=== PATIENT | male | born 1970 | race Two or more races ===

== ENCOUNTER 2020-05-05 10:15 | Emergency (ER) | payer OTHER, SELFPAY ==
[2020-05-05 10:40] VITALS: BP 152/79; PULSE 97; RESP 18; TEMP 36.6; O2SAT 99; BMI 27.4
[2020-05-05] MEDS: oxyCODONE HCl Immed Release 5 MG TABLET 10 MG PO (11:13)
--- NOTE | 2020-05-05 11:23 | ED.MALEGU ---
HPI - Male Genitourinary General Chief complaint: Urogenital-Female Stated complaint: SWELLING AND PAIN OF FORESKIN Time Seen by Provider: 05/05/20 10:28 Source: patient Mode of arrival: ambulatory Limitations: no limitations History of Present Illness HPI Narrative: THIS IS A 49 YEARS OLD MAN WHO PRESENTED AMBULATORY TO THE EMERGENCY ROOM A WITH THE CHIEF COMPLAINT NO SWELLING OF THE PENIS AND INABILITY TO RETRACT THE FORESKIN Complaint: other ( SWELLING IN PENIS) Onset (ago): day(s) (2) Duration: constant Location: penis Severity: severe Severity scale (1-10): 8 Quality: aching, burning and dull Relieving factors: none Exacerbating factors: none Associated symptoms: Reports denies other symptoms Related Data Allergies Allergy/AdvReac Type Severity Reaction Status Date / Time acetaminophen [Vicodin] Allergy Unknown Verified 10/30/12 00:00 hydrocodone [Vicodin] Allergy Unknown Verified 10/30/12 00:00 No Known Allergies Allergy Unverified 04/06/20 15:59 [No Known Allergies*] Review of Systems Review of Systems: Yes all other systems are reviewed and are negative Cardiovascular: Cardiovascular: Reports no additional cardiovascular complaints Respiratory: Respiratory: Reports no additional respiratory complaints Genitourinary: Genitourinary: Reports as per [facility] Past Medical History Attestation statement: The following information was validated with the patient. Medical History Asthma Diabetes 1.5, managed as type 1 Social History Social History Advance Directives: No Advance Directives Information Provided: Yes Physical Exam Vital Signs: Vital Signs: Vital Signs Temp Pulse Resp BP Pulse Ox 05/05/20 11:58 98 F 91 16 150/84 H 100 05/05/20 10:40 98 F 97 18 152/79 H 99 Body Mass Index 27.4 Const: General: cooperative and anxious Orientation/consciousness: oriented to person, oriented to time and patient oriented x3 HENMT: Head: Yes normal to inspection Eyes: General: appearance normal, both eyes and all related structures Neck: Neck: Yes normal visual inspection and Yes full ROM Chest: Chest palpation & inspection: normal inspection of the chest and normal palpation of entire chest wall Resp: Effort & Inspection: normal respiratory effort Cardio: Jugular venous distension: no JVD Rate: regular rate Rhythm: regular rhythm : Other: phimosis was present on physical examination Penis: uncircumcised and Localized penile swelling present Scrotum: scrotum normal Testes: Testes normal Skin: General skin exam: no rashes or lesions noted Neuro: General: oriented to person, oriented to time and patient oriented x3 Course Course Course Narrative: the phimosis was reduced by me successfully,he felt better after Procedures Procedure Narrative Procedure Narrative: Reducion of phimosis performed by me successfully MDM - Male Genitourinary Lab Data Result diagrams: 05/05/20 11:31 05/05/20 11:31 Labs: Lab Results 05/05/20 05/05/20 Range/Units 11:31 11:31 WBC 11.7 H (4.8-10.8) X10*3/uL RBC 4.05 L (4.60-5.80) X10*6/uL Hgb 13.1 L (14.0-18.0) g/dl Hct 37.1 L (42-52) % MCV 91.6 (80-98) fL MCH 32.3 (27.0-33.0) pg MCHC 35.3 (31.0-36.0) g/dl RDW 11.6 (11.0-16.0) % Plt Count 169 (160-400) X10*3/uL MPV 9.5 (9.4-12.4) fL Immature Gran % (Auto) 0.3 (0.0-0.4) % Neut % (Auto) 85.1 H (45-73) % Lymph % (Auto) 10.5 L (20-40) % [place] % (Auto) 3.7 (2-11) % Eos % (Auto) 0.2 (0-4) % Baso % (Auto) 0.2 (0-2) % Lymph # (Auto) 1.2 (1.2-4.9) X10*3/uL [place] # (Auto) 0.4 (0.1-1.2) X10*3/uL Eos # (Auto) 0.0 (0.0-0.4) X10*3/uL Baso # (Auto) 0.0 (0.0-0.2) X10*3/uL Abs Immat Gran (auto) 0.04 H (0.00-0.03) X10*3/uL Absolute Neuts (auto) 9.9 H (2.0-8.3) X10*3/uL Absolute Nucleated RBC 0.000 (0.0-0.012) X10*3/uL Nucleated RBC % (auto) 0.0 (0.0-0.2) /100WBC Urine Color YELLOW Urine Appearance CLEAR Urine pH 6.0 (5.0-8.0) Ur Specific [place] 1.025 (1.005-1.025) Urine Protein 2+ H (NEG-TRACE) MG/DL Urine Glucose (UA) >=1000 H (NEG) MG/DL Urine Ketones 15 (NEG) MG/DL Urine Blood 1+ H (NEG) Urine Nitrite NEG (NEG) Ur Leukocyte Esterase NEG (NEG) Urine RBC 0-2 (0) /HPF Urine WBC 0-2 (0-4) /HPF Ur Squamous Epith Cells TRACE /LPF Urine Bacteria NONE /LPF Discharge Plan Discharge Clinical Impression: Phimosis of penis Patient Disposition: Home, Self-Care Instructions: Phimosis (ED) Additional Instructions: please follow-up with the urologist as we discussed the return is worse Referrals: Marek Huff MD [Physician] - 3 days
[2020-05-05 11:39] LABS: MANUAL DIFF FLAG NO
[2020-05-05 11:49] LABS: Appearance Urine CLEAR; Color Urine YELLOW; Glucose Urine UA >=1000 MG/DL (NEG); Leukocyte Esterase Urine NEG (NEG); Nitrite Urine NEG (NEG); Specific Gravity - Urine 1.025 (1.005-1.025); Urine Blood 1+ (NEG); Urine Ketones 15 MG/DL (NEG); Urine Protein 2+ MG/DL (NEG-TRACE)
[2020-05-05 11:51] LABS: Basophils Percent Auto 0.2 % (0-2); Eosinophils Percent Auto 0.2 % (0-4); Hematocrit 37.1 % (42-52); Hemoglobin 13.1 g/dl (14.0-18.0); Imm Gran Abs Auto 0.04 X10*3/uL (0.00-0.03); Imm Gran Pct Auto 0.3 % (0.0-0.4); Lymphocytes Absolute Auto 1.2 X10*3/uL (1.2-4.9); Lymphocytes Percent Auto 10.5 % (20-40); Mean Corpuscular HGB Conc 35.3 g/dl (31.0-36.0); Mean Corpuscular Hemoglobin 32.3 pg (27.0-33.0); Mean Corpuscular Volume 91.6 fL (80-98); Mean Platelet Volume 9.5 fL (9.4-12.4); Monocytes Absolute Auto 0.4 X10*3/uL (0.1-1.2); Monocytes Percent Auto 3.7 % (2-11); Neutrophils Absolute Auto 9.9 X10*3/uL (2.0-8.3); Neutrophils Percent Auto 85.1 % (45-73); Platelet Count 169 X10*3/uL (160-400); Red Blood Count 4.05 X10*6/uL (4.60-5.80); Red Cell Distribution Width 11.6 % (11.0-16.0); White Blood Count 11.7 X10*3/uL (4.8-10.8)
[2020-05-05 11:58] VITALS: BP 150/84; PULSE 91; RESP 16; TEMP 36.6; O2SAT 100
[2020-05-05 12:01] LABS: RBC Urine 0-2 /HPF (0); Squamous Epithelial Cell Urine TRACE /LPF; WBC Urine 0-2 /HPF (0-4)
[2020-05-05 13:14] LABS: Alanine Aminotransferase 13 U/L (0-40); Albumin Level 3.7 g/dL (3.5-5.0); Alkaline Phosphatase 80 U/L (39-117); Anion Gap 10 (12-20); Aspartate Amino Transferase 13 U/L (5-37); Bilirubin Total 0.7 mg/dL (0.0-1.0); Blood Urea Nitrogen 22 mg/dL (9-16); Calcium 8.8 mg/dL (8.4-10.2); Carbon Dioxide 30 mmol/L (22-29); Chloride 101 mmol/L (96-108); Creatinine Clr Calc Pharmacy 65.5; Estimated Glomerular Filt Rate > 60; Glucose Random 382 mg/dL (60-115); Potassium 4.9 mmol/l (3.3-5.1); Sodium 136 mmol/L (135-145); Total Protein 5.9 g/dL (6.5-8.0)
== END 2020-05-05 12:36 | disposition home or self-care (01) ==
PROVIDERS: Emergency Provider Emergency Medicine; PCP Nurse Practitioner Family
DX: N47.1 Phimosis (principal); N48.89 Other specified disorders of penis; Z79.899 Other long term (current) drug therapy
CPT/HCPCS: 36415; 80053; 81001; 85025; 99283

== ENCOUNTER 2020-09-22 11:56 | Outpatient (REF) | payer OTHER, SELFPAY ==
--- NOTE | ~2020-09-22 | XR_ITS ---
EXAMINATION: XR CHEST CLINICAL INFORMATION: Failure to thrive. COMPARISON: None TECHNIQUE: 2 views of the chest were obtained. FINDINGS: No significant abnormality is noted involving the heart, lungs, mediastinum, bony thorax or soft tissues. XR/XR chest 2V IMPRESSION: Unremarkable chest exam.
== END 2020-09-22 11:57 | disposition home or self-care (01) ==
LOC: HO.XRAY 11:56
PROVIDERS: PCP Family Medicine; Visit Provider Family Medicine
DX: R62.7 Adult failure to thrive (principal)
CPT/HCPCS: 71046

== ENCOUNTER 2020-09-26 20:19 | Emergency (ER) | payer OTHER, SELFPAY ==
--- NOTE | ~2020-09-26 | US_ITS ---
EXAMINATION: US SCROTUM CLINICAL INFORMATION: Scrotal swelling. COMPARISON: None TECHNIQUE: A sonogram of the scrotum was performed assessing rubin-scale appearance and color Doppler flow. Spectral Doppler analysis of the arterial and venous flow were performed in the testes bilaterally. FINDINGS: The scrotal wall demonstrates significant thickening and hypervascularity. RIGHT: Right testicle measures 4.4 x 2.1 x 2.7 cm, volume 12.9 mL. No focal testicular parenchymal lesions are visualized. Spectral Doppler analysis of the arterial and venous flow is normal in the right testis. Right epididymal head is normal in size. No large right hydrocele or varicocele is seen. A tiny bit of fluid is present. Right epididymal Doppler flow is normal. LEFT: Left testicle measures 4.1 x 2.1 x 2.5 cm, volume 11.1 mL. No focal testicular parenchymal lesions are visualized. Spectral Doppler analysis of the arterial and venous flow is normal in the left testis. Left epididymal head is normal in size. No large left hydrocele or varicocele is seen. A tiny bit of fluid is present. Left epididymal Doppler flow is normal. US/US scrotum doppler IMPRESSION: Testes and epididymides appear normal. There is marked swelling and edema of the scrotum.
--- NOTE | ~2020-09-26 | US_ITS ---
EXAMINATION: US SCROTUM CLINICAL INFORMATION: Scrotal swelling. COMPARISON: None TECHNIQUE: A sonogram of the scrotum was performed assessing rubin-scale appearance and color Doppler flow. Spectral Doppler analysis of the arterial and venous flow were performed in the testes bilaterally. FINDINGS: The scrotal wall demonstrates significant thickening and hypervascularity. RIGHT: Right testicle measures 4.4 x 2.1 x 2.7 cm, volume 12.9 mL. No focal testicular parenchymal lesions are visualized. Spectral Doppler analysis of the arterial and venous flow is normal in the right testis. Right epididymal head is normal in size. No large right hydrocele or varicocele is seen. A tiny bit of fluid is present. Right epididymal Doppler flow is normal. LEFT: Left testicle measures 4.1 x 2.1 x 2.5 cm, volume 11.1 mL. No focal testicular parenchymal lesions are visualized. Spectral Doppler analysis of the arterial and venous flow is normal in the left testis. Left epididymal head is normal in size. No large left hydrocele or varicocele is seen. A tiny bit of fluid is present. Left epididymal Doppler flow is normal. US/US scrotum IMPRESSION: Testes and epididymides appear normal. There is marked swelling and edema of the scrotum.
[2020-09-26 20:38] VITALS: BP 136/76; BP 150/100; PULSE 14; PULSE 98; RESP 19; TEMP 37.1; O2SAT 100; BMI 30.9
[2020-09-26 20:57] LABS: Glucose Urine UA 500 MG/DL (NEG); Leukocyte Esterase Urine NEG (NEG); Nitrite Urine NEG (NEG); Specific Gravity - Urine 1.025 (1.005-1.025); Urine Blood 2+ (NEG); Urine Ketones NEG (NEG); Urine Protein 2+ MG/DL (NEG-TRACE)
[2020-09-26 20:58] LABS: Appearance Urine CLEAR; Color Urine YELLOW
[2020-09-26 21:05] LABS: WBC Urine 0 /HPF (0-4)
[2020-09-26 21:43] LABS: Glucose, Whole Blood 100 mg/dL (60-115)
--- NOTE | 2020-09-26 22:03 | ED_ITS ---
HPI - Male Genitourinary General Chief complaint: Urogenital-Male Stated complaint: SWOLLEN TESTICLES Time Seen by Provider: 09/26/20 22:03 Source: patient Mode of arrival: ambulatory Limitations: no limitations History of Present Illness HPI Narrative: Patient with no known significant past medical history complain ing of swelling of his scrotum also noticed to have swelling of the legs for last few days denies any trauma no urinary symptom denies any liver problems denies any alcohol use no shortness of breath no chest pain MD Complaint: testicle swelling Related Data Previous Rx's Medication Instructions Recorded hydrochlorothiazide 50 mg PO DAILY #30 tab 09/26/20 Allergies Allergy/AdvReac Type Severity Reaction Status Date / Time acetaminophen [Vicodin] Allergy Unknown Unknown Verified 09/26/20 20:41 hydrocodone [Vicodin] Allergy Unknown Unknown Verified 09/26/20 20:41 Review of Systems Review of Systems: Constitutional : No Weight loss, No Fever, No Chills ENT/Mouth : No sore throat, No Rhinorrhea Eyes: No Eye Pain, No Swelling Cardiovascular : No Chest Pain, no palpitations Respiratory : No Cough, No Sputum, no shortness of breath Gastrointestinal : no Nausea, No Vomiting, No Diarrhea, No abdominal Pain, no black stools Genitourinary : No Dysuria, No Urinary Frequency Musculoskeletal : No joint pain, No Myalgias, No Joint Swelling Skin : No Skin Lesions, No rash Neuro : No Weakness, No Numbness, No Dizziness, No Headache Psych : No Anxiety/Panic, No Depression Heme/Lymph: No Bruising, No Lymphadenopathy Endocrine : No Polyuria, No Polydipsia All other systems reviewed and are negative PMFSH Past Medical History Medical History Asthma Diabetes 1.5, managed as type 1 Social History Social History Alcohol intake: unknown Smoking Status: Smoker, status unknown Use of substances other than those prescribed or required for medical reasons: Unknown Advance Directives: No Advance Directives Information Provided: Yes Physical Exam Vital Signs: Vital Signs: Last Vital Signs Temp 98.7 F 09/26/20 20:38 Pulse 98 09/26/20 20:38 Resp 19 09/26/20 20:38 BP 136/76 09/26/20 20:38 Pulse Ox 100 03/09/21 20:38 Body Mass Index 30.9 Const: General: comfortable and no acute distress Nutritional Appearance: average body habitus Orientation/consciousness: patient oriented x3 HENMT: Head: Yes normal to inspection and Yes normocephalic Ears: hearing grossly normal bilaterally General nose exam: Normal external nose present Eyes: General: appearance normal, both eyes and all related structures Sclerae: sclerae normal Corneas: corneas normal Neck: Neck: Yes normal visual inspection Thyroid: Thyroid normal Chest: Chest palpation & inspection: normal palpation of entire chest wall Resp: Effort & Inspection: normal respiratory effort Auscultation: clear to auscultation bilaterally, no crackles, no rales and no rhonchi Cardio: Jugular venous distension: no JVD Palpation: normal PMI Rate: regular rate Rhythm: regular rhythm Heart sounds: S1 normal heart sound present and S2 normal heart sound present Peripheral pulses: Peripheral pulses 2+ throughout GI: Inspection: Yes normal to inspection Palpation (GI): Soft to palpation and nontender Auscultation: normal bowel sounds : General: Yes no CVA tenderness Penis: normal penis Meatus: meatus normal Scrotum: edematous, no hydroceles, no inguinal hernias and no masses Testes: Testes normal Back/Spine/Pelvis: Back: no CVA tenderness Thoracic/Lumbar Spine: thoracic and lumbar spine normal to inspection Skin: General skin exam: no rashes or lesions noted Neuro: General: patient oriented x3 and no focal motor deficits Extrem: General: Yes full ROM, Yes no calf tenderness and Yes edema (2+ p itting edema) MDM - Male Genitourinary MDM Narrative Medical decision making narrative: Patient with scrotal swelling which he says has developed acutely today and leg edema likely from fluid retention clinically not hydrocele. Will do the ultrasound of the scrotum do the basic labs 23:50. Patient labs showed normal liver functions normal LFTs except low albumin levels, normal BNP ultrasound was showing only edema of the skin of scrotum will discharge patient home on hydrochlorothiazide advised to follow-up with PCP Lab Data Result diagrams: 09/26/20 22:43 09/26/20 22:43 Labs: Lab Results 09/26/20 09/26/20 09/26/20 Range/Units 20:47 21:16 22:43 WBC 7.8 (4.8-10.8) X10*3/uL RBC 3.75 L (4.60-5.80) X10*6/uL Hgb 11.9 L (14.0-18.0) g/dl Hct 35.2 L (42-52) % MCV 93.9 (80-98) fL MCH 31.7 (27.0-33.0) pg MCHC 33.8 (31.0-36.0) g/dl RDW 11.8 (11.0-16.0) % Plt Count 177 (160-400) X10*3/uL MPV 9.1 L (9.4-12.4) fL Immature Gran % (Auto) 0.4 (0.0-0.4) % Neut % (Auto) 60.6 (45-73) % Lymph % (Auto) 29.1 (20-40) % [place] % (Auto) 7.9 (2-11) % Eos % (Auto) 1.7 (0-4) % Baso % (Auto) 0.3 (0-2) % Lymph # (Auto) 2.3 (1.2-4.9) X10*3/uL [place] # (Auto) 0.6 (0.1-1.2) X10*3/uL Eos # (Auto) 0.1 (0.0-0.4) X10*3/uL Baso # (Auto) 0.0 (0.0-0.2) X10*3/uL Abs Immat Gran (auto) 0.03 (0.00-0.03) X10*3/uL Absolute Neuts (auto) 4.8 (2.0-8.3) X10*3/uL Absolute Nucleated RBC 0.000 (0.0-0.012) X10*3/uL Nucleated RBC % (auto) 0.0 (0.0-0.2) /100WBC Sodium (135-145) mmol/L Potassium (3.3-5.1) mmol/L Chloride (96-108) mmol/L Carbon Dioxide (22-29) mmol/L Anion Gap (12-20) BUN (9-16) mg/dL Creatinine (0.5-1.4) mg/dL Estim Creat Clear Calc Estimated GFR POC Glucose 100 (60-115) mg/dL Random Glucose (60-115) mg/dL Calcium (8.4-10.2) mg/dL Total Bilirubin (0.0-1.0) mg/dL Direct Bilirubin (0.0-0.5) mg/dL AST (5-37) U/L ALT (0-40) U/L Alkaline Phosphatase (39-117) U/L B-Natriuretic Peptide (<100) pg/mL Total Protein (6.5-8.0) g/dL Albumin (3.5-5.0) g/dL Urine Color YELLOW Urine Appearance CLEAR Urine pH 6.0 (5.0-8.0) Ur Specific [place] 1.025 (1.005-1.025) Urine Protein 2+ H (NEG-TRACE) MG/DL Urine Glucose (UA) 500 H (NEG) MG/DL Urine Ketones NEG (NEG) MG/DL Urine Blood 2+ H (NEG) Urine Nitrite NEG (NEG) Ur Leukocyte Esterase NEG (NEG) Urine RBC 1-4 (0) /HPF Urine WBC 0 (0-4) /HPF Ur Squamous Epith Cells NONE /LPF Urine Bacteria NONE /LPF 09/26/20 09/26/20 09/26/20 Range/Units 22:43 22:43 23:32 WBC (4.8-10.8) X10*3/uL RBC (4.60-5.80) X10*6/uL Hgb (14.0-18.0) g/dl Hct (42-52) % MCV (80-98) fL MCH (27.0-33.0) pg MCHC (31.0-36.0) g/dl RDW (11.0-16.0) % Plt Count (160-400) X10*3/uL MPV (9.4-12.4) fL Immature Gran % (Auto) (0.0-0.4) % Neut % (Auto) (45-73) % Lymph % (Auto) (20-40) % [place] % (Auto) (2-11) % Eos % (Auto) (0-4) % Baso % (Auto) (0-2) % Lymph # (Auto) (1.2-4.9) X10*3/uL [place] # (Auto) (0.1-1.2) X10*3/uL Eos # (Auto) (0.0-0.4) X10*3/uL Baso # (Auto) (0.0-0.2) X10*3/uL Abs Immat Gran (auto) (0.00-0.03) X10*3/uL Absolute Neuts (auto) (2.0-8.3) X10*3/uL Absolute Nucleated RBC (0.0-0.012) X10*3/uL Nucleated RBC % (auto) (0.0-0.2) /100WBC Sodium 144 (135-145) mmol/L Potassium 4.3 (3.3-5.1) mmol/L Chloride 106 (96-108) mmol/L Carbon Dioxide 32 H (22-29) mmol/L Anion Gap 10 L (12-20) BUN 14 (9-16) mg/dL Creatinine 1.06 (0.5-1.4) mg/dL Estim Creat Clear Calc 78.5 Estimated GFR > 60 POC Glucose 117 H (60-115) mg/dL Random Glucose 88 D (60-115) mg/dL Calcium 8.6 (8.4-10.2) mg/dL Total Bilirubin 0.2 (0.0-1.0) mg/dL Direct Bilirubin < 0.2 (0.0-0.5) mg/dL AST 45 H D (5-37) U/L ALT 38 (0-40) U/L Alkaline Phosphatase 77 (39-117) U/L B-Natriuretic Peptide 129 H (<100) pg/mL Total Protein 5.5 L (6.5-8.0) g/dL Albumin 3.4 L (3.5-5.0) g/dL Urine Color Urine Appearance Urine pH (5.0-8.0) Ur Specific [place] (1.005-1.025) Urine Protein (NEG-TRACE) MG/DL Urine Glucose (UA) (NEG) MG/DL Urine Ketones (NEG) MG/DL Urine Blood (NEG) Urine Nitrite (NEG) Ur Leukocyte Esterase (NEG) Urine RBC (0) /HPF Urine WBC (0-4) /HPF Ur Squamous Epith Cells /LPF Urine Bacteria /LPF Discharge Plan Discharge Clinical Impression: Dependent edema Patient Disposition: Home, Self-Care Instructions: Edema (ED) Additional Instructions: Take water pill as advised and follow with PCP for further workup, decrease salt intake Keep your legs elevated for swelling of scrotum is from fluid retention Prescriptions: New hydrochlorothiazide 50 mg tablet 50 mg PO DAILY Qty: 30 RF: 0
[2020-09-26 22:50] LABS: MANUAL DIFF FLAG NO
[2020-09-26 22:51] LABS: Basophils Percent Auto 0.3 % (0-2); Eosinophils Absolute Auto 0.1 X10*3/uL (0.0-0.4); Eosinophils Percent Auto 1.7 % (0-4); Hematocrit 35.2 % (42-52); Hemoglobin 11.9 g/dl (14.0-18.0); Imm Gran Abs Auto 0.03 X10*3/uL (0.00-0.03); Imm Gran Pct Auto 0.4 % (0.0-0.4); Lymphocytes Absolute Auto 2.3 X10*3/uL (1.2-4.9); Lymphocytes Percent Auto 29.1 % (20-40); Mean Corpuscular HGB Conc 33.8 g/dl (31.0-36.0); Mean Corpuscular Hemoglobin 31.7 pg (27.0-33.0); Mean Corpuscular Volume 93.9 fL (80-98); Mean Platelet Volume 9.1 fL (9.4-12.4); Monocytes Absolute Auto 0.6 X10*3/uL (0.1-1.2); Monocytes Percent Auto 7.9 % (2-11); Neutrophils Absolute Auto 4.8 X10*3/uL (2.0-8.3); Neutrophils Percent Auto 60.6 % (45-73); Platelet Count 177 X10*3/uL (160-400); Red Blood Count 3.75 X10*6/uL (4.60-5.80); Red Cell Distribution Width 11.8 % (11.0-16.0); White Blood Count 7.8 X10*3/uL (4.8-10.8)
[2020-09-26 23:33] LABS: Alanine Aminotransferase 38 U/L (0-40); Albumin Level 3.4 g/dL (3.5-5.0); Alkaline Phosphatase 77 U/L (39-117); Anion Gap 10 (12-20); Aspartate Amino Transferase 45 U/L (5-37); Bilirubin Direct < 0.2 mg/dL (0.0-0.5); Bilirubin Total 0.2 mg/dL (0.0-1.0); Blood Urea Nitrogen 14 mg/dL (9-16); Calcium 8.6 mg/dL (8.4-10.2); Carbon Dioxide 32 mmol/L (22-29); Chloride 106 mmol/L (96-108); Creatinine Clr Calc Pharmacy 78.5; Estimated Glomerular Filt Rate > 60; Glucose Random 88 mg/dL (60-115); Potassium 4.3 mmol/L (3.3-5.1); Sodium 144 mmol/L (135-145); Total Protein 5.5 g/dL (6.5-8.0)
[2020-09-26 23:36] LABS: Glucose, Whole Blood 117 mg/dL (60-115)
[2020-09-26 23:36] LABS: B Type Natriuretic Peptide 129 pg/mL (<100)
[2020-09-27 08:55] LABS: CT PCR NOT DETECTED (Not Detect.); NG PCR NOT DETECTED (Not Detect.)
== END 2020-09-27 00:31 | disposition home or self-care (01) ==
PROVIDERS: Emergency Provider Internal Medicine
DX: N50.819 Testicular pain, unspecified (principal); N44.8 Other noninflammatory disorders of the testis; R60.0 Localized edema; Z79.899 Other long term (current) drug therapy
CPT/HCPCS: 36415; 76870; 80048; 80076; 81001; 82947; 83880; 85025; 87491; 87591; 93975; 99284

== ENCOUNTER → 2020-09-28 10:50 | Outpatient (BNVA) | payer OTHER, SELFPAY | PROVIDERS: PCP Emergency Medicine; Visit Provider Internal Medicine | DX: I11.0 Hypertensive heart disease with heart failure (principal); I50.9 Heart failure, unspecified; E78.5 Hyperlipidemia, unspecified; E11.8 Type 2 diabetes mellitus with unspecified complications; F14.90 Cocaine use, unspecified, uncomplicated; F11.90 Opioid use, unspecified, uncomplicated | CPT/HCPCS: 93005; 99202 ==

== ENCOUNTER 2020-10-06 12:50 | Outpatient (REF) | payer OTHER, SELFPAY ==
--- NOTE | ~2020-10-06 | CT_ITS ---
EXAMINATION: CT ABDOMEN AND PELVIS WITHOUT AND WITH CONTRAST CLINICAL INFORMATION: Edema. Abdominal pain. COMPARISON: Previous CT of the abdomen and pelvis January 2010 TECHNIQUE: Multidetector volumetric imaging was performed of the abdomen and pelvis before and after the IV administration of 85 mL of Omnipaque 350 intravenous contrast. Sagittal and coronal reformatted images were obtained on the technologist's workstation. This CT examination was performed using dose optimization techniques as appropriate, variously including the following: *Automated exposure control *Adjustment of mA and/or kV according to patient size (this includes techniques or standardized protocols for targeted exams where dose is matched to indication/reason for exam; i.e. extremities or head) *Use of iterative reconstruction technique DLP: 663 mGy-cm FINDINGS: LUNG BASES: There are small bilateral pleural effusions. There are bilateral subsegmental atelectasis. LIVER, GALLBLADDER, AND BILIARY TREE: The liver is normal in size, shape, and attenuation. No focal hepatic lesion or biliary ductal dilatation is present. The gallbladder is unremarkable with no evidence of radiopaque gallstones, gallbladder wall thickening, or obvious pericholecystic inflammatory changes. PANCREAS: Unremarkable SPLEEN: Unremarkable ADRENAL GLANDS: Unremarkable KIDNEYS AND URETERS: The kidneys are normal in size, shape, and attenuation. No hydronephrosis, hydroureter, or calculi seen. No perinephric stranding. BLADDER: Unremarkable GASTROINTESTINAL TRACT: There is wall thickening of the right and colon and transverse and left colon suggestive of colitis. No evidence of obstruction, perforation or abscess is seen. The small and large bowel is otherwise unremarkable. The appendix is unremarkable. ABDOMINAL WALL: No significant hernia is appreciated. LYMPH NODES: There is shotty bilateral inguinal lymphadenopathy. No other adenopathy is seen. There is no ascites. VASCULAR: Unremarkable PELVIC VISCERA: Unremarkable OSSEOUS STRUCTURES: Unremarkable CT/CT abdomen pelvis wo/w con IMPRESSION: Colitis of the right, transverse and left colon.
[2020-10-06 13:50] LABS: Alanine Aminotransferase 50 U/L (0-40); Albumin Level 3.6 g/dL (3.5-5.0); Alkaline Phosphatase 138 U/L (39-117); Anion Gap 9 (12-20); Aspartate Amino Transferase 21 U/L (5-37); Bilirubin Total 0.5 mg/dL (0.0-1.0); Blood Urea Nitrogen 17 mg/dL (9-16); Calcium 8.7 mg/dL (8.4-10.2); Carbon Dioxide 32 mmol/L (22-29); Chloride 98 mmol/L (96-108); Estimated Glomerular Filt Rate > 60; Potassium 4.7 mmol/L (3.3-5.1); Sodium 134 mmol/L (135-145); Total Protein 5.7 g/dL (6.5-8.0)
[2020-10-06 14:04] LABS: Glucose Random 400 mg/dL (60-115)
== END 2020-10-06 12:51 | disposition home or self-care (01) ==
LOC: HO.CT 12:50
PROVIDERS: Visit Provider Emergency Medicine
DX: R10.9 Unspecified abdominal pain (principal); R60.0 Localized edema
CPT/HCPCS: 36415; 74178; 80053; Q9967

== ENCOUNTER 2020-10-06 18:02 | Emergency (ER) | payer OTHER, SELFPAY ==
[2020-10-06 18:49] VITALS: BP 140/77; PULSE 97; RESP 18; TEMP 36.8; O2SAT 95; BMI 27.4
[2020-10-06 19:02] LABS: Glucose, Whole Blood 178 mg/dL (60-115)
--- NOTE | 2020-10-06 21:58 | ED_ITS ---
HPI - General Adult General Chief complaint: General Medical Stated complaint: Abnormal CT scan Time Seen by Provider: 10/06/20 21:52 Source: patient Mode of arrival: ambulatory Limitations: no limitations History of Present Illness HPI narrative: Patient comes emergency room , stating that his primary care physician asked him to come to the emergency room because he has an abdominal infection. Patient states he has been having diffuse abdominal pain/cramping for 6 months, no vomiting or diarrhea, no fever. He has had a CT scan done today which showed colitis. Patient states his symptoms are no different than when it started 6 months ago Related Data Previous Rx's Medication Instructions Recorded hydrochlorothiazide 50 mg PO DAILY #30 tab 09/26/20 levofloxacin 500 mg PO DAILY #7 tab 10/07/20 metronidazole 500 mg PO BID #14 tab 10/07/20 Allergies Allergy/AdvReac Type Severity Reaction Status Date / Time acetaminophen [Vicodin] Allergy Unknown Unknown Verified 09/26/20 20:41 hydrocodone [Vicodin] Allergy Unknown Unknown Verified 09/26/20 20:41 Review of Systems Review of Systems: Constitutional : No Weight loss, No Fever, No Chills, No Night Sweats, No Fatigue, No Malaise ENT/Mouth : No Hearing loss, No Ear Pain, No Nasal Congestion, No Sinus Pain, No Hoarseness, No sore throat, No Rhinorrhea, No Swallowing Difficulty Eyes: No Eye Pain, No Swelling, No Redness, No Foreign Body, No Discharge, No Vision Changes Cardiovascular : No Chest Pain, No SOB, No Dyspnea on Exertion, No Orthopnea, No Edema, No Palpitations Respiratory : No Cough, No Sputum, No Wheezing, No Smoke Exposure, No Dyspnea Gastrointestinal : No Nausea, No Vomiting, No Diarrhea, No Constipation, complaining of abdominal bloating, fullness sensation, dull achy diffuse intermittent pain, No Hematochezia, No Melena Genitourinary : no irregular bleeding, No Dysuria, No Urinary Frequency, No Hematuria, No Urinary Incontinence, No Urgency, No Flank Pain, No Urinary Flow Changes, No Hesitancy Musculoskeletal : No joint pain, No Myalgias, No Joint Swelling Skin : No Skin Lesions, No rash Neuro : No Weakness, No Numbness, No Paresthesias, No Loss of Consciousness, No Dizziness, No Headache Psych : No Anxiety/Panic, No Depression, No SI/HI/AH/VH, No Social Issues, Heme/Lymph: No Bruising, No Bleeding,No Lymphadenopathy Endocrine : No Polyuria, No Polydipsia, No Temperature Intolerance [facility] [place] Past Medical History Medical History (Updated 10/07/20 @ 00:16 by Bharti Whaley MD) Asthma Diabetes 1.5, managed as type 1 Hypertension Surgical History (Updated 10/06/20 @ 22:00 by Bharti Whaley MD) H/O exploratory laparotomy Social History Social History Alcohol intake: unknown Smoking Status: Smoker, status unknown Advance Directives: No Advance Directives Information Provided: Yes Physical Exam Vital Signs: Vital Signs: Last Vital Signs Temp 98.7 F 10/06/20 23:20 Pulse 80 10/06/20 23:20 Resp 16 10/06/20 23:20 BP 145/73 H 10/06/20 23:20 Pulse Ox 95 10/06/20 23:20 Body Mass Index 27.4 Appearance: Alert. Oriented X3. No acute distress. Eyes: Pupils equal, round and reactive to light. ENT: Pharynx normal. Neck: Normal inspection. Neck supple. No lymph nodes noted. No crepitus CVS: Normal heart rate and rhythm. Pulses normal. Normal S1 and S2 Respiratory: No respiratory distress. Breath sounds normal. No Wheezing. No rales Abdomen: Soft , mild discomfort in lower quadrants. No rigidity. No distention. good BS x4 Skin: Skin warm and dry. Normal skin color. Normal skin turgor. Extremities: No lower extremity edema. No lower extremity edema. No Lacerations. No Rash Neuro: Oriented X 3. No motor deficit. No sensory deficit. Moving all extermities. No slurred speech. Course Course Course Narrative: I discussed the labs with the patient, patient will be started on antibiotics, instructed to follow-up with his primary care physician. Patient was given 1 dose of levofloxacin p.o. and metronidazole. Medical Decision Making Lab Data Result diagrams: 10/06/20 22:30 10/06/20 22:30 Labs: Lab Results 10/06/20 10/06/20 10/06/20 Range/Units 18:56 22:30 22:30 WBC 9.4 (4.8-10.8) X10*3/uL RBC 3.38 L (4.60-5.80) X10*6/uL Hgb 10.8 L (14.0-18.0) g/dl Hct 31.7 L (42-52) % MCV 93.8 (80-98) fL MCH 32.0 (27.0-33.0) pg MCHC 34.1 (31.0-36.0) g/dl RDW 12.5 (11.0-16.0) % Plt Count 161 (160-400) X10*3/uL MPV 8.8 L (9.4-12.4) fL Immature Gran % (Auto) 0.4 (0.0-0.4) % Neut % (Auto) 69.7 (45-73) % Lymph % (Auto) 22.8 (20-40) % [place] % (Auto) 5.6 (2-11) % Eos % (Auto) 1.3 (0-4) % Baso % (Auto) 0.2 (0-2) % Lymph # (Auto) 2.1 (1.2-4.9) X10*3/uL [place] # (Auto) 0.5 (0.1-1.2) X10*3/uL Eos # (Auto) 0.1 (0.0-0.4) X10*3/uL Baso # (Auto) 0.0 (0.0-0.2) X10*3/uL Abs Immat Gran (auto) 0.04 H (0.00-0.03) X10*3/uL Absolute Neuts (auto) 6.6 (2.0-8.3) X10*3/uL Absolute Nucleated RBC 0.000 (0.0-0.012) X10*3/uL Nucleated RBC % (auto) 0.0 (0.0-0.2) /100WBC Sodium 136 (135-145) mmol/L Potassium 4.1 (3.3-5.1) mmol/L Chloride 100 (96-108) mmol/L Carbon Dioxide 32 H (22-29) mmol/L Anion Gap 8 L (12-20) BUN 14 (9-16) mg/dL Creatinine 1.16 (0.5-1.4) mg/dL Estim Creat Clear Calc 70.3 Estimated GFR > 60 POC Glucose 178 H (60-115) mg/dL Random Glucose 335 H (60-115) mg/dL Calcium 8.1 L D (8.4-10.2) mg/dL Total Bilirubin 0.3 (0.0-1.0) mg/dL Direct Bilirubin < 0.2 (0.0-0.5) mg/dL AST 21 (5-37) U/L ALT 42 H (0-40) U/L Alkaline Phosphatase 123 H (39-117) U/L Total Protein 5.2 L (6.5-8.0) g/dL Albumin 3.3 L (3.5-5.0) g/dL Lipase 15 (8-78) U/L // Range/Units 23:18 WBC (4.8-10.8) X10*3/uL RBC (4.60-5.80) X10*6/uL Hgb (14.0-18.0) g/dl Hct (42-52) % MCV (80-98) fL MCH (27.0-33.0) pg MCHC (31.0-36.0) g/dl RDW (11.0-16.0) % Plt Count (160-400) X10*3/uL MPV (9.4-12.4) fL Immature Gran % (Auto) (0.0-0.4) % Neut % (Auto) (45-73) % Lymph % (Auto) (20-40) % [place] % (Auto) (2-11) % Eos % (Auto) (0-4) % Baso % (Auto) (0-2) % Lymph # (Auto) (1.2-4.9) X10*3/uL [place] # (Auto) (0.1-1.2) X10*3/uL Eos # (Auto) (0.0-0.4) X10*3/uL Baso # (Auto) (0.0-0.2) X10*3/uL Abs Immat Gran (auto) (0.00-0.03) X10*3/uL Absolute Neuts (auto) (2.0-8.3) X10*3/uL Absolute Nucleated RBC (0.0-0.012) X10*3/uL Nucleated RBC % (auto) (0.0-0.2) /100WBC Sodium (135-145) mmol/L Potassium (3.3-5.1) mmol/L Chloride (96-108) mmol/L Carbon Dioxide (22-29) mmol/L Anion Gap (12-20) BUN (9-16) mg/dL Creatinine (0.5-1.4) mg/dL Estim Creat Clear Calc Estimated GFR POC Glucose 269 H (60-115) mg/dL Random Glucose (60-115) mg/dL Calcium (8.4-10.2) mg/dL Total Bilirubin (0.0-1.0) mg/dL Direct Bilirubin (0.0-0.5) mg/dL AST (5-37) U/L ALT (0-40) U/L Alkaline Phosphatase (39-117) U/L Total Protein (6.5-8.0) g/dL Albumin (3.5-5.0) g/dL Lipase (8-78) U/L Imaging Data CT scan - abdomen: Radiologist's impression: LUNG BASES: There are small bilateral pleural effusions. There are bilateral subsegmental atelectasis. LIVER, GALLBLADDER, AND BILIARY TREE: The liver is normal in size, shape, and attenuation. No focal hepatic lesion or biliary ductal dilatation is present. The gallbladder is unremarkable with no evidence of radiopaque gallstones, gallbladder wall thickening, or obvious pericholecystic inflammatory changes. PANCREAS: Unremarkable SPLEEN: Unremarkable ADRENAL GLANDS: Unremarkable KIDNEYS AND URETERS: The kidneys are normal in size, shape, and attenuation. No hydronephrosis, hydroureter, or calculi seen. No perinephric stranding. BLADDER: Unremarkable GASTROINTESTINAL TRACT: There is wall thickening of the right and colon and transverse and left colon suggestive of colitis. No evidence of obstruction, perforation or abscess is seen. The small and large bowel is otherwise unremarkable. The appendix is unremarkable. ABDOMINAL WALL: No significant hernia is appreciated. LYMPH NODES: There is shotty bilateral inguinal lymphadenopathy. No other adenopathy is seen. There is no ascites. VASCULAR: Unremarkable PELVIC VISCERA: Unremarkable OSSEOUS STRUCTURES: Unremarkable CT/CT abdomen pelvis wo/w con IMPRESSION: Colitis of the right, transverse and left colon. Discharge Plan Discharge Clinical Impression: Colitis Patient Disposition: Home, Self-Care Instructions: Colitis (ED) Additional Instructions: Please follow-up with your primary care physician tomorrow. If you have any worsening or new symptoms, please return to the emergency room or call 911 Prescriptions: New levofloxacin 500 mg tablet 500 mg PO DAILY Qty: 7 RF: 0 metronidazole 500 mg tablet 500 mg PO BID Qty: 14 RF: 0 No Action hydrochlorothiazide 50 mg tablet 50 mg PO DAILY Qty: 30 RF: 0
[2020-10-06 22:37] LABS: MANUAL DIFF FLAG NO
[2020-10-06 22:38] LABS: Basophils Percent Auto 0.2 % (0-2); Eosinophils Absolute Auto 0.1 X10*3/uL (0.0-0.4); Eosinophils Percent Auto 1.3 % (0-4); Hematocrit 31.7 % (42-52); Hemoglobin 10.8 g/dl (14.0-18.0); Imm Gran Abs Auto 0.04 X10*3/uL (0.00-0.03); Imm Gran Pct Auto 0.4 % (0.0-0.4); Lymphocytes Absolute Auto 2.1 X10*3/uL (1.2-4.9); Lymphocytes Percent Auto 22.8 % (20-40); Mean Corpuscular HGB Conc 34.1 g/dl (31.0-36.0); Mean Corpuscular Volume 93.8 fL (80-98); Mean Platelet Volume 8.8 fL (9.4-12.4); Monocytes Absolute Auto 0.5 X10*3/uL (0.1-1.2); Monocytes Percent Auto 5.6 % (2-11); Neutrophils Absolute Auto 6.6 X10*3/uL (2.0-8.3); Neutrophils Percent Auto 69.7 % (45-73); Platelet Count 161 X10*3/uL (160-400); Red Blood Count 3.38 X10*6/uL (4.60-5.80); Red Cell Distribution Width 12.5 % (11.0-16.0); White Blood Count 9.4 X10*3/uL (4.8-10.8)
[2020-10-06 23:05] LABS: Alanine Aminotransferase 42 U/L (0-40); Albumin Level 3.3 g/dL (3.5-5.0); Alkaline Phosphatase 123 U/L (39-117); Anion Gap 8 (12-20); Aspartate Amino Transferase 21 U/L (5-37); Bilirubin Direct < 0.2 mg/dL (0.0-0.5); Bilirubin Total 0.3 mg/dL (0.0-1.0); Blood Urea Nitrogen 14 mg/dL (9-16); Calcium 8.1 mg/dL (8.4-10.2); Carbon Dioxide 32 mmol/L (22-29); Chloride 100 mmol/L (96-108); Creatinine Clr Calc Pharmacy 70.3; Estimated Glomerular Filt Rate > 60; Glucose Random 335 mg/dL (60-115); Lipase 15 U/L (8-78); Potassium 4.1 mmol/L (3.3-5.1); Sodium 136 mmol/L (135-145); Total Protein 5.2 g/dL (6.5-8.0)
[2020-10-06 23:20] VITALS: BP 145/73; PULSE 80; RESP 16; TEMP 37.1; O2SAT 95
[2020-10-06 23:23] LABS: Glucose, Whole Blood 269 mg/dL (60-115)
[2020-10-07] MEDS: metroNIDAZOLE 500 MG TABLET PO (00:29)
[2020-10-07] MEDS: levoFLOXacin 500 MG TABLET PO (00:29)
== END 2020-10-07 00:30 | disposition home or self-care (01) ==
PROVIDERS: Emergency Provider Emergency Medicine
DX: K52.9 Noninfective gastroenteritis and colitis, unspecified (principal); E13.9 Other specified diabetes mellitus without complications; I10 Essential (primary) hypertension
CPT/HCPCS: 36415; 80048; 80076; 82947; 83690; 85025; 99283

== ENCOUNTER 2021-12-20 22:14 | Inpatient (IN) | payer OTHER, SELFPAY ==
--- NOTE | ~2021-12-20 | XR_ITS ---
EXAMINATION: XR CHEST CLINICAL INFORMATION: Edema. COMPARISON: None TECHNIQUE: Frontal view of the chest was obtained. 10:51 PM FINDINGS: Lung volume low. Linear atelectasis at both lung bases. No acute airspace disease. No pulmonary vascular congestion. Heart size normal. No pulmonary vascular congestion. XR/XR chest 1V IMPRESSION: No acute abnormality of chest.
[2021-12-20 22:23] VITALS: BP 154/85; PULSE 103; O2SAT 98
[2021-12-20 22:24] VITALS: BP 138/67; PULSE 105; RESP 18; TEMP 37.1; O2SAT 96
--- NOTE | 2021-12-20 22:49 | ECG_ITS ---
Test Reason : SOB Blood Pressure : / mmHG Vent. Rate : 102 BPM Atrial Rate : 102 BPM P-R Int : 190 ms QRS Dur : 084 ms QT Int : 356 ms P-R-T Axes : 059 024 037 degrees QTc Int : 463 ms Sinus tachycardia Otherwise normal ECG When compared with ECG of 01-JUN-2019 03:12, No significant change was found Referred By: Mitchell Fiore Electronically Signed By:CHUCKIE IRWIN MD
--- NOTE | 2021-12-20 22:54 | ED_ITS ---
HPI - General Adult General Chief complaint: Upper Respiratory Symptoms Stated complaint: SOB Time Seen by Provider: 12/20/21 22:47 Source: patient Mode of arrival: ambulatory History of Present Illness HPI narrative: 51-year-old male came in for evaluation of scrotal swelling as well as leg swelling, patient claimed that he gained 20 lb over the last 2 weeks. Patient has multiple vascular risk factors including type 2 diabetes, hypertension, dyslipidemia on medications.? He also uses cocaine as well as heroin actively (last use was few weeks ago claimed that he quit now)he has been having increasing swelling in his lower extremities as well as scrotum.? There is no history of any coronary disease or myocardial infarction or cardiomyopathy or any other cardiac issues according to him.? He states that he also feels slightly short of breath but not profound. No orthopnea, no PND, No anginal- type symptoms. Related Data Home Medications Medication Instructions Recorded Confirmed acetaminophen 500 mg capsule 1,000 mg PO Q6H PRN 09/28/20 09/28/20 albuterol sulfate 90 mcg/actuation 2 puff INHALATION Q6H PRN 09/28/20 09/28/20 aerosol inhaler ammonium lactate 12 % topical cream 1 appl TOPICAL BID 09/28/20 09/28/20 atorvastatin 20 mg tablet 20 mg PO DAILY 09/28/20 09/28/20 clonidine HCl 0.1 mg tablet 0.1 mg PO BID 09/28/20 09/28/20 clotrimazole 1 % topical cream 1 appl TOPICAL BID 09/28/20 09/28/20 emtricitabine 200 mg-tenofovir 1 tab PO DAILY 09/28/20 09/28/20 alafenamide fumarate 25 mg tablet (Descovy) fluticasone propionate 110 1 puff INHALATION BID 09/28/20 09/28/20 mcg/actuation HFA aerosol inhaler (Flovent HFA) fluticasone propionate 50 1 spray INTRANASAL DAILY PRN 09/28/20 09/28/20 mcg/actuation nasal spray,suspension (Allergy Relief (fluticasone)) furosemide 40 mg tablet (Lasix) 40 mg PO DAILY 09/28/20 09/28/20 insulin admin supplies (InPen (for #1 ea 09/28/20 09/28/20 Novolog or Fiasp)) insulin detemir U-100 100 unit/mL 100 unit SUBCUT DAILY 09/28/20 09/28/20 (3 mL) subcutaneous pen (Levemir FlexTouch U-100 Insulin) lisinopril 20 mg tablet 20 mg PO DAILY 09/28/20 09/28/20 metformin 500 mg tablet 500 mg PO BID 09/28/20 09/28/20 multivitamin 1 tab PO DAILY 09/28/20 09/28/20 naloxone 4 mg/actuation nasal 4 mg INTRANASAL Q2M PRN 09/28/20 09/28/20 spray (Narcan) olanzapine 10 mg tablet (Zyprexa) 10 mg PO DAILY 09/28/20 09/28/20 pantoprazole 40 mg tablet,delayed 40 mg PO DAILY 09/28/20 09/28/20 release prazosin 5 mg capsule 5 mg PO BEDTIME 09/28/20 09/28/20 Previous Rx's Medication Instructions Recorded hydrochlorothiazide 50 mg tablet 50 mg PO DAILY #30 tab 09/26/20 levofloxacin 500 mg tablet 500 mg PO DAILY #7 tab 10/07/20 metronidazole 500 mg tablet 500 mg PO BID #14 tab 10/07/20 Allergies Allergy/AdvReac Type Severity Reaction Status Date / Time acetaminophen [Vicodin] Allergy Unknown Unknown Verified 11/30/20 10:15 hydrocodone [Vicodin] Allergy Unknown Unknown Verified 11/30/20 10:15 Review of Systems Review of Systems: All other systems are reviewed and are negative Constitutional: Reports as per HPI and Reports no additional constitutional complaints Eyes: Reports as per HPI and Reports no additional eye complaints Reports system reviewed and no additional complaints, except as documented Cardiovascular: Reports as per HPI and Reports no additional cardiovascular complaints Respiratory: Reports as per HPI and Reports no additional respiratory complaints Gastrointestinal: Reports as per HPI and Reports no additional gastrointestinal complaints Genitourinary: Reports no additional female genitourinary complaints Musculoskeletal: Reports no additional musculoskeletal complaints Skin/Breast: Reports system reviewed and no additional complaints, except as docu Psychiatric: Reports no additional psychiatric complaints Endocrine: Reports no additional endocrine complaints Hematologic/Lymphatic: Reports no additional hematologic/lymphatic complaints Allergic/Immunologic: Reports no additional allergic/immunologic complaints Reports system reviewed and no additional complaints, except as documented and Reports Abnormal speech present [facility] Past Medical History Medical History Asthma Cocaine use Diabetes 1.5, managed as type 1 Essential hypertension Heroin use Hypertension Other and unspecified hyperlipidemia Type 2 diabetes mellitus with unspecified complications Surgical History H/O exploratory laparotomy History of intestinal surgery Family History Family History Mother CAD (coronary artery disease) Diabetes HTN (hypertension) Father No problems noted. Social History Social History Alcohol intake: unknown Cigarettes Per Day: 4 Years Smoked: 5 Substance Use Type: Heroin Advance Directives: No Physical Exam ED Vital Signs: Vital Signs - 24 hr 12/20/21 22:24 12/20/21 23:19 Temperature 98.8 F 98.4 F Pulse Rate 105 H 64 Respiratory Rate 18 18 Blood Pressure 138/67 135/84 Pulse Oximetry 96 99 BMI result Body Mass Index 30.0 Vital signs have been reviewed as appeared to be correct. Blood pressure normal. Heart rate normal. Respiration rate normal. Temperature normal. Oxygen saturation normal. Appearance: Alert. Oriented X3. No acute distress. Head: Normal external exam. Normocephalic. Atraumatic. No Brown signs noted. No raccoon eyes noted Eyes: PERRLA. EOMI. Conjunctiva and sclera normal. Eyelids normal. ENT: TM's Normal. Pharynx normal. Uvula midline. Moist mucous membranes. No trismus noted. No drooling noted. No muffled voice noted. Neck: Normal inspection. Neck supple. FROM. No adenopathy. Thyroid Normal. No meningeal signs. No neck mass noted. CVS: Normal heart rate and rhythm. Heart sound normal. No murmurs noted. Pulses normal throughout. Respiratory: No respiratory distress. Painless inspiration. Breath sounds normal. No wheezes/rales/rhonchi noted. Chest nontender. No accessory muscle usage noted or decreased air movement noted. Abdomen: Soft and nontender. Bowel sounds normal in all 4 quadrants. No distention noted. No organomegaly noted. No visible injury noted. Back: No CVA tenderness. Full range of motion noted. Skin: Skin warm and dry. Normal skin color. Normal skin turgor. No rashes/lesions/lacerations noted. Extremities: +2 lower extremity edema. Extremities exhibit normal range of motion. Extremities nontender. exam: Extensive swelling of the scrotum and penis. Neuro: Oriented X 3. Cranial nerve exam: II-XII are grossly intact No motor deficit. No sensory deficit. Reflexes normal. Course Course Course Narrative: Assessment and plan. 51-year-old male history of congestive heart failure likely her right-sided heart failure with severe edema and gaining weight. Will admit the patient for further diuresis. Medical Decision Making Lab Data Lab results reviewed: Yes I reviewed the patient's lab results. Result diagrams: 12/21/21 00:21 12/21/21 00:21 Labs: Lab Results 12/20/21 12/20/21 12/21/21 Range/Units 22:29 22:29 00:21 WBC 7.6 (4.8-10.8) X10*3/uL RBC 2.95 L (4.60-5.80) X10*6/uL Hgb 9.3 L (14.0-18.0) g/dl Hct 28.3 L (42.0-52.0) % MCV 95.9 (80.0-98.0) fL MCH 31.5 (27.0-33.0) pg MCHC 32.9 (31.0-36.0) g/dl RDW 13.2 (11.0-16.0) % Plt Count 151 L (160-400) X10*3/uL MPV 9.0 L (9.4-12.4) fL Immature Gran % (Auto) 0.7 H (0.0-0.4) % Neut % (Auto) 62.5 (45-73) % Lymph % (Auto) 25.4 (20-40) % [place] % (Auto) 8.5 (2-11) % Eos % (Auto) 2.5 (0-4) % Baso % (Auto) 0.4 (0-2) % Lymph # (Auto) 1.9 (1.2-4.9) X10*3/uL [place] # (Auto) 0.6 (0.1-1.2) X10*3/uL Eos # (Auto) 0.2 (0.0-0.4) X10*3/uL Baso # (Auto) 0.0 (0.0-0.2) X10*3/uL Abs Immat Gran (auto) 0.05 H (0.00-0.03) X10*3/uL Absolute Neuts (auto) 4.7 (2.0-8.3) x10*3/uL Absolute Nucleated RBC 0.000 (0.0-0.012) X10*3/uL Nucleated RBC % (auto) 0.0 (0.0-0.2) /100WBC Sodium (135-145) mmol/L Potassium (3.3-5.1) mmol/L Chloride (96-108) mmol/L Carbon Dioxide (22-29) mmol/L Anion Gap (12-20) BUN (9-16) mg/dL Creatinine (0.5-1.4) mg/dL Estim Creat Clear Calc Estimated GFR Random Glucose (60-115) mg/dL Calcium (8.4-10.2) mg/dL Total Bilirubin (0.0-1.0) mg/dL AST (5-37) U/L ALT (0-40) U/L Alkaline Phosphatase (39-117) U/L Troponin I High Sens (<3.5-35.0) ng/L B-Natriuretic Peptide (<100) pg/mL Total Protein (6.5-8.0) g/dL Albumin (3.5-5.0) g/dL COVID-19 ([facility]) Negative (Negative) COVID-19 Clin Com See Note Influenza Type A ([facility]) Negative (Negative) Influenza Type B ([facility]) Negative (Negative) Influenza A & B Note See Note 12/21/21 12/21/21 12/21/21 Range/Units 00:21 00:21 00:21 WBC (4.8-10.8) X10*3/uL RBC (4.60-5.80) X10*6/uL Hgb (14.0-18.0) g/dl Hct (42.0-52.0) % MCV (80.0-98.0) fL MCH (27.0-33.0) pg MCHC (31.0-36.0) g/dl RDW (11.0-16.0) % Plt Count (160-400) X10*3/uL MPV (9.4-12.4) fL Immature Gran % (Auto) (0.0-0.4) % Neut % (Auto) (45-73) % Lymph % (Auto) (20-40) % [place] % (Auto) (2-11) % Eos % (Auto) (0-4) % Baso % (Auto) (0-2) % Lymph # (Auto) (1.2-4.9) X10*3/uL [place] # (Auto) (0.1-1.2) X10*3/uL Eos # (Auto) (0.0-0.4) X10*3/uL Baso # (Auto) (0.0-0.2) X10*3/uL Abs Immat Gran (auto) (0.00-0.03) X10*3/uL Absolute Neuts (auto) (2.0-8.3) x10*3/uL Absolute Nucleated RBC (0.0-0.012) X10*3/uL Nucleated RBC % (auto) (0.0-0.2) /100WBC Sodium 141 (135-145) mmol/L Potassium 4.5 (3.3-5.1) mmol/L Chloride 102 (96-108) mmol/L Carbon Dioxide 29 (22-29) mmol/L Anion Gap 15 (12-20) BUN 26 H (9-16) mg/dL Creatinine 1.37 (0.5-1.4) mg/dL Estim Creat Clear Calc 67.1 Estimated GFR 55 Random Glucose 67 D (60-115) mg/dL Calcium 9.2 D (8.4-10.2) mg/dL Total Bilirubin 0.4 (0.0-1.0) mg/dL AST 34 D (5-37) U/L ALT 52 H (0-40) U/L Alkaline Phosphatase 95 D (39-117) U/L Troponin I High Sens 9.3 (<3.5-35.0) ng/L B-Natriuretic Peptide 103 H (<100) pg/mL Total Protein 5.9 L (6.5-8.0) g/dL Albumin 3.5 (3.5-5.0) g/dL COVID-19 ([facility]) (Negative) COVID-19 Clin Com Influenza Type A ([facility]) (Negative) Influenza Type B ([facility]) (Negative) Influenza A & B Note Imaging Data Chest x-ray: Attestation: I personally reviewed and interpreted this imaging study as follows: Radiologist's impression: No acute abnormalities of the chin ECG Data Attestation: I personally reviewed and interpreted this ECG as follows: Interpretation: Sinus tachycardia at 102 beats per minutes, normal intervals, no ST-T changes. Discharge Plan Discharge Clinical Impression: Acute congestive heart failure, Edema Patient Disposition: Admitted As Inpatient Prescriptions: No Action levofloxacin 500 mg tablet 500 mg PO DAILY Qty: 7 0RF metronidazole 500 mg tablet 500 mg PO BID Qty: 14 0RF hydrochlorothiazide 50 mg tablet 50 mg PO DAILY Qty: 30 0RF prazosin 5 mg capsule 5 mg PO BEDTIME 0RF atorvastatin 20 mg tablet 20 mg PO DAILY 0RF Narcan 4 mg/actuation spray,non-aerosol 4 mg intranasal Q2M PRN0RF Rx Instructions: spray 1 dose into ONE nostril; alternate nostrils w each dose until help arrives ammonium lactate 12 % cream 1 appl topical BID 0RF clotrimazole 1 % cream 1 appl topical BID 0RF pantoprazole 40 mg tablet,delayed release (DR/EC) 40 mg PO DAILY 0RF fluticasone propionate [Allergy Relief (fluticasone)] 50 mcg/actuation spray,suspension 1 spray intranasal DAILY PRN0RF Rx Instructions: administer into each nostril [place] 200-25 mg tablet 1 tab PO DAILY 0RF Levemir FlexTouch U-100 Insuln 100 unit/mL (3 mL) insulin pen 100 unit subcut DAILY 0RF (DME) InPen (for Novolog or Fiasp) Insulin Pen See Rx Instructions .ROUTE .MEDSUPPLY Qty: 1 0RF Rx Instructions: As directed olanzapine [Zyprexa] 10 mg tablet 10 mg PO DAILY 0RF clonidine HCl 0.1 mg tablet 0.1 mg PO BID 0RF metformin 500 mg tablet 500 mg PO BID 0RF lisinopril 20 mg tablet 20 mg PO DAILY 0RF Flovent HFA 110 mcg/actuation HFA aerosol inhaler 1 puff inhalation BID 0RF albuterol sulfate 90 mcg/actuation HFA aerosol inhaler 2 puff inhalation Q6H PRN0RF acetaminophen 500 mg capsule 1,000 mg PO Q6H PRN0RF multivitamin Tablet 1 tab PO DAILY 0RF furosemide [Lasix] 40 mg tablet 40 mg PO DAILY 0RF Interventions: ED Discharge Assessment Last Done: 12/20/21 23:23
[2021-12-20 23:07] LABS: Influenza A Negative (Negative); Influenza B2 Negative (Negative)
[2021-12-20 23:08] LABS: COVID-19 Test Negative (Negative); IDNOW Serial# 16C4AD1C
[2021-12-20] MEDS: Furosemide 40 MG/4 ML VIAL IVPUSH (23:11)
[2021-12-20 23:19] VITALS: BP 135/84; PULSE 64; RESP 18; TEMP 36.9; O2SAT 99
[2021-12-21] VITALS (7 sets, daily range): BP systolic 131–157; BP diastolic 69–85; PULSE 86–103; RESP 14–18; TEMP 36.8–37.3; O2SAT 94–97; BMI 32.0
[2021-12-21 00:28] LABS: MANUAL DIFF FLAG NO
[2021-12-21 00:29] LABS: Basophils Percent Auto 0.4 % (0-2); Eosinophils Absolute Auto 0.2 X10*3/uL (0.0-0.4); Eosinophils Percent Auto 2.5 % (0-4); Hematocrit 28.3 % (42.0-52.0); Hemoglobin 9.3 g/dl (14.0-18.0); Imm Gran Abs Auto 0.05 X10*3/uL (0.00-0.03); Imm Gran Pct Auto 0.7 % (0.0-0.4); Lymphocytes Absolute Auto 1.9 X10*3/uL (1.2-4.9); Lymphocytes Percent Auto 25.4 % (20-40); Mean Corpuscular HGB Conc 32.9 g/dl (31.0-36.0); Mean Corpuscular Hemoglobin 31.5 pg (27.0-33.0); Mean Corpuscular Volume 95.9 fL (80.0-98.0); Monocytes Absolute Auto 0.6 X10*3/uL (0.1-1.2); Monocytes Percent Auto 8.5 % (2-11); Neutrophils Absolute Auto 4.7 x10*3/uL (2.0-8.3); Neutrophils Percent Auto 62.5 % (45-73); Platelet Count 151 X10*3/uL (160-400); Red Blood Count 2.95 X10*6/uL (4.60-5.80); Red Cell Distribution Width 13.2 % (11.0-16.0); White Blood Count 7.6 X10*3/uL (4.8-10.8)
[2021-12-21 00:46] LABS: Alanine Aminotransferase 52 U/L (0-40); Albumin Level 3.5 g/dL (3.5-5.0); Alkaline Phosphatase 95 U/L (39-117); Anion Gap 15 (12-20); Aspartate Amino Transferase 34 U/L (5-37); Bilirubin Total 0.4 mg/dL (0.0-1.0); Blood Urea Nitrogen 26 mg/dL (9-16); Calcium 9.2 mg/dL (8.4-10.2); Carbon Dioxide 29 mmol/L (22-29); Chloride 102 mmol/L (96-108); Creatinine Clr Calc Pharmacy 67.1; Estimated Glomerular Filt Rate 55; Glucose Random 67 mg/dL (60-115); Potassium 4.5 mmol/L (3.3-5.1); Sodium 141 mmol/L (135-145); Total Protein 5.9 g/dL (6.5-8.0)
[2021-12-21 00:52] LABS: B Type Natriuretic Peptide 103 pg/mL (<100)
[2021-12-21 00:55] LABS: Troponin-I High Sensitivity 9.3 ng/L (<3.5-35.0)
--- NOTE | 2021-12-21 01:28 | PM.IMHP ---
History of Present Illness Date of Service: 12/21/21 Chief Complaint: SOB, leg swelling This is a 51-year-old male with past medical history of diabetes, HTN, asthma, who presents the hospital with complaints of leg swelling as well as scrotal swelling. Patient reports that his symptoms are about 3 days ago, he is complaining of shortness of breath on exertion, he denies any chest pain, denies orthopnea or PND, no cough, no sputum production. Patient denies any fever or chills. No recent injury, no recent travel or sick contacts. Patient denies using her oral cocaine. On arrival to the ED patient found to have slightly elevated heart rate of 105, otherwise was unremarkable Labs are significant for WBC count of 7.6, hemoglobin of 9.3, BUN of 26, creatinine of 1.37 with a baseline of around 1.0, BNP of 103, troponin of 9.3, while panel negative. Chest x-ray shows no acute abnormality. UDS negative Review of Systems Review of Systems: Yes all other systems are reviewed and are negative [facility] Medical History Asthma Cocaine use Diabetes 1.5, managed as type 1 Essential hypertension Heroin use Hypertension Other and unspecified hyperlipidemia Type 2 diabetes mellitus with unspecified complications Family History Mother CAD (coronary artery disease) Diabetes HTN (hypertension) Father No problems noted. Surgical History H/O exploratory laparotomy History of intestinal surgery Social History Alcohol intake: unknown Cigarettes Per Day: 4 Years Smoked: 5 Substance Use Type: Heroin Advance Directives: No Meds Allergies Allergy/AdvReac Type Severity Reaction Status Date / Time acetaminophen [Vicodin] Allergy Unknown Unknown Verified 11/30/20 10:15 hydrocodone [Vicodin] Allergy Unknown Unknown Verified 11/30/20 10:15 Home Medications Medication Instructions Recorded Confirmed Last Taken Type atorvastatin 20 mg tablet 20 mg PO QPM 12/21/21 12/21/21 Unknown History hydrochlorothiazide 50 mg tablet 50 mg PO QAM 12/21/21 12/21/21 Unknown History hydroxyzine pamoate 25 mg capsule 25 mg PO QID PRN 12/21/21 12/21/21 Unknown History ibuprofen 400 mg tablet 400 mg PO TID PRN 12/21/21 12/21/21 Unknown History insulin aspart U-100 100 unit/mL See Protocol SUBCUT TID 12/21/21 12/21/21 Unknown History (3 mL) subcutaneous pen (Novolog Flexpen U-100 Insulin aspart) insulin glargine 46 units SUBCUT BEDTIME 12/21/21 12/21/21 Unknown History lisinopril 20 mg tablet 20 mg PO QAM 12/21/21 12/21/21 Unknown History metformin 500 mg tablet 1,000 mg PO BID 12/21/21 12/21/21 Unknown History methadone 10 mg/5 mL oral solution 70 mg PO DAILY 12/21/21 12/21/21 Unknown History multivitamin-ferrous 1 tab PO DAILY 12/21/21 12/21/21 Unknown History fumarate-folic acid 18 mg-400 mcg tablet (Certavite-Antioxidant) olanzapine 15 mg tablet 15 mg PO BEDTIME 12/21/21 12/21/21 Unknown History pantoprazole 40 mg tablet,delayed 40 mg PO QAM 12/21/21 12/21/21 Unknown History release prazosin 5 mg capsule 5 mg PO BEDTIME 12/21/21 12/21/21 Unknown History trazodone 50 mg tablet 50 mg PO BEDTIME 12/21/21 12/21/21 Unknown History Physical Exam Vital Signs and Narrative: Vital Signs: Last Vital Signs Temp 98.4 F 12/20/21 23:19 Pulse 64 12/20/21 23:19 Resp 18 12/20/21 23:19 BP 135/84 12/20/21 23:19 Pulse Ox 99 12/20/21 23:19 BMI result Body Mass Index 30.0 Const: General: cooperative and no acute distress Orientation/consciousness: patient oriented x3 Eyes: General: appearance normal, both eyes and all related structures Pupils: Equal, round and reactive pupils present Resp: Other: Distant breath sounds, no wheezing Effort & Inspection: normal respiratory effort Cardio: Rate: regular rate Rhythm: regular rhythm GI: Palpation (GI): Soft to palpation Auscultation: normal bowel sounds Skin: General skin exam: no rashes or lesions noted Neuro: General: patient oriented x3 Cranial nerves: Yes Equal, round and reactive pupils present Cognition (Neuro): normal cognition Extrem: Other: 1+ pedal edema General: Yes normal to inspection Results Labs CBC and Chem 7: 12/21/21 00:21 12/21/21 00:21 Labs: Laboratory Results - last 24 hr 12/20/21 12/20/21 12/21/21 22:29 22:29 00:21 MCV 95.9 MCH 31.5 MCHC 32.9 RDW 13.2 Plt Count 151 L MPV 9.0 L Immature Gran % (Auto) 0.7 H Neut % (Auto) 62.5 Lymph % (Auto) 25.4 [place] % (Auto) 8.5 Eos % (Auto) 2.5 Baso % (Auto) 0.4 Lymph # (Auto) 1.9 [place] # (Auto) 0.6 Eos # (Auto) 0.2 Baso # (Auto) 0.0 Abs Immat Gran (auto) 0.05 H Absolute Neuts (auto) 4.7 Absolute Nucleated RBC 0.000 Nucleated RBC % (auto) 0.0 Anion Gap Estim Creat Clear Calc Estimated GFR Random Glucose Calcium Total Bilirubin AST ALT Alkaline Phosphatase Troponin I High Sens B-Natriuretic Peptide Total Protein Albumin COVID-19 ([facility]) Negative COVID-19 Clin Com See Note Influenza Type A ([facility]) Negative Influenza Type B ([facility]) Negative Influenza A & B Note See Note 12/21/21 12/21/21 12/21/21 00:21 00:21 00:21 MCV MCH MCHC RDW Plt Count MPV Immature Gran % (Auto) Neut % (Auto) Lymph % (Auto) [place] % (Auto) Eos % (Auto) Baso % (Auto) Lymph # (Auto) [place] # (Auto) Eos # (Auto) Baso # (Auto) Abs Immat Gran (auto) Absolute Neuts (auto) Absolute Nucleated RBC Nucleated RBC % (auto) Anion Gap 15 Estim Creat Clear Calc 67.1 Estimated GFR 55 Random Glucose 67 D Calcium 9.2 D Total Bilirubin 0.4 AST 34 D ALT 52 H Alkaline Phosphatase 95 D Troponin I High Sens 9.3 B-Natriuretic Peptide 103 H Total Protein 5.9 L Albumin 3.5 COVID-19 ([facility]) COVID-19 Clin Com Influenza Type A ([facility]) Influenza Type B ([facility]) Influenza A & B Note Imaging Radiologist's Impressions: Impressions Chest X-Ray 12/20/21 22:56 IMPRESSION: No acute abnormality of chest. Assessment and Plan (1) Edema: Status: Acute (2) ARELIS (acute kidney injury): Status: Acute (3) Acute congestive heart failure: Status: Acute Plan 51-year-old male with past medical history of diabetes, hypertension who presents to the hospital with complaints of significant lower extremity swelling # bilateral edema - chest x-ray negative for any evidence of pulmonary congestion - has slightly elevated BNP but could be falsely negative given patient's weight - no documented history of CHF - will treat with IV Lasix, strict I&O, daily weight, low-sodium diet - consult Cardiology for further recommendation # ARELIS - likely prerenal in the setting of CHF - we are treating with Lasix, follow BMP # hypertension - stable - resume home antihypertensives # diabetes - continue home glargine - will add low-dose sliding scale insulin - diabetic diet DVT prophylaxis: Lovenox Quality Stroke Does the patient have a stroke diagnosis?: No VTE Prior VTE?: No VTE Risk Level:: Medical - moderate - high VTE Device Contraindication: Treatment Not Indicated VTE Drug Contraindication: N/A - Med Ordered
[2021-12-21 03:16] LABS: Amphetamine Screen Urine Not Detected (Not Detect); Barbiturates, Urine Not Detected (Not Detect); Benzodiazepines Screen Urine Not Detected (Not Detect); Cannabinoid Screen Urine Not Detected (Not Detect); Cocaine Screen Urine Not Detected (Not Detect); Fentanyl, urine Not Detected (Not Detect); Opiate Screen Urine Not Detected (Not Detect); Phencyclidine Screen Urine Not Detected (Not Detect)
[2021-12-21] MEDS: Enoxaparin Sodium 40 MG/0.4 ML SYRINGE SUBCUT ×2 (03:18→22:40)
[2021-12-21 03:50] LABS: Influenza A PCR NEGATIVE (Negative); Influenza B PCR NEGATIVE (Negative); Resp Syncy Virus RNA Qual PCR NEGATIVE (Negative); SARS COV2 PCR INHOUSE NEGATIVE (Negative)
--- NOTE | 2021-12-21 04:26 | PC.NURSE ---
Med rec completed using list pt brought from [facility].
[2021-12-21 06:48] LABS: MANUAL DIFF FLAG NO
[2021-12-21 06:55] LABS: Basophils Percent Auto 0.4 % (0-2); Eosinophils Absolute Auto 0.2 X10*3/uL (0.0-0.4); Eosinophils Percent Auto 2.9 % (0-4); Hematocrit 28.3 % (42.0-52.0); Hemoglobin 9.4 g/dl (14.0-18.0); Imm Gran Abs Auto 0.06 X10*3/uL (0.00-0.03); Imm Gran Pct Auto 0.8 % (0.0-0.4); Lymphocytes Absolute Auto 2.4 X10*3/uL (1.2-4.9); Lymphocytes Percent Auto 30.3 % (20-40); Mean Corpuscular HGB Conc 33.2 g/dl (31.0-36.0); Mean Corpuscular Hemoglobin 31.9 pg (27.0-33.0); Mean Corpuscular Volume 95.9 fL (80.0-98.0); Mean Platelet Volume 9.5 fL (9.4-12.4); Monocytes Absolute Auto 0.7 X10*3/uL (0.1-1.2); Monocytes Percent Auto 8.8 % (2-11); Neutrophils Absolute Auto 4.5 x10*3/uL (2.0-8.3); Neutrophils Percent Auto 56.8 % (45-73); Platelet Count 177 X10*3/uL (160-400); Red Blood Count 2.95 X10*6/uL (4.60-5.80); Red Cell Distribution Width 13.1 % (11.0-16.0); White Blood Count 7.9 X10*3/uL (4.8-10.8)
--- NOTE | 2021-12-21 07:00 | CA_ITS ---
Transthoracic Echocardiogram Patient (Last, First, Middle): John Spivey M Gender: Male Date of : 1970 Age: 51 Procedure Date: 12/21/2021 Procedure Type: Transthoracic Echocardiogram Location: ER Height: 170.18 cm Weight: 86.64 kg BSA: 1.98 m2 Heart Rate: bpm BP: 149 / 75 mmHg Floor Framer: DELMI Muñoz MD: Bernard Daniel MD Ferryboat Ticket Taker: Kumar Nugent MD Symptoms: chf Study Quality: Good ECG Rhythm: Sinus Conclusions: - 1. Normal LV systolic function with impaired relaxation filling pattern 2. Mild mitral regurgitation 3. Normal RV systolic pressure 4. No gross pericardial effusion Findings Left Ventricle Normal left ventricular size, thickness, and systolic function. The visually estimated ejection fraction is between 55-60%. Spectral Doppler is indicative of an impaired relaxation filling pattern. E/E prime ratio is between 8 and 15 consistent with indeterminate filling pressures. Right Ventricle Normal right ventricular cavity size and systolic function. Atria The left atrium is likely dilated. There is no evidence of interatrial shunt. The right atrium is normal in size. Aortic Valve Normal aortic valve structure and function. There is no aortic valve stenosis. There is no aortic valve regurgitation. Mitral Valve There is mild anterior and posterior mitral leaflet thickening. The posterior mitral leaflet has restricted mobility. There is mild mitral valve regurgitation. There is no mitral valve stenosis. Pulmonic Valve The pulmonic valve was not well visualized. Tricuspid Valve Likely normal tricuspid valve structure and function. There is mild tricuspid valve regurgitation. The right ventricular systolic pressure is normal. The right ventricular systolic pressure is 31 mmHg. Normal right atrial pressure. There is no evidence of pulmonary hypertension. Great Vessels All visible segments of the aorta are normal in size. The pulmonary artery was not well visualized. Venous The inferior vena cava is normal in size and collapses greater than 50% with inspiration. Pericardium/Pleural There is no evidence of pericardial effusion. Prior Study Comparison No prior study available for comparison. Measurements 2D Linear Measurements IVSd: 1.13 0.6-0.9/0.6-1.0 cm LVIDd: 4.90 3.9-5.3/4.2-5.9 cm LVIDd Index: 2.47 2.4-3.2/2.2-3.1 cm/m2 LVIDs: 3.27 2.0-3.6 cm LVPWd: 1.08 0.7-1.1 cm LA Diam: 4.10 2.7-3.8/3.0-4.0 cm LAIDs Index: 2.07 1.5-2.3 cm/m2 LV Mass: 251.45 67-162/88-224 g LV Mass Index: 126.99 43-95/49-115 g/m2 LVOT Diam: 2.00 3.0+(-)1.3 cm 2D Systolic Function EF 4C: 54.60 >55% EF 2C: 62.60 >55% EF BiP: 59.50 >55% Mitral Valve E'Lateral: 10.40 E'Medial: 10.20 Aortic Valve AoV Pk Cam: 1.40 AoV Mn Cam: 0.93 AoV VTI: 0.26 AoV Pk Grad: 8.00 Aov Mn Grad: 4.00 JERMAIN Cont.VTI: 2.47 LVOT LVOT Pk Cam: 1.02 LVOT Mn Cam: 0.70 LVOT VTI: 0.21 LVOT Pk Grad: 4.00 LVOT Mn Grad: 2.00 LVOT Diam: 2.00 LVOT Area: 3.14 Diastolic Function E'Medial: 10.20 E' Laterial: 10.40 Right Ventricle TAPSE (mm): 25.20 TVS' Cam: 13.40 Tricuspid Valve TR Pk Cam: 2.63 TR Pk Grad: 28.00 RA Press: 3.00 RVSP: 31.00 Great Vessels Aorta Sinus of Valsalva: 3.16 2.0-3.[address] [place]: 2.81 1.7-3.4 cm Ao Asc: 3.30 2.1-3.4 cm Updated in Other Vendor System with Status of Final Kumar Nugent MD electronically signed on 12/21/2021 1:41:00 PM with status of Final
[2021-12-21 07:20] LABS: Anion Gap 13 (12-20); Blood Urea Nitrogen 25 mg/dL (9-16); Calcium 9.5 mg/dL (8.4-10.2); Carbon Dioxide 31 mmol/L (22-29); Chloride 103 mmol/L (96-108); Estimated Glomerular Filt Rate > 60; Glucose Random 43 mg/dL (60-115); Potassium 4.3 mmol/L (3.3-5.1); Sodium 143 mmol/L (135-145)
[2021-12-21 07:29] LABS: Glucose, Whole Blood 46 mg/dL (60-115)
[2021-12-21 08:00] LABS: Glucose, Whole Blood 100 mg/dL (60-115)
--- NOTE | 2021-12-21 09:12 | PHA.MEDREC ---
Pharmacy Consult ? Medication Reconciliation Pharmacy has reviewed the medication reconciliation completed by Arias. Methadone dose confirm. Jessica Boateng, PharmD
--- NOTE | 2021-12-21 09:12 | HE.PHANOTE ---
Methadone dose confirmed with [facility] last dose 70 mg on 12/20/21. He is a guest doser at [facility] therefore he may not still be a client after discharge Jessica Boateng, MarcoD
--- NOTE | 2021-12-21 09:30 | P.CONCA_ITS ---
History of Present Illness History of Present Illness Date of Service: 12/21/21 Requesting physician: Bernard Daniel Consult reason: congestive heart failure Chief complaint: chf exacerbation Narrative: I was requested to see holes in cardiology consultation today for findings consistent with congestive heart failure predominantly right-sided heart failure. Patient's 51-year-old male with prior history of cocaine and heroin use currently on methadone program, hypertension, diabetes, last seen cardiology last September in the office when he had developed right heart failure symptoms and was started on diuretic therapy with Lasix. However since then he has had no follow-up. He has had no follow-up testing from cardiac perspective. Came to the ED last night because he was getting progressively increasing symptoms of leg edema, scrotal swelling, abdominal distension and shortness of breath with exertion. He also complains of shortness of breath when he lies down. Denies any lightheadedness, syncope, chest pain, palpitations, irregular heartbeat. The presently emergency was noted to have significant swelling of his legs and scrotum and his BNP was minimally elevated 103 and was admitted for decompensated congestive heart failure. He has been given 1 dose of Lasix and says he has put out some urine. He clinically currently appears to be not significantly in distress. His bedside echo reviewed by me preliminary shows no rmal biventricular function with no significant valvular abnormality, no pericardial effusion and the right-sided filling pressures did not appear to be significantly elevated. He has prior history also of chronic kidney disease. He denies having prior myocardial infarction or vascular events. He occasionally drinks alcohol denies smoking. Has had no current drug abuse. He has U tox was negative on admission. Review of Systems Constitutional: Constitutional: Reports no additional constitutional complaints Eyes: Eyes: Reports no additional eye complaints Cardiovascular: Cardiovascular: Reports Abdominal Distension, Denies chest pain, Reports leg edema, Denies lightheadedness, Denies Loss of Consciousness, Denies palpitations, Reports dyspnea on exertion and Reports orthopnea Respiratory: Respiratory: Reports no additional respiratory complaints and Reports dyspnea on exertion Gastrointestinal: Gastrointestinal: Reports no additional gastrointestinal complaints Genitourinary: Genitourinary: Reports no additional male genitourinary complaints Musculoskeletal: Musculoskeletal: Reports no additional musculoskeletal complaints Integumentary/Breasts: Skin/Breast: Reports system reviewed and no additional complaints, except as docu Neurologic: Reports system reviewed and no additional complaints, except as documented Psychiatric: Psychiatric: Reports no additional psychiatric complaints Endocrine: Endocrine: Reports no additional endocrine complaints and Denies palpitations Hematologic/Lymphatic: Hematologic/Lymphatic: Reports no additional hematologic/lymphatic complaints Allergic/Immunologic: Allergic/Immunologic: Reports no additional allergic/ immunologic complaints [facility] Past Medical History Medical History Asthma Cocaine use Diabetes 1.5, managed as type 1 Essential hypertension Heroin use Hypertension Other and unspecified hyperlipidemia Type 2 diabetes mellitus with unspecified complications Family History Family History Mother CAD (coronary artery disease) Diabetes HTN (hypertension) Father No problems noted. Surgical History Surgical History H/O exploratory laparotomy History of intestinal surgery Social History Social History Alcohol intake: unknown Cigarettes Per Day: 4 Years Smoked: 5 Substance Use Type: Heroin Advance Directives: No Meds Allergies Allergy/AdvReac Type Severity Reaction Status Date / Time acetaminophen [Vicodin] Allergy Unknown Unknown Verified 11/30/20 10:15 hydrocodone [Vicodin] Allergy Unknown Unknown Verified 11/30/20 10:15 Active Medications: Current Medications Acetaminophen (Acetaminophen 325 Mg Tablet) 650 mg PO Q6H PRN PRN Reason: Pain, Mild (Pain Scale 1-3) Atorvastatin Calcium (Atorvastatin Calcium 20 Mg Tablet) 20 mg PO BEDTIME KEVIN Dextrose (Dextrose 50 % 25 Gm/50 Ml Syringe) 25 gm IVPUSH Q15M PRN; Protocol PRN Reason: per Hypoglycemia Standing Ord. Docusate Sodium (Docusate Sodium 100 Mg Capsule) 100 mg PO DAILY PRN PRN Reason: Constipation Enoxaparin Sodium (Enoxaparin Sodium 40 Mg/0.4 Ml Syringe) 40 mg SUBCUT Q24H KEVIN Last Admin: 12/21/21 03:18 Dose: 40 mg Documented by: Furosemide (Furosemide 40 Mg/4 Ml Vial) 40 mg IVPUSH BID@0900,1800 KEVIN; Protocol Glucose (Glucose Gel 15 Gm Gel..Gram.) 15 gm PO Q15M PRN; Protocol PRN Reason: per Hypoglycemia Standing Ord. Hydrochlorothiazide (Hydrochlorothiazide 50 Mg Tablet) 50 mg PO DAILY KEVIN; Pr otocol Hydroxyzine HCl (Hydroxyzine Hcl 25 Mg Tablet) 25 mg PO QID PRN PRN Reason: Anxiety Insulin Glargine (Insulin Glargine,Hum.Rec.Anlog 100 Unit/Ml 10 Ml Vial) 46 unit SUBCUT BEDTIME KEVIN Insulin Human Lispro (Insulin Lispro 100 Unit/Ml 3 Ml Vial) 0 unit SUBCUT QIDACHS KEVIN; Protocol Last Admin: 12/21/21 07:31 Dose: Not Given Documented by: Lisinopril (Lisinopril 20 Mg Tablet) 20 mg PO DAILY KEVIN; Protocol Methadone HCl (Methadone Hcl 20 Mg/2 Ml Oral.Conc) 70 mg PO DAILY KEVIN Multivitamins/Vitamin C (Multivitamin Tablet) 1 tab PO DAILY [facility] Olanzapine (Olanzapine 7.5 Mg Tablet) 15 mg PO BEDTIME KEVIN Omeprazole (Omeprazole 20 Mg Capsule.Dr) 20 mg PO DAILY@0630 [facility] Ondansetron HCl (Ondansetron Hcl 4 Mg/2 Ml Vial) 4 mg IVPUSH Q8H PRN PRN Reason: Nausea and Vomiting Prazosin HCl (Prazosin Hcl 5 Mg Capsule) 5 mg PO BEDTIME KEVIN; Protocol Sodium Chloride (0.9 % Sodium Chloride Flush 3 Ml Syringe) 3 ml IVFLUSH QSHIFT [facility] Trazodone HCl (Trazodone Hcl 50 Mg Tablet) 50 mg PO BEDTIME [facility] Home Medications Medication Instructions Recorded Confirmed Last Taken Type atorvastatin 20 mg tablet 20 mg PO QPM 12/21/21 12/21/21 Unknown History clonidine HCl 0.1 mg tablet 1 tab PO TID PRN 12/21/21 12/21/21 Unknown History hydrochlorothiazide 50 mg tablet 50 mg PO QAM 12/21/21 12/21/21 Unknown History hydroxyzine pamoate 25 mg capsule 25 mg PO QID PRN 12/21/21 12/21/21 Unknown History ibuprofen 400 mg tablet 400 mg PO TID PRN 12/21/21 12/21/21 Unknown History insulin aspart U-100 100 unit/mL See Protocol SUBCUT TID 12/21/21 12/21/21 Unknown History (3 mL) subcutaneous pen (Novolog Flexpen U-100 Insulin aspart) insulin glargine 46 units SUBCUT BEDTIME 12/21/21 12/21/21 Unknown History lisinopril 20 mg tablet 20 mg PO QAM 12/21/21 12/21/21 Unknown History metformin 500 mg tablet 1,000 mg PO BID 12/21/21 12/21/21 Unknown History methadone 10 mg/5 mL oral solution 70 mg PO DAILY 12/21/21 12/21/21 Unknown History multivitamin-ferrous 1 tab PO DAILY 12/21/21 12/21/21 Unknown History fumarate-folic acid 18 mg-400 mcg tablet (Certavite-Antioxidant) olanzapine 15 mg tablet 15 mg PO BEDTIME 12/21/21 12/21/21 Unknown History pantoprazole 40 mg tablet,delayed 40 mg PO QAM 12/21/21 12/21/21 Unknown History release prazosin 5 mg capsule 5 mg PO BEDTIME 12/21/21 12/21/21 Unknown History trazodone 50 mg tablet 50 mg PO BEDTIME 12/21/21 12/21/21 Unknown History Physical Exam Vital Signs: Vital Signs: Last Vital Signs Temp 98.2 F 12/21/21 02:48 Pulse 103 H 12/21/21 02:48 Resp 14 12/21/21 02:48 BP 149/75 H 12/21/21 02:48 Pulse Ox 96 12/21/21 02:48 BMI result Body Mass Index 30.0 Const: General: cooperative, comfortable, no acute distress, alert and awake Nutritional Appearance: overweight Orientation/consciousness: patient oriented x3 Limitations: no limitations HEENT: Head: Yes normocephalic and Yes atraumatic Neck: Neck: Yes trachea midline, Yes supple and Yes JVD Chest: Chest palpation & inspection: normal inspection of the chest Resp: Effort & Inspection: normal respiratory effort Auscultation: crackles on the left at the base and other (Coarse breath sounds all over.) Cardio: Jugular venous distension: JVD Palpation: normal PMI Rate: regular rate Rhythm: regular rhythm Heart sounds: S1 normal heart sound present, S2 normal heart sound present, no click, no gallops, no murmurs and no rubs GI: Inspection: Yes distended Auscultation: normal bowel sounds Skin: General skin exam: no rashes or lesions noted Neuro: General: patient oriented x3 and no focal motor deficits Extrem: General: No clubbing, No cyanosis and Yes edema (4+ pitting) Objective Labs and Meds Result diagrams: 12/21/21 05:40 12/21/21 05:40 Lab results: Laboratory Results - last 24 hr 12/20/21 12/20/21 12/21/21 22:29 22:29 00:21 WBC 7.6 RBC 2.95 L Hgb 9.3 L Hct 28.3 L MCV 95.9 MCH 31.5 MCHC 32.9 RDW 13.2 Plt Count 151 L MPV 9.0 L Immature Gran % (Auto) 0.7 H Neut % (Auto) 62.5 Lymph % (Auto) 25.4 [place] % (Auto) 8.5 Eos % (Auto) 2.5 Baso % (Auto) 0.4 Lymph # (Auto) 1.9 [place] # (Auto) 0.6 Eos # (Auto) 0.2 Baso # (Auto) 0.0 Abs Immat Gran (auto) 0.05 H Absolute Neuts (auto) 4.7 Absolute Nucleated RBC 0.000 Nucleated RBC % (auto) 0.0 Sodium Potassium Chloride Carbon Dioxide Anion Gap BUN Creatinine Estim Creat Clear Calc Estimated GFR POC Glucose Random Glucose Calcium Total Bilirubin AST ALT Alkaline Phosphatase Troponin I High Sens B-Natriuretic Peptide Total Protein Albumin Urine Opiates Screen Urine Fentanyl Screen Ur Barbiturates Screen Ur Phencyclidine Scrn Ur Amphetamines Screen U Benzodiazepines Scrn Urine Cocaine Screen U Marijuana (THC) Screen COVID-19 ([facility]) Negative COVID-19 Clin Com See Note Influenza Type A ([facility]) Negative Influenza Type A (PCR) Influenza Type B ([place]) Negative Influenza Type B (PCR) Influenza A & B Note See Note RSV RNA Qual (PCR) SARS-CoV-2 RNA (RT-PCR) 12/21/21 12/21/21 12/21/21 00:21 00:21 00:21 WBC RBC Hgb Hct MCV MCH MCHC RDW Plt Count MPV Immature Gran % (Auto) Neut % (Auto) Lymph % (Auto) [place] % (Auto) Eos % (Auto) Baso % (Auto) Lymph # (Auto) [place] # (Auto) Eos # (Auto) Baso # (Auto) Abs Immat Gran (auto) Absolute Neuts (auto) Absolute Nucleated RBC Nucleated RBC % (auto) Sodium 141 Potassium 4.5 Chloride 102 Carbon Dioxide 29 Anion Gap 15 BUN 26 H Creatinine 1.37 Estim Creat Clear Calc 67.1 Estimated GFR 55 POC Glucose Random Glucose 67 D Calcium 9.2 D Total Bilirubin 0.4 AST 34 D ALT 52 H Alkaline Phosphatase 95 D Troponin I High Sens 9.3 B-Natriuretic Peptide 103 H Total Protein 5.9 L Albumin 3.5 Urine Opiates Screen Urine Fentanyl Screen Ur Barbiturates Screen Ur Phencyclidine Scrn Ur Amphetamines Screen U Benzodiazepines Scrn Urine Cocaine Screen U Marijuana (THC) Screen COVID-19 ([facility]) COVID-19 Clin Com Influenza Type A ([place]) Influenza Type A (PCR) Influenza Type B ([place]) Influenza Type B (PCR) Influenza A & B Note RSV RNA Qual (PCR) SARS-CoV-2 RNA (RT-PCR) 12/21/21 12/21/21 12/21/21 02:52 03:06 05:40 WBC 7.9 RBC 2.95 L Hgb 9.4 L Hct 28.3 L MCV 95.9 MCH 31.9 MCHC 33.2 RDW 13.1 Plt Count 177 MPV 9.5 Immature Gran % (Auto) 0.8 H Neut % (Auto) 56.8 Lymph % (Auto) 30.3 [place] % (Auto) 8.8 Eos % (Auto) 2.9 Baso % (Auto) 0.4 Lymph # (Auto) 2.4 [place] # (Auto) 0.7 Eos # (Auto) 0.2 Baso # (Auto) 0.0 Abs Immat Gran (auto) 0.06 H Absolute Neuts (auto) 4.5 Absolute Nucleated RBC 0.000 Nucleated RBC % (auto) 0.0 Sodium Potassium Chloride Carbon Dioxide Anion Gap BUN Creatinine Estim Creat Clear Calc Estimated GFR POC Glucose Random Glucose Calcium Total Bilirubin AST ALT Alkaline Phosphatase Troponin I High Sens B-Natriuretic Peptide Total Protein Albumin Urine Opiates Screen Not Detected Urine Fentanyl Screen Not Detected Ur Barbiturates Screen Not Detected Ur Phencyclidine Scrn Not Detected Ur Amphetamines Screen Not Detected U Benzodiazepines Scrn Not Detected Urine Cocaine Screen Not Detected U Marijuana (THC) Screen Not Detected COVID-19 ([facility]) COVID-19 Clin Com Influenza Type A ([place]) Influenza Type A (PCR) NEGATIVE Influenza Type B ([facility]) Influenza Type B (PCR) NEGATIVE Influenza A & B Note RSV RNA Qual (PCR) NEGATIVE SARS-CoV-2 RNA (RT-PCR) NEGATIVE 12/21/21 12/21/21 12/21/21 05:40 07:17 07:56 WBC RBC Hgb Hct MCV MCH MCHC RDW Plt Count MPV Immature Gran % (Auto) Neut % (Auto) Lymph % (Auto) [place] % (Auto) Eos % (Auto) Baso % (Auto) Lymph # (Auto) [place] # (Auto) Eos # (Auto) Baso # (Auto) Abs Immat Gran (auto) Absolute Neuts (auto) Absolute Nucleated RBC Nucleated RBC % (auto) Sodium 143 Potassium 4.3 Chloride 103 Carbon Dioxide 31 H Anion Gap 13 BUN 25 H Creatinine 1.21 Estim Creat Clear Calc 76.0 Estimated GFR > 60 POC Glucose 46 L* 100 Random Glucose 43 L* Calcium 9.5 Total Bilirubin AST ALT Alkaline Phosphatase Troponin I High Sens B-Natriuretic Peptide Total Protein Albumin Urine Opiates Screen Urine Fentanyl Screen Ur Barbiturates Screen Ur Phencyclidine Scrn Ur Amphetamines Screen U Benzodiazepines Scrn Urine Cocaine Screen U Marijuana (THC) Screen COVID-19 ([facility]) COVID-19 Clin Com Influenza Type A ([facility]) Influenza Type A (PCR) Influenza Type B ([facility]) Influenza Type B (PCR) Influenza A & B Note RSV RNA Qual (PCR) SARS-CoV-2 RNA (RT-PCR) Imaging Radiologist's impression: Impressions Chest X-Ray 12/20/21 22:56 IMPRESSION: No acute abnormality of chest. Assessment and Plan (1) Acute congestive heart failure: Status: Acute Patient present with symptoms consistent with acute congestive heart failure predominantly right-sided heart failure with significant fluid overload. Also noted to have proteinuria on his UA as well as noted to be anemic. Consider Nephrology consultation as there might be some component of nephrotic syndrome. However clinically appears to be volume overloaded needs to be diuresed. His BNP is only minimally elevated and could be seen in patient with right heart failure although echocardiogram does not show significant right atrial pressure elevation at this point in time. I would continue with IV Lasix 40 mg IV b.i.d.. Strict intake and output chart needs to be pursued. Continue monitor renal function and electrolytes. Overall etiology of heart failure is not currently clear. Will need further workup as we go along. His blood pressure is not well optimized and consider addition of spironolactone 25 mg to his regimen given his heart failure syndrome as well as elevated blood pressure. May require workup for sleep apnea as outpatient. Will continue to follow with you Procedures Date of Service Date of Service: 12/21/21
[2021-12-21] MEDS: lisinopriL 20 MG TABLET PO ×2 (09:45→10:56)
[2021-12-21] MEDS: methADONE HCl 20 MG/2 ML ORAL.CONC 70 MG PO (09:45)
[2021-12-21] MEDS: Omeprazole 20 MG CAPSULE.DR PO (09:45)
[2021-12-21] MEDS: Furosemide 40 MG/4 ML VIAL IVPUSH ×2 (09:45→18:09)
[2021-12-21] MEDS: Multivitamin TABLET 1 TAB PO (09:45)
--- NOTE | 2021-12-21 09:50 | HO.PM.IMPN ---
Subjective Subjective Date of Service: 12/21/21 Interval History: seen and examined this morning follow up for dyspnea, feels sob with exertion no chest pain, no cough low sugar this morning; no symptoms Review of Systems Review of Systems: Yes all other systems are reviewed and are negative Constitutional Constitutional: Denies chills and Denies fever(s) Cardiovascular Cardiovascular: Denies chest pain, Denies palpitations and Reports dyspnea on exertion Respiratory Respiratory: Denies cough and Reports dyspnea on exertion Gastrointestinal Gastrointestinal: Denies abdominal pain, Denies nausea and Denies vomiting Endocrine Endocrine: Denies palpitations Physical Exam Vital Signs: Vital Signs: Last Vital Signs Temp 98.2 F 12/21/21 02:48 Pulse 92 12/21/21 09:44 Resp 18 12/21/21 09:44 BP 148/85 H 12/21/21 09:44 Pulse Ox 97 12/21/21 09:44 BMI result Body Mass Index 30.0 Const: General: cooperative, comfortable, no acute distress, alert and awake Nutritional Appearance: average body habitus Orientation/consciousness: patient oriented x3 Resp: Effort & Inspection: normal respiratory effort and able to speak in complete sentences Auscultation: clear to auscultation bilaterally and no crackles Cardio: Rate: regular rate Heart sounds: S1 normal heart sound present and S2 normal heart sound present GI: Inspection: No distended Palpation (GI): Soft to palpation and nontender Neuro: General: patient oriented x3 Extrem: Other: b/l leg edema Objective Data Active Medications Acetaminophen (Acetaminophen 325 Mg Tablet) 650 mg PO Q6H PRN PRN Reason: Pain, Mild (Pain Scale 1-3) Atorvastatin Calcium (Atorvastatin Calcium 20 Mg Tablet) 20 mg PO BEDTIME [facility] Dextrose (Dextrose 50 % 25 Gm/50 Ml Syringe) 25 gm IVPUSH Q15M PRN; Protocol PRN Reason: per Hypoglycemia Standing Ord. Docusate Sodium (Docusate Sodium 100 Mg Capsule) 100 mg PO DAILY PRN PRN Reason: Constipation Enoxaparin Sodium (Enoxaparin Sodium 40 Mg/0.4 Ml Syringe) 40 mg SUBCUT Q24H [facility] Last Admin: 12/21/21 03:18 Dose: 40 mg Documented by: LEONA Furosemide (Furosemide 40 Mg/4 Ml Vial) 40 mg IVPUSH BID@0900,1800 [facility]; Protocol Last Admin: 12/21/21 09:45 Dose: 40 mg Documented by: KAJAL Glucose (Glucose Gel 15 Gm Gel..Gram.) 15 gm PO Q15M PRN; Protocol PRN Reason: per Hypoglycemia Standing Ord. Hydrochlorothiazide (Hydrochlorothiazide 50 Mg Tablet) 50 mg PO DAILY [facility]; Protocol Hydroxyzine HCl (Hydroxyzine Hcl 25 Mg Tablet) 25 mg PO QID PRN PRN Reason: Anxiety Insulin Glargine (Insulin Glargine,Hum.Rec.Anlog 100 Unit/Ml 10 Ml Vial) 46 unit SUBCUT BEDTIME [facility] Insulin Human Lispro (Insulin Lispro 100 Unit/Ml 3 Ml Vial) 0 unit SUBCUT QIDACHS [facility]; Protocol Last Admin: 12/21/21 07:31 Dose: Not Given Documented by: KAJAL Non-Admin Reason: No Insulin Coverage Lisinopril (Lisinopril 20 Mg Tablet) 20 mg PO DAILY [facility]; Protocol Last Admin: 12/21/21 09:45 Dose: 20 mg Documented by: KAJAL Methadone HCl (Methadone Hcl 20 Mg/2 Ml Oral.Conc) 70 mg PO DAILY [facility] Last Admin: 12/21/21 09:45 Dose: 70 mg Documented by: KAJAL Multivitamins/Vitamin C (Multivitamin Tablet) 1 tab PO DAILY [facility] Last Admin: 12/21/21 09:45 Dose: 1 tab Documented by: KAJAL Olanzapine (Olanzapine 7.5 Mg Tablet) 15 mg PO BEDTIME [facility] Omeprazole (Omeprazole 20 Mg Capsule.Dr) 20 mg PO DAILY@0630 [facility] Last Admin: 12/21/21 09:45 Dose: 20 mg Documented by: KAJAL Ondansetron HCl (Ondansetron Hcl 4 Mg/2 Ml Vial) 4 mg IVPUSH Q8H PRN PRN Reason: Nausea and Vomiting Prazosin HCl (Prazosin Hcl 5 Mg Capsule) 5 mg PO BEDTIME [facility]; Protocol Sodium Chloride (0.9 % Sodium Chloride Flush 3 Ml Syringe) 3 ml IVFLUSH QSHIFT [facility] Last Admin: 12/21/21 09:45 Dose: Not Given Documented by: KAJAL Non-Admin Reason: Med Not Available Trazodone HCl (Trazodone Hcl 50 Mg Tablet) 50 mg PO BEDTIME [facility] Labs CBC & Chem 7: 12/21/21 05:40 12/21/21 05:40 Labs: Laboratory Results - last 24 hr 12/20/21 12/20/21 12/21/21 22:29 22:29 00:21 MCV 95.9 MCH 31.5 MCHC 32.9 RDW 13.2 Plt Count 151 L MPV 9.0 L Immature Gran % (Auto) 0.7 H Neut % (Auto) 62.5 Lymph % (Auto) 25.4 [place] % (Auto) 8.5 Eos % (Auto) 2.5 Baso % (Auto) 0.4 Lymph # (Auto) 1.9 [place] # (Auto) 0.6 Eos # (Auto) 0.2 Baso # (Auto) 0.0 Abs Immat Gran (auto) 0.05 H Absolute Neuts (auto) 4.7 Absolute Nucleated RBC 0.000 Nucleated RBC % (auto) 0.0 Anion Gap Estim Creat Clear Calc Estimated GFR POC Glucose Random Glucose Calcium Total Bilirubin AST ALT Alkaline Phosphatase Troponin I High Sens B-Natriuretic Peptide Total Protein Albumin Urine Opiates Screen Urine Fentanyl Screen Ur Barbiturates Screen Ur Phencyclidine Scrn Ur Amphetamines Screen U Benzodiazepines Scrn Urine Cocaine Screen U Marijuana (THC) Screen COVID-19 ([facility]) Negative COVID-19 Clin Com See Note Influenza Type A ([facility]) Negative Influenza Type A (PCR) Influenza Type B ([facility]) Negative Influenza Type B (PCR) Influenza A & B Note See Note RSV RNA Qual (PCR) SARS-CoV-2 RNA (RT-PCR) 12/21/21 12/21/21 12/21/21 00:21 00:21 00:21 MCV MCH MCHC RDW Plt Count MPV Immature Gran % (Auto) Neut % (Auto) Lymph % (Auto) [place]gs % (Auto) Eos % (Auto) Baso % (Auto) Lymph # (Auto) [place] # (Auto) Eos # (Auto) Baso # (Auto) Abs Immat Gran (auto) Absolute Neuts (auto) Absolute Nucleated RBC Nucleated RBC % (auto) Anion Gap 15 Estim Creat Clear Calc 67.1 Estimated GFR 55 POC Glucose Random Glucose 67 D Calcium 9.2 D Total Bilirubin 0.4 AST 34 D ALT 52 H Alkaline Phosphatase 95 D Troponin I High Sens 9.3 B-Natriuretic Peptide 103 H Total Protein 5.9 L Albumin 3.5 Urine Opiates Screen Urine Fentanyl Screen Ur Barbiturates Screen Ur Phencyclidine Scrn Ur Amphetamines Screen U Benzodiazepines Scrn Urine Cocaine Screen U Marijuana (THC) Screen COVID-19 ([facility]) COVID-19 Clin Com Influenza Type A ([facility]) Influenza Type A (PCR) Influenza Type B ([facility]) Influenza Type B (PCR) Influenza A & B Note RSV RNA Qual (PCR) SARS-CoV-2 RNA (RT-PCR) 12/21/21 12/21/21 12/21/21 02:52 03:06 05:40 MCV 95.9 MCH 31.9 MCHC 33.2 RDW 13.1 Plt Count 177 MPV 9.5 Immature Gran % (Auto) 0.8 H Neut % (Auto) 56.8 Lymph % (Auto) 30.3 [place]gs % (Auto) 8.8 Eos % (Auto) 2.9 Baso % (Auto) 0.4 Lymph # (Auto) 2.4 [place]gs # (Auto) 0.7 Eos # (Auto) 0.2 Baso # (Auto) 0.0 Abs Immat Gran (auto) 0.06 H Absolute Neuts (auto) 4.5 Absolute Nucleated RBC 0.000 Nucleated RBC % (auto) 0.0 Anion Gap Estim Creat Clear Calc Estimated GFR POC Glucose Random Glucose Calcium Total Bilirubin AST ALT Alkaline Phosphatase Troponin I High Sens B-Natriuretic Peptide Total Protein Albumin Urine Opiates Screen Not Detected Urine Fentanyl Screen Not Detected Ur Barbiturates Screen Not Detected Ur Phencyclidine Scrn Not Detected Ur Amphetamines Screen Not Detected U Benzodiazepines Scrn Not Detected Urine Cocaine Screen Not Detected U Marijuana (THC) Screen Not Detected COVID-19 ([facility]) COVID-19 Clin Com Influenza Type A ([facility]) Influenza Type A (PCR) NEGATIVE Influenza Type B ([facility]) Influenza Type B (PCR) NEGATIVE Influenza A & B Note RSV RNA Qual (PCR) NEGATIVE SARS-CoV-2 RNA (RT-PCR) NEGATIVE 12/21/21 12/21/21 12/21/21 05:40 07:17 07:56 MCV MCH MCHC RDW Plt Count MPV Immature Gran % (Auto) Neut % (Auto) Lymph % (Auto) Griggs % (Auto) Eos % (Auto) Baso % (Auto) Lymph # (Auto) [place]gs # (Auto) Eos # (Auto) Baso # (Auto) Abs Immat Gran (auto) Absolute Neuts (auto) Absolute Nucleated RBC Nucleated RBC % (auto) Anion Gap 13 Estim Creat Clear Calc 76.0 Estimated GFR > 60 POC Glucose 46 L* 100 Random Glucose 43 L* Calcium 9.5 Total Bilirubin AST ALT Alkaline Phosphatase Troponin I High Sens B-Natriuretic Peptide Total Protein Albumin Urine Opiates Screen Urine Fentanyl Screen Ur Barbiturates Screen Ur Phencyclidine Scrn Ur Amphetamines Screen U Benzodiazepines Scrn Urine Cocaine Screen U Marijuana (THC) Screen COVID-19 ([facility]) COVID-19 Clin Com Influenza Type A ([facility]) Influenza Type A (PCR) Influenza Type B ([facility]) Influenza Type B (PCR) Influenza A & B Note RSV RNA Qual (PCR) SARS-CoV-2 RNA (RT-PCR) Assessment and Plan (1) Edema: Status: Acute (2) Type 2 diabetes mellitus with unspecified complications: Status: Acute Plan 51-year-old male with past medical history of diabetes, hypertension who presents to the hospital with complaints of significant lower extremity swelling bilateral edema chest x-ray negative for any evidence of pulmonary congestion - no documented history of CHF - will treat with IV Lasix, strict I&O, daily weight, low-sodium diet - consult Cardiology for further recommendation mild ARELIS creatinine improveing - likely prerenal in the setting of CHF - follow BMP hypertension - continue lisinopril diabetes episode of hypoglycemia this morning, asymptomatic - will hold lantus and follow POCs - will add low-dose sliding scale insulin - diabetic diet HLD continue statin h/o OUD continue methadone mood continue zyprexa, trazodone DVT prophylaxis: Lovenox Attending: dr. [place] Requires ongoing inpatient hospitalization due to presumed CHF, Cardiology evaluation and treatment with diuretics Quality Stroke Does the patient have a stroke diagnosis?: No VTE Prior VTE?: No VTE Risk Level:: Medical - moderate - high VTE Device Contraindication: Treatment Not Indicated VTE Drug Contraindication: N/A - Med Ordered
[2021-12-21] MEDS: hydroCHLOROthiazide 50 MG TABLET PO (11:06)
--- NOTE | 2021-12-21 11:40 | MHC.CM.PN ---
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
[2021-12-21 13:46] LABS: Glucose, Whole Blood 211 mg/dL (60-115)
[2021-12-21] MEDS: Insulin Lispro 100 UNIT/ML 3 ML VIAL SUBCUT ×3 (13:55→20:29)
[2021-12-21] MEDS: 0.9 % Sodium Chloride Flush 3 ML SYRINGE IVFLUSH ×2 (16:02→20:29)
--- NOTE | 2021-12-21 16:22 | PC.NURSE ---
Patient states would like to go back to [facility] once he leaves the hospital.
[2021-12-21 17:09] LABS: Glucose, Whole Blood 161 mg/dL (60-115)
[2021-12-21 20:13] LABS: Glucose, Whole Blood 191 mg/dL (60-115)
[2021-12-21] MEDS: traZODone HCL 50 MG TABLET PO (20:29)
[2021-12-21] MEDS: Prazosin HCL 5 MG CAPSULE PO (20:29)
[2021-12-21] MEDS: OLANZapine 7.5 MG TABLET 15 MG PO (20:29)
[2021-12-21] MEDS: Atorvastatin Calcium 20 MG TABLET PO (20:29)
[2021-12-21] MEDS: Acetaminophen 325 MG TABLET 650 MG PO (22:39)
[2021-12-21] MEDS: hydrOXYzine HCL 25 MG TABLET PO (22:40)
[2021-12-22 03:16] VITALS: BP 140/75; PULSE 90; RESP 18; TEMP 36.5; O2SAT 94
[2021-12-22 07:28] VITALS: BP 127/81; PULSE 91; RESP 18; TEMP 36.6; O2SAT 94
[2021-12-22 07:39] LABS: Glucose, Whole Blood 126 mg/dL (60-115)
[2021-12-22] MEDS: 0.9 % Sodium Chloride Flush 3 ML SYRINGE IVFLUSH ×3 (08:58→21:47)
[2021-12-22] MEDS: lisinopriL 20 MG TABLET PO (08:59)
[2021-12-22] MEDS: methADONE HCl 20 MG/2 ML ORAL.CONC 70 MG PO (08:59)
[2021-12-22] MEDS: Multivitamin TABLET 1 TAB PO (08:59)
[2021-12-22] MEDS: hydroCHLOROthiazide 50 MG TABLET PO (08:59)
[2021-12-22] MEDS: Furosemide 40 MG/4 ML VIAL IVPUSH ×2 (08:59→17:22)
--- NOTE | 2021-12-22 10:48 | P.PNCA_ITS ---
Subjective Subjective Date of Service: 12/22/21 Principal diagnosis: Right heart failure Interval history: Patient has diuresed about 1500 cc. He is feeling better. He says he shortness of breath is improved and leg edema is improved. However leg edema is not co mpletely resolved. Echocardiogram does not show any significant pathology to explain his heart failure syndrome. Review of Systems Review of Systems Yes all other systems are reviewed and are negative Physical Exam Vital Signs: Last Vital Signs Temp 97.8 F 12/22/21 07:28 Pulse 91 12/22/21 07:28 Resp 18 12/22/21 07:28 BP 127/81 12/22/21 07:28 Pulse Ox 94 12/22/21 07:28 BMI result Body Mass Index 32.0 Const General: cooperative, comfortable and no acute distress Nutritional Appearance: overweight Orientation/consciousness: patient oriented x3 Neck Neck: Yes trachea midline, Yes supple and Yes JVD Resp Effort & Inspection: normal respiratory effort Auscultation: clear to auscultation bilaterally Cardio Jugular venous distension: JVD Palpation: normal PMI Rate: regular rate Rhythm: regular rhythm Heart sounds: S1 normal heart sound present, S2 normal heart sound present, no click, no gallops and no murmurs GI Auscultation: normal bowel sounds Skin General skin exam: no rashes or lesions noted Neuro General: patient oriented x3 and no focal motor deficits Extrem General: No clubbing, No cyanosis and Yes edema Objective Labs and Meds Result diagrams: 12/21/21 05:40 12/21/21 05:40 Lab results: Laboratory Results - last 24 hr 12/21/21 12/21/21 12/21/21 13:42 17:03 19:59 POC Glucose 211 H 161 H 191 H 12/22/21 07:30 POC Glucose 126 H Progress Note: A&P Assessment and plan (1) Acute congestive heart failure: Status: Acute Assessment and Plan: Acute congestive heart failure predominantly right-sided heart failure in this middle-aged man with risk factors of hypertension diabetes. Echocardiogram does not show any significant pathology to explain his heart failure syndrome. Clinically still appears to be fluid overloaded but improving. Will continue with IV Lasix for 1 more day. Add Jardiance 10 mg to his regimen along with Aldactone 25 mg. Continue to monitor renal function tomorrow. Will require more workup as outpatient including ischemic workup as well as possibly cardiac catheterization to evaluate hemodynamics. Also workup for anemia needs to be pursued as this may exacerbate his heart failure syndrome overall. Blood pressure is otherwise well optimized. Probable plan for discharge tomorrow Will follow with you Time Spent With Patient Time: Total time spent is greater than 50% in coordination of care (as documented) at patient's floor/unit and/or counseling patient: Progress Note: Quality Stroke Does the patient have a stroke diagnosis?: No Procedures Date of Service Date of Service: 12/22/21
[2021-12-22 10:56] LABS: Anion Gap 13 (12-20); Blood Urea Nitrogen 25 mg/dL (9-16); Calcium 9.5 mg/dL (8.4-10.2); Carbon Dioxide 34 mmol/L (22-29); Chloride 98 mmol/L (96-108); Creatinine Clr Calc Pharmacy 83.2; Estimated Glomerular Filt Rate > 60; Glucose Random 224 mg/dL (60-115); Potassium 4.3 mmol/L (3.3-5.1); Sodium 141 mmol/L (135-145)
[2021-12-22 11:09] VITALS: BP 123/74; PULSE 84; RESP 18; TEMP 37.1; O2SAT 94
[2021-12-22 11:23] LABS: Glucose, Whole Blood 255 mg/dL (60-115)
--- NOTE | 2021-12-22 11:28 | P.PNIM_ITS ---
Subjective Subjective Date of Service: 12/22/21 Interval History: seen and examined this morning follow up for CHF no overnight events leg edema improving. no dyspnea at this time Review of Systems Review of Systems: Yes all other systems are reviewed and are negative Constitutional Constitutional: Denies chills and Denies fever(s) Cardiovascular Cardiovascular: Denies chest pain, Denies palpitations and Denies dyspnea Respiratory Respiratory: Denies cough and Denies dyspnea Gastrointestinal Gastrointestinal: Denies abdominal pain, Denies nausea and Denies vomiting Endocrine Endocrine: Denies palpitations Physical Exam Vital Signs: Vital Signs: Last Vital Signs Temp 98.7 F 12/22/21 11:09 Pulse 84 12/22/21 11:09 Resp 18 12/22/21 11:09 BP 123/74 12/22/21 11:09 Pulse Ox 94 12/22/21 11:09 BMI result Body Mass Index 32.0 Const: General: cooperative, comfortable, no acute distress, alert and awake Nutritional Appearance: average body habitus Orientation/consciousness: patient oriented x3 Resp: Effort & Inspection: normal respiratory effort and able to speak in complete sentences Auscultation: clear to auscultation bilaterally and no crackles Cardio: Jugular venous distension: JVD Rate: regular rate Heart sounds: S1 normal heart sound present and S2 normal heart sound present GI: Inspection: No distended Palpation (GI): Soft to palpation and nontender Neuro: General: patient oriented x3 Extrem: Other: b/l leg edema, less compared to yesterday Objective Data Active Medications Acetaminophen (Acetaminophen 325 Mg Tablet) 650 mg PO Q6H PRN PRN Reason: Pain, Mild (Pain Scale 1-3) Last Admin: 12/21/21 22:39 Dose: 650 mg Documented by: GRETCHEN Atorvastatin Calcium (Atorvastatin Calcium 20 Mg Tablet) 20 mg PO BEDTIME [facility] Last Admin: 12/21/21 20:29 Dose: 20 mg Documented by: GRETCHEN Dextrose (Dextrose 50 % 25 Gm/50 Ml Syringe) 25 gm IVPUSH Q15M PRN; Protocol PRN Reason: per Hypoglycemia Standing Ord. Docusate Sodium (Docusate Sodium 100 Mg Capsule) 100 mg PO DAILY PRN PRN Reason: Constipation Empagliflozin (Empagliflozin 10 Mg Tablet) 10 mg PO DAILY [facility] Enoxaparin Sodium (Enoxaparin Sodium 40 Mg/0.4 Ml Syringe) 40 mg SUBCUT Q24H [facility] Last Admin: 12/21/21 22:40 Dose: 40 mg Documented by: ANTDILMA Furosemide (Furosemide 40 Mg/4 Ml Vial) 40 mg IVPUSH BID@0900,1800 [facility]; Protocol Last Admin: 12/22/21 08:59 Dose: 40 mg Documented by: ELLEN Glucose (Glucose Gel 15 Gm Gel..Gram.) 15 gm PO Q15M PRN; Protocol PRN Reason: per Hypoglycemia Standing Ord. Hydroxyzine HCl (Hydroxyzine Hcl 25 Mg Tablet) 25 mg PO QID PRN PRN Reason: Anxiety Last Admin: 12/21/21 22:40 Dose: 25 mg Documented by: GRETCHEN Insulin Glargine (Insulin Glargine,Hum.Rec.Anlog 100 Unit/Ml 10 Ml Vial) 46 unit SUBCUT BEDTIME [facility] Insulin Human Lispro (Insulin Lispro 100 Unit/Ml 3 Ml Vial) 0 unit SUBCUT QIDACHS [facility]; Protocol Last Admin: 12/22/21 08:58 Dose: Not Given Documented by: ELLEN Non-Admin Reason: No Insulin Coverage Lisinopril (Lisinopril 20 Mg Tablet) 20 mg PO DAILY [facility]; Protocol Last Admin: 12/22/21 08:59 Dose: 20 mg Documented by: ELLEN Methadone HCl (Methadone Hcl 20 Mg/2 Ml Oral.Conc) 70 mg PO DAILY [facility] Last Admin: 12/22/21 08:59 Dose: 70 mg Documented by: ELLEN Multivitamins/Vitamin C (Multivitamin Tablet) 1 tab PO DAILY [facility] Last Admin: 12/22/21 08:59 Dose: 1 tab Documented by: ELLEN Olanzapine (Olanzapine 7.5 Mg Tablet) 15 mg PO BEDTIME [facility] Last Admin: 12/21/21 20:29 Dose: 15 mg Documented by: ANTDILMA Omeprazole (Omeprazole 20 Mg Capsule.Dr) 20 mg PO DAILY@0630 [facility] Last Admin: 12/22/21 06:21 Dose: Not Given Documented by: GRETCHEN Non-Admin Reason: Patient Asleep Ondansetron HCl (Ondansetron Hcl 4 Mg/2 Ml Vial) 4 mg IVPUSH Q8H PRN PRN Reason: Nausea and Vomiting Prazosin HCl (Prazosin Hcl 5 Mg Capsule) 5 mg PO BEDTIME [facility]; Protocol Last Admin: 12/21/21 20:29 Dose: 5 mg Documented by: GRETCHEN Sodium Chloride (0.9 % Sodium Chloride Flush 3 Ml Syringe) 3 ml IVFLUSH QSHIFT [facility] Last Admin: 12/22/21 08:58 Dose: 3 ml Documented by: DELORIS-OBDULIO Spironolactone (Spironolactone 25 Mg Tablet) 25 mg PO DAILY [facility]; Protocol Trazodone HCl (Trazodone Hcl 50 Mg Tablet) 50 mg PO BEDTIME [facility] Last Admin: 12/21/21 20:29 Dose: 50 mg Documented by: GRETCHEN Labs CBC & Chem 7: 12/21/21 05:40 12/22/21 10:13 Labs: Laboratory Results - last 24 hr 12/21/21 12/21/21 12/21/21 13:42 17:03 19:59 Anion Gap Estim Creat Clear Calc Estimated GFR POC Glucose 211 H 161 H 191 H Random Glucose Calcium 12/22/21 12/22/21 12/22/21 07:30 10:13 11:10 Anion Gap 13 Estim Creat Clear Calc 83.2 Estimated GFR > 60 POC Glucose 126 H 255 H Random Glucose 224 H D Calcium 9.5 Assessment and Plan (1) Acute congestive heart failure: Status: Acute (2) Type 2 diabetes mellitus with unspecified complications: Status: Acute Plan 51-year-old male with past medical history of diabetes, hypertension who presents to the hospital with complaints of significant lower extremity swelling Acute HFpEF ECHO showing preserved LVEF, diastolic dysfunction no previous history of CHF Negative 1500 since admission - continue IV Lasix, strict I&O, daily weight, low-sodium diet - seen by cardiology - rec to start aldactone, jardiance - will need outpatient ischemic workup mild ARELIS creatinine improveing - likely prerenal in the setting of CHF - follow BMP hypertension - continue lisinopril - stop HCTZ as aldactone being started for CHF diabetes episode of hypoglycemia this morning, asymptomatic - Lantus dose decreased - will monitor POCs closely - Continue SSI - diabetic diet Chronic normocytic anemia will check iron studies, b12, folate levels HLD continue statin h/o OUD continue methadone wants to return to [facility] upon discharge -will discuss with CM mood continue zyprexa, trazodone DVT prophylaxis: Lovenox Attending: dr. Chowdhury Requires ongoing inpatient hospitalization due to CHF, Cardiology evaluation and treatment with diuretics Quality Stroke Does the patient have a stroke diagnosis?: No VTE Prior VTE?: No VTE Risk Level:: Medical - moderate - high VTE Device Contraindication: Treatment Not Indicated VTE Drug Contraindication: N/A - Med Ordered
[2021-12-22 12:04] LABS: Iron 106 mcg/dL (45-160); Percent Iron Saturation 33 % (15-50); Total Iron Binding Capacity 321 mcg/dL (228-428); Unsaturated Iron Binding 215 ug/dL
[2021-12-22 12:26] LABS: Ferritin 78 ng/mL (20-250)
[2021-12-22] MEDS: Insulin Lispro 100 UNIT/ML 3 ML VIAL SUBCUT ×3 (12:31→21:46)
--- NOTE | 2021-12-22 15:18 | MHC.RECOVSUP ---
Recovery Support note: Patient is a 51 year old who presented to [facility] from [facility] due to swelling and was medically admitted. Recovery Support Team was consulted as patient is requesting to return to [facility] after discharge. A chart review indicates patient is not ready for discharge at this time. [facility] reports patient will have to be referred on Friday for an admission to [facility]. Recovery Support Team will meet with patient prior to discharge to discuss recovery and facilitate a transfer back to [facility] if possible.
[2021-12-22 16:00] VITALS: BP 153/76; PULSE 89; RESP 18; TEMP 37.1; O2SAT 97
[2021-12-22 16:08] LABS: Glucose, Whole Blood 192 mg/dL (60-115)
[2021-12-22] MEDS: Acetaminophen 325 MG TABLET 650 MG PO (17:22)
[2021-12-22 19:43] LABS: Glucose, Whole Blood 267 mg/dL (60-115)
[2021-12-22 19:44] VITALS: BP 148/74; PULSE 89; RESP 16; TEMP 37.1; O2SAT 95
[2021-12-22] MEDS: Atorvastatin Calcium 20 MG TABLET PO (21:46)
[2021-12-22] MEDS: Prazosin HCL 5 MG CAPSULE PO (21:46)
[2021-12-22] MEDS: traZODone HCL 50 MG TABLET PO (21:46)
[2021-12-22] MEDS: Insulin Glargine,Hum.rec.anlog 100 UNIT/ML 10 ML VIAL 15 UNIT SUBCUT (21:46)
[2021-12-22] MEDS: OLANZapine 7.5 MG TABLET 15 MG PO (21:46)
[2021-12-22] MEDS: hydrOXYzine HCL 25 MG TABLET PO (21:47)
[2021-12-22 23:55] VITALS: BP 144/76; PULSE 101; RESP 18; TEMP 36.9; O2SAT 94
[2021-12-23] MEDS: Enoxaparin Sodium 40 MG/0.4 ML SYRINGE SUBCUT (03:01)
[2021-12-23 04:00] VITALS: BP 146/79; PULSE 80; RESP 18; TEMP 36.6; O2SAT 95
[2021-12-23] MEDS: Omeprazole 20 MG CAPSULE.DR PO (05:29)
[2021-12-23 07:09] VITALS: BP 128/72; PULSE 78; RESP 18; TEMP 36.4; O2SAT 94
[2021-12-23 07:22] LABS: Glucose, Whole Blood 282 mg/dL (60-115)
[2021-12-23 07:50] LABS: Anion Gap 14 (12-20); Blood Urea Nitrogen 31 mg/dL (9-16); Calcium 9.4 mg/dL (8.4-10.2); Carbon Dioxide 32 mmol/L (22-29); Chloride 97 mmol/L (96-108); Creatinine Clr Calc Pharmacy 72.6; Estimated Glomerular Filt Rate > 60; Glucose Random 325 mg/dL (60-115); Potassium 4.4 mmol/L (3.3-5.1); Sodium 139 mmol/L (135-145)
[2021-12-23 07:54] LABS: Estimated Average Glucose 243 mg/dL; Hemoglobin A1c % 10.1 %
[2021-12-23] MEDS: Empagliflozin 10 MG TABLET PO (07:55)
[2021-12-23] MEDS: lisinopriL 20 MG TABLET PO (07:55)
[2021-12-23] MEDS: Multivitamin TABLET 1 TAB PO (07:55)
[2021-12-23] MEDS: Spironolactone 25 MG TABLET PO (07:55)
[2021-12-23] MEDS: methADONE HCl 20 MG/2 ML ORAL.CONC 70 MG PO (07:55)
[2021-12-23] MEDS: Insulin Lispro 100 UNIT/ML 3 ML VIAL SUBCUT ×4 (07:57→21:48)
[2021-12-23] MEDS: 0.9 % Sodium Chloride Flush 3 ML SYRINGE IVFLUSH ×3 (08:00→23:44)
[2021-12-23] MEDS: Furosemide 40 MG/4 ML VIAL IVPUSH (08:00)
[2021-12-23 11:01] VITALS: BP 132/65; PULSE 88; RESP 18; TEMP 36.5; O2SAT 97
[2021-12-23 11:14] LABS: Glucose, Whole Blood 215 mg/dL (60-115)
--- NOTE | 2021-12-23 13:12 | PM.PNCARD ---
Subjective Subjective Date of Service: 12/23/21 Principal diagnosis: Right heart failure Interval history: Patient is feeling very well currently. Leg edema is improved. Shortness of breath is improved. Has diuresed overall well. BNP is down trended. He wants to go home Review of Systems Review of Systems Yes all other systems are reviewed and are negative Physical Exam Vital Signs: Last Vital Signs Temp 97.7 F 12/23/21 11:01 Pulse 88 12/23/21 11:01 Resp 18 12/23/21 11:01 BP 132/65 12/23/21 11:01 Pulse Ox 97 12/23/21 11:01 BMI result Body Mass Index 32.0 Const General: cooperative, comfortable, no acute distress, alert and awake Nutritional Appearance: obese Orientation/consciousness: patient oriented x3 Neck Neck: Yes trachea midline, Yes supple and Yes no JVD Resp Effort & Inspection: normal respiratory effort Auscultation: clear to auscultation bilaterally Cardio Jugular venous distension: no JVD Palpation: normal PMI Rate: regular rate Rhythm: regular rhythm Heart sounds: S1 normal heart sound present, S2 normal heart sound present, no click, no gallops and no murmurs GI Auscultation: normal bowel sounds Neuro General: patient oriented x3 and no focal motor deficits Extrem General: No clubbing, No cyanosis and Yes edema Objective Labs and Meds Result diagrams: 12/21/21 05:40 12/23/21 06:42 Lab results: Laboratory Results - last 24 hr 12/22/21 12/22/21 12/23/21 15:56 19:35 06:42 Sodium 139 Potassium 4.4 Chloride 97 Carbon Dioxide 32 H Anion Gap 14 BUN 31 H Creatinine 1.18 Estim Creat Clear Calc 72.6 Estimated GFR > 60 POC Glucose 192 H 267 H Random Glucose 325 H D Estimat Average Glucose Hemoglobin A1c % Calcium 9.4 12/23/21 12/23/21 12/23/21 06:42 07:11 11:03 Sodium Potassium Chloride Carbon Dioxide Anion Gap BUN Creatinine Estim Creat Clear Calc Estimated GFR POC Glucose 282 H 215 H Random Glucose Estimat Average Glucose 243 Hemoglobin A1c % 10.1 Calcium Progress Note: A&P Assessment and plan (1) Acute congestive heart failure: Status: Acute Assessment and Plan: Patient with predominant right heart failure syndrome of unclear etiology. Doing well currently. Continue current medications, can be discharged home or to his facility. Outpatient follow-up will be pursued including a stress test as outpatient. Switch to Lasix 40 mg daily along with Jardiance and Aldactone therapy. Outpatient and blood work will be pursued. Will follow. Time Spent With Patient Time: Total time spent is greater than 50% in coordination of care (as documented) at patient's floor/unit and/or counseling patient: Progress Note: Quality Stroke Does the patient have a stroke diagnosis?: No Procedures Date of Service Date of Service: 12/23/21
--- NOTE | 2021-12-23 13:54 | HO.PM.IMPN ---
Subjective Subjective Date of Service: 12/23/21 Interval History: seen and examined this morning follow up for CHF no sob, leg edema improving Review of Systems Review of Systems: Yes all other systems are reviewed and are negative Constitutional Constitutional: Denies chills and Denies fever(s) Cardiovascular Cardiovascular: Denies chest pain, Denies palpitations, Denies dyspnea and Denies dyspnea on exertion Respiratory Respiratory: Denies cough, Denies dyspnea and Denies dyspnea on exertion Gastrointestinal Gastrointestinal: Denies abdominal pain, Denies diarrhea, Denies nausea and Denies vomiting Endocrine Endocrine: Denies palpitations Physical Exam Vital Signs: Vital Signs: Last Vital Signs Temp 97.7 F 12/23/21 11:01 Pulse 88 12/23/21 11:01 Resp 18 12/23/21 11:01 BP 132/65 12/23/21 11:01 Pulse Ox 97 12/23/21 11:01 BMI result Body Mass Index 32.0 Const: General: cooperative, comfortable, no acute distress, alert and awake Nutritional Appearance: average body habitus Orientation/consciousness: patient oriented x3 Resp: Effort & Inspection: normal respiratory effort and able to speak in complete sentences Auscultation: clear to auscultation bilaterally and no crackles Cardio: Jugular venous distension: JVD Rate: regular rate Heart sounds: S1 normal heart sound present and S2 normal heart sound present GI: Inspection: No distended Palpation (GI): Soft to palpation and nontender Neuro: General: patient oriented x3 Extrem: Other: trace leg edema ; able to move all 4 extremities spontaneously Objective Data Active Medications Acetaminophen (Acetaminophen 325 Mg Tablet) 650 mg PO Q6H PRN PRN Reason: Pain, Mild (Pain Scale 1-3) Last Admin: 12/22/21 17:22 Dose: 650 mg Documented by: ELLEN Atorvastatin Calcium (Atorvastatin Calcium 20 Mg Tablet) [address] [facility] Last Admin: 12/22/21 21:46 Dose: 20 mg Documented by: MILE Dextrose (Dextrose 50 % 25 Gm/50 Ml Syringe) 25 gm IVPUSH Q15M PRN; Protocol PRN Reason: per Hypoglycemia Standing Ord. Docusate Sodium (Docusate Sodium 100 Mg Capsule) 100 mg PO DAILY PRN PRN Reason: Constipation Empagliflozin (Empagliflozin 10 Mg Tablet) [address] [facility] Last Admin: 12/23/21 07:55 Dose: 10 mg Documented by: SANDY Enoxaparin Sodium (Enoxaparin Sodium 40 Mg/0.4 Ml Syringe) [address] [facility] Last Admin: 12/23/21 03:01 Dose: 40 mg Documented by: MILE Furosemide (Furosemide 40 Mg/4 Ml Vial) 40 mg IVPUSH BID@0900,1800 [facility]; Protocol Last Admin: 12/23/21 08:00 Dose: 40 mg Documented by: SANDY Glucose (Glucose Gel 15 Gm Gel..Gram.) 15 gm PO Q15M PRN; Protocol PRN Reason: per Hypoglycemia Standing Ord. Hydroxyzine HCl (Hydroxyzine Hcl 25 Mg Tablet) 25 mg PO QID PRN PRN Reason: Anxiety Last Admin: 12/22/21 21:47 Dose: 25 mg Documented by: MILE Insulin Glargine (Insulin Glargine,Hum.Rec.Anlog 100 Unit/Ml 10 Ml Vial) [address] [facility] Last Admin: 12/22/21 21:46 Dose: 15 unit Documented by: MILE Insulin Human Lispro (Insulin Lispro 100 Unit/Ml 3 Ml Vial) [address] [facility]; Protocol Last Admin: 12/23/21 11:38 Dose: 4 unit Documented by: SANDY Lisinopril (Lisinopril 20 Mg Tablet) [address] [facility]; Protocol Last Admin: 12/23/21 07:55 Dose: 20 mg Documented by: SANDY Methadone HCl (Methadone Hcl 20 Mg/2 Ml Oral.Conc) [address] [facility] Last Admin: 12/23/21 07:55 Dose: 70 mg Documented by: SANDY Multivitamins/Vitamin C (Multivitamin Tablet) [address] [facility] Last Admin: 12/23/21 07:55 Dose: 1 tab Documented by: SANDY Olanzapine (Olanzapine 7.5 Mg Tablet) [address] [facility] Last Admin: 12/22/21 21:46 Dose: 15 mg Documented by: MILE Omeprazole (Omeprazole 20 Mg Capsule.Dr) 20 mg PO DAILY@0630 [facility] Last Admin: 12/23/21 05:29 Dose: 20 mg Documented by: MILE Ondansetron HCl (Ondansetron Hcl 4 Mg/2 Ml Vial) 4 mg IVPUSH Q8H PRN PRN Reason: Nausea and Vomiting Prazosin HCl (Prazosin Hcl 5 Mg Capsule) [address] [facility]; Protocol Last Admin: 12/22/21 21:46 Dose: 5 mg Documented by: MILE Sodium Chloride (0.9 % Sodium Chloride Flush 3 Ml Syringe) [address] [facility] Last Admin: 12/23/21 08:00 Dose: 3 ml Documented by: SANDY Spironolactone (Spironolactone 25 Mg Tablet) 25 mg PO DAILY [facility]; Protocol Last Admin: 12/23/21 07:55 Dose: 25 mg Documented by: SANDY Trazodone HCl (Trazodone Hcl 50 Mg Tablet) 50 mg PO BEDTIME [facility] Last Admin: 12/22/21 21:46 Dose: 50 mg Documented by: MILE Labs CBC & Chem 7: 12/21/21 05:40 12/23/21 06:42 Labs: Laboratory Results - last 24 hr 12/22/21 12/22/21 12/23/21 15:56 19:35 06:42 Anion Gap 14 Estim Creat Clear Calc 72.6 Estimated GFR > 60 POC Glucose 192 H 267 H Random Glucose 325 H D Estimat Average Glucose Hemoglobin A1c % Calcium 9.4 12/23/21 12/23/21 12/23/21 06:42 07:11 11:03 Anion Gap Estim Creat Clear Calc Estimated GFR POC Glucose 282 H 215 H Random Glucose Estimat Average Glucose 243 Hemoglobin A1c % 10.1 Calcium Assessment and Plan (1) Acute congestive heart failure: Status: Acute Plan 51-year-old male with past medical history of diabetes, hypertension who presents to the hospital with complaints of significant lower extremity swelling Acute HFpEF/right heart failure ECHO showing preserved LVEF, diastolic dysfunction no previous history of CHF Negative 2.1L - will transition to po lasix - start aldactone, jardiance this admission -cardiology following - will need outpatient ischemic workup mild ARELIS resolved creatinine appears to be at baseline hypertension - continue lisinopril - stop HCTZ as aldactone being started for CHF diabetes episode of hypoglycemia Blood sugar started to trend back up -metformin on hold -will up titrate Lantus to 20U (home dose 46u) - Continue SSI - diabetic diet Chronic normocytic anemia will check iron studies, b12, folate levels HLD continue statin h/o OUD continue methadone Completed detox prior to coming to the hospital. wants to return to [facility] upon discharge. care team will call [facility] in am to confirm bed availability for possible transfer back to to [facility] mood continue zyprexa, trazodone DVT prophylaxis: Warren Attending: dr. Chowdhury dispo: transfer back to [facility] if able vs d/c to family's house (pt homeless) Requires ongoing inpatient hospitalization due to CHF, Cardiology evaluation and treatment with diuretics Quality Stroke Does the patient have a stroke diagnosis?: No VTE Prior VTE?: No VTE Risk Level:: Medical - moderate - high VTE Device Contraindication: Treatment Not Indicated VTE Drug Contraindication: N/A - Med Ordered
--- NOTE | 2021-12-23 15:34 | MHC.RECOVSUP ---
Recovery Support note: This ticket writer met with patient on 12/23 to discuss discharge plan. Patient would like to return to [facility] however staff at [facility] report they cannot admit him until Friday as it would be a [facility] admission from a medical floor. Discussed discharge options with patient. Patient reports he has no where to go and that he was living on the [address] prior to going to [facility]. Patient reports he is willing to go to a residential or [facility] however he states his wallet and money are still at [facility] and he does not want to discharge without those. Patient also reports concerns that he would relapse if he is on the street with money. Discussed case with patient's hospitalist. Plan for patient to remain overnight and discharge to [facility] or a residential on 12/24. Patient information sent to [facility] for review on 12/24. This ticket writer will contact [facility] ([phone]) Friday morning.
[2021-12-23 15:37] VITALS: BP 145/78; PULSE 93; RESP 18; TEMP 37.1; O2SAT 94
[2021-12-23 16:04] LABS: Glucose, Whole Blood 260 mg/dL (60-115)
--- NOTE | 2021-12-23 18:17 | MHC.RECOVSUP ---
? Reason for consult Recovery Support o Current location: [facility] o Identified substance use concern: Heroin - Support ? Intervention: o Community resources provided o Harm reduction discussion ? Plan: o Referral to [facility] o Bed search in progress to go to a tss o Follow up tomorrow o Patient to follow up with [facility] after discharge ? Additional information: Met with patient and we had a long recovery Talk.. We talk about Harm reduction and changing people places and things... Client has a bed pending @ [facility]
[2021-12-23 19:24] VITALS: BP 143/73; PULSE 88; RESP 18; TEMP 37.1; O2SAT 95
[2021-12-23 19:45] LABS: Glucose, Whole Blood 261 mg/dL (60-115)
[2021-12-23] MEDS: Prazosin HCL 5 MG CAPSULE PO (21:45)
[2021-12-23] MEDS: traZODone HCL 50 MG TABLET PO (21:45)
[2021-12-23] MEDS: OLANZapine 7.5 MG TABLET 15 MG PO (21:46)
[2021-12-23] MEDS: Atorvastatin Calcium 20 MG TABLET PO (21:46)
[2021-12-23] MEDS: Insulin Glargine,Hum.rec.anlog 100 UNIT/ML 10 ML VIAL 20 UNIT SUBCUT (21:48)
[2021-12-24] VITALS: BP 134/69; PULSE 116; RESP 16; TEMP 36.7; O2SAT 97
[2021-12-24] MEDS: Enoxaparin Sodium 40 MG/0.4 ML SYRINGE SUBCUT (00:25)
[2021-12-24] MEDS: hydrOXYzine HCL 25 MG TABLET PO (01:54)
[2021-12-24 03:55] VITALS: BP 146/80; PULSE 100; RESP 16; TEMP 36.4; O2SAT 94
[2021-12-24 06:29] VITALS: BMI 31.8
[2021-12-24] MEDS: Omeprazole 20 MG CAPSULE.DR PO (06:31)
[2021-12-24 07:50] LABS: Anion Gap 13 (12-20); Blood Urea Nitrogen 36 mg/dL (9-16); Calcium 9.2 mg/dL (8.4-10.2); Carbon Dioxide 31 mmol/L (22-29); Chloride 99 mmol/L (96-108); Creatinine Clr Calc Pharmacy 64.8; Estimated Glomerular Filt Rate 57; Glucose Random 387 mg/dL (60-115); Potassium 4.8 mmol/L (3.3-5.1); Sodium 138 mmol/L (135-145)
[2021-12-24 07:55] VITALS: BP 125/81; PULSE 104; RESP 20; TEMP 36.5; O2SAT 95
[2021-12-24 08:06] LABS: Glucose, Whole Blood 292 mg/dL (60-115)
[2021-12-24] MEDS: Insulin Lispro 100 UNIT/ML 3 ML VIAL SUBCUT ×2 (08:25→11:49)
[2021-12-24] MEDS: methADONE HCl 20 MG/2 ML ORAL.CONC 70 MG PO (08:26)
[2021-12-24] MEDS: Spironolactone 25 MG TABLET PO (08:26)
[2021-12-24] MEDS: Multivitamin TABLET 1 TAB PO (08:26)
[2021-12-24] MEDS: Empagliflozin 10 MG TABLET PO (08:26)
[2021-12-24] MEDS: Furosemide 40 MG TABLET PO (08:26)
[2021-12-24] MEDS: lisinopriL 20 MG TABLET PO (08:26)
[2021-12-24 09:05] LABS: Folate > 20.0 ng/mL (> or = 4.0); Vitamin B12 627 pg/mL (200-900)
--- NOTE | 2021-12-24 09:52 | MHC.RECOVSUP ---
Recovery Support note: Per Beatriz at [facility] patient is able to return to [facility] this morning. Patient will be going from [facility] to a sober house either today or tomorrow. For this reason, it is requested that patient receive paper scripts for any discharge medications. CM and hospitalist informed. This customs entry writer will assist patient with transporting back to [facility] upon discharge.
[2021-12-24 10:56] LABS: Glucose, Whole Blood 157 mg/dL (60-115)
[2021-12-24 11:01] VITALS: BP 118/65; PULSE 100; RESP 19; TEMP 36.5; O2SAT 96
--- NOTE | 2021-12-24 13:12 | P.DS_ITS ---
DS: Providers Provider Date of Service: 12/24/21 Date of admission: 12/21/21 01:26 Primary care physician: [facility] Consults: 12/21/21 01:24 Consult to Cardiology Routine Consulting Provider: Kumar Nugent Reason for consultation: chf? Has provider been notified: No 12/22/21 11:54 Consult to Care Team Routine Comment: Reason for consultation: wants to return to [facility]; was there for detox Attending physician on discharge: Raad Kyle Discharging clinician: Yamel Flood DS: Diagnosis Discharge Diagnosis (1) Acute congestive heart failure: Status: Acute DS: Summary Hospital Course Hospital Course: HP as per admitting provider This is a 51-year-old male with past medical history of diabetes, HTN, asthma, who presents the hospital with complaints of leg swelling as well as scrotal swelling.? Patient reports that his symptoms are about 3 days ago, he is complaining of shortness of breath on exertion, he denies any chest pain, denies orthopnea or PND, no cough, no sputum production.? Patient denies any fever or chills.? No recent injury, no recent travel or sick contacts.? Patient denies using her oral cocaine. On arrival to the ED patient found to have slightly elevated heart rate of 105, otherwise was unremarkable. Labs are significant for WBC count of 7.6, hemoglobin of 9.3, BUN of 26, creatinine of 1.37 with a baseline of around 1.0, BNP of 103, troponin of 9.3, while panel negative.? Chest x-ray shows no acute abnormality.? UDS negative Discharging to [facility] Acute HFpEF/right heart failure ECHO showing preserved LVEF, diastolic dysfunction no previous history of CHF Negative 1.8L po lasix, start aldactone and jardiance cardiology followed - will need outpatient ischemic workup mild ARELIS resolved creatinine appears to be at baseline Hypertension continue lisinopril stop HCTZ, start aldactone for CHF Diabetes episodes of hypoglycemia Blood sugar started to trend back up metformin on hold Lantus to 20U encourage diabetic diet Chronic normocytic anemia will check iron studies, b12, folate levels HLD continue statin h/o OUD continue methadone Completed detox prior to coming to the hospital.? wants to return to [facility] upon discharge.? care team will call [facility] in am to confirm bed availability for possible transfer back to to [facility] mood continue zyprexa, trazodone Time Spent with Patient Time attestation: Total time spent providing and/or coordinating discharge services: Discharge coordination time: Greater than 30 minutes Quality: Safe Use of Opioids Does Pt have an Active Cancer Diagnosis on the Problem List?: No Quality: Stroke Does the patient have a stroke diagnosis?: No Physical Exam Vital Signs: Vital Signs: Last Vital Signs Temp 97.7 F 12/24/21 11:01 Pulse 100 12/24/21 11:01 Resp 19 12/24/21 11:01 BP 118/65 12/24/21 11:01 Pulse Ox 96 12/24/21 11:01 BMI result Body Mass Index 31.8 Appearing in no acute distress head is normocephalic atraumatic eyes pupils are PERRLA sclera is anicteric mouth throat mucous membranes are intact and moist neck is supple no lymphadenopathy, no JVD noted lung sounds are clear to auscultation heart regular rate rhythm, clear S1, S2 positive bowel sounds, abdomen is soft, nontender neuro patient is alert x3, no focal deficits DS: Data Data Completed and Pending Labs on day of discharge: Laboratory Results - last 24 hr 12/22/21 12/23/21 12/23/21 10:13 15:39 19:23 Sodium Potassium Chloride Carbon Dioxide Anion Gap BUN Creatinine Estim Creat Clear Calc Estimated GFR POC Glucose 260 H 261 H Random Glucose Calcium Vitamin B12 627 Folate > 20.0 12/24/21 12/24/21 12/24/21 06:30 07:50 10:50 Sodium 138 Potassium 4.8 Chloride 99 Carbon Dioxide 31 H Anion Gap 13 BUN 36 H Creatinine 1.32 Estim Creat Clear Calc 64.8 Estimated GFR 57 POC Glucose 292 H 157 H Random Glucose 387 H* Calcium 9.2 Vitamin B12 Folate Discharge Plan Discharge Anticipated Discharge Date/Time: 12/24/21 13:03 Patient Disposition: Xfer Inpatient Rehab Fac Discharge Diagnosis: HFpEF acute ARELIS HTN Referrals: [facility] [Primary Care Provider] - 1 Week Kumar Nugent MD [Physician] - 1 Week Discharge Medications: New spironolactone 25 mg Tablet 25 mg PO DAILY 30 Days Qty: 30 0RF Protocol: Hold for SBP< HOLD for SBP < : 90 furosemide 40 mg Tablet 40 mg PO DAILY 30 Days Qty: 30 0RF Protocol: Hold for SBP< HOLD for SBP < : 90 Jardiance 10 mg Tablet 10 mg PO DAILY 30 Days Qty: 30 0RF Continued metformin 500 mg tablet 1,000 mg PO BID 0RF trazodone 50 mg tablet 50 mg PO BEDTIME 0RF lisinopril 20 mg tablet 20 mg PO QAM 0RF prazosin 5 mg capsule 5 mg PO BEDTIME 0RF pantoprazole 40 mg tablet,delayed release (DR/EC) 40 mg PO QAM 0RF hydroxyzine pamoate 25 mg capsule 25 mg PO QID PRN (Reason: Anxiety) 0RF atorvastatin 20 mg tablet 20 mg PO QPM 0RF methadone 10 mg/5 mL Solution 70 mg PO DAILY 0RF olanzapine 15 mg tablet 15 mg PO BEDTIME 0RF insulin aspart U-100 [Novolog Flexpen U-100 Insulin] 100 unit/mL (3 mL) insulin pen See Protocol sliding scale dose subcut TID 0RF Protocol: Insulin Correction Scale Less than or equal to 110 ---- Give (units): 0 111 to 150 Give (units): 0 151 to 200 Give (units): 2 201 to 250 Give (units): 4 251 to 300 Give (units): 6 301 to 350 Give (units): 8 Greater than 350 Give (units): 10 Call MD if Blood Glucose > : 350 Certavite-Antioxidant 18-400 mg-mcg Tablet 1 tab PO DAILY 0RF clonidine HCl 0.1 mg tablet 1 tab PO TID PRN (Reason: anxiety) 0RF Changed insulin glargine 20 units subcut BEDTIME Qty: 0 0RF Discontinued hydrochlorothiazide 50 mg tablet 50 mg PO QAM 0RF ibuprofen 400 mg tablet 400 mg PO TID PRN (Reason: Pain) 0RF Discharge Orders: Discharge Order (Routine); Ordered 12/24/21 Ordered By: Yamel Flood Diet: advance to usual diet Activity on Discharge: As tolerated Stand Alone Forms: Patient Portal Discharge page Care Plan Goals: see below Health Concerns: HFpEF acute ARELIS HTN Plan of Treatment: stop taking HCTZ start taking Jardiance start taking Lasix your dose of Lantus has been adjusted call to schedule follow up appt with cardiology call to schedule follow up with PCP Assessment: see discharge summary
--- NOTE | 2021-12-24 13:45 | PC.NURSE ---
Pt discharged to [facility] around 1340. Transporation arranged by care team. [facility]
--- NOTE | 2021-12-24 13:55 | MHC.RECOVSUP ---
Recovery Support note: Patient accepted back to [facility]. Transported via [facility].
== END 2021-12-24 13:44 | DRG 292 ==
LOC: HO.ED 12-21 01:23 → HO.EDOVER 12-21 01:37 → HO.IMC 12-21 16:00
PROVIDERS: Physician Assistant Medical; Admitting Provider Internal Medicine; Emergency Provider Emergency Medicine; Visit Provider Nurse Practitioner Acute Care
DX: I11.0 Hypertensive heart disease with heart failure (principal); N17.9 Acute kidney failure, unspecified; F11.20 Opioid dependence, uncomplicated; I50.811 Acute right heart failure; E11.649 Type 2 diabetes mellitus with hypoglycemia without coma; E78.5 Hyperlipidemia, unspecified; D64.9 Anemia, unspecified; Z20.822 Contact with and (suspected) exposure to COVID-19; Z79.4 Long term (current) use of insulin; Z79.84 Long term (current) use of oral hypoglycemic drugs; Z79.899 Other long term (current) drug therapy
CPT/HCPCS: 0241U; 36415; 71045; 80048; 80053; 80307; 82607; 82728; 82746; 82947; 83036; 83540; 83880; 84484; 85025; 87502; 87635; 93005; 93306; 96374; 99285; J1650; J1940

== ENCOUNTER 2022-01-11 19:47 | Emergency (ER) | payer OTHER, SELFPAY ==
[2022-01-11 19:52] VITALS: BP 139/76; PULSE 113; RESP 20; TEMP 36.9; O2SAT 96; BMI 33.3
[2022-01-11 20:00] LABS: MANUAL DIFF FLAG NO
[2022-01-11 20:03] LABS: Basophils Percent Auto 0.2 % (0-2); Eosinophils Absolute Auto 0.2 X10*3/uL (0.0-0.4); Eosinophils Percent Auto 2.8 % (0-4); Hematocrit 29.2 % (42.0-52.0); Hemoglobin 9.7 g/dl (14.0-18.0); Imm Gran Abs Auto 0.04 X10*3/uL (0.00-0.03); Imm Gran Pct Auto 0.5 % (0.0-0.4); Lymphocytes Absolute Auto 2.1 X10*3/uL (1.2-4.9); Lymphocytes Percent Auto 26.1 % (20-40); Mean Corpuscular HGB Conc 33.2 g/dl (31.0-36.0); Mean Corpuscular Hemoglobin 31.2 pg (27.0-33.0); Mean Corpuscular Volume 93.9 fL (80.0-98.0); Mean Platelet Volume 8.9 fL (9.4-12.4); Monocytes Absolute Auto 0.6 X10*3/uL (0.1-1.2); Monocytes Percent Auto 7.7 % (2-11); Neutrophils Absolute Auto 5.1 x10*3/uL (2.0-8.3); Neutrophils Percent Auto 62.7 % (45-73); Platelet Count 193 X10*3/uL (160-400); Red Blood Count 3.11 X10*6/uL (4.60-5.80); Red Cell Distribution Width 13.3 % (11.0-16.0); White Blood Count 8.2 X10*3/uL (4.8-10.8)
[2022-01-11 21:02] LABS: Alanine Aminotransferase 41 U/L (0-40); Albumin Level 3.7 g/dL (3.5-5.0); Alkaline Phosphatase 101 U/L (39-117); Anion Gap 13 (12-20); Aspartate Amino Transferase 30 U/L (5-37); Bilirubin Direct < 0.2 mg/dL (0.0-0.5); Bilirubin Total 0.3 mg/dL (0.0-1.0); Blood Urea Nitrogen 29 mg/dL (9-16); Calcium 8.9 mg/dL (8.4-10.2); Carbon Dioxide 28 mmol/L (22-29); Chloride 102 mmol/L (96-108); Creatinine Clr Calc Pharmacy 52.6; Estimated Glomerular Filt Rate 44; Glucose Random 357 mg/dL (60-115); Potassium 5.2 mmol/L (3.3-5.1); Sodium 138 mmol/L (135-145); Total Protein 6.2 g/dL (6.5-8.0)
== END 2022-01-11 23:39 | disposition left against medical advice (07) ==
PROVIDERS: Emergency Provider Emergency Medicine
DX: R10.12 Left upper quadrant pain (principal); Z79.899 Other long term (current) drug therapy
CPT/HCPCS: 36415; 80053; 82248; 85025; 99281; 99283

== ENCOUNTER → 2022-03-11 08:10 | Outpatient (REF) | payer OTHER, SELFPAY ==
--- NOTE | ~2022-03-11 | NM_ITS ---
Lexiscan Myocardial perfusion study Indication: Shortness of breath, assess for coronary disease and ischemia Technique: The patient was brought in for a Lexiscan perfusion study on 03/11/2022 and was injected 0.4 mg of Lexiscan intravenously. Within a minute of this injection 25 mCi of sestamibi was given intravenously. Images were obtained using the SPECT gamma camera interlaced with the gating device. Images were obtained in supine position. Resting perfusion study was performed on 03/12/2022. Patient was administered 25 mCi of sestamibi intravenously at rest. Images were then obtained in supine position. Total DLP 134mGy-cm. Images were processed with the software and compared side to side in short axis, horizontal long axis and vertical long axis views. Findings: Raw acquisition reviewed. Arms by the patient's side. Some degree of artifact in the stress acquisition, possibly from motion. The stress perfusion study showed diminished tracer uptake in the basal part of anterior septum. Also seen with CT attenuation correction. There is also adjacent subdiaphragmatic uptake near the inferior wall. The gated study shows normal LV systolic function with calculated LVEF of 55%. LV cavity is normal in size. The gated study shows diminished contractility in the basal anterior septum. Resting study shows mildly diminished tracer uptake in the basal part of anterior septum, but otherwise unremarkable. Gating at rest reveals ejection fraction at 59%. The findings are consistent with fixed basal anteroseptal defect. No clear reversible defects. TN/TN cardiolite stress test Impression: 1. Myocardial perfusion imaging study shows fixed basal anteroseptal defect. Possible prior infarct. Cannot exclude artifact. 2. Gated LVEF is 55% during stress and 59% during rest. 3. Transient ischemic dilatation not present. EKG component of the test reported separately.
--- NOTE | 2022-03-11 08:23 | CA_ITS ---
Acquisition Time: 2022-03-11 08:29:48 Total Exercise Time: 00:02:00 Test Indications: Dyspnea Medications: SEE H Protocol: LEXISCAN Max HR: 111 BPM 65% of Pred: 169 BPM Max BP: 116/070 mmHG Max Work Load: 1.0 METS Pharmacological stress test with Lexiscan injection, while sitting and kicking his legs, without anginal symptoms, without arrythmia, with normotensive response to injection, with nondiagnostic EKG for ischemia. In recovery he reported fatigue that was treated with Aminophylline 75mg IVP to reverse Lexiscan with improvement in symptom. Nuclear images pending. Test reviewed with Dr Kaur. Referred By: Kumar Nugent Overread By: ILENE GRAY
== END ==
LOC: HO.CARD 08:10
PROVIDERS: Visit Provider Internal Medicine Cardiovascular Disease
DX: I11.0 Hypertensive heart disease with heart failure (principal); I50.9 Heart failure, unspecified; N17.9 Acute kidney failure, unspecified; E11.8 Type 2 diabetes mellitus with unspecified complications; R60.9 Edema, unspecified
CPT/HCPCS: 78452; 93017; A9500; J0280; J2785

== ENCOUNTER 2022-03-19 11:55 | Outpatient (REF) | payer OTHER, SELFPAY ==
--- NOTE | ~2022-03-19 | XR_ITS ---
EXAMINATION: XR SHOULDER, RIGHT CLINICAL INFORMATION: Pain COMPARISON: None TECHNIQUE: AP external rotation, Grashey, scapular Y, and axillary views of the right shoulder. FINDINGS: Bone alignment is normal. No fracture or dislocation is seen. The glenohumeral joint is normal. There is arthritis at the acromioclavicular joint. Soft tissues are normal. XR/XR shoulder RT min 2V IMPRESSION: Arthritis at the acromioclavicular joint.
== END 2022-03-19 11:56 | disposition home or self-care (01) ==
LOC: HO.XRAY 11:55
PROVIDERS: Absent Provider Nurse Practitioner Primary Care; PCP Nurse Practitioner Primary Care; Visit Provider Emergency Medicine
DX: M25.511 Pain in right shoulder (principal)
CPT/HCPCS: 73030

== ENCOUNTER → 2022-03-21 12:53 | Outpatient (BNVA) | payer OTHER, SELFPAY | PROVIDERS: PCP Nurse Practitioner Primary Care; Visit Provider Nurse Practitioner Family | DX: I11.0 Hypertensive heart disease with heart failure (principal); I50.810 Right heart failure, unspecified; R60.9 Edema, unspecified; E78.5 Hyperlipidemia, unspecified; F14.90 Cocaine use, unspecified, uncomplicated; F11.90 Opioid use, unspecified, uncomplicated | CPT/HCPCS: 99212 ==

== ENCOUNTER 2022-04-02 11:54 | Outpatient (REF) | payer OTHER, SELFPAY ==
[2022-04-02 13:08] LABS: B Type Natriuretic Peptide < 10 pg/mL (<100)
[2022-04-02 13:18] LABS: Alanine Aminotransferase 27 U/L (0-40); Albumin Level 4.2 g/dL (3.5-5.0); Alkaline Phosphatase 95 U/L (39-117); Anion Gap 17 (12-20); Aspartate Amino Transferase 22 U/L (5-37); Bilirubin Total 0.2 mg/dL (0.0-1.0); Blood Urea Nitrogen 83 mg/dL (9-16); Calcium 9.7 mg/dL (8.4-10.2); Carbon Dioxide 28 mmol/L (22-29); Chloride 100 mmol/L (96-108); Estimated Glomerular Filt Rate 45; Potassium 5.5 mmol/L (3.3-5.1); Sodium 139 mmol/L (135-145); Total Protein 7.4 g/dL (6.5-8.0)
[2022-04-02 14:45] LABS: Glucose Fasting 59 mg/dL (60-99)
== END 2022-04-02 11:55 | disposition home or self-care (01) ==
LOC: HO.LAB 11:54
PROVIDERS: PCP Nurse Practitioner Primary Care; Visit Provider Nurse Practitioner Family
DX: I50.810 Right heart failure, unspecified (principal)
CPT/HCPCS: 36415; 80053; 83880

== ENCOUNTER 2022-09-19 12:24 | Emergency (ER) | payer OTHER, SELFPAY ==
--- NOTE | ~2022-09-19 | XR_ITS ---
EXAMINATION: XR CHEST CLINICAL INFORMATION: Exam pain. COMPARISON: 12/20/2021 chest radiograph. TECHNIQUE: 2 views of the chest were obtained. FINDINGS: No significant abnormality is noted involving the heart, lungs, mediastinum, bony thorax or soft tissues. XR/XR chest 2V IMPRESSION: No acute cardiopulmonary process.
--- NOTE | 2022-09-19 12:27 | ECG_ITS ---
Test Reason : cp Blood Pressure : / mmHG Vent. Rate : 088 BPM Atrial Rate : 088 BPM P-R Int : 178 ms QRS Dur : 076 ms QT Int : 360 ms P-R-T Axes : 067 016 038 degrees QTc Int : 435 ms Normal sinus rhythm Normal ECG When compared with ECG of 20-DEC-2021 22:51, No significant change was found Referred By: Generic ED Physician Electronically Signed By:CHUCKIE IRWIN MD
[2022-09-19 12:54] VITALS: BP 135/89; PULSE 87; RESP 20; TEMP 37.3; O2SAT 97; BMI 32.5
--- NOTE | 2022-09-19 12:55 | ED_ITS ---
HPI - General Adult General Chief complaint: Chest Pain Stated complaint: Chest Pain Related Data Home Medications Medication Instructions Recorded Confirmed atorvastatin 20 mg tablet 20 mg PO BEDTIME 12/21/21 01/29/23 clonidine HCl 0.1 mg tablet 1 tab PO TID PRN anxiety 12/21/21 01/29/23 lisinopril 20 mg tablet 20 mg PO DAILY 12/21/21 01/29/23 metformin 500 mg tablet 1,000 mg PO BID 12/21/21 01/29/23 methadone 10 mg/5 mL oral solution 55 mg PO DAILY 12/21/21 03/21/22 multivitamin-ferrous 1 tab PO DAILY 12/21/21 01/29/23 fumarate-folic acid 18 mg-400 mcg tablet (Certavite-Antioxidant) olanzapine 15 mg tablet 15 mg PO BEDTIME 12/21/21 01/29/23 pantoprazole 40 mg tablet,delayed 40 mg PO DAILY@0630 12/21/21 01/29/23 release prazosin 5 mg capsule 5 mg PO BEDTIME 12/21/21 01/29/23 docusate sodium 100 mg capsule 100 mg PO BID 01/29/23 01/29/23 fluticasone propionate 110 2 puff inhalation BID 01/29/23 01/29/23 mcg/actuation HFA aerosol inhaler (Flovent HFA) fluticasone propionate 50 1 - 2 spray intranasal DAILY PRN 01/29/23 01/29/23 mcg/actuation nasal Allergy Symptoms spray,suspension hydroxyzine HCl 25 mg tablet 25 - 50 mg PO BID PRN anxiety 01/29/23 01/29/23 insulin aspart U-100 100 unit/mL 14 unit subcut TID 01/29/23 01/29/23 (3 mL) subcutaneous pen (Novolog FlexPen U-100 Insulin aspart) insulin glargine 20 units subcut DAILY 01/29/23 01/29/23 pramipexole 0.25 mg tablet 0.25 mg PO BID PRN restless legs 01/29/23 01/29/23 Previous Rx's Medication Instructions Recorded empagliflozin 10 mg tablet 10 mg PO DAILY 30 days #30 tabs 12/23/21 (Jardiance) furosemide 40 mg tablet 40 mg PO DAILY 30 days #30 tabs 12/23/21 spironolactone 25 mg tablet 25 mg PO DAILY 30 days #30 tabs 12/23/21 Allergies Allergy/AdvReac Type Severity Reaction Status Date / Time acetaminophen [Vicodin] Allergy Unknown Unknown Verified 03/21/22 13:30 hydrocodone [Vicodin] Allergy Unknown Unknown Verified 03/21/22 13:30 [facility] Past Medical History Medical History Asthma Cocaine use Diabetes 1.5, managed as type 1 Essential hypertension Heroin use Hypertension Other and unspecified hyperlipidemia Type 2 diabetes mellitus with unspecified complications Surgical History H/O exploratory laparotomy History of intestinal surgery Family History Family History Mother CAD (coronary artery disease) Diabetes HTN (hypertension) Father No problems noted. Social History Social History Household Members: Other Housing: Other Do you presently have visiting nurse or other home services: No Alcohol intake: unknown Patient Tobacco Use Status: Former Tobacco user Cigarettes Per Day: 4 Years Smoked: 5 Substance Use Type: Heroin service: No Current occupational status: unemployed Physical Exam ED Vital Signs: BMI result Body Mass Index 32.5 Course Course Course Narrative: 51-year-old male past medical history significant for heart failure, hypertensio n, diabetes, hyperlipidemia presents for evaluation of chest pain. He reports he has had the pain for almost 2 months since his father . The patient is well-appearing with stable vital signs, EKG has already been completed without acute ischemia. Plan for labs, chest x-ray Medical Decision Making Lab Data 09/19/22 14:29 09/19/22 14:29 Labs: Lab Results 09/19/22 09/19/22 09/19/22 Range/Units 14:29 14:29 14:29 WBC 8.7 (4.8-10.8) X10*3/uL RBC 4.25 L D (4.60-5.80) X10*6/uL Hgb 13.2 L D (14.0-18.0) g/dl Hct 38.8 L D (42.0-52.0) % MCV 91.3 (80.0-98.0) fL MCH 31.1 (27.0-33.0) pg MCHC 34.0 (31.0-36.0) g/dl RDW 12.4 (11.0-16.0) % Plt Count 186 (160-400) X10*3/uL MPV 9.0 L (9.4-12.4) fL Immature Gran % (Auto) 0.3 (0.0-0.4) % Neut % (Auto) 68.5 (45-73) % Lymph % (Auto) 24.8 (20-40) % [place] % (Auto) 4.7 (2-11) % Eos % (Auto) 1.4 (0-4) % Baso % (Auto) 0.3 (0-2) % Lymph # (Auto) 2.2 (1.2-4.9) X10*3/uL [place] # (Auto) 0.4 (0.1-1.2) X10*3/uL Eos # (Auto) 0.1 (0.0-0.4) X10*3/uL Baso # (Auto) 0.0 (0.0-0.2) X10*3/uL Abs Immat Gran (auto) 0.03 (0.00-0.03) X10*3/uL Absolute Neuts (auto) 5.9 (2.0-8.3) x10*3/uL Absolute Nucleated RBC 0.000 (0.0-0.012) X10*3/uL Nucleated RBC % (auto) 0.0 (0.0-0.2) /100WBC PT 10.9 (10.0-13.1) SEC INR 1.0 (0.9-1.1) APTT 33.9 (26.0-36.4) SEC Sodium 142 (135-145) mmol/L Potassium 4.8 (3.3-5.1) mmol/L Chloride 107 (96-108) mmol/L Carbon Dioxide 27 (22-29) mmol/L Anion Gap 13 (12-20) BUN 25 H (9-16) mg/dL Creatinine 0.96 (0.5-1.4) mg/dL Estim Creat Clear Calc 90.1 Estimated GFR > 60 Random Glucose 74 (60-115) mg/dL Calcium 9.1 D (8.4-10.2) mg/dL Magnesium 1.9 (1.6-2.6) mg/dL Total Bilirubin 0.4 (0.0-1.0) mg/dL AST 25 (5-37) U/L ALT 23 (0-40) U/L Alkaline Phosphatase 127 H (39-117) U/L Troponin I High Sens (<3.5-35.0) ng/L Total Protein 6.5 (6.5-8.0) g/dL Albumin 3.5 (3.5-5.0) g/dL 09/19/22 Range/Units 14:29 WBC (4.8-10.8) X10*3/uL RBC (4.60-5.80) X10*6/uL Hgb (14.0-18.0) g/dl Hct (42.0-52.0) % MCV (80.0-98.0) fL MCH (27.0-33.0) pg MCHC (31.0-36.0) g/dl RDW (11.0-16.0) % Plt Count (160-400) X10*3/uL MPV (9.4-12.4) fL Immature Gran % (Auto) (0.0-0.4) % Neut % (Auto) (45-73) % Lymph % (Auto) (20-40) % [place] % (Auto) (2-11) % Eos % (Auto) (0-4) % Baso % (Auto) (0-2) % Lymph # (Auto) (1.2-4.9) X10*3/uL [place] # (Auto) (0.1-1.2) X10*3/uL Eos # (Auto) (0.0-0.4) X10*3/uL Baso # (Auto) (0.0-0.2) X10*3/uL Abs Immat Gran (auto) (0.00-0.03) X10*3/uL Absolute Neuts (auto) (2.0-8.3) x10*3/uL Absolute Nucleated RBC (0.0-0.012) X10*3/uL Nucleated RBC % (auto) (0.0-0.2) /100WBC PT (10.0-13.1) SEC INR (0.9-1.1) APTT (26.0-36.4) SEC Sodium (135-145) mmol/L Potassium (3.3-5.1) mmol/L Chloride (96-108) mmol/L Carbon Dioxide (22-29) mmol/L Anion Gap (12-20) BUN (9-16) mg/dL Creatinine (0.5-1.4) mg/dL Estim Creat Clear Calc Estimated GFR Random Glucose (60-115) mg/dL Calcium (8.4-10.2) mg/dL Magnesium (1.6-2.6) mg/dL Total Bilirubin (0.0-1.0) mg/dL AST (5-37) U/L ALT (0-40) U/L Alkaline Phosphatase (39-117) U/L Troponin I High Sens 14.8 (<3.5-35.0) ng/L Total Protein (6.5-8.0) g/dL Albumin (3.5-5.0) g/dL Discharge Plan Discharge Clinical Impression: Chest pain Patient Disposition: Elopement Prescriptions: No Action metformin 500 mg tablet 1,000 mg PO BID lisinopril 20 mg tablet 20 mg PO DAILY prazosin 5 mg capsule 5 mg PO BEDTIME pantoprazole 40 mg tablet,delayed release (DR/EC) 40 mg PO DAILY@0630 atorvastatin 20 mg tablet 20 mg PO BEDTIME methadone 10 mg/5 mL Solution 55 mg PO DAILY olanzapine 15 mg tablet 15 mg PO BEDTIME Certavite-Antioxidant 18-400 mg-mcg Tablet 1 tab PO DAILY clonidine HCl 0.1 mg tablet 1 tab PO TID PRN (Reason: anxiety) spironolactone 25 mg Tablet 25 mg PO DAILY 30 Days Qty: 30 0RF Protocol: Hold for SBP< HOLD for SBP < : 90 furosemide 40 mg Tablet 40 mg PO DAILY 30 Days Qty: 30 0RF Protocol: Hold for SBP< HOLD for SBP < : 90 Jardiance 10 mg Tablet 10 mg PO DAILY 30 Days Qty: 30 0RF docusate sodium 100 mg capsule 100 mg PO BID pramipexole 0.25 mg tablet 0.25 mg PO BID PRN (Reason: restless legs) hydroxyzine HCl 25 mg tablet 25 - 50 mg PO BID PRN (Reason: anxiety) fluticasone propionate 50 mcg/actuation spray,suspension 1 - 2 spray intranasal DAILY PRN (Reason: Allergy Symptoms) fluticasone propionate [Flovent HFA] 110 mcg/actuation HFA aerosol inhaler 2 puff INHALATION BID insulin aspart U-100 [Novolog FlexPen U-100 Insulin] 100 unit/mL (3 mL) insulin pen 14 unit subcut TID insulin glargine 20 units subcut DAILY Discharge Date/Time: 09/19/22 18:45
[2022-09-19 14:33] LABS: MANUAL DIFF FLAG NO
[2022-09-19 14:35] LABS: Basophils Percent Auto 0.3 % (0-2); Eosinophils Absolute Auto 0.1 X10*3/uL (0.0-0.4); Eosinophils Percent Auto 1.4 % (0-4); Hematocrit 38.8 % (42.0-52.0); Hemoglobin 13.2 g/dl (14.0-18.0); Imm Gran Abs Auto 0.03 X10*3/uL (0.00-0.03); Imm Gran Pct Auto 0.3 % (0.0-0.4); Lymphocytes Absolute Auto 2.2 X10*3/uL (1.2-4.9); Lymphocytes Percent Auto 24.8 % (20-40); Mean Corpuscular Hemoglobin 31.1 pg (27.0-33.0); Mean Corpuscular Volume 91.3 fL (80.0-98.0); Monocytes Absolute Auto 0.4 X10*3/uL (0.1-1.2); Monocytes Percent Auto 4.7 % (2-11); Neutrophils Absolute Auto 5.9 x10*3/uL (2.0-8.3); Neutrophils Percent Auto 68.5 % (45-73); Platelet Count 186 X10*3/uL (160-400); Red Blood Count 4.25 X10*6/uL (4.60-5.80); Red Cell Distribution Width 12.4 % (11.0-16.0); White Blood Count 8.7 X10*3/uL (4.8-10.8)
[2022-09-19 14:46] LABS: Prothrombin Time 10.9 SEC (10.0-13.1)
[2022-09-19 14:48] LABS: Partial Thromboplastin Time 33.9 SEC (26.0-36.4)
[2022-09-19 14:55] LABS: Alanine Aminotransferase 23 U/L (0-40); Albumin Level 3.5 g/dL (3.5-5.0); Alkaline Phosphatase 127 U/L (39-117); Anion Gap 13 (12-20); Aspartate Amino Transferase 25 U/L (5-37); Bilirubin Total 0.4 mg/dL (0.0-1.0); Blood Urea Nitrogen 25 mg/dL (9-16); Calcium 9.1 mg/dL (8.4-10.2); Carbon Dioxide 27 mmol/L (22-29); Chloride 107 mmol/L (96-108); Creatinine Clr Calc Pharmacy 90.1; Estimated Glomerular Filt Rate > 60; Glucose Random 74 mg/dL (60-115); Magnesium 1.9 mg/dL (1.6-2.6); Potassium 4.8 mmol/L (3.3-5.1); Sodium 142 mmol/L (135-145); Total Protein 6.5 g/dL (6.5-8.0)
[2022-09-19 14:57] LABS: Troponin-I High Sensitivity 14.8 ng/L (<3.5-35.0)
== END 2022-09-19 18:45 | disposition left against medical advice (07) ==
PROVIDERS: Physician Assistant; Emergency Provider Emergency Medicine
DX: R07.89 Other chest pain (principal); Z87.891 Personal history of nicotine dependence; Z79.899 Other long term (current) drug therapy
CPT/HCPCS: 36415; 71046; 80053; 83735; 84484; 85025; 85610; 85730; 93005; 99283

== ENCOUNTER 2022-09-24 16:39 | Emergency (ER) | payer OTHER, SELFPAY ==
[2022-09-24 16:49] VITALS: BP 149/94; PULSE 98; RESP 16; TEMP 36.6; O2SAT 98; BMI 30.1
[2022-09-24 16:56] VITALS: BP 134/56; BP 140/76; PULSE 101; PULSE 93; RESP 16; TEMP 36.6; O2SAT 95; O2SAT 97
--- NOTE | 2022-09-24 16:58 | PC.NURSE ---
Pt alert and oriented, resp even and unlabored. Reports doing heroin yesterday, denies any use today. Did take his methadone today, reporting feelings of withdrawal. Pt resting comfortably in bed, vss.
--- NOTE | 2022-09-24 17:03 | ED.GENADULT ---
HPI - General Adult General Chief complaint: General Medical Stated complaint: ETOH, -SI/HI Time Seen by Provider: 09/24/22 16:56 Source: patient Mode of arrival: ambulatory Limitations: no limitations History of Present Illness HPI narrative: 51-year-old male presents to emergency department stating he is sweaty after getting his methadone and heroin. Patient states he has been sweaty since then and has had some dizziness he was seen by EMS yesterday and left without being brought in. Patient has normal vitals here he is not sweating he denies cough fever chest pain SI or HI he denies any alcohol use. Onset (ago): day(s) Related Data Home Medications Medication Instructions Recorded Confirmed atorvastatin 20 mg tablet 20 mg PO QPM 12/21/21 03/21/22 clonidine HCl 0.1 mg tablet 1 tab PO TID PRN anxiety 12/21/21 03/21/22 hydroxyzine pamoate 25 mg capsule 25 mg PO QID PRN Anxiety 12/21/21 03/21/22 insulin aspart U-100 100 unit/mL See Protocol subcut TID 12/21/21 03/21/22 (3 mL) subcutaneous pen (Novolog FlexPen U-100 Insulin aspart) lisinopril 20 mg tablet 20 mg PO QAM 12/21/21 03/21/22 metformin 500 mg tablet 1,000 mg PO BID 12/21/21 03/21/22 methadone 10 mg/5 mL oral solution 70 mg PO DAILY 12/21/21 03/21/22 multivitamin-ferrous 1 tab PO DAILY 12/21/21 03/21/22 fumarate-folic acid 18 mg-400 mcg tablet (Certavite-Antioxidant) olanzapine 15 mg tablet 15 mg PO BEDTIME 12/21/21 03/21/22 pantoprazole 40 mg tablet,delayed 40 mg PO QAM 12/21/21 03/21/22 release prazosin 5 mg capsule 5 mg PO BEDTIME 12/21/21 03/21/22 trazodone 50 mg tablet 50 mg PO BEDTIME 12/21/21 03/21/22 Previous Rx's Medication Instructions Recorded empagliflozin 10 mg tablet 10 mg PO DAILY 30 days #30 tabs 12/23/21 (Jardiance) furosemide 40 mg tablet 40 mg PO DAILY 30 days #30 tabs 12/23/21 spironolactone 25 mg tablet 25 mg PO DAILY 30 days #30 tabs 12/23/21 insulin glargine 20 units subcut BEDTIME ##0 12/24/21 Allergies Allergy/AdvReac Type Severity Reaction Status Date / Time acetaminophen [Vicodin] Allergy Unknown Unknown Verified 03/21/22 13:30 hydrocodone [Vicodin] Allergy Unknown Unknown Verified 03/21/22 13:30 Review of Systems Review of Systems: Review of systems: General: Patient denies any fever chills recent illness or falls Musculoskeletal: Denies back pain or body aches or other injuries HEENT: denies headache, runny nose, ear pain Respiratory: denies shortness of breath, cough Cardiovascular: no chest pain or palpitations : denies dysuria, frequency Abdomen: no nausea vomiting denies abdominal pain Extremities: no swelling, no pain Skin: no diaphoresis Yes all other systems are reviewed and are negative [facility] Past Medical History Medical History Asthma Cocaine use Diabetes 1.5, managed as type 1 Essential hypertension Heroin use Hypertension Other and unspecified hyperlipidemia Type 2 diabetes mellitus with unspecified complications Surgical History H/O exploratory laparotomy History of intestinal surgery Family History Family History Mother CAD (coronary artery disease) Diabetes HTN (hypertension) Father No problems noted. Social History Social History Household Members: Other Housing: Other Do you presently have visiting nurse or other home services: No Alcohol intake: unknown Patient Tobacco Use Status: Former Tobacco user Cigarettes Per Day: 4 Years Smoked: 5 Use of substances other than those prescribed or required for medical reasons: Yes Substance Use Type: Heroin Advance Directives: No Advance Directives Information Provided: Yes service: No Current occupational status: unemployed Physical Exam ED Vital Signs: Vital Signs - 24 hr 09/24/22 16:49 09/24/22 16:56 09/24/22 18:00 Temperature 97.9 F 97.9 F 98.2 F Pulse Rate 98 93 92 Respiratory Rate 16 16 16 Blood Pressure 149/94 H 134/56 L 133/80 Pulse Oximetry 98 95 Oxygen Delivery Method Room Air Room Air Room Air BMI result Body Mass Index 30.1 Neurological exam: CN II- XII tested. Patient is alert and oriented to person place and time. Patient has no dysphagia or dysarthia, denies good vision in all four vision torre no nystagmus on exam, good strength to upper and lower extremities with normal reflexes to brachioradialis, wrist, patella and achilles. Negative romberg, good finger to nose and heel to akers. General: Well-appearing well-nourished in no signs of distress HEENT: Normocephalic atraumatic Neck: No signs of JVD, no masses no tenderness or lymphadenopathy Cardiovascular: Regular rate and rhythm Respiratory: Clear to auscultation bilaterally Abdomen: Soft nontender no masses Extremities: Normal pedal pulses no signs of edema Skin: Dry warm no rashes Back: No tenderness full ROM Medications Administered Discontinued Medications Generic Name Dose Route Start Last Admin Trade Name Freq PRN Reason Stop Dose Admin Ondansetron HCl 4 mg 09/24/22 18:07 09/24/22 18:12 Ondansetron Odt 4 Mg Tab.Rapdis TRANSLINGU 09/24/22 18:08 4 mg ONCE ONE Administration Medical Decision Making Medical Decision Making [facility] Narrative: Patient looks well I will check labs I do not think the patient needs any renal failure than reassurance I will watch him here for the last few hours. Patient did not want to get labs and tried to leave but was convinced to stay for blood work 1852 Labs done are all normal other than a elevated potassium. He has a normal EKG and looks well. Was given fluids he has had a elevated K in the past related to [employer] his kidney function and glucose are normal today. I will send home with PCP follow up. Differential Diagnosis Differential Diagnoses: The differential diagnosis associated with the presentation includes Admission/Observation Consideration of admission/observation: Escalation of care including admission/observation considered Lab Data [facility] Lab Attestation statement: I reviewed the patient's lab results. 09/24/22 18:12 09/24/22 18:12 Labs: Lab Results 09/24/22 09/24/22 09/24/22 Range/Units 18:12 18:12 18:12 WBC 12.2 H (4.8-10.8) X10*3/uL RBC 4.29 L (4.60-5.80) X10*6/uL Hgb 13.3 L (14.0-18.0) g/dl Hct 39.2 L (42.0-52.0) % MCV 91.4 (80.0-98.0) fL MCH 31.0 (27.0-33.0) pg MCHC 33.9 (31.0-36.0) g/dl RDW 12.2 (11.0-16.0) % Plt Count 244 D (160-400) X10*3/uL MPV 9.4 (9.4-12.4) fL Immature Gran % (Auto) 0.5 H (0.0-0.4) % Neut % (Auto) 77.8 H (45-73) % Lymph % (Auto) 15.4 L (20-40) % [place] % (Auto) 5.4 (2-11) % Eos % (Auto) 0.7 (0-4) % Baso % (Auto) 0.2 (0-2) % Lymph # (Auto) 1.9 (1.2-4.9) X10*3/uL [place] # (Auto) 0.7 (0.1-1.2) X10*3/uL Eos # (Auto) 0.1 (0.0-0.4) X10*3/uL Baso # (Auto) 0.0 (0.0-0.2) X10*3/uL Abs Immat Gran (auto) 0.06 H (0.00-0.03) X10*3/uL Absolute Neuts (auto) 9.5 H (2.0-8.3) x10*3/uL Absolute Nucleated RBC 0.000 (0.0-0.012) X10*3/uL Nucleated RBC % (auto) 0.0 (0.0-0.2) /100WBC Sodium 138 (135-145) mmol/L Potassium 5.5 H (3.3-5.1) mmol/L Chloride 98 (96-108) mmol/L Carbon Dioxide 31 H (22-29) mmol/L Anion Gap 15 (12-20) BUN 22 H (9-16) mg/dL Creatinine 1.08 (0.5-1.4) mg/dL Estim Creat Clear Calc 74.3 Estimated GFR > 60 POC Glucose (60-115) mg/dL Random Glucose 216 H (60-115) mg/dL Calcium 9.7 D (8.4-10.2) mg/dL Total Bilirubin 0.3 (0.0-1.0) mg/dL Direct Bilirubin < 0.2 (0.0-0.5) mg/dL AST 31 (5-37) U/L ALT 24 (0-40) U/L Alkaline Phosphatase 131 H (39-117) U/L Total Protein 7.0 (6.5-8.0) g/dL Albumin 3.9 (3.5-5.0) g/dL Lipase 11 (8-78) U/L COVID-19 ([facility]) Negative (Negative) COVID-19 Clin Com See Note 09/24/22 Range/Units 18:35 WBC (4.8-10.8) X10*3/uL RBC (4.60-5.80) X10*6/uL Hgb (14.0-18.0) g/dl Hct (42.0-52.0) % MCV (80.0-98.0) fL MCH (27.0-33.0) pg MCHC (31.0-36.0) g/dl RDW (11.0-16.0) % Plt Count (160-400) X10*3/uL MPV (9.4-12.4) fL Immature Gran % (Auto) (0.0-0.4) % Neut % (Auto) (45-73) % Lymph % (Auto) (20-40) % [place] % (Auto) (2-11) % Eos % (Auto) (0-4) % Baso % (Auto) (0-2) % Lymph # (Auto) (1.2-4.9) X10*3/uL [place] # (Auto) (0.1-1.2) X10*3/uL Eos # (Auto) (0.0-0.4) X10*3/uL Baso # (Auto) (0.0-0.2) X10*3/uL Abs Immat Gran (auto) (0.00-0.03) X10*3/uL Absolute Neuts (auto) (2.0-8.3) x10*3/uL Absolute Nucleated RBC (0.0-0.012) X10*3/uL Nucleated RBC % (auto) (0.0-0.2) /100WBC Sodium (135-145) mmol/L Potassium (3.3-5.1) mmol/L Chloride (96-108) mmol/L Carbon Dioxide (22-29) mmol/L Anion Gap (12-20) BUN (9-16) mg/dL Creatinine (0.5-1.4) mg/dL Estim Creat Clear Calc Estimated GFR POC Glucose 206 H (60-115) mg/dL Random Glucose (60-115) mg/dL Calcium (8.4-10.2) mg/dL Total Bilirubin (0.0-1.0) mg/dL Direct Bilirubin (0.0-0.5) mg/dL AST (5-37) U/L ALT (0-40) U/L Alkaline Phosphatase (39-117) U/L Total Protein (6.5-8.0) g/dL Albumin (3.5-5.0) g/dL Lipase (8-78) U/L COVID-19 ([facility]) (Negative) COVID-19 Clin Com Discharge Plan Discharge Clinical Impression: Heroin use, Dizziness, Acute hyperkalemia Patient Disposition: Home, Self-Care Instructions: Hyperkalemia (ED), Potassium Content of Foods List (ED), Dizziness (ED), Narcotic Use Disorder (ED) Additional Instructions: Please call to follow up with your doctor. If you have any other concerns please return to the ED. Prescriptions: No Action metformin 500 mg tablet 1,000 mg PO BID trazodone 50 mg tablet 50 mg PO BEDTIME lisinopril 20 mg tablet 20 mg PO QAM prazosin 5 mg capsule 5 mg PO BEDTIME pantoprazole 40 mg tablet,delayed release (DR/EC) 40 mg PO QAM hydroxyzine pamoate 25 mg capsule 25 mg PO QID PRN (Reason: Anxiety) atorvastatin 20 mg tablet 20 mg PO QPM methadone 10 mg/5 mL Solution 70 mg PO DAILY olanzapine 15 mg tablet 15 mg PO BEDTIME insulin aspart U-100 [Novolog FlexPen U-100 Insulin] 100 unit/mL (3 mL) insulin pen See Protocol subcut TID Protocol: Insulin Correction Scale Less than or equal to 110 ---- Give (units): 0 111 to 150 Give (units): 0 151 to 200 Give (units): 2 201 to 250 Give (units): 4 251 to 300 Give (units): 6 301 to 350 Give (units): 8 Greater than 350 Give (units): 10 Call MD if Blood Glucose > : 350 Certavite-Antioxidant 18-400 mg-mcg Tablet 1 tab PO DAILY clonidine HCl 0.1 mg tablet 1 tab PO TID PRN (Reason: anxiety) spironolactone 25 mg Tablet 25 mg PO DAILY 30 Days Qty: 30 0RF Protocol: Hold for SBP< HOLD for SBP < : 90 furosemide 40 mg Tablet 40 mg PO DAILY 30 Days Qty: 30 0RF Protocol: Hold for SBP< HOLD for SBP < : 90 Jardiance 10 mg Tablet 10 mg PO DAILY 30 Days Qty: 30 0RF insulin glargine 20 units subcut BEDTIME Qty: 0 0RF
[2022-09-24 18:00] VITALS: BP 133/80; PULSE 92; RESP 16; TEMP 36.8
--- NOTE | 2022-09-24 18:00 | MHC.EDTECH ---
pt [id number] rounding done ,vitals sign taken pt blood drawn ,covid swab collected and sent to lab .
[2022-09-24] MEDS: Ondansetron ODT 4 MG TAB.RAPDIS TRANSLINGU (18:12)
[2022-09-24 18:17] LABS: MANUAL DIFF FLAG NO
[2022-09-24 18:19] LABS: Basophils Percent Auto 0.2 % (0-2); Eosinophils Absolute Auto 0.1 X10*3/uL (0.0-0.4); Eosinophils Percent Auto 0.7 % (0-4); Hematocrit 39.2 % (42.0-52.0); Hemoglobin 13.3 g/dl (14.0-18.0); Imm Gran Abs Auto 0.06 X10*3/uL (0.00-0.03); Imm Gran Pct Auto 0.5 % (0.0-0.4); Lymphocytes Absolute Auto 1.9 X10*3/uL (1.2-4.9); Lymphocytes Percent Auto 15.4 % (20-40); Mean Corpuscular HGB Conc 33.9 g/dl (31.0-36.0); Mean Corpuscular Volume 91.4 fL (80.0-98.0); Mean Platelet Volume 9.4 fL (9.4-12.4); Monocytes Absolute Auto 0.7 X10*3/uL (0.1-1.2); Monocytes Percent Auto 5.4 % (2-11); Neutrophils Absolute Auto 9.5 x10*3/uL (2.0-8.3); Neutrophils Percent Auto 77.8 % (45-73); Platelet Count 244 X10*3/uL (160-400); Red Blood Count 4.29 X10*6/uL (4.60-5.80); Red Cell Distribution Width 12.2 % (11.0-16.0); White Blood Count 12.2 X10*3/uL (4.8-10.8)
[2022-09-24 18:31] LABS: COVID-19 Test Negative (Negative); IDNOW Serial# 16C4AD1C
[2022-09-24 18:40] LABS: Glucose, Whole Blood 206 mg/dL (60-115)
[2022-09-24 18:42] LABS: Alanine Aminotransferase 24 U/L (0-40); Albumin Level 3.9 g/dL (3.5-5.0); Alkaline Phosphatase 131 U/L (39-117); Anion Gap 15 (12-20); Aspartate Amino Transferase 31 U/L (5-37); Bilirubin Direct < 0.2 mg/dL (0.0-0.5); Bilirubin Total 0.3 mg/dL (0.0-1.0); Blood Urea Nitrogen 22 mg/dL (9-16); Calcium 9.7 mg/dL (8.4-10.2); Carbon Dioxide 31 mmol/L (22-29); Chloride 98 mmol/L (96-108); Creatinine Clr Calc Pharmacy 74.3; Estimated Glomerular Filt Rate > 60; Glucose Random 216 mg/dL (60-115); Lipase 11 U/L (8-78); Potassium 5.5 mmol/L (3.3-5.1); Sodium 138 mmol/L (135-145)
--- NOTE | 2022-09-24 19:02 | PC.NURSE ---
recvd report from MAKENZIE Schwartz this nurse walked into pt's room and found that pt had left and left behind meds in a bag pt t be contacted pt did see DR and was up for discharge, left without discharge instructions
--- NOTE | 2022-09-24 19:50 | PC.NURSE ---
unable to LM on contact information listed, different name on answering machine when called
--- NOTE | 2022-09-24 19:53 | PC.NURSE ---
able to contact pt- pt states he will come in tomorrow to pharmacy picking tech his meds he left behind
--- NOTE | 2022-09-24 19:58 | PC.NURSE ---
Pt was not given discharge instructions as he left prior to nurse being able to do so. Pt left his home meds behind. Pt has been contacted and states he will return tomorrow to [facility] pick[facility] his meds.
== END 2022-09-24 19:54 | disposition home or self-care (01) ==
PROVIDERS: Emergency Provider Student in an Organized Health Care Education/Training Program; PCP Nurse Practitioner Primary Care
DX: R42 Dizziness and giddiness (principal); Z20.822 Contact with and (suspected) exposure to COVID-19; Z20.828 Contact with and (suspected) exposure to other viral communicable diseases; Z79.899 Other long term (current) drug therapy; Z79.4 Long term (current) use of insulin
CPT/HCPCS: 80048; 80076; 82947; 83690; 85025; 87635; 99283; 99284

== ENCOUNTER 2023-01-29 16:18 | Inpatient (IN) | payer OTHER, SELFPAY ==
--- NOTE | 2023-01-29 16:35 | ECG_ITS ---
Test Reason : SOB Blood Pressure : / mmHG Vent. Rate : 074 BPM Atrial Rate : 074 BPM P-R Int : 200 ms QRS Dur : 074 ms QT Int : 372 ms P-R-T Axes : 045 027 046 degrees QTc Int : 412 ms Normal sinus rhythm Normal ECG When compared with ECG of 19-SEP-2022 12:28, No significant change was found Referred By: Aydee Kevin Electronically Signed By:CHUCKIE IRWIN MD
[2023-01-29 16:36] VITALS: BP 108/61; PULSE 76; RESP 12; TEMP 36.9; O2SAT 98; BMI 28.3
--- NOTE | 2023-01-29 16:37 | ED_ITS ---
HPI - General Adult General Chief complaint: General Medical Stated complaint: SI Time Seen by Provider: 01/29/23 16:26 Source: patient and EMS Mode of arrival: EMS Limitations: no limitations History of Present Illness HPI narrative: This is a 52-year-old male history of anxiety, hypertension, hyperlipidemia, cocaine use disorder, heroin use disorder presenting to the emergency department for medical evaluation. Patient without medical complaints but per EMS report he was sent over for heart problems per facility. Patient without CP, SOB, fevers, chills, nausea, vomiting, abd pain, headache, dizziness, numbness, tingling, vision changes. No SI or HI. No visual or auditory hallucinations. Related Data Home Medications Medication Instructions Recorded Confirmed atorvastatin 20 mg tablet 20 mg PO BEDTIME 12/21/21 01/29/23 clonidine HCl 0.1 mg tablet 1 tab PO TID PRN anxiety 12/21/21 01/29/23 lisinopril 20 mg tablet 20 mg PO DAILY 12/21/21 01/29/23 metformin 500 mg tablet 1,000 mg PO BID 12/21/21 01/29/23 methadone 10 mg/5 mL oral solution 55 mg PO DAILY 12/21/21 03/21/22 multivitamin-ferrous 1 tab PO DAILY 12/21/21 01/29/23 fumarate-folic acid 18 mg-400 mcg tablet (Certavite-Antioxidant) olanzapine 15 mg tablet 15 mg PO BEDTIME 12/21/21 01/29/23 pantoprazole 40 mg tablet,delayed 40 mg PO DAILY@0630 12/21/21 01/29/23 release prazosin 5 mg capsule 5 mg PO BEDTIME 12/21/21 01/29/23 docusate sodium 100 mg capsule 100 mg PO BID 01/29/23 01/29/23 fluticasone propionate 110 2 puff inhalation BID 01/29/23 01/29/23 mcg/actuation HFA aerosol inhaler (Flovent HFA) fluticasone propionate 50 1 - 2 spray intranasal DAILY PRN 01/29/23 01/29/23 mcg/actuation nasal Allergy Symptoms spray,suspension hydroxyzine HCl 25 mg tablet 25 - 50 mg PO BID PRN anxiety 01/29/23 01/29/23 insulin aspart U-100 100 unit/mL 14 unit subcut TID 07/12/23 07/12/23 (3 mL) subcutaneous pen (Novolog FlexPen U-100 Insulin aspart) insulin glargine 20 units subcut DAILY 01/29/23 01/29/23 pramipexole 0.25 mg tablet 0.25 mg PO BID PRN restless legs 01/29/23 01/29/23 Previous Rx's Medication Instructions Recorded empagliflozin 10 mg tablet 10 mg PO DAILY 30 days #30 tabs 12/23/21 (Jardiance) furosemide 40 mg tablet 40 mg PO DAILY 30 days #30 tabs 12/23/21 spironolactone 25 mg tablet 25 mg PO DAILY 30 days #30 tabs 12/23/21 Allergies Allergy/AdvReac Type Severity Reaction Status Date / Time acetaminophen [Vicodin] Allergy Unknown Unknown Verified 03/21/22 13:30 hydrocodone [Vicodin] Allergy Unknown Unknown Verified 03/21/22 13:30 Review of Systems Review of Systems: Constitutional : No Weight loss, No Fever, No Chills, No Fatigue, No Malaise ENT/Mouth : No sore throat, No Rhinorrhea Eyes: No Eye Pain, No Swelling, No Redness Cardiovascular : No Chest Pain, No SOB, No Dyspnea on Exertion, No Orthopnea, No Edema, No Palpitations Respiratory : No Cough, No Sputum, No Wheezing Gastrointestinal : No Nausea, No Vomiting, No Diarrhea, No Constipation, No abdominal Pain, No Hematochezia, No Melena Genitourinary : No Dysuria, No Urinary Frequency, No Hematuria, Musculoskeletal : No joint pain, No Myalgias, No Joint Swelling Skin : No Skin Lesions, No rash Neuro : No Weakness, No Numbness, No Dizziness, No Headache Psych : No Anxiety/Panic, No Depression, + SI All other systems reviewed and are negative Yes all other systems are reviewed and are negative [facility] Past Medical History Attestation statement: The following information was validated with the patient. Source: old records reviewed and nursing notes reviewed Medical History Asthma Cocaine use Diabetes 1.5, managed as type 1 Essential hypertension Heroin use Hypertension Other and unspecified hyperlipidemia Type 2 diabetes mellitus with unspecified complications Surgical History H/O exploratory laparotomy History of intestinal surgery Family History Family History Mother CAD (coronary artery disease) Diabetes HTN (hypertension) Father No problems noted. Social History Social History Household Members: Other Housing: Other Do you presently have visiting nurse or other home services: No Alcohol intake: unknown Patient Tobacco Use Status: Former Tobacco user Cigarettes Per Day: 4 Years Smoked: 5 Substance Use Type: Heroin Advance Directives: No Advance Directives Information Provided: No service: No Current occupational status: unemployed Physical Exam ED Vital Signs: Vital Signs - 24 hr 01/29/23 16:36 01/29/23 18:13 01/29/23 21:59 Temperature 98.5 F 98.1 F Pulse Rate 76 71 73 Respiratory Rate 12 15 13 Blood Pressure 108/61 114/63 113/62 Pulse Oximetry 98 98 97 Oxygen Delivery Method Room Air Room Air Room Air BMI result Body Mass Index 28.3 vss Appearance: Alert.? Oriented X3.? No acute distress.? Head: Normocephalic, atraumatic, no step-offs or deformities Eyes: Pupils equal, round and reactive to light.? ENT: Pharynx normal.? Neck: Normal inspection.? Neck supple.? CVS: Normal heart rate and rhythm.? Pulses normal.? Respiratory: No respiratory distress.? Breath sounds normal.? Abdomen: Soft and nontender.? Skin: Skin warm and dry.? Normal skin color.? Normal skin turgor.? Extremities: No lower extremity edema.? No calf ttp. 5/5 strength to bilateral upper and lower extremities Neuro: Oriented X 3.? No motor deficit.? No sensory deficit. CN 2-12 intact Course Reevaluation(s) Reevaluation #1: Brief eval by care team no SI or HI, he wants to go back to [facility]. Labs pending. Time: 16:44 Reevaluation #2: CBC appears to be around patient's baseline. Potassium of 5.9, Lokelma ordered and given. Patient with an ARELIS, 48 BUN creatinine 3.10 likely due to dehydration. Troponin negative, EKG nonischemic. Time: 17:30 Reevaluation #3: ARELIS improved however still present. Patient to be admitted at this time. K improved. Hospitalist will take this patient at this time. Time: 22:38 Medications Administered Discontinued Medications Generic Name Dose Route Start Last Admin Trade Name Dangelo PRN Reason Stop Dose Admin Sodium Chloride 1,000 mls @ 999 mls/hr 01/29/23 19:00 01/29/23 21:49 Ns IV 01/29/23 20:00 Infused .Q1H1M KEVIN Infusion Sodium Chloride 1,000 mls @ 999 mls/hr 01/29/23 19:00 01/29/23 21:49 Ns IV 01/29/23 20:00 Infused .Q1H1M KEVIN Infusion Sodium Zirconium Cyclosilicate 10 gm 01/29/23 18:49 01/29/23 19:31 Sodium Zirconium Cyclosilicate 10 Gm Powd.Pack PO 01/29/23 18:50 10 gm ONCE ONE Administration Medical Decision Making Medical Decision Making [facility] Narrative: 1640 52-year-old male presents for medical clearance at [facility], they were concerned he may have something medically wrong with him and has heart problems Physical exam benign. Will rule out UTI, electrolyte abnormalities. Unlikely ACS, PE, no chest pain or shortness of breath, infection, encephalopathy, meningitis. Unlikely metabolic derangements. Likely behavioral versus polysubstance abuse Plan at this time medical clearance and discharged back to [facility]. Differential Diagnosis Differential Diagnoses: The differential diagnosis associated with the presentation includes Will rule out UTI, electrolyte abnormalities. Unlikely ACS, PE, no chest pain or shortness of breath, infection, encephalopathy, meningitis. Unlikely metabolic derangements. Likely behavioral versus polysubstance abuse Admission/Observation Consideration of admission/observation: Escalation of care including admission/observation considered Unlikely Consult Healthcare Provider Management of the patient was discussed with: Behavioral Health Provider Lab Data [facility] Lab Attestation statement: I reviewed the patient's lab results. 01/29/23 17:02 01/29/23 17:02 Labs: Lab Results 01/29/23 01/29/23 01/29/23 Range/Units 17:02 17:02 17:02 WBC 9.0 (4.8-10.8) X10*3/uL RBC 3.40 L D (4.60-5.80) X10*6/uL Hgb 10.8 L (14.0-18.0) g/dl Hct 32.5 L (42.0-52.0) % MCV 95.6 (80.0-98.0) fL MCH 31.8 (27.0-33.0) pg MCHC 33.2 (31.0-36.0) g/dl RDW 12.1 (11.0-16.0) % Plt Count 175 D (160-400) X10*3/uL MPV 9.2 L (9.4-12.4) fL Immature Gran % (Auto) 0.2 (0.0-0.4) % Neut % (Auto) 61.9 (45-73) % Lymph % (Auto) 30.1 (20-40) % [place] % (Auto) 5.5 (2-11) % Eos % (Auto) 2.0 (0-4) % Baso % (Auto) 0.3 (0-2) % Lymph # (Auto) 2.7 (1.2-4.9) X10*3/uL [place] # (Auto) 0.5 (0.1-1.2) X10*3/uL Eos # (Auto) 0.2 (0.0-0.4) X10*3/uL Baso # (Auto) 0.0 (0.0-0.2) X10*3/uL Abs Immat Gran (auto) 0.02 (0.00-0.03) X10*3/uL Absolute Neuts (auto) 5.6 (2.0-8.3) x10*3/uL Absolute Nucleated RBC 0.000 (0.0-0.012) X10*3/uL Nucleated RBC % (auto) 0.0 (0.0-0.2) /100WBC Sodium 137 (135-145) mmol/L Potassium 5.9 H (3.3-5.1) mmol/L Chloride 101 (96-108) mmol/L Carbon Dioxide 25 (22-29) mmol/L Anion Gap 17 (12-20) BUN 48 H (9-16) mg/dL Creatinine 3.10 H (0.5-1.4) mg/dL Estim Creat Clear Calc 26.7 Estimated GFR 21 Random Glucose 238 H (60-115) mg/dL Calcium 9.3 (8.4-10.2) mg/dL Magnesium 2.4 (1.6-2.6) mg/dL Total Bilirubin 0.4 (0.0-1.0) mg/dL AST 13 (5-37) U/L ALT 15 (0-40) U/L Alkaline Phosphatase 93 (39-117) U/L Total Creatine Kinase 67 (38-174) U/L Troponin I High Sens (<3.5-35.0) ng/L Total Protein 6.4 L (6.5-8.0) g/dL Albumin 3.7 (3.5-5.0) g/dL Urine Color Urine Appearance Urine pH (5.0-9.0) Ur Specific [place] (1.005-1.025) Urine Protein (Neg-Trace) mg/dL Urine Glucose (UA) (Negative) mg/dL Urine Ketones (Negative) mg/dL Urine Blood (Negative) Urine Nitrite (Negative) Ur Leukocyte Esterase (Negative) Urine RBC (0-2) /HPF Urine WBC (0-5) /HPF Ur Squamous Epith Cells (0-2) /HPF Urine Bacteria (None Seen) Hyaline Casts (0-2) /LPF Urine Opiates Screen (Not Detect) Ur Barbiturates Screen (Not Detect) Ur Phencyclidine Scrn (Not Detect) Ur Amphetamines Screen (Not Detect) U Benzodiazepines Scrn (Not Detect) Urine Cocaine Screen (Not Detect) U Marijuana (THC) Screen (Not Detect) Ethyl Alcohol < 10 mg/dL COVID-19 (LIAM) Negative (Negative) COVID-19 Clin Com See Note 01/29/23 01/29/23 01/29/23 Range/Units 17:02 22:06 22:06 WBC (4.8-10.8) X10*3/uL RBC (4.60-5.80) X10*6/uL Hgb (14.0-18.0) g/dl Hct (42.0-52.0) % MCV (80.0-98.0) fL MCH (27.0-33.0) pg MCHC (31.0-36.0) g/dl RDW (11.0-16.0) % Plt Count (160-400) X10*3/uL MPV (9.4-12.4) fL Immature Gran % (Auto) (0.0-0.4) % Neut % (Auto) (45-73) % Lymph % (Auto) (20-40) % [place] % (Auto) (2-11) % Eos % (Auto) (0-4) % Baso % (Auto) (0-2) % Lymph # (Auto) (1.2-4.9) X10*3/uL [place] # (Auto) (0.1-1.2) X10*3/uL Eos # (Auto) (0.0-0.4) X10*3/uL Baso # (Auto) (0.0-0.2) X10*3/uL Abs Immat Gran (auto) (0.00-0.03) X10*3/uL Absolute Neuts (auto) (2.0-8.3) x10*3/uL Absolute Nucleated RBC (0.0-0.012) X10*3/uL Nucleated RBC % (auto) (0.0-0.2) /100WBC Sodium (135-145) mmol/L Potassium (3.3-5.1) mmol/L Chloride (96-108) mmol/L Carbon Dioxide (22-29) mmol/L Anion Gap (12-20) BUN (9-16) mg/dL Creatinine (0.5-1.4) mg/dL Estim Creat Clear Calc Estimated GFR Random Glucose (60-115) mg/dL Calcium (8.4-10.2) mg/dL Magnesium (1.6-2.6) mg/dL Total Bilirubin (0.0-1.0) mg/dL AST (5-37) U/L ALT (0-40) U/L Alkaline Phosphatase (39-117) U/L Total Creatine Kinase (38-174) U/L Troponin I High Sens 6.1 D (<3.5-35.0) ng/L Total Protein (6.5-8.0) g/dL Albumin (3.5-5.0) g/dL Urine Color Yellow Urine Appearance Clear Urine pH 5.5 (5.0-9.0) Ur Specific [place] 1.010 (1.005-1.025) Urine Protein Negative (Neg-Trace) mg/dL Urine Glucose (UA) >=1000 H (Negative) mg/dL Urine Ketones Negative (Negative) mg/dL Urine Blood Negative (Negative) Urine Nitrite Negative (Negative) Ur Leukocyte Esterase Negative (Negative) Urine RBC 0-2 (0-2) /HPF Urine WBC 0-5 (0-5) /HPF Ur Squamous Epith Cells 0-2 (0-2) /HPF Urine Bacteria None Seen (None Seen) Hyaline Casts 0-2 (0-2) /LPF Urine Opiates Screen POSITIVE H (Not Detect) Ur Barbiturates Screen Not Detected (Not Detect) Ur Phencyclidine Scrn Not Detected (Not Detect) Ur Amphetamines Screen Not Detected (Not Detect) U Benzodiazepines Scrn Not Detected (Not Detect) Urine Cocaine Screen Not Detected (Not Detect) U Marijuana (THC) Screen Not Detected (Not Detect) Ethyl Alcohol mg/dL COVID-19 (LIAM) (Negative) COVID-19 Clin Com 01/29/23 Range/Units 22:06 WBC (4.8-10.8) X10*3/uL RBC (4.60-5.80) X10*6/uL Hgb (14.0-18.0) g/dl Hct (42.0-52.0) % MCV (80.0-98.0) fL MCH (27.0-33.0) pg MCHC (31.0-36.0) g/dl RDW (11.0-16.0) % Plt Count (160-400) X10*3/uL MPV (9.4-12.4) fL Immature Gran % (Auto) (0.0-0.4) % Neut % (Auto) (45-73) % Lymph % (Auto) (20-40) % [place] % (Auto) (2-11) % Eos % (Auto) (0-4) % Baso % (Auto) (0-2) % Lymph # (Auto) (1.2-4.9) X10*3/uL [place] # (Auto) (0.1-1.2) X10*3/uL Eos # (Auto) (0.0-0.4) X10*3/uL Baso # (Auto) (0.0-0.2) X10*3/uL Abs Immat Gran (auto) (0.00-0.03) X10*3/uL Absolute Neuts (auto) (2.0-8.3) x10*3/uL Absolute Nucleated RBC (0.0-0.012) X10*3/uL Nucleated RBC % (auto) (0.0-0.2) /100WBC Sodium 141 (135-145) mmol/L Potassium 5.1 (3.3-5.1) mmol/L Chloride 107 (96-108) mmol/L Carbon Dioxide 26 (22-29) mmol/L Anion Gap 13 (12-20) BUN 44 H (9-16) mg/dL Creatinine 2.60 H (0.5-1.4) mg/dL Estim Creat Clear Calc 31.8 Estimated GFR 26 Random Glucose 68 (60-115) mg/dL Calcium 8.9 (8.4-10.2) mg/dL Magnesium (1.6-2.6) mg/dL Total Bilirubin 0.3 (0.0-1.0) mg/dL AST 15 (5-37) U/L ALT 14 (0-40) U/L Alkaline Phosphatase 92 (39-117) U/L Total Creatine Kinase (38-174) U/L Troponin I High Sens (<3.5-35.0) ng/L Total Protein 6.3 L (6.5-8.0) g/dL Albumin 3.6 (3.5-5.0) g/dL Urine Color Urine Appearance Urine pH (5.0-9.0) Ur Specific [place] (1.005-1.025) Urine Protein (Neg-Trace) mg/dL Urine Glucose (UA) (Negative) mg/dL Urine Ketones (Negative) mg/dL Urine Blood (Negative) Urine Nitrite (Negative) Ur Leukocyte Esterase (Negative) Urine RBC (0-2) /HPF Urine WBC (0-5) /HPF Ur Squamous Epith Cells (0-2) /HPF Urine Bacteria (None Seen) Hyaline Casts (0-2) /LPF Urine Opiates Screen (Not Detect) Ur Barbiturates Screen (Not Detect) Ur Phencyclidine Scrn (Not Detect) Ur Amphetamines Screen (Not Detect) U Benzodiazepines Scrn (Not Detect) Urine Cocaine Screen (Not Detect) U Marijuana (THC) Screen (Not Detect) Ethyl Alcohol mg/dL COVID-19 (LIAM) (Negative) COVID-19 Clin Com Core Measures AMI core measures followed: Yes Measure exclusions: not indicated Critical Care Time Critical Care Time Critical Care Time: No Discharge Plan Discharge Clinical Impression: Anxiety, ARELIS (acute kidney injury), Acute hyperkalemia Patient Disposition: Admitted As Inpatient Transfer Details: [facility] Instructions: Anxiety (ED), Suicide Prevention (ED) Additional Instructions: Take your medications as prescribed. If you were prescribed antibiotics today, it is important that you take your medication to their entirety, do not skip any doses, do not finish them early. Follow-up with your primary care provider this week. Return to the emergency department with new or worsening symptoms. Such as fevers, chills, chest pain, shortness of breath, nausea, vomiting, dizziness, headache, vision changes, lethargy In case of emergency call 911 Prescriptions: No Action metformin 500 mg tablet 1,000 mg PO BID lisinopril 20 mg tablet 20 mg PO DAILY prazosin 5 mg capsule 5 mg PO BEDTIME pantoprazole 40 mg tablet,delayed release (DR/EC) 40 mg PO DAILY@0630 atorvastatin 20 mg tablet 20 mg PO BEDTIME methadone 10 mg/5 mL Solution 55 mg PO DAILY olanzapine 15 mg tablet 15 mg PO BEDTIME Certavite-Antioxidant 18-400 mg-mcg Tablet 1 tab PO DAILY clonidine HCl 0.1 mg tablet 1 tab PO TID PRN (Reason: anxiety) spironolactone 25 mg Tablet 25 mg PO DAILY 30 Days Qty: 30 0RF Protocol: Hold for SBP< HOLD for SBP < : 90 furosemide 40 mg Tablet 40 mg PO DAILY 30 Days Qty: 30 0RF Protocol: Hold for SBP< HOLD for SBP < : 90 Jardiance 10 mg Tablet 10 mg PO DAILY 30 Days Qty: 30 0RF docusate sodium 100 mg capsule 100 mg PO BID pramipexole 0.25 mg tablet 0.25 mg PO BID PRN (Reason: restless legs) hydroxyzine HCl 25 mg tablet 25 - 50 mg PO BID PRN (Reason: anxiety) fluticasone propionate 50 mcg/actuation spray,suspension 1 - 2 spray intranasal DAILY PRN (Reason: Allergy Symptoms) fluticasone propionate [Flovent HFA] 110 mcg/actuation HFA aerosol inhaler 2 puff INHALATION BID insulin aspart U-100 [Novolog FlexPen U-100 Insulin] 100 unit/mL (3 mL) insulin pen 14 unit subcut TID insulin glargine 20 units subcut DAILY [facility]Provider Group[facility] - 2 days Stand Alone Forms: Work/School Release
--- NOTE | 2023-01-29 16:47 | MHC.CARE ---
t/w from CARE team meets with the patient for brief assessment, he reports he is in the ED for chest pain, denies acute SI, states he is wanting to return to the [facility] in [place] (adult crisis [facility]) following medical clearance. Additionally denies HI, and reports he is getting help from [facility] with his mental health and can return.
[2023-01-29 17:12] LABS: MANUAL DIFF FLAG NO
[2023-01-29 17:17] LABS: Basophils Percent Auto 0.3 % (0-2); Eosinophils Absolute Auto 0.2 X10*3/uL (0.0-0.4); Hematocrit 32.5 % (42.0-52.0); Hemoglobin 10.8 g/dl (14.0-18.0); Imm Gran Abs Auto 0.02 X10*3/uL (0.00-0.03); Imm Gran Pct Auto 0.2 % (0.0-0.4); Lymphocytes Absolute Auto 2.7 X10*3/uL (1.2-4.9); Lymphocytes Percent Auto 30.1 % (20-40); Mean Corpuscular HGB Conc 33.2 g/dl (31.0-36.0); Mean Corpuscular Hemoglobin 31.8 pg (27.0-33.0); Mean Corpuscular Volume 95.6 fL (80.0-98.0); Mean Platelet Volume 9.2 fL (9.4-12.4); Monocytes Absolute Auto 0.5 X10*3/uL (0.1-1.2); Monocytes Percent Auto 5.5 % (2-11); Neutrophils Absolute Auto 5.6 x10*3/uL (2.0-8.3); Neutrophils Percent Auto 61.9 % (45-73); Platelet Count 175 X10*3/uL (160-400); Red Cell Distribution Width 12.1 % (11.0-16.0)
[2023-01-29 17:39] LABS: Alanine Aminotransferase 15 U/L (0-40); Albumin Level 3.7 g/dL (3.5-5.0); Alkaline Phosphatase 93 U/L (39-117); Anion Gap 17 (12-20); Aspartate Amino Transferase 13 U/L (5-37); Bilirubin Total 0.4 mg/dL (0.0-1.0); Blood Urea Nitrogen 48 mg/dL (9-16); Calcium 9.3 mg/dL (8.4-10.2); Carbon Dioxide 25 mmol/L (22-29); Chloride 101 mmol/L (96-108); Creatinine Clr Calc Pharmacy 26.7; Estimated Glomerular Filt Rate 21; Ethanol < 10 mg/dL; Glucose Random 238 mg/dL (60-115); Magnesium 2.4 mg/dL (1.6-2.6); Potassium 5.9 mmol/L (3.3-5.1); Sodium 137 mmol/L (135-145); Total Protein 6.4 g/dL (6.5-8.0)
[2023-01-29 17:41] LABS: COVID-19 Test Negative (Negative); IDNOW Serial# BCCEAD1C
[2023-01-29 17:42] LABS: Troponin-I High Sensitivity 6.1 ng/L (<3.5-35.0)
--- NOTE | 2023-01-29 17:48 | PHA.MEDREC ---
Pharmacy Consult ? Medication Reconciliation Pharmacy has completed the medication reconciliation. pATIENT GETS METHADONE FROM [facility], NEED VERIFICATION FORM. PT STATES HE GOT DOSE TODAY [facility]
[2023-01-29 18:13] VITALS: BP 114/63; PULSE 71; RESP 15; O2SAT 98
[2023-01-29] MEDS: 0.9 % Sodium Chloride 1,000 ML 999 ML IV ×3 (19:31→22:55)
[2023-01-29] MEDS: Sodium Zirconium Cyclosilicate 10 GM POWD.PACK PO (19:31)
--- NOTE | 2023-01-29 19:43 | MHC.CARE ---
Call from Faith at [facility] respite. They are looking for update on when pt may be returning to them. Her number is [phone]
--- NOTE | 2023-01-29 20:10 | PC.NURSE ---
Annia - [facility] coordinator called asking for an update. I informed her his potassium is high and we are fixing that before he is cleared to go back. Stated she has a spot reserved for him and wanted to know if he will be coming home. Informed her I will call her when we have updates. [phone]
--- NOTE | 2023-01-29 21:52 | PC.NURSE ---
Updated [facility] Annia on pt status, pt has increased potassium and an ARELIS. Per Yessi, pt will be admitted.
[2023-01-29 21:59] VITALS: BP 113/62; PULSE 73; RESP 13; TEMP 36.7; O2SAT 97
[2023-01-29 22:17] LABS: Appearance Urine Clear; Color Urine Yellow; Glucose Urine UA >=1000 mg/dL (Negative); Leukocyte Esterase Urine Negative (Negative); Nitrite Urine Negative (Negative); PH 5.5 (5.0-9.0); UMIC TRIGGER UACC YES; Urine Blood Negative (Negative); Urine Ketones Negative (Negative); Urine Protein Negative (Neg-Trace)
[2023-01-29 22:20] LABS: Bacteria Urine None Seen (None Seen); Hyaline Casts Urine 0-2 /LPF (0-2); RBC Urine 0-2 /HPF (0-2); Squamous Epithelial Cell Urine 0-2 /HPF (0-2); WBC Urine 0-5 /HPF (0-5)
[2023-01-29 22:23] LABS: Amphetamine Screen Urine Not Detected (Not Detect); Barbiturates, Urine Not Detected (Not Detect); Benzodiazepines Screen Urine Not Detected (Not Detect); Cannabinoid Screen Urine Not Detected (Not Detect); Cocaine Screen Urine Not Detected (Not Detect); Opiate Screen Urine POSITIVE (Not Detect); Phencyclidine Screen Urine Not Detected (Not Detect)
[2023-01-29 22:29] LABS: Alanine Aminotransferase 14 U/L (0-40); Albumin Level 3.6 g/dL (3.5-5.0); Alkaline Phosphatase 92 U/L (39-117); Anion Gap 13 (12-20); Aspartate Amino Transferase 15 U/L (5-37); Bilirubin Total 0.3 mg/dL (0.0-1.0); Blood Urea Nitrogen 44 mg/dL (9-16); Calcium 8.9 mg/dL (8.4-10.2); Carbon Dioxide 26 mmol/L (22-29); Chloride 107 mmol/L (96-108); Creatinine Clr Calc Pharmacy 31.8; Estimated Glomerular Filt Rate 26; Glucose Random 68 mg/dL (60-115); Potassium 5.1 mmol/L (3.3-5.1); Sodium 141 mmol/L (135-145); Total Protein 6.3 g/dL (6.5-8.0)
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
[2023-01-29 23:47] LABS: Fentanyl, urine POSITIVE (Not Detect)
[2023-01-29 23:53] VITALS: BP 118/72; PULSE 76; RESP 12; TEMP 37; O2SAT 98
[2023-01-30] VITALS (7 sets, daily range): BP systolic 127–145; BP diastolic 65–75; PULSE 72–99; RESP 12–20; TEMP 36.1–37.3; O2SAT 93–98; BMI 28.2
--- NOTE | 2023-01-30 | P.HPHOSP_ITS ---
History of Present Illness Date of Service: 01/30/23 Chief Complaint: sent from [facility] for medical eval This is a 52-year-old male history of anxiety, hypertension, hyperlipidemia, cocaine use disorder, heroin use disorder presenting to the emergency department for medical evaluation. Patient without medical complaints but per EMS report he was sent over for heart problems per facility.? patient currently at [facility] facility which is a psychiatric facility. Patient himself has no acute complaints but does report poor oral intake due to depression. he states that he just does not have an appetite. he denies any chest pain, no shortness of breath, no abdominal pain nausea or vomiting, no diarrhea constipation, no urinary symptoms and no lower extremity edema. Arrival to the ED patient hemodynamically stable with no significant abnormality Labs are significant for BUN of 48 and creatinine of 3.1 with a baseline of around 1 And a potassium of 5.9 patient received IV fluids, repeat labs show persistent AERLIS patient will be admitted for further management Review of Systems Review of Systems: Yes all other systems are reviewed and are negative [facility] Medical History Asthma Cocaine use Diabetes 1.5, managed as type 1 Essential hypertension Heroin use Hypertension Other and unspecified hyperlipidemia Type 2 diabetes mellitus with unspecified complications Family History Mother CAD (coronary artery disease) Diabetes HTN (hypertension) Father No problems noted. Surgical History H/O exploratory laparotomy History of intestinal surgery Social History Household Members: Other Housing: Other Do you presently have visiting nurse or other home services: No Alcohol intake: unknown Patient Tobacco Use Status: Former Tobacco user Cigarettes Per Day: 4 Years Smoked: 5 Substance Use Type: Heroin Advance Directives: No Advance Directives Information Provided: No service: No Current occupational status: unemployed Meds Allergies Allergy/AdvReac Type Severity Reaction Status Date / Time acetaminophen [Vicodin] Allergy Unknown Unknown Verified 03/21/22 13:30 hydrocodone [Vicodin] Allergy Unknown Unknown Verified 03/21/22 13:30 Active Medications: Current Medications Acetaminophen (Acetaminophen 325 Mg Tablet) 650 mg PO Q6H PRN PRN Reason: Pain, Mild (Pain Scale 1-3) Atorvastatin Calcium (Atorvastatin Calcium 20 Mg Tablet) 20 mg PO BEDTIME KEVIN Clonidine HCl (Clonidine Hcl 0.1 Mg Tablet) 0.1 mg PO TID PRN; Protocol PRN Reason: anxiety Dextrose (Dextrose 50 % 25 Gm/50 Ml Syringe) 25 gm IVPUSH Q15M PRN; Protocol PRN Reason: per Hypoglycemia Standing Ord. Docusate Sodium (Docusate Sodium 100 Mg Capsule) 100 mg PO DAILY PRN PRN Reason: Constipation Fluticasone Propionate (Fluticasone Propionate Nasal 16 Gm [place]) 1 - 2 spray NOSTRIL-B DAILY PRN PRN Reason: Allergy Symptoms Furosemide (Furosemide 40 Mg Tablet) 40 mg PO DAILY KEVIN; Protocol Glucose (Glucose Gel 15 Gm Gel..Gram.) 15 gm PO Q15M PRN; Protocol PRN Reason: per Hypoglycemia Standing Ord. Hydroxyzine HCl (Hydroxyzine Hcl 25 Mg Tablet) 25 - 50 mg PO BID PRN PRN Reason: anxiety Lactated Ringer's (Lr) 1,000 mls @ 100 mls/hr IVCONT .Q10H [facility], [facility]1983 Insulin Human Lispro (Insulin Lispro 100 Unit/Ml 3 Ml Vial) 0.1 - 10 unit SUBCUT QIDACHS KEVIN; Protocol Lisinopril (Lisinopril 20 Mg Tablet) 20 mg PO DAILY KEVIN; Protocol Multivitamins/Vitamin C (Multivitamin Tablet) 1 tab PO DAILY [facility], [facility]1983 Non-Formulary Medication (Fluticasone Propionate [Flovent Hfa]) 2 puff INHALE BID [facility], [facility]1983 Non-Formulary Medication (Insulin Glargine) 20 units SUBCUT DAILY [facility], [facility]1983 Non-Formulary Medication (Insulin Aspart U-100 [Novolog Flexpen U-100 Insulin]) 14 unit SUBCUT TID [facility], [facility]1983 Non-Formulary Medication (Pantoprazole) 40 mg PO DAILY@0630 [facility], [facility]1983 Olanzapine (Olanzapine 7.5 Mg Tablet) 15 mg PO BEDTIME KEVIN Ondansetron HCl (Ondansetron Hcl 4 Mg/2 Ml Vial) 4 mg IVPUSH Q8H PRN PRN Reason: Nausea and Vomiting Pharmacy Consult (Consult Rx Perform Med Rec) 1 each MISCELLANE ONCE PRN PRN Reason: Consult order Pramipexole Dihydrochloride (Pramipexole Di-Hcl 0.25 Mg Tablet) 0.25 mg PO BID PRN PRN Reason: restless legs Prazosin HCl (Prazosin Hcl 5 Mg Capsule) 5 mg PO BEDTIME KEVIN; Protocol Sodium Chloride (0.9 % Sodium Chloride Flush 3 Ml Syringe) 3 ml IVFLUSH QSHIFT KEVIN Home Medications Medication Instructions Recorded Confirmed Last Taken Type atorvastatin 20 mg tablet 20 mg PO BEDTIME 12/21/21 01/29/23 Unknown History clonidine HCl 0.1 mg tablet 1 tab PO TID PRN anxiety 12/21/21 01/29/23 Unknown History lisinopril 20 mg tablet 20 mg PO DAILY 12/21/21 01/29/23 Unknown History metformin 500 mg tablet 1,000 mg PO BID 12/21/21 01/29/23 Unknown History methadone 10 mg/5 mL oral solution 55 mg PO DAILY 12/21/21 03/21/22 01/29/23 History multivitamin-ferrous 1 tab PO DAILY 12/21/21 01/29/23 Unknown History fumarate-folic acid 18 mg-400 mcg tablet (Certavite-Antioxidant) olanzapine 15 mg tablet 15 mg PO BEDTIME 12/21/21 01/29/23 Unknown History pantoprazole 40 mg tablet,delayed 40 mg PO DAILY@0630 12/21/21 01/29/23 Unknown History release prazosin 5 mg capsule 5 mg PO BEDTIME 12/21/21 01/29/23 Unknown History docusate sodium 100 mg capsule 100 mg PO BID 01/29/23 01/29/23 Unknown History fluticasone propionate 110 2 puff inhalation BID 01/29/23 01/29/23 Unknown History mcg/actuation HFA aerosol inhaler (Flovent HFA) fluticasone propionate 50 1 - 2 spray intranasal DAILY PRN 01/29/23 01/29/23 Unknown History mcg/actuation nasal Allergy Symptoms spray,suspension hydroxyzine HCl 25 mg tablet 25 - 50 mg PO BID PRN anxiety 01/29/23 01/29/23 Unknown History insulin aspart U-100 100 unit/mL 14 unit subcut TID 01/29/23 01/29/23 Unknown History (3 mL) subcutaneous pen (Novolog FlexPen U-100 Insulin aspart) insulin glargine 20 units subcut DAILY 01/29/23 01/29/23 01/29/23 History pramipexole 0.25 mg tablet 0.25 mg PO BID PRN restless legs 01/29/23 01/29/23 Unknown History Physical Exam Vital Signs and Narrative: Vital Signs: Last Vital Signs Temp 98.6 F 01/29/23 23:53 Pulse 76 01/29/23 23:53 Resp 12 01/29/23 23:53 BP 118/72 01/29/23 23:53 Pulse Ox 98 01/29/23 23:53 O2 Del Method Room Air 01/29/23 23:53 BMI result Body Mass Index 28.3 Const: General: cooperative and no acute distress Orientatio n/consciousness: patient oriented x3 Eyes: General: appearance normal, both eyes and all related structures Resp: Effort & Inspection: normal respiratory effort Auscultation: clear to auscultation bilaterally Cardio: Rate: regular rate Rhythm: regular rhythm GI: Palpation (GI): Soft to palpation Auscultation: normal bowel sounds Skin: General skin exam: no rashes or lesions noted Neuro: General: patient oriented x3 Cognition (Neuro): normal cognition Extrem: General: Yes normal to inspection and Yes no pedal edema Results Labs 01/29/23 17:02 01/29/23 22:06 Labs: Laboratory Results - last 24 hr 01/29/23 01/29/23 01/29/23 17:02 17:02 17:02 MCV 95.6 MCH 31.8 MCHC 33.2 RDW 12.1 Plt Count 175 D MPV 9.2 L Immature Gran % (Auto) 0.2 Neut % (Auto) 61.9 Lymph % (Auto) 30.1 Levy % (Auto) 5.5 Eos % (Auto) 2.0 Baso % (Auto) 0.3 Lymph # (Auto) 2.7 Levy # (Auto) 0.5 Eos # (Auto) 0.2 Baso # (Auto) 0.0 Abs Immat Gran (auto) 0.02 Absolute Neuts (auto) 5.6 Absolute Nucleated RBC 0.000 Nucleated RBC % (auto) 0.0 Anion Gap 17 Estim Creat Clear Calc 26.7 Estimated GFR 21 Random Glucose 238 H Calcium 9.3 Magnesium 2.4 Total Bilirubin 0.4 AST 13 ALT 15 Alkaline Phosphatase 93 Total Creatine Kinase 67 Troponin I High Sens Total Protein 6.4 L Albumin 3.7 Urine Color Urine Appearance Urine pH Ur Specific Mcintosh Urine Protein Urine Glucose (UA) Urine Ketones Urine Blood Urine Nitrite Ur Leukocyte Esterase Urine RBC Urine WBC Ur Squamous Epith Cells Urine Bacteria Hyaline Casts Urine Opiates Screen Urine Fentanyl Screen Ur Barbiturates Screen Ur Phencyclidine Scrn Ur Amphetamines Screen U Benzodiazepines Scrn Urine Cocaine Screen U Marijuana (THC) Screen Ethyl Alcohol < 10 COVID-19 (LI[facility]) Negative COVID-19 Clin Com See Note 01/29/23 01/29/23 01/29/23 17:02 22:06 22:06 MCV MCH MCHC RDW Plt Count MPV Immature Gran % (Auto) Neut % (Auto) Lymph % (Auto) Levy % (Auto) Eos % (Auto) Baso % (Auto) Lymph # (Auto) Levy # (Auto) Eos # (Auto) Baso # (Auto) Abs Immat Gran (auto) Absolute Neuts (auto) Absolute Nucleated RBC Nucleated RBC % (auto) Anion Gap Estim Creat Clear Calc Estimated GFR Random Glucose Calcium Magnesium Total Bilirubin AST ALT Alkaline Phosphatase Total Creatine Kinase Troponin I High Sens 6.1 D Total Protein Albumin Urine Color Yellow Urine Appearance Clear Urine pH 5.5 Ur Specific Mcintosh 1.010 Urine Protein Negative Urine Glucose (UA) >=1000 H Urine Ketones Negative Urine Blood Negative Urine Nitrite Negative Ur Leukocyte Esterase Negative Urine RBC 0-2 Urine WBC 0-5 Ur Squamous Epith Cells 0-2 Urine Bacteria None Seen Hyaline Casts 0-2 Urine Opiates Screen POSITIVE H Urine Fentanyl Screen POSITIVE H Ur Barbiturates Screen Not Detected Ur Phencyclidine Scrn Not Detected Ur Amphetamines Screen Not Detected U Benzodiazepines Scrn Not Detected Urine Cocaine Screen Not Detected U Marijuana (THC) Screen Not Detected Ethyl Alcohol COVID-19 ([facility]) COVID-19 Clin Com 01/29/23 22:06 MCV MCH MCHC RDW Plt Count MPV Immature Gran % (Auto) Neut % (Auto) Lymph % (Auto) Levy % (Auto) Eos % (Auto) Baso % (Auto) Lymph # (Auto) Levy # (Auto) Eos # (Auto) Baso # (Auto) Abs Immat Gran (auto) Absolute Neuts (auto) Absolute Nucleated RBC Nucleated RBC % (auto) Anion Gap 13 Estim Creat Clear Calc 31.8 Estimated GFR 26 Random Glucose 68 Calcium 8.9 Magnesium Total Bilirubin 0.3 AST 15 ALT 14 Alkaline Phosphatase 92 Total Creatine Kinase Troponin I High Sens Total Protein 6.3 L Albumin 3.6 Urine Color Urine Appearance Urine pH Ur Specific Mcintosh Urine Protein Urine Glucose (UA) Urine Ketones Urine Blood Urine Nitrite Ur Leukocyte Esterase Urine RBC Urine WBC Ur Squamous Epith Cells Urine Bacteria Hyaline Casts Urine Opiates Screen Urine Fentanyl Screen Ur Barbiturates Screen Ur Phencyclidine Scrn Ur Amphetamines Screen U Benzodiazepines Scrn Urine Cocaine Screen U Marijuana (THC) Screen Ethyl Alcohol COVID-19 ([facility]) COVID-19 Clin Com Assessment and Plan (1) ARELIS (acute kidney injury): Status: Acute (2) Acute hyperkalemia: Status: Acute Plan 52-year-old male with past medical history of HTN, polysubstance abuse, asthma, hyperlipidemia, diabetes comes into the hospital after the facility he lives at [facility] and sent him for medical clearance # acute kidney injury - likely secondary to poor oral intake - patient's abdomen is nontender, UA negative, - improved with IV fluids, at this time will continue IVF - follow BMP # hyperkalemia - secondary to ARELIS - resolved # poor oral intake - likely secondary to depression as patient states he has been severely depressed - patient already at psychiatry facility # hypertension - stable - will continue home medications # diabetes - continue home insulin - will add low-dose sliding scale answer - diabetic diet - hold oral metformin and oral antihyperglycemics # mood disorder - continue home medications DVT prophylaxis: Early ambulation Time Spent With Patient Time: Total time managing care of this patient today ____ minutes. Quality Stroke Does the patient have a stroke diagnosis?: No VTE Prior VTE?: No VTE Risk Level:: Medical - low VTE Device Contraindication: Treatment Not Indicated VTE Drug Contraindication: Treatment Not Indicated
[2023-01-30 00:22] LABS: ABG Base Excess 2.3 mmol/L; ABG HCO3 27 mmol/L (22-26); ABG pCO2 46 mmHg (32-45); ABG pH 7.38 (7.35-7.45); ABG pO2 87 mmHg (83-108)
--- NOTE | 2023-01-30 00:34 | PC.NURSE ---
Pt resting quietly in bed at this time, no complaints. NS liter was slow to run, LR administration delayed. Will hang LR when saline is finished.
[2023-01-30 00:38] LABS: Glucose, Whole Blood 57 mg/dL (60-115)
--- NOTE | 2023-01-30 00:47 | MHC.EDTECH ---
Pt's POC was checked, results were 57 RN aware. PB & J sandwich given, orange juice and maddy mireille.
[2023-01-30] MEDS: Lactated Ringers 1,000 ML 100 ML IVCONT ×2 (01:34→11:58)
[2023-01-30 02:37] LABS: ABG Refer to POC result
[2023-01-30] MEDS: Omeprazole 20 MG CAPSULE.DR PO (06:36)
--- NOTE | 2023-01-30 06:43 | PC.NURSE ---
Attempted to call report to 3rd flosia twice with no answer.
--- NOTE | 2023-01-30 06:44 | PC.NURSE ---
Pt denies SI, stating absolutely not when asked if he has suicidal thoughts.
[2023-01-30 06:50] LABS: MANUAL DIFF FLAG NO
[2023-01-30 06:58] LABS: Basophils Percent Auto 0.2 % (0-2); Eosinophils Absolute Auto 0.2 X10*3/uL (0.0-0.4); Eosinophils Percent Auto 1.8 % (0-4); Hematocrit 35.2 % (42.0-52.0); Imm Gran Abs Auto 0.03 X10*3/uL (0.00-0.03); Imm Gran Pct Auto 0.3 % (0.0-0.4); Lymphocytes Absolute Auto 2.8 X10*3/uL (1.2-4.9); Mean Corpuscular HGB Conc 34.1 g/dl (31.0-36.0); Mean Corpuscular Hemoglobin 31.9 pg (27.0-33.0); Mean Corpuscular Volume 93.6 fL (80.0-98.0); Mean Platelet Volume 9.3 fL (9.4-12.4); Monocytes Absolute Auto 0.4 X10*3/uL (0.1-1.2); Monocytes Percent Auto 4.3 % (2-11); Neutrophils Absolute Auto 6.2 x10*3/uL (2.0-8.3); Neutrophils Percent Auto 64.4 % (45-73); Platelet Count 209 X10*3/uL (160-400); Red Blood Count 3.76 X10*6/uL (4.60-5.80); Red Cell Distribution Width 11.8 % (11.0-16.0); White Blood Count 9.6 X10*3/uL (4.8-10.8)
[2023-01-30 07:34] LABS: Anion Gap 10 (12-20); Blood Urea Nitrogen 36 mg/dL (9-16); Calcium 9.1 mg/dL (8.4-10.2); Carbon Dioxide 26 mmol/L (22-29); Chloride 107 mmol/L (96-108); Creatinine Clr Calc Pharmacy 44.7; Estimated Glomerular Filt Rate 39; Glucose Random 115 mg/dL (60-115); Potassium 4.9 mmol/L (3.3-5.1); Sodium 138 mmol/L (135-145)
[2023-01-30 08:23] LABS: Glucose, Whole Blood 203 mg/dL (60-115)
[2023-01-30] MEDS: Insulin Lispro 100 UNIT/ML 3 ML VIAL SUBCUT ×2 (08:26→21:13)
--- NOTE | 2023-01-30 08:49 | PC.NURSE ---
Pt calm, pleasant on approach, Bulgarian speaking, fluids requested and given, pending bed assignment.
[2023-01-30] MEDS: Insulin Glargine,Hum.rec.anlog 100 UNIT/ML 10 ML VIAL 20 UNIT SUBCUT (09:56)
--- NOTE | 2023-01-30 11:20 | P.PNIM_ITS ---
Subjective Subjective Date of Service: 01/30/23 Interval History: seen and evaluated this morning feels better Cr trending down in good mood this morning No other overnight events Review of Systems Review of Systems: Yes all other systems are reviewed and are negative Physical Exam Vital Signs: Vital Signs: Last Vital Signs Temp 98.4 F 01/30/23 08:47 Pulse 84 01/30/23 08:47 Resp 16 01/30/23 08:47 BP 131/73 01/30/23 08:47 Pulse Ox 98 01/30/23 08:47 O2 Del Method Room Air 01/30/23 08:47 BMI result Body Mass Index 28.2 Const: Other: Constitutional : Awake, interactive, not in distress Neck : Normal inspection, Supple Cardiovascular : RRR, no JVP, no lower extremity edema Respiratory : good bilateral air entry, no crackles, wheezes or rhonchi Gastrointestinal: soft, lax, Normal bowel sounds, Non tender Skin : Warm, Dry Neurological : Alert & oriented x3, No focal deficit Objective Data Active Medications Acetaminophen (Acetaminophen 325 Mg Tablet) 650 mg PO Q6H PRN PRN Reason: Pain, Mild (Pain Scale 1-3) Atorvastatin Calcium (Atorvastatin Calcium 20 Mg Tablet) 20 mg PO BEDTIME KEVIN Clonidine HCl (Clonidine Hcl 0.1 Mg Tablet) 0.1 mg PO TID PRN; Protocol PRN Reason: anxiety Dextrose (Dextrose 50 % 25 Gm/50 Ml Syringe) 25 gm IVPUSH Q15M PRN; Protocol PRN Reason: per Hypoglycemia Standing Ord. Docusate Sodium (Docusate Sodium 100 Mg Capsule) 100 mg PO DAILY PRN PRN Reason: Constipation Fluticasone Propionate (Fluticasone Propionate 100 Mcg Blst.W.Dev) 2 puff INHALE BID [facility] Last Admin: 01/30/23 09:51 Dose: Not Given Documented By: [email or web address] Non-Admin Reason: Not In Room Fluticasone Propionate (Fluticasone Propionate Nasal 16 Gm [place]) 1 - 2 spray NOSTRIL-B DAILY PRN PRN Reason: Allergy Symptoms Glucose (Glucose Gel 15 Gm Gel..Gram.) 15 gm PO Q15M PRN; Protocol PRN Reason: per Hypoglycemia Standing Ord. Hydroxyzine HCl (Hydroxyzine Hcl 25 Mg Tablet) 25 - 50 mg PO BID PRN PRN Reason: anxiety Lactated Ringer's (Lr) 1,000 mls @ 100 mls/hr IVCONT .Q10H [facility] Last Admin: 01/30/23 09:56 Dose: Not Given Documented By: IMER Non-Admin Reason: IV Running Insulin Glargine (Insulin Glargine,Hum.Rec.Anlog 100 Unit/Ml 10 Ml Vial) 20 unit SUBCUT DAILY [facility] Last Admin: 01/30/23 09:56 Dose: 20 unit Documented By: IMER Insulin Human Lispro (Insulin Lispro 100 Unit/Ml 3 Ml Vial) 0.1 - 10 unit SUBCUT QIDACHS [facility]; Protocol Last Admin: 01/30/23 08:26 Dose: 4 unit Documented By: MARCO Insulin Human Lispro (Insulin Lispro 100 Unit/Ml 3 Ml Vial) 10 unit SUBCUT TIDWM [facility] Multivitamins/Vitamin C (Multivitamin Tablet) 1 tab PO DAILY [facility] Last Admin: 01/30/23 09:51 Dose: Not Given Documented By: IMER Non-Admin Reason: Not In Room Olanzapine (Olanzapine 7.5 Mg Tablet) 15 mg PO BEDTIME [facility] Omeprazole (Omeprazole 20 Mg Capsule.Dr) 20 mg PO DAILY@0630 [facility] Last Admin: 01/30/23 06:36 Dose: 20 mg Documented By: SANTIAGO Ondansetron HCl (Ondansetron Hcl 4 Mg/2 Ml Vial) 4 mg IVPUSH Q8H PRN PRN Reason: Nausea and Vomiting Pharmacy Consult (Consult Rx Perform Med Rec) 1 each MISCELLANE ONCE PRN PRN Reason: Consult order Pramipexole Dihydrochloride (Pramipexole Di-Hcl 0.25 Mg Tablet) 0.25 mg PO BID PRN PRN Reason: restless legs Prazosin HCl (Prazosin Hcl 5 Mg Capsule) 5 mg PO BEDTIME [facility]; Protocol Sodium Chloride (0.9 % Sodium Chloride Flush 3 Ml Syringe) 3 ml IVFLUSH QSHIFT [facility] Last Admin: 01/30/23 09:05 Dose: Not Given Documented By: MARCO Non-Admin Reason: IV Running Labs 01/30/23 06:19 01/30/23 06:19 Labs: Laboratory Results - last 24 hr 01/29/23 01/29/23 01/29/23 17:02 17:02 17:02 MCV 95.6 MCH 31.8 MCHC 33.2 RDW 12.1 Plt Count 175 D MPV 9.2 L Immature Gran % (Auto) 0.2 Neut % (Auto) 61.9 Lymph % (Auto) 30.1 [place] % (Auto) 5.5 Eos % (Auto) 2.0 Baso % (Auto) 0.3 Lymph # (Auto) 2.7 [place] # (Auto) 0.5 Eos # (Auto) 0.2 Baso # (Auto) 0.0 Abs Immat Gran (auto) 0.02 Absolute Neuts (auto) 5.6 Absolute Nucleated RBC 0.000 Nucleated RBC % (auto) 0.0 O2 Saturation ABG pH at Pt Temp ABG pCO2 at Pt Temp ABG pO2 at Pt Temp ABG HCO3 ABG Base Excess (Actual) Anion Gap 17 Estim Creat Clear Calc 26.7 Estimated GFR 21 POC Glucose Random Glucose 238 H Calcium 9.3 Magnesium 2.4 Total Bilirubin 0.4 AST 13 ALT 15 Alkaline Phosphatase 93 Total Creatine Kinase 67 Troponin I High Sens Total Protein 6.4 L Albumin 3.7 Urine Color Urine Appearance Urine pH Ur Specific [place] Urine Protein Urine Glucose (UA) Urine Ketones Urine Blood Urine Nitrite Ur Leukocyte Esterase Urine RBC Urine WBC Ur Squamous Epith Cells Urine Bacteria Hyaline Casts Urine Opiates Screen Urine Fentanyl Screen Ur Barbiturates Screen Ur Phencyclidine Scrn Ur Amphetamines Screen U Benzodiazepines Scrn Urine Cocaine Screen U Marijuana (THC) Screen Ethyl Alcohol < 10 COVID-19 (LIAM) Negative COVID-19 Clin Com See Note 01/29/23 01/29/23 01/29/23 17:02 22:06 22:06 MCV MCH MCHC RDW Plt Count MPV Immature Gran % (Auto) Neut % (Auto) Lymph % (Auto) [place] % (Auto) Eos % (Auto) Baso % (Auto) Lymph # (Auto) [place] # (Auto) Eos # (Auto) Baso # (Auto) Abs Immat Gran (auto) Absolute Neuts (auto) Absolute Nucleated RBC Nucleated RBC % (auto) O2 Saturation ABG pH at Pt Temp ABG pCO2 at Pt Temp ABG pO2 at Pt Temp ABG HCO3 ABG Base Excess (Actual) Anion Gap Estim Creat Clear Calc Estimated GFR POC Glucose Random Glucose Calcium Magnesium Total Bilirubin AST ALT Alkaline Phosphatase Total Creatine Kinase Troponin I High Sens 6.1 D Total Protein Albumin Urine Color Yellow Urine Appearance Clear Urine pH 5.5 Ur Specific [place] 1.010 Urine Protein Negative Urine Glucose (UA) >=1000 H Urine Ketones Negative Urine Blood Negative Urine Nitrite Negative Ur Leukocyte Esterase Negative Urine RBC 0-2 Urine WBC 0-5 Ur Squamous Epith Cells 0-2 Urine Bacteria None Seen Hyaline Casts 0-2 Urine Opiates Screen POSITIVE H Urine Fentanyl Screen POSITIVE H Ur Barbiturates Screen Not Detected Ur Phencyclidine Scrn Not Detected Ur Amphetamines Screen Not Detected U Benzodiazepines Scrn Not Detected Urine Cocaine Screen Not Detected U Marijuana (THC) Screen Not Detected Ethyl Alcohol COVID-19 (LIAM) COVID-BoatsGo 01/29/23 01/30/23 01/30/23 22:06 00:11 00:34 MCV MCH MCHC RDW Plt Count MPV Immature Gran % (Auto) Neut % (Auto) Lymph % (Auto) [place] % (Auto) Eos % (Auto) Baso % (Auto) Lymph # (Auto) [place] # (Auto) Eos # (Auto) Baso # (Auto) Abs Immat Gran (auto) Absolute Neuts (auto) Absolute Nucleated RBC Nucleated RBC % (auto) O2 Saturation 96.0 ABG pH at Pt Temp 7.38 ABG pCO2 at Pt Temp 46 H ABG pO2 at Pt Temp 87 ABG HCO3 27 H ABG Base Excess (Actual) 2.3 Anion Gap 13 Estim Creat Clear Calc 31.8 Estimated GFR 26 POC Glucose 57 L* Random Glucose 68 Calcium 8.9 Magnesium Total Bilirubin 0.3 AST 15 ALT 14 Alkaline Phosphatase 92 Total Creatine Kinase Troponin I High Sens Total Protein 6.3 L Albumin 3.6 Urine Color Urine Appearance Urine pH Ur Specific [place] Urine Protein Urine Glucose (UA) Urine Ketones Urine Blood Urine Nitrite Ur Leukocyte Esterase Urine RBC Urine WBC Ur Squamous Epith Cells Urine Bacteria Hyaline Casts Urine Opiates Screen Urine Fentanyl Screen Ur Barbiturates Screen Ur Phencyclidine Scrn Ur Amphetamines Screen U Benzodiazepines Scrn Urine Cocaine Screen U Marijuana (THC) Screen Ethyl Alcohol COVID-19 (LIAM) COVID-19 ngmoco 01/30/23 01/30/23 01/30/23 06:19 06:19 08:18 MCV 93.6 MCH 31.9 MCHC 34.1 RDW 11.8 Plt Count 209 MPV 9.3 L Immature Gran % (Auto) 0.3 Neut % (Auto) 64.4 Lymph % (Auto) 29.0 [place] % (Auto) 4.3 Eos % (Auto) 1.8 Baso % (Auto) 0.2 Lymph # (Auto) 2.8 [place] # (Auto) 0.4 Eos # (Auto) 0.2 Baso # (Auto) 0.0 Abs Immat Gran (auto) 0.03 Absolute Neuts (auto) 6.2 Absolute Nucleated RBC 0.000 Nucleated RBC % (auto) 0.0 O2 Saturation ABG pH at Pt Temp ABG pCO2 at Pt Temp ABG pO2 at Pt Temp ABG HCO3 ABG Base Excess (Actual) Anion Gap 10 L Estim Creat Clear Calc 44.7 Estimated GFR 39 POC Glucose 203 H Random Glucose 115 Calcium 9.1 Magnesium Total Bilirubin AST ALT Alkaline Phosphatase Total Creatine Kinase Troponin I High Sens Total Protein Albumin Urine Color Urine Appearance Urine pH Ur Specific [place] Urine Protein Urine Glucose (UA) Urine Ketones Urine Blood Urine Nitrite Ur Leukocyte Esterase Urine RBC Urine WBC Ur Squamous Epith Cells Urine Bacteria Hyaline Casts Urine Opiates Screen Urine Fentanyl Screen Ur Barbiturates Screen Ur Phencyclidine Scrn Ur Amphetamines Screen U Benzodiazepines Scrn Urine Cocaine Screen U Marijuana (THC) Screen Ethyl Alcohol COVID-19 (LIAM) COVID-19 Clin Com Assessment and Plan (1) ARELIS (acute kidney injury): Status: Acute (2) Acute hyperkalemia: Status: Acute Plan 52-year-old male with past medical history of HTN, polysubstance abuse, asthma, hyperlipidemia, diabetes comes into the hospital after the facility he lives at [facility] and sent him for medical clearance # acute kidney injury secondary to poor oral intake and dehydration Improving with IV fluids Cr 1.8 continue IVF follow BMP # hyperkalemia resolved # poor oral intake secondary to depression as patient states he has been severely depressed plan to DC back to psychiatry facility # hypertension continue home medications # diabetes continue home insulin low-dose sliding scale answer diabetic diet hold oral metformin and oral antihyperglycemics # mood disorder continue home medications DVT prophylaxis: Early ambulation Time Spent With Patient Time: Total time managing care of this patient today ____ minutes. Quality Stroke Does the patient have a stroke diagnosis?: No VTE Prior VTE?: No VTE Risk Level:: Medical - low VTE Device Contraindication: Treatment Not Indicated VTE Drug Contraindication: Treatment Not Indicated
[2023-01-30 11:56] LABS: Glucose, Whole Blood 120 mg/dL (60-115)
[2023-01-30] MEDS: Enoxaparin Sodium 30 MG/0.3 ML SYRINGE SUBCUT (11:58)
[2023-01-30 14:54] LABS: Anion Gap 15 (12-20); Blood Urea Nitrogen 29 mg/dL (9-16); Calcium 9.5 mg/dL (8.4-10.2); Carbon Dioxide 20 mmol/L (22-29); Chloride 107 mmol/L (96-108); Creatinine Clr Calc Pharmacy 54.4; Estimated Glomerular Filt Rate 48; Glucose Random 192 mg/dL (60-115); Potassium 5.2 mmol/L (3.3-5.1); Sodium 137 mmol/L (135-145)
--- NOTE | 2023-01-30 14:59 | MHC.CM.PN ---
Addendum entered by Danya James 01/31/23 11:34: CM MET WITH PT TO DISCUSS DC PLANNING HE IS AWARE HE WILL HAVE TO GO TO [facility] IN [place] FOR AN EVAL HE REPORTS CONCERN THAT IF HE IS NOT SENT TO THE SAME RESPITE, HE WILL BE UNABLE TO GET HIS HOUSE KEYS AND BELONGINGS CM INFORMED HIM IF THEY DECIDED TO SEND HIM TO A DIFFERENT RESPITE OR HOME, THEY WOULD ASSIST WITH TRANSPORTATION PT IS AWARE THE [facility] SHUTTLE WILL TAKE HIM TO THE [facility] OFFICE PT REPORTS BEING EXCITED TO DC Addendum entered by Danya James 01/31/23 10:57: CM STILL HAS NOT RECEIVED A RETURN CALL FROM JUJU AT [facility]. CM ATTEMPTED TO REACH, GREG, ANOTHER [facility] STAFF MEMBER ([phone]) A MESSAGE WAS LEFT FOR HER. SHE CALLED BACK AND LEFT A MESSAGE INDICATING SHE IS OFF TODAY AND PROVIDING ANOTHER NUMBER FOR CM [phone] CM CALLED AND WAS INFORMED SINCE THE PT HAS BEEN GONE SO LONG HE WOULD NEED ANOTHER ASSESSMENT SHE REPORTS PT CAN PRESENT TO THEIR CENTER AT [address] [facility] IN [place] ANYTIME TODAY AND WILL BE EVALUATED AND PLACED IF APPROPRIATE [facility] [place] [place] SHUTTLE TRANSPORT WILL BE ARRANGED Original Note: PT REPORTS HE HAS AN APARTMENT AND LIVES ALONE HOWEVER HE STATES HE HAS BEEN AT [facility] IN [place] AND WANTS TO RETURN PT UNABLE TO PROVIDE FURTHER INFO ABOUT THE [facility] PROGRAM PER CARE NOTES, PT IS COMING FROM [facility] RESPITE PT REPORTS HE WAS TOLD HE COULD RETURN AT [facility] CM HAS ATTEMPTED TO CALL THE PIN WORKER THERE, JUJU HAUSER [phone] SEVERAL TIMES, A VM MESSAGE WAS LEFT REQUESTING A RETURN CALL PT REPORTS HE IS INDEPENDENT IN THE COMMUNITY AND REQUIRES NO DME PCP: MARIANELA MANCILLA DECLINES TO COMPLETE A HCP IMM DELIVERED, HOWEVER PT REPORTS HE WOULD LIKE TO GO TODAY HE IS AWARE CM HAS BEEN UNABLE TO REACH THE PROGRAM AND THIS MUST HAPPEN BEFORE HE RETURNS DC UNKNOWN AT THIS TIME. ? RESPITE STAFF VS [facility]SH[facility]TLE
[2023-01-30] MEDS: 0.9 % Sodium Chloride 1,000 ML 100 ML IVCONT (15:29)
[2023-01-30] MEDS: Sodium Zirconium Cyclosilicate 5 GM POWD.PACK PO (15:29)
[2023-01-30] MEDS: ondansetron HCL 4 MG/2 ML VIAL IVPUSH (15:43)
[2023-01-30] MEDS: cloNIDine HCL 0.1 MG TABLET PO (15:44)
[2023-01-30 16:02] LABS: Glucose, Whole Blood 130 mg/dL (60-115)
[2023-01-30] MEDS: Fluticasone Propionate Nasal 16 GM SPRAY NOSTRIL-B (17:33)
[2023-01-30] MEDS: OLANZapine 7.5 MG TABLET 15 MG PO (19:22)
[2023-01-30] MEDS: Atorvastatin Calcium 20 MG TABLET PO (19:22)
[2023-01-30] MEDS: Prazosin HCL 5 MG CAPSULE PO (19:22)
[2023-01-30 20:43] LABS: Glucose, Whole Blood 164 mg/dL (60-115)
[2023-01-30] MEDS: diphenhydrAMINE HCL 25 MG CAPSULE 50 MG PO (21:13)
[2023-01-30] MEDS: guaiFENesin DM 600/30 1 TAB TAB.ER.12H PO (21:13)
[2023-01-31 04:00] VITALS: BP 135/71; PULSE 60; RESP 18; TEMP 36.6; O2SAT 98
[2023-01-31] MEDS: Omeprazole 20 MG CAPSULE.DR PO (05:13)
[2023-01-31 07:14] LABS: Anion Gap 13 (12-20); Blood Urea Nitrogen 18 mg/dL (9-16); Calcium 10.2 mg/dL (8.4-10.2); Carbon Dioxide 28 mmol/L (22-29); Chloride 107 mmol/L (96-108); Creatinine Clr Calc Pharmacy 65.1; Estimated Glomerular Filt Rate 60; Glucose Random 147 mg/dL (60-115); Potassium 4.9 mmol/L (3.3-5.1); Sodium 143 mmol/L (135-145)
[2023-01-31 08:00] VITALS: BP 123/77; PULSE 84; RESP 18; TEMP 36.6; O2SAT 98
[2023-01-31 08:21] LABS: Glucose, Whole Blood 266 mg/dL (60-115)
[2023-01-31] MEDS: Insulin Glargine,Hum.rec.anlog 100 UNIT/ML 10 ML VIAL 20 UNIT SUBCUT (08:26)
[2023-01-31] MEDS: Multivitamin TABLET 1 TAB PO (08:26)
[2023-01-31] MEDS: Insulin Lispro 100 UNIT/ML 3 ML VIAL 10 UNIT SUBCUT (08:27)
[2023-01-31] MEDS: Insulin Lispro 100 UNIT/ML 3 ML VIAL SUBCUT (08:27)
[2023-01-31] MEDS: 0.9 % Sodium Chloride Flush 3 ML SYRINGE IVFLUSH (08:27)
[2023-01-31 11:07] LABS: Glucose, Whole Blood 197 mg/dL (60-115)
[2023-01-31] MEDS: Fluticasone Propionate Nasal 16 GM SPRAY NOSTRIL-B (11:07)
--- NOTE | 2023-01-31 11:27 | P.DS_ITS ---
DS: Providers Provider Date of Service: 01/31/23 Date of admission: 01/30/23 11:36 Primary care physician: Unknown Physician Consults: 01/29/23 16:31 Consult to Care Team Stat Comment: Reason for consultation: si DS: Diagnosis Discharge Diagnosis (1) ARELIS (acute kidney injury): Status: Acute (2) Acute hyperkalemia: Status: Acute DS: Summary Hospital Course Hospital Course: Admission note HPI This is a 52-year-old male history of anxiety, hypertension, hyperlipidemia, cocaine use disorder, heroin use disorder presenting to the emergency department for medical evaluation. Patient without medical complaints but per EMS report he was sent over for heart problems per facility.? patient currently at? [facility] facility which is a psychiatric facility.? Patient himself has no acute complaints but does report poor oral intake due to depression. he states that he just does not have an appetite.? he denies any chest pain, no shortness of breath, no abdominal pain nausea or vomiting, no diarrhea constipation, no urinary symptoms and no lower extremity edema. ? Arrival to the ED patient hemodynamically stable with no significant abnormality Labs are significant for? BUN of 48 and creatinine of 3.1 with a baseline of around 1 And a potassium of 5.9 ?patient received IV fluids, repeat labs? show persistent ARELIS ?patient will be admitted for further management Hospital course The patient was admitted for treatment of acute? kidney injury and hyperkalemia as a result of poor oral intake and dehydration. treated with IV fluids with good response as his Cr improved back to baseline with resolution of hyperkalemia by Lokelma. He has poor oral intake secondary to depression as patient states he has been severely? depressed and has been in respite home which he is eager to go back to. To resume home medications Repeat BMP next week Time Spent with Patient Time attestation: Total time managing care of this patient today ____ minutes. Discharge coordination time: Greater than 30 minutes Quality: Safe Use of Opioids Does Pt have an Active Cancer Diagnosis on the Problem List?: No Quality: Stroke Does the patient have a stroke diagnosis?: No Physical Exam Vital Signs: Vital Signs: Last Vital Signs Temp 97.8 F 01/31/23 08:00 Pulse 84 01/31/23 08:00 Resp 18 01/31/23 08:00 BP 123/77 01/31/23 08:00 Pulse Ox 98 01/31/23 08:00 O2 Del Method Room Air 01/31/23 08:00 BMI result Body Mass Index 28.2 Const: Other: Constitutional : Awake, interactive, not in distress Neck : Normal inspection, Supple Cardiovascular : RRR, no JVP, no lower extremity edema Respiratory : good bilateral air entry, no crackles, wheezes or rhonchi Gastrointestinal: soft, lax, Normal bowel sounds, Non tender Skin : Warm, Dry Neurological : Alert & oriented x3, No focal deficit DS: Data Data Completed and Pending Labs on day of discharge: Laboratory Results - last 24 hr 01/30/23 01/30/23 01/30/23 11:52 14:24 15:56 Sodium 137 Potassium 5.2 H Chloride 107 Carbon Dioxide 20 L Anion Gap 15 BUN 29 H Creatinine 1.52 H Estim Creat Clear Calc 54.4 Estimated GFR 48 POC Glucose 120 H 130 H Random Glucose 192 H Calcium 9.5 01/30/23 01/31/23 01/31/23 20:39 05:37 08:14 Sodium 143 Potassium 4.9 Chloride 107 Carbon Dioxide 28 Anion Gap 13 BUN 18 H Creatinine 1.27 Estim Creat Clear Calc 65.1 Estimated GFR 60 POC Glucose 164 H 266 H Random Glucose 147 H Calcium 10.2 D 01/31/23 10:58 Sodium Potassium Chloride Carbon Dioxide Anion Gap BUN Creatinine Estim Creat Clear Calc Estimated GFR POC Glucose 197 H Random Glucose Calcium Discharge Plan Discharge Anticipated Discharge Date/Time: 01/31/23 11:25 Patient Disposition: Xfer to Respite Facility Discharge Diagnosis: Kidney injury Referrals: [facility] [Provider Group] - 2 days Physician,Unknown J [Primary Care Provider] - 1 Week Discharge Medications: Continued metformin 500 mg tablet 1,000 mg PO BID lisinopril 20 mg tablet 20 mg PO DAILY prazosin 5 mg capsule 5 mg PO BEDTIME pantoprazole 40 mg tablet,delayed release (DR/EC) 40 mg PO DAILY@0630 atorvastatin 20 mg tablet 20 mg PO BEDTIME methadone 10 mg/5 mL Solution 55 mg PO DAILY olanzapine 15 mg tablet 15 mg PO BEDTIME Certavite-Antioxidant 18-400 mg-mcg Tablet 1 tab PO DAILY clonidine HCl 0.1 mg tablet 1 tab PO TID PRN (Reason: anxiety) spironolactone 25 mg Tablet 25 mg PO DAILY 30 Days Qty: 30 0RF Protocol: Hold for SBP< HOLD for SBP < : 90 furosemide 40 mg Tablet 40 mg PO DAILY 30 Days Qty: 30 0RF Protocol: Hold for SBP< HOLD for SBP < : 90 Jardiance 10 mg Tablet 10 mg PO DAILY 30 Days Qty: 30 0RF docusate sodium 100 mg capsule 100 mg PO BID pramipexole 0.25 mg tablet 0.25 mg PO BID PRN (Reason: restless legs) hydroxyzine HCl 25 mg tablet 25 - 50 mg PO BID PRN (Reason: anxiety) fluticasone propionate 50 mcg/actuation spray,suspension 1 - 2 spray intranasal DAILY PRN (Reason: Allergy Symptoms) fluticasone propionate [Flovent HFA] 110 mcg/actuation HFA aerosol inhaler 2 puff INHALATION BID insulin aspart U-100 [Novolog FlexPen U-100 Insulin] 100 unit/mL (3 mL) insulin pen 14 unit subcut TID insulin glargine 20 units subcut DAILY Discharge Orders: Discharge Order (Routine); Ordered 01/31/23 Ordered By: Shazia Raymundo Diet: Diabetic diet Activity on Discharge: As tolerated Stand Alone Forms: Patient Portal Discharge page, Work/School Release Other Ambulatory Orders: Basic Metabolic Panel (Routine) Timeframe: 5 Days Facility: [facility] - Location: Laboratory Ordered By: Shazia Raymundo Activity Restrictions/Additional Instructions: Take your medications as prescribed. If you were prescribed antibiotics today, it is important that you take your medication to their entirety, do not skip any doses, do not finish them early. Follow-up with your primary care provider this week. Return to the emergency department with new or worsening symptoms. Such as fevers, chills, chest pain, shortness of breath, nausea, vomiting, dizziness, headache, vision changes, lethargy In case of emergency call 911 Care Plan Goals: Read below Health Concerns: Read below Plan of Treatment: Read below Assessment: Drink plenty of fluids and increase your oral intake To repeat blood test next week Patient Instructions: Anxiety (ED), Suicide Prevention (ED)
== END 2023-01-31 11:40 | DRG 641 ==
LOC: HO.ED 22:39 → HO.EDOVER 23:41 → HO.S3 01-30 06:27
PROVIDERS: Physician Assistant; Admitting Provider Internal Medicine; Emergency Provider Emergency Medicine Emergency Medical Services; PCP Family Medicine; Visit Provider Student in an Organized Health Care Education/Training Program
DX: E87.5 Hyperkalemia (principal); N17.9 Acute kidney failure, unspecified; R45.851 Suicidal ideations; F41.9 Anxiety disorder, unspecified; E86.0 Dehydration; E78.5 Hyperlipidemia, unspecified; I10 Essential (primary) hypertension; E11.9 Type 2 diabetes mellitus without complications; Z20.822 Contact with and (suspected) exposure to COVID-19; Z87.891 Personal history of nicotine dependence; Z79.4 Long term (current) use of insulin; Z79.51 Long term (current) use of inhaled steroids; Z79.899 Other long term (current) drug therapy
CPT/HCPCS: 36415; 36600; 80048; 80053; 80307; 81001; 82550; 82803; 82947; 83735; 84484; 85025; 87635; 93005; 99285; J1650; J2405

== ENCOUNTER → 2023-01-29 16:35 | Outpatient (BNV) | payer OTHER, SELFPAY | PROVIDERS: Admitting Provider Internal Medicine; Emergency Provider Emergency Medicine Emergency Medical Services; Visit Provider Internal Medicine Cardiovascular Disease | DX: R06.02 Shortness of breath (principal) | CPT/HCPCS: 93010 ==

== ENCOUNTER → 2023-01-29 23:38 | Outpatient (BNV) | payer OTHER, SELFPAY | PROVIDERS: Admitting Provider Internal Medicine; Emergency Provider Emergency Medicine Emergency Medical Services; Visit Provider Internal Medicine | DX: N17.9 Acute kidney failure, unspecified (principal); E87.5 Hyperkalemia | CPT/HCPCS: 99236; 99239; 99499 ==

== ENCOUNTER 2023-02-07 11:28 | Outpatient (REF) | payer OTHER, SELFPAY ==
[2023-02-07 15:51] LABS: Anion Gap 12 (12-20); Blood Urea Nitrogen 27 mg/dL (9-16); Calcium 9.7 mg/dL (8.4-10.2); Carbon Dioxide 29 mmol/L (22-29); Chloride 104 mmol/L (96-108); Estimated Glomerular Filt Rate 58; Glucose Random 164 mg/dL (60-115); Sodium 140 mmol/L (135-145)
== END 2023-02-07 11:29 | disposition home or self-care (01) ==
LOC: HO.CHCLDS 11:28
PROVIDERS: Visit Provider Nurse Practitioner Primary Care
DX: N17.9 Acute kidney failure, unspecified (principal); E11.69 Type 2 diabetes mellitus with other specified complication; E78.5 Hyperlipidemia, unspecified
CPT/HCPCS: 36415; 80048

== ENCOUNTER 2023-02-27 08:54 | Outpatient (REF) | payer OTHER, SELFPAY ==
[2023-02-27 12:32] LABS: Anion Gap 11 (12-20); Blood Urea Nitrogen 12 mg/dL (9-16); Calcium 9.4 mg/dL (8.4-10.2); Carbon Dioxide 32 mmol/L (22-29); Chloride 103 mmol/L (96-108); Estimated Glomerular Filt Rate > 60; Glucose Random 124 mg/dL (60-115); Potassium 4.3 mmol/L (3.3-5.1); Sodium 142 mmol/L (135-145)
== END 2023-02-27 08:55 | disposition home or self-care (01) ==
LOC: HO.HHCL 08:54
PROVIDERS: Visit Provider Nurse Practitioner Primary Care
DX: R79.9 Abnormal finding of blood chemistry, unspecified (principal)
CPT/HCPCS: 36415; 80048

== ENCOUNTER 2023-08-25 04:03 | Emergency (ER) | payer OTHER, SELFPAY ==
[2023-08-25 04:17] VITALS: BP 131/62; BP 140/76; PULSE 83; PULSE 99; RESP 16; TEMP 36.9; O2SAT 96; BMI 32.7
[2023-08-25] MEDS: methADONE HCl 20 MG/2 ML ORAL.CONC 65 MG PO (05:08)
--- NOTE | 2023-08-25 05:09 | ED_ITS ---
HPI - Psych General Chief Complaint: Psychiatric Symptoms Stated Complaint: SI Ideation Time Seen by Provider: 08/25/23 04:18 Source: patient and old records reviewed Mode of arrival: EMS Limitations: no limitations History of Present Illness HPI Narrative: 52 yo male with PMH HLD, DM, drug abuse sniffed cocaine tonight, on methadone dosed yesterday has his dose bottles with him, CHF, depression, states prior jump from 5th floor requiring ICU stay and sig trauma he comes in with c/o being depressed and wanting to with plan to hang himself. He is not taking his regular medications MD complaint: suicidal ideation, feels depressed and substance abuse Onset (ago): day(s) Duration: constant History of same: Yes Relieving factors: none Exacerbating factors: drug use Context: recent drug abuse and not taking psychiatric medications Associated psychiatric symptoms: depression and suicidal ideation Associated symptoms: denies other symptoms Treatments prior to arrival: none If self harm: admits thoughts of self harm and has plan Related Data Home Medications Medication Instructions Recorded Confirmed atorvastatin 20 mg tablet 20 mg PO BEDTIME 12/21/21 01/29/23 clonidine HCl 0.1 mg tablet 1 tab PO TID PRN anxiety 12/21/21 01/29/23 lisinopril 20 mg tablet 20 mg PO DAILY 12/21/21 01/29/23 metformin 500 mg tablet 1,000 mg PO BID 12/21/21 01/29/23 methadone 10 mg/5 mL oral solution 55 mg PO DAILY 12/21/21 03/21/22 multivitamin-ferrous 1 tab PO DAILY 12/21/21 01/29/23 fumarate-folic acid 18 mg-400 mcg tablet (Certavite-Antioxidant) olanzapine 15 mg tablet 15 mg PO BEDTIME 12/21/21 01/29/23 pantoprazole 40 mg tablet,delayed 40 mg PO DAILY@0630 12/21/21 01/29/23 release prazosin 5 mg capsule 5 mg PO BEDTIME 12/21/21 01/29/23 docusate sodium 100 mg capsule 100 mg PO BID 01/29/23 01/29/23 fluticasone propionate 110 2 puff inhalation BID 01/29/23 01/29/23 mcg/actuation HFA aerosol inhaler (Flovent HFA) fluticasone propionate 50 1 - 2 spray intranasal DAILY PRN 01/29/23 01/29/23 mcg/actuation nasal Allergy Symptoms spray,suspension hydroxyzine HCl 25 mg tablet 25 - 50 mg PO BID PRN anxiety 01/29/23 01/29/23 insulin aspart U-100 100 unit/mL 14 unit subcut TID 01/29/23 01/29/23 (3 mL) subcutaneous pen (Novolog FlexPen U-100 Insulin aspart) insulin glargine 20 units subcut DAILY 01/29/23 01/29/23 pramipexole 0.25 mg tablet 0.25 mg PO BID PRN restless legs 01/29/23 01/29/23 Previous Rx's Medication Instructions Recorded empagliflozin 10 mg tablet 10 mg PO DAILY 30 days #30 tabs 12/23/21 (Jardiance) furosemide 40 mg tablet 40 mg PO DAILY 30 days #30 tabs 12/23/21 spironolactone 25 mg tablet 25 mg PO DAILY 30 days #30 tabs 12/23/21 Allergies Allergy/AdvReac Type Severity Reaction Status Date / Time acetaminophen [Vicodin] Allergy Unknown Unknown Verified 03/21/22 13:30 hydrocodone [Vicodin] Allergy Unknown Unknown Verified 03/21/22 13:30 Review of Systems 2 Review of Systems: Constitutional : No Fever, No Chills ENT/Mouth : No Ear Pain, No Nasal Congestion, No sore throat Eyes: No Eye Pain, No Swelling, No Redness Cardiovascular : No Chest Pain, No SOB Respiratory : No Cough, No Sputum, No Dyspnea Gastrointestinal : No Nausea, No Vomiting, No Diarrhea, No Hematochezia, No Melena Genitourinary : No Dysuria, No Urinary Frequency, No Hematuria Musculoskeletal : No Myalgias Skin : No Skin Lesions, No rash Neuro : No Weakness, No Numbness, No Paresthesias, No Dizziness, No Headache Psych : positive Anxiety, positive Depression, positive SI no HI Heme/Lymph: No Lymphadenopathy Endocrine : No Polyuria, No Polydipsia All other systems reviewed and are negative [facility] Past Medical History Attestation statement: The following information was validated with the patient. Source: old records reviewed Medical History Anxiety Heroin use Cocaine use Other and unspecified hyperlipidemia Essential hypertension Type 2 diabetes mellitus with unspecified complications Hypertension Diabetes 1.5, managed as type 1 Asthma Surgical History History of intestinal surgery H/O exploratory laparotomy Family History Family History Mother CAD (coronary artery disease) Diabetes HTN (hypertension) Father No problems noted. Social History Social History Household Members: Other Housing: Other Do you presently have visiting nurse or other home services: No Alcohol intake: unknown Patient Tobacco Use Status: Former Tobacco user Cigarettes Per Day: 4 Years Smoked: 5 Substance Use Type: Heroin Advance Directives: No Advance Directives Information Provided: No service: No Current occupational status: unemployed Physical Exam 2 Vital Signs: Vital Signs: Last Vital Signs Temp 98.5 F 08/25/23 04:17 Pulse 83 08/25/23 04:17 Resp 16 08/25/23 04:17 BP 131/62 08/25/23 04:17 Pulse Ox 96 08/25/23 04:17 O2 Del Method Room Air 08/25/23 04:17 BMI result Body Mass Index 32.7 Appearance: Alert. Oriented X3. No acute distress. Calm and cooperative Eyes: Pupils equal, round and reactive to light. ENT: Pharynx normal. Neck: Normal inspection. Neck supple. CVS: Normal heart rate and rhythm. Pulses normal. Respiratory: No respiratory distress. Breath sounds normal. Abdomen: Soft and nontender. Skin: Skin warm and dry. Normal skin color. Normal skin turgor. Extremities: No lower extremity edema. No calf ttp Neuro: Oriented X 3. No motor deficit. No sensory deficit. CN2-12 intact Course Course Course Narrative: Physician observation started at 517am. Patient placed in physician observation because the patient needed more time for CARE team to assess the need for psych admission. At the time observation was started the patient's vitals were stable, patient is alert and oriented Neuro: nonfocal, CV RRR, Lungs clear Medications Administered Discontinued Medications Generic Name Dose Route Start Last Admin Trade Name Freq PRN Reason Stop Dose Admin Methadone HCl 65 mg 08/25/23 04:22 08/25/23 05:08 Methadone Hcl 20 Mg/2 Ml Oral.Conc PO 08/25/23 04:23 65 mg ONCE ONE Administration Medical Decision Making Medical Decision Making MDM Narrative: 52 yo male with PMH HLD, DM, drug abuse sniffed cocaine tonight, on methadone dosed yesterday here with c/o SI and plan to hang himself he reports a significant attempt in the past. At this time will obtain labs, CARE team consult, give him AM dose of methadone he has his dose bottles with him. Differential Diagnosis Differential Diagnoses: The differential diagnosis associated with the presentation includes drug abuse, depression, SI Admission/Observation Consideration of admission/observation: Escalation of care including admission/observation considered observe until seen by CARE team Lab Data [facility] Lab Attestation statement: I reviewed the patient's lab results. Cr up and down so trend is not far off from baseline will monitor 08/25/23 05:13 08/25/23 05:13 Labs: Lab Results 08/25/23 Range/Units 05:13 WBC 8.1 (4.8-10.8) X10*3/uL RBC 3.18 L (4.60-5.80) X10*6/uL Hgb 10.0 L (14.0-18.0) g/dl Hct 29.1 L (42.0-52.0) % MCV 91.5 (80.0-98.0) fL MCH 31.4 (27.0-33.0) pg MCHC 34.4 (31.0-36.0) g/dl RDW 12.4 (11.0-16.0) % Plt Count 153 L D (160-400) X10*3/uL MPV 8.9 L (9.4-12.4) fL Immature Gran % (Auto) 0.4 (0.0-0.4) % Neut % (Auto) 61.7 (45-73) % Lymph % (Auto) 30.1 (20-40) % Preston % (Auto) 6.2 (2-11) % Eos % (Auto) 1.4 (0-4) % Baso % (Auto) 0.2 (0-2) % Lymph # (Auto) 2.4 (1.2-4.9) X10*3/uL Preston # (Auto) 0.5 (0.1-1.2) X10*3/uL Eos # (Auto) 0.1 (0.0-0.4) X10*3/uL Baso # (Auto) 0.0 (0.0-0.2) X10*3/uL Abs Immat Gran (auto) 0.03 (0.00-0.03) X10*3/uL Absolute Neuts (auto) 5.0 (2.0-8.3) x10*3/uL Absolute Nucleated RBC 0.000 (0.0-0.012) X10*3/uL Nucleated RBC % (auto) 0.0 (0.0-0.2) /100WBC Sodium 140 (135-145) mmol/L Potassium 5.2 H (3.3-5.1) mmol/L Chloride 101 (96-108) mmol/L Carbon Dioxide 29 (22-29) mmol/L Anion Gap 15 (12-20) BUN 24 H (9-16) mg/dL Creatinine 1.53 H (0.5-1.4) mg/dL Estim Creat Clear Calc 54.0 Estimated GFR 48 Random Glucose 401 H* (60-115) mg/dL Calcium 9.2 (8.4-10.2) mg/dL Magnesium 1.9 (1.6-2.6) mg/dL Total Bilirubin 0.3 (0.0-1.0) mg/dL Direct Bilirubin 0.1 (0.0-0.5) mg/dL AST 16 (5-37) U/L ALT 12 (0-40) U/L Alkaline Phosphatase 86 (39-117) U/L Total Protein 5.9 L (6.5-8.0) g/dL Albumin 3.4 L (3.5-5.0) g/dL Ethyl Alcohol < 10 mg/dL COVID-19 ([facility]) Negative (Negative) COVID-19 Clin Com See Note Independent Historian Clinical information obtained from an independent historian. History obtained from or confirmed by: EMS External Record Review External record reviewed: Inpatient record Discharge Plan Discharge Clinical Impression: Suicidal ideation, Cocaine use, Acute hyperglycemia Patient Disposition: Still a Patient Prescriptions: No Action metformin 500 mg tablet 1,000 mg PO BID lisinopril 20 mg tablet 20 mg PO DAILY prazosin 5 mg capsule 5 mg PO BEDTIME pantoprazole 40 mg tablet,delayed release (DR/EC) 40 mg PO DAILY@0630 atorvastatin 20 mg tablet 20 mg PO BEDTIME methadone 10 mg/5 mL Solution 55 mg PO DAILY olanzapine 15 mg tablet 15 mg PO BEDTIME Certavite-Antioxidant 18-400 mg-mcg Tablet 1 tab PO DAILY clonidine HCl 0.1 mg tablet 1 tab PO TID PRN (Reason: anxiety) spironolactone 25 mg Tablet 25 mg PO DAILY 30 Days Qty: 30 0RF Protocol: Hold for SBP< HOLD for SBP < : 90 furosemide 40 mg Tablet 40 mg PO DAILY 30 Days Qty: 30 0RF Protocol: Hold for SBP< HOLD for SBP < : 90 Jardiance 10 mg Tablet 10 mg PO DAILY 30 Days Qty: 30 0RF docusate sodium 100 mg capsule 100 mg PO BID pramipexole 0.25 mg tablet 0.25 mg PO BID PRN (Reason: restless legs) hydroxyzine HCl 25 mg tablet 25 - 50 mg PO BID PRN (Reason: anxiety) fluticasone propionate 50 mcg/actuation spray,suspension 1 - 2 spray intranasal DAILY PRN (Reason: Allergy Symptoms) fluticasone propionate [Flovent HFA] 110 mcg/actuation HFA aerosol inhaler 2 puff INHALATION BID insulin aspart U-100 [Novolog FlexPen U-100 Insulin] 100 unit/mL (3 mL) insulin pen 14 unit subcut TID insulin glargine 20 units subcut DAILY
[2023-08-25 05:18] LABS: MANUAL DIFF FLAG NO
[2023-08-25 05:19] LABS: Basophils Percent Auto 0.2 % (0-2); Eosinophils Absolute Auto 0.1 X10*3/uL (0.0-0.4); Eosinophils Percent Auto 1.4 % (0-4); Hematocrit 29.1 % (42.0-52.0); Imm Gran Abs Auto 0.03 X10*3/uL (0.00-0.03); Imm Gran Pct Auto 0.4 % (0.0-0.4); Lymphocytes Absolute Auto 2.4 X10*3/uL (1.2-4.9); Lymphocytes Percent Auto 30.1 % (20-40); Mean Corpuscular HGB Conc 34.4 g/dl (31.0-36.0); Mean Corpuscular Hemoglobin 31.4 pg (27.0-33.0); Mean Corpuscular Volume 91.5 fL (80.0-98.0); Mean Platelet Volume 8.9 fL (9.4-12.4); Monocytes Absolute Auto 0.5 X10*3/uL (0.1-1.2); Monocytes Percent Auto 6.2 % (2-11); Neutrophils Percent Auto 61.7 % (45-73); Platelet Count 153 X10*3/uL (160-400); Red Blood Count 3.18 X10*6/uL (4.60-5.80); Red Cell Distribution Width 12.4 % (11.0-16.0); White Blood Count 8.1 X10*3/uL (4.8-10.8)
[2023-08-25 05:31] LABS: COVID-19 Test Negative (Negative); IDNOW Serial# 152EDE1D
[2023-08-25 05:38] LABS: Alanine Aminotransferase 12 U/L (0-40); Albumin Level 3.4 g/dL (3.5-5.0); Alkaline Phosphatase 86 U/L (39-117); Anion Gap 15 (12-20); Aspartate Amino Transferase 16 U/L (5-37); Bilirubin Direct 0.1 mg/dL (0.0-0.5); Bilirubin Total 0.3 mg/dL (0.0-1.0); Blood Urea Nitrogen 24 mg/dL (9-16); Calcium 9.2 mg/dL (8.4-10.2); Carbon Dioxide 29 mmol/L (22-29); Chloride 101 mmol/L (96-108); Estimated Glomerular Filt Rate 48; Ethanol < 10 mg/dL; Glucose Random 401 mg/dL (60-115); Magnesium 1.9 mg/dL (1.6-2.6); Potassium 5.2 mmol/L (3.3-5.1); Sodium 140 mmol/L (135-145); Total Protein 5.9 g/dL (6.5-8.0)
[2023-08-25] MEDS: Insulin Lispro 100 UNIT/ML 3 ML VIAL SUBCUT (06:14)
--- NOTE | 2023-08-25 07:14 | PC.NURSE ---
pt biba from home reports Si with plan security at bedside for pipe changer, razor blade found in cell phone case security disposed of in sharps container. pt complaint with care. medications secured in locker, methadone sent down to pharmacy by this rn 1:[address]
--- NOTE | 2023-08-25 08:32 | PC.NURSE ---
Assumed care of pt from previous RN, pt resting on stretcher with respirations equal/unlabored. Awaiting CARE team evaluation.
--- NOTE | 2023-08-25 10:30 | PC.NURSE ---
Glucose recheck 94. Pt respositioned in bed, given warm blanket per request.
[2023-08-25 10:33] LABS: Glucose, Whole Blood 94 mg/dL (60-115)
--- NOTE | 2023-08-25 11:57 | PC.NURSE ---
Pt getting restless, wants to go home. Made aware we are awaiting CARE team consult at this time. Pt given meal tray. Urine collected/sent.
[2023-08-25 12:28] LABS: Amphetamine Screen Urine Not Detected (Not Detect); Barbiturates, Urine Not Detected (Not Detect); Benzodiazepines Screen Urine Not Detected (Not Detect); Cannabinoid Screen Urine Not Detected (Not Detect); Cocaine Screen Urine POSITIVE (Not Detect); Fentanyl, urine POSITIVE (Not Detect); Opiate Screen Urine POSITIVE (Not Detect); Phencyclidine Screen Urine Not Detected (Not Detect)
--- NOTE | 2023-08-25 17:37 | PC.NURSE ---
Reached out to [facility] for last dose, , spoke with Reina, last dosed in person on 08/22/2023 @ 07:50 at 65mg, received six THB at that time.
--- NOTE | 2023-08-25 18:33 | HE.PHANOTE ---
Methadone Verification Pharmacy has received the methadone verification form from [place]. Patient last received methadone 65 mg on 08/22/23 @ 0750 with 6 take home bottles from [facility]. Patient reported no methadone today. Information from Reina at the clinic.
== END 2023-08-25 18:00 | disposition home or self-care (01) ==
PROVIDERS: Emergency Provider Emergency Medicine
DX: F33.1 Major depressive disorder, recurrent, moderate (principal); R45.851 Suicidal ideations; F14.10 Cocaine abuse, uncomplicated; E11.65 Type 2 diabetes mellitus with hyperglycemia; Z79.899 Other long term (current) drug therapy; Z87.891 Personal history of nicotine dependence; Z79.4 Long term (current) use of insulin; Z11.52 Encounter for screening for COVID-19
CPT/HCPCS: 80048; 80076; 80307; 82947; 83735; 85025; 87635; 99284; 99285; S9485

== ENCOUNTER 2023-09-05 18:08 | Outpatient (REF) | payer OTHER, SELFPAY | END 2023-09-05 18:09 | disposition home or self-care (01) | LOC: HO.HHCLNP 18:08 | PROVIDERS: Visit Provider Emergency Medicine | DX: R30.9 Painful micturition, unspecified (principal); R22.2 Localized swelling, mass and lump, trunk | CPT/HCPCS: 87086 ==

== ENCOUNTER 2023-09-20 05:39 | Emergency (ER) | payer OTHER, SELFPAY ==
[2023-09-20 05:52] VITALS: BP 117/54; BP 152/86; PULSE 94; PULSE 96; RESP 18; TEMP 36.5; O2SAT 97; BMI 29.1
[2023-09-20 06:10] LABS: Appearance Urine Clear; Color Urine Yellow; Glucose Urine UA 500 mg/dL (Negative); Leukocyte Esterase Urine Negative (Negative); Nitrite Urine Negative (Negative); Specific Gravity - Urine 1.015 (1.005-1.025); UMIC TRIGGER UACC YES; Urine Blood Negative (Negative); Urine Ketones Negative (Negative); Urine Protein 100 (2+) mg/dL (Neg-Trace)
[2023-09-20 06:17] LABS: Amphetamine Screen Urine Not Detected (Not Detect); Barbiturates, Urine Not Detected (Not Detect); Benzodiazepines Screen Urine Not Detected (Not Detect); Cannabinoid Screen Urine Not Detected (Not Detect); Cocaine Screen Urine POSITIVE (Not Detect); Fentanyl, urine POSITIVE (Not Detect); Opiate Screen Urine POSITIVE (Not Detect); Phencyclidine Screen Urine Not Detected (Not Detect)
[2023-09-20 06:18] LABS: Bacteria Urine None Seen (None Seen); RBC Urine 0-2 /HPF (0-2); Squamous Epithelial Cell Urine 0-2 /HPF (0-2); WBC Urine 0-5 /HPF (0-5)
[2023-09-20] MEDS: Ibuprofen 600 MG TABLET PO (06:37)
[2023-09-20] MEDS: Ondansetron ODT 4 MG TAB.RAPDIS TRANSLINGU (06:37)
--- NOTE | 2023-09-20 07:41 | ED.GENADULT ---
HPI - General Adult General Chief complaint: ETOH/Substance Use Stated complaint: HEROIN/COCAINE USE, WANTS DETOX PER EMS Time Seen by Provider: 09/20/23 06:49 Source: patient Mode of arrival: ambulatory Limitations: no limitations History of Present Illness HPI narrative: 52-year-old male history of hypertension, anxiety, hyperlipidemia, cocaine use disorder, heroin use disorder presenting to the emergency department requesting detox. Last use prior to arrival. Denies alcohol. No hallucinations. Denies suicidal and homicidal ideations. No medical complaints today Related Data Home Medications Medication Instructions Recorded Confirmed atorvastatin 20 mg tablet 20 mg PO BEDTIME 12/21/21 01/29/23 clonidine HCl 0.1 mg tablet 1 tab PO TID PRN anxiety 12/21/21 01/29/23 lisinopril 20 mg tablet 20 mg PO DAILY 12/21/21 01/29/23 methadone 10 mg/5 mL oral solution 65 mg PO DAILY 12/21/21 03/21/22 multivitamin-ferrous 1 tab PO DAILY 12/21/21 01/29/23 fumarate-folic acid 18 mg-400 mcg tablet (Certavite-Antioxidant) olanzapine 15 mg tablet 15 mg PO BEDTIME 12/21/21 01/29/23 pantoprazole 40 mg tablet,delayed 40 mg PO DAILY@0630 12/21/21 01/29/23 release prazosin 5 mg capsule 5 mg PO BEDTIME 12/21/21 01/29/23 docusate sodium 100 mg capsule 100 mg PO BID 01/29/23 01/29/23 fluticasone propionate 110 2 puff inhalation BID 01/29/23 01/29/23 mcg/actuation HFA aerosol inhaler (Flovent HFA) fluticasone propionate 50 1 - 2 spray intranasal DAILY PRN 01/29/23 01/29/23 mcg/actuation nasal Allergy Symptoms spray,suspension hydroxyzine HCl 25 mg tablet 25 - 50 mg PO BID PRN anxiety 01/29/23 01/29/23 insulin aspart U-100 100 unit/mL 14 unit subcut TID 01/29/23 01/29/23 (3 mL) subcutaneous pen (Novolog FlexPen U-100 Insulin aspart) insulin glargine 20 units subcut DAILY 01/29/23 01/29/23 pramipexole 0.25 mg tablet 0.25 mg PO BID PRN restless legs 01/29/23 01/29/23 clonidine HCl 0.1 mg tablet 0.1 mg PO TID PRN anxiety 08/25/23 08/25/23 empagliflozin 10 mg tablet 10 mg PO DAILY 08/25/23 08/25/23 (Jardiance) metformin 500 mg tablet 1,000 mg PO BID 08/25/23 08/25/23 olanzapine 15 mg tablet 15 mg PO BEDTIME 08/25/23 08/25/23 Previous Rx's Medication Instructions Recorded empagliflozin 10 mg tablet 10 mg PO DAILY 30 days #30 tabs 12/23/21 (Jardiance) furosemide 40 mg tablet 40 mg PO DAILY 30 days #30 tabs 12/23/21 spironolactone 25 mg tablet 25 mg PO DAILY 30 days #30 tabs 12/23/21 Allergies Allergy/AdvReac Type Severity Reaction Status Date / Time acetaminophen [Vicodin] Allergy Unknown Unknown Verified 09/20/23 08:44 hydrocodone [Vicodin] Allergy Unknown Unknown Verified 09/20/23 08:44 Review of Systems Review of Systems: Constitutional : No Weight loss, No Fever, No Chills, No Fatigue, No Malaise ENT/Mouth : No sore throat, No Rhinorrhea Eyes: No Eye Pain, No Swelling, No Redness Cardiovascular : No Chest Pain, No SOB, No Dyspnea on Exertion, No Orthopnea, No Edema, No Palpitations Respiratory : No Cough, No Sputum, No Wheezing Gastrointestinal : No Nausea, No Vomiting, No Diarrhea, No Constipation, No abdominal Pain, No Hematochezia, No Melena Genitourinary : No Dysuria, No Urinary Frequency, No Hematuria, Musculoskeletal : No joint pain, No Myalgias, No Joint Swelling Skin : No Skin Lesions, No rash Neuro : No Weakness, No Numbness, No Dizziness, No Headache Psych : No Anxiety/Panic, No Depression All other systems reviewed and are negative Yes all other systems are reviewed and are negative [facility] Past Medical History Attestation statement: The following information was validated with the patient. Source: old records reviewed and nursing notes reviewed Medical History Anxiety Heroin use Cocaine use Other and unspecified hyperlipidemia Essential hypertension Type 2 diabetes mellitus with unspecified complications Hypertension Diabetes 1.5, managed as type 1 Asthma Surgical History History of intestinal surgery H/O exploratory laparotomy Family History Family History Mother CAD (coronary artery disease) Diabetes HTN (hypertension) Father No problems noted. Social History Social History Household Members: Other Housing: Other Do you presently have visiting nurse or other home services: No Alcohol intake: unknown Patient Tobacco Use Status: Former Tobacco user Cigarettes Per Day: 4 Years Smoked: 5 Smoked in Last 30 Days: No Use of substances other than those prescribed or required for medical reasons: Yes Substance Use Type: Crack/Cocaine and Heroin Substance Use Frequency: Chronic Longstanding Last Used Substance: Just Prior to Admission Advance Directives: No Advance Directives Information Provided: Yes service: No Current occupational status: unemployed Physical Exam ED Vital Signs: Vital Signs - 24 hr 09/20/23 05:52 09/20/23 11:34 Temperature 97.7 F 97.8 F Pulse Rate 94 70 Respiratory Rate 18 14 Blood Pressure 117/54 L 118/65 Pulse Oximetry 97 97 Oxygen Delivery Method Room Air Room Air BMI result Body Mass Index 29.1 vss Appearance: Alert.? Oriented X3.? No acute distress.? Head: Normocephalic, atraumatic, no step-offs or deformities Eyes: Pupils equal, round and reactive to light.? Neck: Normal inspection.? Neck supple.? CVS: Normal heart rate and rhythm.? Pulses normal.? Respiratory: No respiratory distress.? Breath sounds normal.? Abdomen: Soft and nontender.? Skin: Skin warm and dry.? Normal skin color.? Normal skin turgor.? Extremities: No lower extremity edema.? No calf ttp. 5/5 strength to bilateral upper and lower extremities Neuro: Oriented X 3.? No motor deficit.? No sensory deficit. CN 2-12 intact Course Reevaluation(s) Reevaluation #1: CBC appears to be around patient's baseline. No acute findings. Chemistry with elevated potassium 5.6 will give Lokelma this time ARELIS noted will give a few L of IV fluids and repeat labs. UA clean. [place] positive for opiates, fentanyl, cocaine. Ethanol negative. Concerns for possible rhabdomyolysis. CPK ordered. Will repeat labs after fluids. Time: 10:00 Reevaluation #2: Patient likely will not be able to get into recovery no active [facility] He needs to activate [employer] to get into [facility] he knows he has to do this and will work on it. Will medically stabilize and discharge. Time: 10:21 Reevaluation #3: Potassium corrected. BUN and creatinine appear to be around his baseline recieving another L --> DC Will have him follow-up with nephrology. No need for acute admission. Glucose improved. NO SI OR HI. Seen and cleared by recovery Time: 14:41 Medications Administered Discontinued Medications Generic Name Dose Route Start Last Admin Trade Name Freq PRN Reason Stop Dose Admin Sodium Chloride 500 mls @ 500 mls/hr 09/20/23 10:00 09/20/23 12:28 Ns IV 09/20/23 10:59 Infused .Q1H KEVIN Infusion Ibuprofen 600 mg 09/20/23 06:32 09/20/23 06:37 Ibuprofen 600 Mg Tablet PO 09/20/23 06:33 600 mg ONCE ONE Administration Methadone HCl 75 mg 09/20/23 11:59 09/20/23 12:11 Methadone Hcl 20 Mg/2 Ml Oral.Conc PO 09/20/23 12:00 75 mg ONCE ONE Administration Ondansetron HCl 4 mg 09/20/23 06:32 09/20/23 06:37 Ondansetron Odt 4 Mg Tab.Rapdis TRANSLINGU 09/20/23 06:33 4 mg ONCE ONE Administration Sodium Zirconium Cyclosilicate 10 gm 09/20/23 09:58 09/20/23 11:28 Sodium Zirconium Cyclosilicate 10 Gm Powd.Pack PO 09/20/23 09:59 10 gm ONCE ONE Administration Medical Decision Making Medical Decision Making [facility] Narrative: [id number] 52 year old male presents requesting detox. PE benign Likely substance use disorder. I do not suspect metabolic derangements. No suicidal or homicidal ideation. No signs of acute psychosis. Plan medical clearance evaluation by behavioral health team Differential Diagnosis Differential Diagnoses: The differential diagnosis associated with the presentation includes Likely substance use disorder. I do not suspect metabolic derangements. No suicidal or homicidal ideation. No signs of acute psychosis. Admission/Observation Consideration of admission/observation: Escalation of care including admission/observation considered Unlikely possible detox Consult Healthcare Provider Management of the patient was discussed with: Behavioral Health Provider Lab Data MDM Lab Attestation statement: I reviewed the patient's lab results. 09/20/23 08:00 09/20/23 14:12 Labs: Lab Results 09/20/23 09/20/23 09/20/23 Range/Units 06:01 08:00 14:12 WBC 8.3 (4.8-10.8) X10*3/uL RBC 3.17 L (4.60-5.80) X10*6/uL Hgb 9.9 L (14.0-18.0) g/dl Hct 28.8 L (42.0-52.0) % MCV 90.9 (80.0-98.0) fL MCH 31.2 (27.0-33.0) pg MCHC 34.4 (31.0-36.0) g/dl RDW 12.6 (11.0-16.0) % Plt Count 186 (160-400) X10*3/uL MPV 8.9 L (9.4-12.4) fL Immature Gran % (Auto) 0.2 (0.0-0.4) % Neut % (Auto) 65.8 (45-73) % Lymph % (Auto) 27.6 (20-40) % Stevens % (Auto) 5.1 (2-11) % Eos % (Auto) 1.1 (0-4) % Baso % (Auto) 0.2 (0-2) % Lymph # (Auto) 2.3 (1.2-4.9) X10*3/uL Stevens # (Auto) 0.4 (0.1-1.2) X10*3/uL Eos # (Auto) 0.1 (0.0-0.4) X10*3/uL Baso # (Auto) 0.0 (0.0-0.2) X10*3/uL Abs Immat Gran (auto) 0.02 (0.00-0.03) X10*3/uL Absolute Neuts (auto) 5.4 (2.0-8.3) x10*3/uL Absolute Nucleated RBC 0.000 (0.0-0.012) X10*3/uL Nucleated RBC % (auto) 0.0 (0.0-0.2) /100WBC Sodium 136 140 (135-145) mmol/L Potassium 5.6 H 4.7 (3.3-5.1) mmol/L Chloride 104 105 (96-108) mmol/L Carbon Dioxide 26 28 (22-29) mmol/L Anion Gap 12 12 (12-20) BUN 44 H 46 H (9-16) mg/dL Creatinine 1.66 H 1.68 H (0.5-1.4) mg/dL Estim Creat Clear Calc 50.5 49.9 Estimated GFR 44 43 Random Glucose 189 H 103 (60-115) mg/dL Calcium 9.1 8.8 (8.4-10.2) mg/dL Total Bilirubin 0.3 0.2 (0.0-1.0) mg/dL AST 26 25 (5-37) U/L ALT 17 17 (0-40) U/L Alkaline Phosphatase 80 80 (39-117) U/L Total Creatine Kinase 409 H (38-174) U/L Total Protein 6.1 L 5.9 L (6.5-8.0) g/dL Albumin 3.5 3.5 (3.5-5.0) g/dL Urine Color Yellow Urine Appearance Clear Urine pH 5.0 (5.0-9.0) Ur Specific [place] 1.015 (1.005-1.025) Urine Protein 100 (2+) H (Neg-Trace) mg/dL Urine Glucose (UA) 500 H (Negative) mg/dL Urine Ketones Negative (Negative) mg/dL Urine Blood Negative (Negative) Urine Nitrite Negative (Negative) Ur Leukocyte Esterase Negative (Negative) Urine RBC 0-2 (0-2) /HPF Urine WBC 0-5 (0-5) /HPF Ur Squamous Epith Cells 0-2 (0-2) /HPF Urine Bacteria None Seen (None Seen) Hyaline Casts 3-5 (0-2) /LPF Urine Opiates Screen POSITIVE H (Not Detect) Urine Fentanyl Screen POSITIVE H (Not Detect) Ur Barbiturates Screen Not Detected (Not Detect) Ur Phencyclidine Scrn Not Detected (Not Detect) Ur Amphetamines Screen Not Detected (Not Detect) U Benzodiazepines Scrn Not Detected (Not Detect) Urine Cocaine Screen POSITIVE H (Not Detect) U Marijuana (THC) Screen Not Detected (Not Detect) Ethyl Alcohol < 10 mg/dL External Record Review External record reviewed: Inpatient record, Office record, Outpatient record, Prior outpatient labs, Prior outpatient radiology, Primary care record and Outside ED record Critical Care Time Critical Care Time Critical Care Time: Yes Total Critical Care Time: 35 Attestation: I attest to this time spent taking care of the patient, obtaining history, physical, reviewing labs, imaging, speaking to my attending, speaking to specialist. Discharge Plan Discharge Clinical Impression: Acute kidney injury superimposed on chronic kidney disease, Polysubstance abuse, Acute hyperkalemia Patient Disposition: Home, Self-Care Instructions: Acute Kidney Injury (DC), Polysubstance Abuse (ED) Additional Instructions: Take your medications as prescribed. If you were prescribed antibiotics today, it is important that you take your medication to their entirety, do not skip any doses, do not finish them early. Follow-up with your primary care provider this week. Return to the emergency department with new or worsening symptoms. Such as fevers, chills, chest pain, shortness of breath, nausea, vomiting, dizziness, headache, vision changes, lethargy, suicidal or homicidal ideation In case of emergency call 911 Remember to activate or [employer] so you can get into [facility] rehab. Follow up with the kidney associates Prescriptions: No Action lisinopril 20 mg tablet 20 mg PO DAILY prazosin 5 mg capsule 5 mg PO BEDTIME pantoprazole 40 mg tablet,delayed release (DR/EC) 40 mg PO DAILY@0630 atorvastatin 20 mg tablet 20 mg PO BEDTIME methadone 10 mg/5 mL Solution 65 mg PO DAILY olanzapine 15 mg tablet 15 mg PO BEDTIME Certavite-Antioxidant 18-400 mg-mcg Tablet 1 tab PO DAILY clonidine HCl 0.1 mg tablet 1 tab PO TID PRN (Reason: anxiety) spironolactone 25 mg Tablet 25 mg PO DAILY 30 Days Qty: 30 0RF Protocol: Hold for SBP< HOLD for SBP < : 90 furosemide 40 mg Tablet 40 mg PO DAILY 30 Days Qty: 30 0RF Protocol: Hold for SBP< HOLD for SBP < : 90 Jardiance 10 mg Tablet 10 mg PO DAILY 30 Days Qty: 30 0RF docusate sodium 100 mg capsule 100 mg PO BID pramipexole 0.25 mg tablet 0.25 mg PO BID PRN (Reason: restless legs) hydroxyzine HCl 25 mg tablet 25 - 50 mg PO BID PRN (Reason: anxiety) fluticasone propionate 50 mcg/actuation spray,suspension 1 - 2 spray intranasal DAILY PRN (Reason: Allergy Symptoms) fluticasone propionate [Flovent HFA] 110 mcg/actuation HFA aerosol inhaler 2 puff INHALATION BID insulin aspart U-100 [Novolog FlexPen U-100 Insulin] 100 unit/mL (3 mL) insulin pen 14 unit subcut TID insulin glargine 20 units subcut DAILY metformin 500 mg tablet 1,000 mg PO BID clonidine HCl 0.1 mg tablet 0.1 mg PO TID PRN (Reason: anxiety) olanzapine 15 mg tablet 15 mg PO BEDTIME Jardiance 10 mg tablet 10 mg PO DAILY Referrals: [facility] [Provider Group] - 2 days [facility] [Provider Group] - 2 days Stand Alone Forms: Work/School Release
[2023-09-20 08:05] LABS: MANUAL DIFF FLAG NO
[2023-09-20 08:06] LABS: Basophils Percent Auto 0.2 % (0-2); Eosinophils Absolute Auto 0.1 X10*3/uL (0.0-0.4); Eosinophils Percent Auto 1.1 % (0-4); Hematocrit 28.8 % (42.0-52.0); Hemoglobin 9.9 g/dl (14.0-18.0); Imm Gran Abs Auto 0.02 X10*3/uL (0.00-0.03); Imm Gran Pct Auto 0.2 % (0.0-0.4); Lymphocytes Absolute Auto 2.3 X10*3/uL (1.2-4.9); Lymphocytes Percent Auto 27.6 % (20-40); Mean Corpuscular HGB Conc 34.4 g/dl (31.0-36.0); Mean Corpuscular Hemoglobin 31.2 pg (27.0-33.0); Mean Corpuscular Volume 90.9 fL (80.0-98.0); Mean Platelet Volume 8.9 fL (9.4-12.4); Monocytes Absolute Auto 0.4 X10*3/uL (0.1-1.2); Monocytes Percent Auto 5.1 % (2-11); Neutrophils Absolute Auto 5.4 x10*3/uL (2.0-8.3); Neutrophils Percent Auto 65.8 % (45-73); Platelet Count 186 X10*3/uL (160-400); Red Blood Count 3.17 X10*6/uL (4.60-5.80); Red Cell Distribution Width 12.6 % (11.0-16.0); White Blood Count 8.3 X10*3/uL (4.8-10.8)
[2023-09-20 08:21] LABS: Alanine Aminotransferase 17 U/L (0-40); Albumin Level 3.5 g/dL (3.5-5.0); Alkaline Phosphatase 80 U/L (39-117); Anion Gap 12 (12-20); Aspartate Amino Transferase 26 U/L (5-37); Bilirubin Total 0.3 mg/dL (0.0-1.0); Blood Urea Nitrogen 44 mg/dL (9-16); Calcium 9.1 mg/dL (8.4-10.2); Carbon Dioxide 26 mmol/L (22-29); Chloride 104 mmol/L (96-108); Creatinine Clr Calc Pharmacy 50.5; Estimated Glomerular Filt Rate 44; Ethanol < 10 mg/dL; Glucose Random 189 mg/dL (60-115); Potassium 5.6 mmol/L (3.3-5.1); Sodium 136 mmol/L (135-145); Total Protein 6.1 g/dL (6.5-8.0)
--- NOTE | 2023-09-20 08:24 | MHC.RECOVRN ---
Addendum entered by Iliana Loaiza 09/20/23 09:22: N reviewing pts referral. Original Note: Pts referral sent to N for ATS.
--- NOTE | 2023-09-20 10:33 | PC.NURSE ---
Per methadone clinic, take home of 75mg PO given for 5 days. Verified with patient
[2023-09-20] MEDS: Sodium Zirconium Cyclosilicate 10 GM POWD.PACK PO (11:28)
[2023-09-20] MEDS: 0.9 % Sodium Chloride 500 ML IV ×2 (11:28→14:44)
--- NOTE | 2023-09-20 11:30 | PC.NURSE ---
pt brought over to the main ED from the pod at this time. a&ox4. vss and up to date. pt seeking detox program. pt states he uses crack/cocaine/heroin daily intranasally. pt states that his last use was [employer]. pt denies alcohol/tobacco use. COWS and CIWA completed/updated in worklist. pt seemingly diaphoretic at this time. afebrile. pt c/o generalized body aches at this time. 20gIV placed in the right AC - medication/IVF administered per provider order. no sob/wob noted. respirations even and unlabored. pt denies SI/HI. 1:1 sitter present. plan of care ongoing.
[2023-09-20 11:34] VITALS: BP 118/65; PULSE 70; RESP 14; TEMP 36.6; O2SAT 97
--- NOTE | 2023-09-20 11:54 | MHC.RECOVRN ---
Met with pt in BH3 after consult placed to CARE Team for ATS. Pt had presented to the ED after using heroin and cocaine and seeking ATS. Pt laying in bed, eyes closed, wakes to voice, appears comfortable. Pt reports up until yesterday he was using 2 bags heroin/fentanyl daily, [place], as well as [place] cocaine. Pt reports yesterday he used 10-12 bundles as well as $600 cocaine, [place]. Denies overdose. Pt reports he is currently on methadone through [facility], 75 mg daily. Notified pt that t/w spoke with [facility] intake and pts [employer] insurance is not active. Pt must activate insurance in order to be accepted to ATS. Pt verbalizes understanding. Discussed with RN and provider, plan to medically stabilize pt and dc. Pt [email or web address] and has been provided with ATS contact information once health insurance is set up. Pt denies other questions or concerns.
[2023-09-20] MEDS: methADONE HCl 20 MG/2 ML ORAL.CONC 75 MG PO (12:11)
--- NOTE | 2023-09-20 12:13 | PC.NURSE ---
methadone administered per provider order.
[2023-09-20 14:31] LABS: Alanine Aminotransferase 17 U/L (0-40); Albumin Level 3.5 g/dL (3.5-5.0); Alkaline Phosphatase 80 U/L (39-117); Anion Gap 12 (12-20); Aspartate Amino Transferase 25 U/L (5-37); Bilirubin Total 0.2 mg/dL (0.0-1.0); Blood Urea Nitrogen 46 mg/dL (9-16); Calcium 8.8 mg/dL (8.4-10.2); Carbon Dioxide 28 mmol/L (22-29); Chloride 105 mmol/L (96-108); Creatinine Clr Calc Pharmacy 49.9; Estimated Glomerular Filt Rate 43; Glucose Random 103 mg/dL (60-115); Potassium 4.7 mmol/L (3.3-5.1); Sodium 140 mmol/L (135-145); Total Protein 5.9 g/dL (6.5-8.0)
[2023-09-20 14:53] VITALS: BP 105/66; PULSE 61; RESP 12; TEMP 36.6; O2SAT 96
--- NOTE | 2023-09-20 14:55 | PC.NURSE ---
IVF administered per provider order. updated CIWA documented in worklist. pt continues to rest in stretcher in no apparent distress. respirations remain even and unlabored.
== END 2023-09-20 17:15 | disposition home or self-care (01) ==
PROVIDERS: Internal Medicine; Physician Assistant; Emergency Provider Emergency Medicine Emergency Medical Services
DX: F19.10 Other psychoactive substance abuse, uncomplicated (principal); E87.5 Hyperkalemia; E13.22 Other specified diabetes mellitus with diabetic chronic kidney disease; I12.9 Hypertensive chronic kidney disease with stage 1 through stage 4 chronic kidney disease, or unspecified chronic kidney disease; N18.9 Chronic kidney disease, unspecified; N17.9 Acute kidney failure, unspecified; Z79.4 Long term (current) use of insulin; Z79.84 Long term (current) use of oral hypoglycemic drugs; Z79.899 Other long term (current) drug therapy
CPT/HCPCS: 36415; 80053; 80307; 81001; 82550; 85025; 96360; 96361; 99284; 99285

== ENCOUNTER 2023-10-16 02:05 | Inpatient (IN) | payer OTHER, SELFPAY ==
--- NOTE | ~2023-10-16 | XR_ITS ---
EXAMINATION: XR CHEST CLINICAL INFORMATION: Cough COMPARISON: 09/19/2022 TECHNIQUE: Frontal view of the chest was obtained. FINDINGS: No significant abnormality is noted involving the heart, lungs, mediastinum, bony thorax or soft tissues. XR/XR chest 1V IMPRESSION: Unremarkable examination, no interval change.
[2023-10-16 06:00] VITALS: BP 94/51; PULSE 98; RESP 12; TEMP 36.5; O2SAT 94
[2023-10-16] MEDS: 0.9 % Sodium Chloride 1,000 ML 999 ML IVCONT (06:00)
[2023-10-16 06:32] LABS: Appearance Urine Clear; Color Urine Yellow; Glucose Urine UA >=1000 mg/dL (Negative); Leukocyte Esterase Urine Negative (Negative); Nitrite Urine Negative (Negative); UMIC TRIGGER UA YES; Urine Blood Negative (Negative); Urine Ketones Negative (Negative); Urine Protein Negative (Neg-Trace)
[2023-10-16 06:38] LABS: Anion Gap 16 (12-20); Blood Urea Nitrogen 63 mg/dL (9-16); Calcium 9.1 mg/dL (8.4-10.2); Carbon Dioxide 26 mmol/L (22-29); Chloride 100 mmol/L (96-108); Estimated Glomerular Filt Rate 25; Ethanol < 10 mg/dL; Glucose Random 325 mg/dL (60-115); Potassium 7.3 mmol/L (3.3-5.1); Sodium 135 mmol/L (135-145)
[2023-10-16 06:39] LABS: Troponin-I High Sensitivity 5.4 ng/L (<3.5-35.0)
[2023-10-16 06:40] LABS: Potassium 8.1 mmol/L (3.3-5.1)
[2023-10-16 06:46] LABS: MANUAL DIFF FLAG NO
[2023-10-16 06:49] LABS: Basophils Percent Auto 0.1 % (0-2); Eosinophils Percent Auto 0.2 % (0-4); Hematocrit 29.3 % (42.0-52.0); Hemoglobin 9.8 g/dl (14.0-18.0); Imm Gran Abs Auto 0.04 X10*3/uL (0.00-0.03); Imm Gran Pct Auto 0.5 % (0.0-0.4); Lymphocytes Absolute Auto 1.5 X10*3/uL (1.2-4.9); Lymphocytes Percent Auto 17.8 % (20-40); Mean Corpuscular HGB Conc 33.4 g/dl (31.0-36.0); Mean Corpuscular Hemoglobin 30.9 pg (27.0-33.0); Mean Corpuscular Volume 92.4 fL (80.0-98.0); Mean Platelet Volume 9.2 fL (9.4-12.4); Monocytes Absolute Auto 0.5 X10*3/uL (0.1-1.2); Monocytes Percent Auto 5.6 % (2-11); Neutrophils Absolute Auto 6.5 x10*3/uL (2.0-8.3); Neutrophils Percent Auto 75.8 % (45-73); Platelet Count 198 X10*3/uL (160-400); Red Blood Count 3.17 X10*6/uL (4.60-5.80); White Blood Count 8.6 X10*3/uL (4.8-10.8)
[2023-10-16 06:54] LABS: Anion Gap 14 (12-20); Blood Urea Nitrogen 62 mg/dL (9-16); Calcium 9.5 mg/dL (8.4-10.2); Carbon Dioxide 26 mmol/L (22-29); Chloride 101 mmol/L (96-108); Estimated Glomerular Filt Rate 27; Glucose Random 356 mg/dL (60-115); Potassium 4.4 mmol/L (3.3-5.1); Sodium 137 mmol/L (135-145)
[2023-10-16 06:54] LABS: Bacteria Urine None Seen (None Seen); Hyaline Casts Urine 0-2 /LPF (0-2); RBC Urine 0-2 /HPF (0-2); Squamous Epithelial Cell Urine 0-2 /HPF (0-2); WBC Urine 0-5 /HPF (0-5)
[2023-10-16 06:55] LABS: Amphetamine Screen Urine Not Detected (Not Detect); Barbiturates, Urine Not Detected (Not Detect); Benzodiazepines Screen Urine Not Detected (Not Detect); Cannabinoid Screen Urine Not Detected (Not Detect); Cocaine Screen Urine POSITIVE (Not Detect); Fentanyl, urine POSITIVE (Not Detect); Opiate Screen Urine POSITIVE (Not Detect); Phencyclidine Screen Urine Not Detected (Not Detect)
--- NOTE | 2023-10-16 07:23 | ECG_ITS ---
Test Reason : CHEST PAIN Blood Pressure : / mmHG Vent. Rate : 090 BPM Atrial Rate : 090 BPM P-R Int : 212 ms QRS Dur : 090 ms QT Int : 362 ms P-R-T Axes : 060 024 057 degrees QTc Int : 442 ms Sinus rhythm with 1st degree A-V block Otherwise normal ECG No previous ECGs available Referred By: Bharti Whaley Electronically Signed By:Vik Martinez
--- NOTE | 2023-10-16 08:05 | PC.NURSE ---
Pt is alert and oriented at this time, breathing even and unlabored. Pt reports chest pains, sharp across his chest to both his shoulders. Pt denies any SOB or other complaints at this time. Pt is on bedside telemetry monitor, NSR. Pt requests to sleep at this time.
[2023-10-16 08:25] VITALS: BP 99/57; PULSE 93; RESP 13; TEMP 36.5; O2SAT 95
--- NOTE | 2023-10-16 09:03 | PM.IMHP ---
History of Present Illness Date of Service: 10/16/23 Chief Complaint: chest pain The patient is a 52 year old male with a PMH of HTN, HLD, polysubstance use (last use prior to ED arrival), DM who prsented to [facility] ED 10/15 after experiencing chest pain. The patient reports he last used heroin/cocaine on the evening prior to admission. He states that he had chest pain prior to this, but worsened after use. He describes the pain as sharp and intermittent in nature. Unclear what exacerbates or improves it. He denies current chest pain. States he has not had any prior such pain. Denies anginal symptoms prior to this episode. Denies cough or sob. Denies fevers or chills. In the ED, found to have significant hyperK with initial K of 7.3, repeat showing 8.1; Was treated with hyperkalemia cocktail and K has now improved to 4.4. He is also noted to have ARELIS on CKD (3a). EKG without acute ischemic changes. He will be admitted for further management. Review of Systems Review of Systems: Negative except HPI/interval history. [facility] Medical History Anxiety Heroin use Cocaine use Other and unspecified hyperlipidemia Essential hypertension Type 2 diabetes mellitus with unspecified complications Hypertension Diabetes 1.5, managed as type 1 Asthma Family History Mother CAD (coronary artery disease) Diabetes HTN (hypertension) Father No problems noted. Surgical History History of intestinal surgery H/O exploratory laparotomy Social History Household Members: Other Housing: Other Do you presently have visiting nurse or other home services: No Alcohol intake: unknown Patient Tobacco Use Status: Former Tobacco user Cigarettes Per Day: 4 Years Smoked: 5 Smoked in Last 30 Days: Yes Use of substances other than those prescribed or required for medical reasons: Yes Substance Use Type: Crack/Cocaine and Heroin Advance Directives: No Advance Directives Information Provided: Yes service: No Current occupational status: unemployed Meds Allergies Allergy/AdvReac Type Severity Reaction Status Date / Time acetaminophen [Vicodin] Allergy Unknown Unknown Verified 09/20/23 08:44 hydrocodone [Vicodin] Allergy Unknown Unknown Verified 09/20/23 08:44 Active Medications: Current Medications Lactated Ringer's (Lr) 1,000 mls @ 125 mls/hr IVCONT .Q8H [facility] Stop: 10/17/23 01:14 Sodium Chloride (0.9 % Sodium Chloride Flush 3 Ml Syringe) 3 ml IVFLUSH QSHIFT [facility] Home Medications Medication Instructions Recorded Confirmed Last Taken Type atorvastatin 20 mg tablet 20 mg PO BEDTIME 12/21/21 01/29/23 Unknown History clonidine HCl 0.1 mg tablet 1 tab PO TID PRN anxiety 12/21/21 01/29/23 Unknown History lisinopril 20 mg tablet 20 mg PO DAILY 12/21/21 01/29/23 Unknown History methadone 10 mg/5 mL oral solution 65 mg PO DAILY 12/21/21 03/21/22 08/24/23 History multivitamin-ferrous 1 tab PO DAILY 12/21/21 01/29/23 Unknown History fumarate-folic acid 18 mg-400 mcg tablet (Certavite-Antioxidant) olanzapine 15 mg tablet 15 mg PO BEDTIME 12/21/21 01/29/23 Unknown History pantoprazole 40 mg tablet,delayed 40 mg PO DAILY@0630 12/21/21 01/29/23 Unknown History release prazosin 5 mg capsule 5 mg PO BEDTIME 12/21/21 01/29/23 Unknown History docusate sodium 100 mg capsule 100 mg PO BID 01/29/23 01/29/23 Unknown History fluticasone propionate 110 2 puff inhalation BID 01/29/23 01/29/23 Unknown History mcg/actuation HFA aerosol inhaler (Flovent HFA) fluticasone propionate 50 1 - 2 spray intranasal DAILY PRN 01/29/23 01/29/23 Unknown History mcg/actuation nasal Allergy Symptoms spray,suspension hydroxyzine HCl 25 mg tablet 25 - 50 mg PO BID PRN anxiety 01/29/23 01/29/23 Unknown History insulin aspart U-100 100 unit/mL 14 unit subcut TID 01/29/23 01/29/23 Unknown History (3 mL) subcutaneous pen (Novolog FlexPen U-100 Insulin aspart) insulin glargine 20 units subcut DAILY 01/29/23 01/29/23 01/29/23 History pramipexole 0.25 mg tablet 0.25 mg PO BID PRN restless legs 01/29/23 01/29/23 Unknown History clonidine HCl 0.1 mg tablet 0.1 mg PO TID PRN anxiety 08/25/23 08/25/23 Unknown History empagliflozin 10 mg tablet 10 mg PO DAILY 08/25/23 08/25/23 Unknown History (Jardiance) metformin 500 mg tablet 1,000 mg PO BID 08/25/23 08/25/23 Unknown History olanzapine 15 mg tablet 15 mg PO BEDTIME 08/25/23 08/25/23 Unknown History Physical Exam Vital Signs and Narrative: Vital Signs: Last Vital Signs Temp 97.7 F 10/16/23 08:25 Pulse 93 10/16/23 08:25 Resp 13 10/16/23 08:25 BP 99/57 L 10/16/23 08:25 Pulse Ox 95 10/16/23 08:25 O2 Del Method Room Air 10/16/23 08:25 Const: Other: Constitutional - drowsy, but answers questions; oriented x 3 Eyes - PERRLA, EOMI Cardiovascular - S1S2, RRR, No edema Respiratory - Normal lung expansion, Normal respiratory effort, No respiratory distress, CTA bilaterally Gastrointestinal - NT / ND; +BS; No rebound or guarding - No CVA tenderness Extremities - no calf tenderness bilaterally, no swelling Musculoskeletal - Normal inspection, normal ROM Skin - Warm/Dry Neurological - Alert & oriented x3, No focal deficit Psychological - Appropriate affect Results Labs 10/16/23 02:31 10/16/23 04:45 Labs: Laboratory Results - last 24 hr 10/16/23 10/16/23 10/16/23 02:31 03:07 04:45 MCV 92.4 MCH 30.9 MCHC 33.4 RDW 12.0 Plt Count 198 MPV 9.2 L Immature Gran % (Auto) 0.5 H Neut % (Auto) 75.8 H Lymph % (Auto) 17.8 L [place] % (Auto) 5.6 Eos % (Auto) 0.2 Baso % (Auto) 0.1 Lymph # (Auto) 1.5 [place] # (Auto) 0.5 Eos # (Auto) 0.0 Baso # (Auto) 0.0 Abs Immat Gran (auto) 0.04 H Absolute Neuts (auto) 6.5 Absolute Nucleated RBC 0.000 Nucleated RBC % (auto) 0.0 Anion Gap 16 14 Estim Creat Clear Calc TNP TNP Estimated GFR 25 27 Random Glucose 325 H 356 H* Calcium 9.1 9.5 Total Creatine Kinase 154 Troponin I High Sens 5.4 Urine Color Urine Appearance Urine pH Ur Specific [place] Urine Protein Urine Glucose (UA) Urine Ketones Urine Blood Urine Nitrite Ur Leukocyte Esterase Urine RBC Urine WBC Ur Squamous Epith Cells Urine Bacteria Hyaline Casts Urine Opiates Screen Urine Fentanyl Screen Ur Barbiturates Screen Ur Phencyclidine Scrn Ur Amphetamines Screen U Benzodiazepines Scrn Urine Cocaine Screen U Marijuana (THC) Screen Ethyl Alcohol < 10 10/16/23 05:35 MCV MCH MCHC RDW Plt Count MPV Immature Gran % (Auto) Neut % (Auto) Lymph % (Auto) [place] % (Auto) Eos % (Auto) Baso % (Auto) Lymph # (Auto) [place] # (Auto) Eos # (Auto) Baso # (Auto) Abs Immat Gran (auto) Absolute Neuts (auto) Absolute Nucleated RBC Nucleated RBC % (auto) Anion Gap Estim Creat Clear Calc Estimated GFR Random Glucose Calcium Total Creatine Kinase Troponin I High Sens Urine Color Yellow Urine Appearance Clear Urine pH 6.0 Ur Specific [place] 1.010 Urine Protein Negative Urine Glucose (UA) >=1000 H Urine Ketones Negative Urine Blood Negative Urine Nitrite Negative Ur Leukocyte Esterase Negative Urine RBC 0-2 Urine WBC 0-5 Ur Squamous Epith Cells 0-2 Urine Bacteria None Seen Hyaline Casts 0-2 Urine Opiates Screen POSITIVE H Urine Fentanyl Screen POSITIVE H Ur Barbiturates Screen Not Detected Ur Phencyclidine Scrn Not Detected Ur Amphetamines Screen Not Detected U Benzodiazepines Scrn Not Detected Urine Cocaine Screen POSITIVE H U Marijuana (THC) Screen Not Detected Ethyl Alcohol Imaging Radiologist's Impressions: Impressions Chest X-Ray 10/16/23 02:45 IMPRESSION: Unremarkable examination, no interval change. Assessment and Plan (1) ARELIS (acute kidney injury): Status: Acute Plan 52 yo M with multiple risk factors for CAD including HTN, HLD, DM along with active cocaine use who presents to the ED with chest pain, which has now resolved. However, he is noted to have signifgicant hyperK and ARELIS on CKD and will be admitted for further care. 1. ARELIS on CKD stage 3a with hyperkalemia hyperK improved with treatment -- EKG without peaked T now SCr baseline around 1.5-1.6, presenting with 2.7 with low BP given 1L IVF in the ED, will given at 125 cc/hr x 2L more monitor labs 2. Chest pain question if related to cocaine use initial HS trop I 5, repeat pending; EKG without acute ischemic findings no chest pain at the time of this note consider cardiology consult pending repeat trop 3. DM hold orals; POC + sliding scale for now 4. Polysubstance use ? on methadone, will continue once verified 5. HTN BP soft, hold meds for now Full Code DVT pptx, Heparin Patient with multiple active issues including ARELIS/hyperK/chest pain which will require close and frequent monitoring + treatment with IV medications + possible specialist consults. Hence patient expected to be hospitalized for 2 midnights and therefore, will be admitted as inpatient. Quality Stroke Does the patient have a stroke diagnosis?: No VTE Prior VTE?: No VTE Risk Level:: Medical - moderate - high VTE Device Contraindication: Treatment Not Indicated VTE Drug Contraindication: N/A - Med Ordered
[2023-10-16] MEDS: Lactated Ringers 1,000 ML 125 ML IVCONT ×2 (09:28→16:50)
--- NOTE | 2023-10-16 09:39 | PHA.MEDREC ---
Pharmacy Consult ? Medication Reconciliation Pharmacy has completed the medication reconciliation, list from [facility]. Patient was unable to answer any questions regarding medications.
[2023-10-16 09:49] LABS: Troponin-I High Sensitivity 5.5 ng/L (<3.5-35.0)
[2023-10-16 10:02] VITALS: BP 116/66; PULSE 94; RESP 14; TEMP 36.6; O2SAT 98
[2023-10-16 10:41] LABS: Glucose, Whole Blood 386 mg/dL (60-115)
--- NOTE | 2023-10-16 11:46 | PC.NURSE ---
Pt requesting to leave facility AMA. Provider alerted and screen printing paster called. on his way to speak to pt.
--- NOTE | 2023-10-16 11:53 | P.EN_ITS ---
Event Note Date of Service: 10/16/23 Event Note: Informed by RN that patient wanted to leave against medical advice. Pt seen and examined (with clinical academic allergist services present). Pt states he wants to leave the hospital and get something to eat. Explained to him that a diet has been ordered and he should be receiving lunch shortly. Explained to him the risks (including but not limited to SC, renal failure, ) of leaving against medical advice prior to treatment of his presentation. Tue patient is able to relay back to me why he is in the hospital (for chest pain and kidney damage, hyperkalemia) in layman's terms. He is awake and alert. Oriented x 3 and has capacity to make medical decision. Ultimately, after discussion, the patient had elected to remain hospitalized. Time Spent With Patient Time: Total time managing care of this patient today ____ minutes.
[2023-10-16 11:57] LABS: Glucose, Whole Blood 272 mg/dL (60-115)
[2023-10-16] MEDS: Insulin Lispro 100 UNIT/ML 3 ML VIAL SUBCUT ×3 (13:10→20:38)
[2023-10-16 16:00] VITALS: BP 126/67; PULSE 85; RESP 20; TEMP 36.2; O2SAT 98
[2023-10-16 16:47] LABS: Glucose, Whole Blood 166 mg/dL (60-115)
--- NOTE | 2023-10-16 17:51 | PC.NURSE ---
Methadone clinic : [facility] called to verify Methadone dose , per Gi Ellsworth LPN pt takes 75 mg po dailt and received last dose at the clinic on 10/13, also received 2 days supply to take at home . Verification form faxed to the pharmacy, DR Xiao was notified
--- NOTE | 2023-10-16 18:06 | HE.PHANOTE ---
RE: methadone Last dose verification from [facility] 75mg on 10/14/23
[2023-10-16 19:00] VITALS: BP 109/55; PULSE 88; RESP 20; TEMP 36.7; O2SAT 98
[2023-10-16 19:47] LABS: Glucose, Whole Blood 184 mg/dL (60-115)
[2023-10-16] MEDS: OLANZapine 7.5 MG TABLET 15 MG PO (20:37)
[2023-10-16] MEDS: hydrOXYzine HCL 50 MG TABLET PO (20:37)
[2023-10-16] MEDS: Pramipexole Di-HCL 0.25 MG TABLET PO (20:37)
[2023-10-16] MEDS: Docusate Sodium 100 MG CAPSULE PO (20:37)
[2023-10-16] MEDS: Atorvastatin Calcium 20 MG TABLET PO (20:38)
[2023-10-16] MEDS: Insulin Glargine,Hum.rec.anlog 100 UNIT/ML 10 ML VIAL 15 UNIT SUBCUT (20:38)
--- NOTE | 2023-10-16 22:38 | PC.NURSE ---
patient cooperative since came in from ED till 22:00 , pt stated that he is anxious and wants to go home tonight . Stated that that he feels fine and wants to go home . RN educated pt's on his health status so pt can make a appropriate decision . DR Tam was notified
[2023-10-16] MEDS: LORazepam 2 MG/ML VIAL 1 MG IVPUSH (22:54)
--- NOTE | 2023-10-16 22:56 | PC.NURSE ---
Medicated with Lorazepam 1 mg IV for anxiety
[2023-10-16] MEDS: 0.9 % Sodium Chloride Flush 3 ML SYRINGE IVFLUSH (23:45)
[2023-10-17] VITALS: BP 106/59; PULSE 88; RESP 20; TEMP 36.4; O2SAT 93
[2023-10-17 00:04] VITALS: BMI 32.3
[2023-10-17 03:36] VITALS: BP 108/65; PULSE 80; RESP 20; TEMP 36.8; O2SAT 95
[2023-10-17] MEDS: Omeprazole 20 MG CAPSULE.DR PO (05:58)
[2023-10-17 07:22] VITALS: BP 116/60; PULSE 81; RESP 20; TEMP 36.5; O2SAT 96
[2023-10-17 07:38] LABS: Glucose, Whole Blood 240 mg/dL (60-115)
[2023-10-17] MEDS: Insulin Lispro 100 UNIT/ML 3 ML VIAL SUBCUT (08:07)
[2023-10-17] MEDS: Docusate Sodium 100 MG CAPSULE PO (08:08)
[2023-10-17] MEDS: 0.9 % Sodium Chloride Flush 3 ML SYRINGE IVFLUSH (08:08)
[2023-10-17 08:21] LABS: Alanine Aminotransferase 13 U/L (0-40); Albumin Level 3.4 g/dL (3.5-5.0); Alkaline Phosphatase 87 U/L (39-117); Anion Gap 11 (12-20); Aspartate Amino Transferase 14 U/L (5-37); Bilirubin Direct < 0.2 mg/dL (0.0-0.5); Bilirubin Total 0.2 mg/dL (0.0-1.0); Blood Urea Nitrogen 31 mg/dL (9-16); Calcium 9.3 mg/dL (8.4-10.2); Carbon Dioxide 30 mmol/L (22-29); Chloride 107 mmol/L (96-108); Creatinine Clr Calc Pharmacy 51.6; Estimated Glomerular Filt Rate 46; Glucose Random 245 mg/dL (60-115); Magnesium 1.8 mg/dL (1.6-2.6); Potassium 5.2 mmol/L (3.3-5.1); Sodium 143 mmol/L (135-145)
[2023-10-17 09:21] LABS: Cortisol Random 5.2 ug/dL
--- NOTE | 2023-10-17 09:58 | PM.DS ---
DS: Providers Provider Date of Service: 10/17/23 Date of admission: 10/16/23 09:01 Primary care physician: Unknown Physician DS: Diagnosis Discharge Diagnosis (1) ARELIS (acute kidney injury): Status: Acute DS: Summary Hospital Course Hospital Course: from initial hpi: 52 year old male with a PMH of HTN, HLD, polysubstance use (last use prior to ED arrival), DM who prsented to [facility] ED 10/15 after experiencing chest pain. The patient reports he last used heroin/cocaine on the evening prior to admission. He states that he had chest pain prior to this, but worsened after use. He describes the pain as sharp and intermittent in nature. Unclear what exacerbates or improves it. He denies current chest pain. States he has not had any prior such pain. Denies anginal symptoms prior to this episode. Denies cough or sob. Denies fevers or chills. In the ED, found to have significant hyperK with initial K of 7.3, repeat showing 8.1; Was treated with hyperkalemia cocktail and K has now improved to 4.4. He is also noted to have ARELIS on CKD (3a). EKG without acute ischemic changes. He will be admitted for further management. hospital course: Patient was admitted for acute kidney injury on CKD 3A with hyperkalemia. He was given IV fluids and potassium lowering agents and potassium improved to 5.2 at time of discharge. Recommendations were to get an inpatient Nephrology evaluation, however patient was not interested in staying inpatient, will therefore be discharged on low-potassium diet, holding Aldactone and lisinopril and should follow up with Nephrology and BMP as outpatient. For patient's chest pain he had no significant acute EKG changes, troponin was flat and negative. Chest pain resolved. Likely due to cocaine use. Abstinence is recommended. For diabetes was continue on insulin. For polysubstance dependence was continued on methadone. For hypertension his blood pressure meds have been held due to low normal blood pressures. Patient will be discharged home. Time Attestation Discharge Coordination Time (in mins): 35 Quality: Safe Use of Opioids Does Pt have an Active Cancer Diagnosis on the Problem List?: No Quality: Stroke Does the patient have a stroke diagnosis?: No Physical Exam Vital Signs: Vital Signs: Last Vital Signs Temp 97.7 F 10/17/23 07:22 Pulse 81 10/17/23 07:22 Resp 20 10/17/23 07:22 BP 116/60 10/17/23 07:22 Pulse Ox 96 10/17/23 07:22 O2 Del Method Room Air 10/17/23 07:22 O2 Flow Rate 95 10/17/23 07:22 BMI result Body Mass Index 32.3 General: AO X 3, no acute distress Resp: CTA bilateral, no accessory muscles used CVS: S1,S2,RRR GI: soft, non tender, non distended Neuro: motor grossly intact, alert Psych: appropriate affect, appropriate insight DS: Data Data Completed and Pending Labs on day of discharge: Laboratory Results - last 24 hr 10/16/23 10/16/23 10/16/23 04:30 11:54 16:35 Sodium Potassium Chloride Carbon Dioxide Anion Gap BUN Creatinine Estim Creat Clear Calc Estimated GFR POC Glucose 386 H* 272 H 166 H Random Glucose Calcium Magnesium Total Bilirubin Direct Bilirubin AST ALT Alkaline Phosphatase Total Protein Albumin Random Cortisol 10/16/23 10/17/23 10/17/23 19:40 07:26 07:29 Sodium 143 Potassium 5.2 H Chloride 107 Carbon Dioxide 30 H Anion Gap 11 L BUN 31 H Creatinine 1.59 H Estim Creat Clear Calc 51.6 Estimated GFR 46 POC Glucose 184 H 240 H Random Glucose 245 H Calcium 9.3 Magnesium 1.8 Total Bilirubin 0.2 Direct Bilirubin < 0.2 AST 14 ALT 13 Alkaline Phosphatase 87 Total Protein 6.0 L Albumin 3.4 L Random Cortisol 5.2 Discharge Plan Discharge Anticipated Discharge Date/Time: 10/17/23 09:55 Patient Disposition: Home, Self-Care Discharge Diagnosis: hyperkalemia Referrals: Israel Wilkinson MD [Physician] - 1 Week (hypoerkalemia) Physician,Cynthia J [Primary Care Provider] - 1 Week Discharge Medications: Continued pantoprazole 40 mg tablet,delayed release (DR/EC) 40 mg PO DAILY@0630 atorvastatin 20 mg tablet 20 mg PO BEDTIME methadone 10 mg/5 mL Solution 75 mg PO DAILY olanzapine 15 mg tablet 15 mg PO BEDTIME Certavite-Antioxidant 18-400 mg-mcg Tablet 1 tab PO DAILY furosemide 40 mg Tablet 40 mg PO DAILY 30 Days Qty: 30 0RF Protocol: Hold for SBP< HOLD for SBP < : 90 docusate sodium 100 mg capsule 100 mg PO BID pramipexole 0.25 mg tablet 0.25 mg PO BID PRN (Reason: restless legs) fluticasone propionate 50 mcg/actuation spray,suspension 1 - 2 spray intranasal DAILY PRN (Reason: Allergy Symptoms) insulin aspart U-100 [Novolog FlexPen U-100 Insulin] 100 unit/mL (3 mL) insulin pen 14 unit subcut TIDAC sildenafil 50 mg Tablet 50 mg PO DAILY PRN (Reason: Sexual Activity) Rx Instructions: administer 30 minutes to 4 hours before activity nicotine (polacrilex) 2 mg gum 2 mg PO Q2H PRN (Reason: Nicotine Cravings) hydroxyzine HCl 50 mg tablet 50 mg PO TID PRN (Reason: anxiety or sleep) nicotine 7 mg/24 hr Patch 24 Hour 1 patch TRANSDERMAL Q24H insulin glargine [Lantus Solostar U-100 Insulin] 100 unit/mL (3 mL) insulin pen 26 unit subcut BEDTIME Minerin Creme Cream 1 appl topical BID Arnuity Ellipta 200 mcg/actuation blister with device 1 inh INHALATION DAILY naloxone [Narcan] 4 mg/actuation spray,non-aerosol 1 spray intranasal USEASDIRECTD PRN (Reason: overdose) metformin 500 mg tablet 1,000 mg PO BIDWM Jardiance 10 mg tablet 10 mg PO DAILY Discontinued lisinopril 20 mg tablet 20 mg PO DAILY prazosin 5 mg capsule 5 mg PO BEDTIME spironolactone 25 mg Tablet 25 mg PO DAILY 30 Days Qty: 30 0RF Protocol: Hold for SBP< HOLD for SBP < : 90 clonidine HCl 0.1 mg tablet 0.1 mg PO TID PRN (Reason: anxiety) Discharge Orders: Discharge Order (Routine); Ordered 10/17/23 Ordered By: Chris Villatoro Diet: Advance to usual diet Activity on Discharge: As tolerated Stand Alone Forms: Patient Portal Discharge page Other Ambulatory Orders: Basic Metabolic Panel (Routine) Timeframe: 1 Week Facility: [facility] - Location: Laboratory Ordered By: Chris Villatoro Care Plan Goals: avoid hyperkalemia Health Concerns: hpyerkalemia, drug use, chest pain Plan of Treatment: no drugs, stop aldactone, and lisinopril, follow up bmp next week Assessment: see above
--- NOTE | 2023-10-17 10:46 | MHC.CM.PN ---
IMM 10/17/23, Pt signed, he has also been medically cleared for DC. He completed a HCP, naming his sister, Jane, this was added to the chart. Pt left on his own, he said he was going to his Methadone clinic, and he said he has a nurse that comes to his house to help with his medications.
== END 2023-10-17 10:54 | disposition home or self-care (01) | DRG 641 ==
LOC: HO.ED 07:59 → HO.EDOVER 09:07 → HO.IMC 15:49
PROVIDERS: Admitting Provider Family Medicine; Emergency Provider Emergency Medicine; Visit Provider Internal Medicine
DX: E87.5 Hyperkalemia (principal); N17.9 Acute kidney failure, unspecified; F11.20 Opioid dependence, uncomplicated; F19.20 Other psychoactive substance dependence, uncomplicated; I12.9 Hypertensive chronic kidney disease with stage 1 through stage 4 chronic kidney disease, or unspecified chronic kidney disease; E11.22 Type 2 diabetes mellitus with diabetic chronic kidney disease; I25.10 Atherosclerotic heart disease of native coronary artery without angina pectoris; N18.31 Chronic kidney disease, stage 3a; F17.210 Nicotine dependence, cigarettes, uncomplicated; Z71.6 Tobacco abuse counseling; Z79.4 Long term (current) use of insulin; Z79.84 Long term (current) use of oral hypoglycemic drugs; Z79.899 Other long term (current) drug therapy
CPT/HCPCS: 36415; 71045; 80048; 80076; 80307; 81001; 82533; 82550; 82947; 83735; 84132; 84484; 85025; 93005; 99285; J2060; J7120

== ENCOUNTER → 2023-10-16 07:23 | Outpatient (BNV) | payer OTHER, SELFPAY | PROVIDERS: Admitting Provider Family Medicine; Emergency Provider Emergency Medicine; Visit Provider Internal Medicine Cardiovascular Disease | DX: R07.9 Chest pain, unspecified (principal); I44.0 Atrioventricular block, first degree | CPT/HCPCS: 93010 ==

== ENCOUNTER → 2023-10-16 09:01 | Outpatient (BNV) | payer OTHER, SELFPAY | PROVIDERS: Admitting Provider Family Medicine; Emergency Provider Emergency Medicine; Visit Provider Family Medicine | DX: N17.9 Acute kidney failure, unspecified (principal); N18.31 Chronic kidney disease, stage 3a | CPT/HCPCS: 99223; 99239; 99499 ==

== ENCOUNTER 2023-10-23 22:59 | Emergency (ER) | payer OTHER, SELFPAY ==
[2023-10-23 23:14] VITALS: BP 138/87; PULSE 92; O2SAT 98; BMI 19.8
--- NOTE | 2023-10-23 23:23 | PC.NURSE ---
Pt presented to ED via EMS for chest pain starting around 10:30 tonight. Upon arrival, pt immediately went to the ED doors requesting to leave. SHABANA Wilson, , and myself attempted to get pt to stay and explained the risks of leaving. Pt stated plastic technician said He was okay and he felt better so he wanted to leave. After several attempts, pt was insistent on leaving. Pt was of sound mind and able to make decisions for himself. Pt was allowed to leave without being seen.
== END 2023-10-23 23:27 | disposition left against medical advice (07) ==
PROVIDERS: Emergency Provider Internal Medicine
DX: R07.89 Other chest pain (principal)
CPT/HCPCS: 99281

== ENCOUNTER 2023-12-12 18:03 | Emergency (ER) | payer OTHER, SELFPAY ==
[2023-12-12 18:22] VITALS: BP 124/78; BP 131/72; PULSE 110; PULSE 98; RESP 20; TEMP 37.1; O2SAT 97; O2SAT 98; BMI 29.2
--- NOTE | 2023-12-12 18:53 | ED_ITS ---
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) Animal: dog Description of animal: unknown animal and immunizations unknown Mechanism: bite Location: face Location - Extremities: left: forearm Pain description: dull Context: unprovoked Associated symptoms: bleeding Treatments prior to arrival: wound dressing(s) Related Data Home Medications ?Medication ?Instructions ?Recorded ?Confirmed atorvastatin 20 mg tablet 20 mg PO BEDTIME 12/21/21 10/16/23 methadone 10 mg/5 mL oral solution 75 mg PO DAILY 12/21/21 10/16/23 multivitamin-ferrous 1 tab PO DAILY 12/21/21 10/16/23 fumarate-folic acid 18 mg-400 mcg tablet (Certavite-Antioxidant) olanzapine 15 mg tablet 15 mg PO BEDTIME 12/21/21 10/16/23 pantoprazole 40 mg tablet,delayed 40 mg PO DAILY@0630 12/21/21 10/16/23 release docusate sodium 100 mg capsule 100 mg PO BID 01/29/23 10/16/23 fluticasone propionate 50 1 - 2 spray intranasal DAILY PRN 01/29/23 10/16/23 mcg/actuation nasal Allergy Symptoms spray,suspension insulin aspart U-100 100 unit/mL 14 unit subcut TIDAC 01/29/23 10/16/23 (3 mL) subcutaneous pen (Novolog FlexPen U-100 Insulin aspart) pramipexole 0.25 mg tablet 0.25 mg PO BID PRN restless legs 01/29/23 10/16/23 empagliflozin 10 mg tablet 10 mg PO DAILY 08/25/23 10/16/23 (Jardiance) metformin 500 mg tablet 1,000 mg PO BIDWM 08/25/23 10/16/23 fluticasone furoate 200 1 inh inhalation DAILY 10/16/23 10/16/23 mcg/actuation blister powder for inhalation (Arnuity Ellipta) hydroxyzine HCl 50 mg tablet 50 mg PO TID PRN anxiety or sleep 10/16/23 10/16/23 insulin glargine 100 unit/mL (3 26 unit subcut BEDTIME 10/16/23 10/16/23 mL) subcutaneous pen (Lantus Solostar U-100 Insulin) lanolin alcohols-mineral 1 appl topical BID 10/16/23 10/16/23 oil-w.petrolatum-ceresin topical cream (Minerin Creme topical) naloxone 4 mg/actuation nasal 1 spray intranasal USEASDIRECTD 10/16/23 10/16/23 spray (Narcan) PRN overdose nicotine (polacrilex) 2 mg gum 2 mg PO Q2H PRN Nicotine Cravings 10/16/23 10/16/23 nicotine 7 mg/24 hr daily 1 patch transdermal Q24H 10/16/23 10/16/23 transdermal patch sildenafil 50 mg tablet 50 mg PO DAILY PRN Sexual Activity 10/16/23 10/16/23 Previous Rx's ?Medication ?Instructions ?Recorded furosemide 40 mg tablet 40 mg PO DAILY 30 days #30 tabs 12/23/21 amoxicillin 875 mg-potassium 1 tab PO BID #14 tabs 12/12/23 clavulanate 125 mg tablet Allergies Allergy/AdvReac Type Severity Reaction Status Date / Time acetaminophen [Vicodin] Allergy Unknown Unknown Verified 12/12/23 18:26 hydrocodone [Vicodin] Allergy Unknown Unknown Verified 12/12/23 18:26 Review of Systems Review of Systems: Constitutional : No Fever, No Chills, Cardiovascular : No Chest Pain, No SOB Respiratory : No Dyspnea Gastrointestinal : No abdominal pain Musculoskeletal : No Joint Swelling Skin : No rash, positive skin laceration Neuro : No Weakness, No Numbness All other systems reviewed and are negative PMFSH Past Medical History Attestation statement: The following information was validated with the patient. Source: old records reviewed Medical History Anxiety Heroin use Cocaine use Other and unspecified hyperlipidemia Essential hypertension Type 2 diabetes mellitus with unspecified complications Hypertension Diabetes 1.5, managed as type 1 Asthma Surgical History History of intestinal surgery H/O exploratory laparotomy Family History Family History Mother CAD (coronary artery disease) Diabetes HTN (hypertension) Father No problems noted. Social History Social History Household Members: None Housing: Apartment Do you presently have visiting nurse or other home services: No Alcohol intake: unknown Patient Tobacco Use Status: Current everyday Tobacco user Tobacco use type: Cigarette Cigarettes Per Day: 4 Years Smoked: 5 Substance Use Type: Crack/Cocaine, Heroin and Opiates Advance Directives: No Advance Directives Information Provided: No service: No Current occupational status: unemployed Physical Exam ED Vital Signs: Vital Signs - 24 hr 12/12/23 18:22 Temperature 98.8 F Pulse Rate 98 Respiratory Rate 20 Blood Pressure 131/72 Pulse Oximetry 98 Oxygen Delivery Method Room Air BMI result Body Mass Index 29.2 Appearance: Alert. Oriented X3. No acute distress. Eyes: Pupils equal, round and reactive to light. ENT: Pharynx normal. gouge abrasion jagged L zygoma no eye involvement Neck: Normal inspection. Neck supple. CVS: Normal heart rate and rhythm. Pulses normal. Respiratory: No respiratory distress. Breath sounds normal. Abdomen: Soft and nontender. Skin: Skin warm and dry. Normal skin color. Normal skin turgor. Extremities: No lower extremity edema. L forearm bite holly puncture wounds posterior arm one is deep down to subq 1.5cm, posterior arm 2cm open laceration down to subq - distal NV intact Neuro: Oriented X 3. No motor deficit. No sensory deficit. Medical Decision Making Medical Decision Making MDM Narrative: 53 yo male with substance abuse, HTN here with dog bite to face - not amenable to sutures, L forearm anterior x 1 stitch and will need very loose approximation as well - oral augmentin, tdap, rabies shots - DC home with wound precautions Differential Diagnosis Differential Diagnoses: The differential diagnosis associated with the presentation includes dog bite, rabies exposure External Record Review External record reviewed: Inpatient record Prescription Management I considered prescription management with: Antibiotic and Other Procedures Laceration Laceration 1: Site: upper extremity Side (If applicable): left Size (cm): 1.5 Description: irregular Depth: simple, single layer Local Anesthetic: lidocaine 1% Amount of anesthesia used (mL): 2 Pre-repair: wound explored, irrigated extensively and deep structures intact Skin layer closed with: nylon Size (cm): 4-0 Number of sutures: 1 Technique: simple, interrupted Laceration 2: Site: upper extremity Side (If applicable): left Size (cm): 2 Description: irregular Depth: simple, single layer Local Anesthetic: lidocaine 1% Amount of anesthesia used (mL): 3 Pre-repair: wound explored, irrigated extensively and deep structures intact Skin layer closed with: nylon Size (cm): 4-0 Number of sutures: 2 Technique: simple, interrupted Discharge Plan Discharge Clinical Impression: Dog bite Qualifiers: Encounter type: initial encounter Qualified Code(s): W54.0XXA - Bitten by dog, initial encounter Laceration of arm Qualifiers: Encounter type: initial encounter Laterality: left Qualified Code(s): S41.112A - Laceration without foreign body of left upper arm, initial encounter Patient Disposition: Home, Self-Care Instructions: Animal Bite (ED), Laceration (ED), Rabies (ED) Additional Instructions: sutures out in 7 days monitor redness, yellow drainage, fevers - return for infection take antibiotic as well okay to shower but no pools, hot tubs, beaches, ponds Rabies follow up with the [facility] [place] Infusion Center: Upon discharge from the ED today, you will be contacted by the Infusion Center to schedule your follow up Rabies vaccines. You will need a total of 3 more injections. If for some reason you do not receive a call, please call the Infusion Center directly at [phone]. Follow up with your primary care provider after completion of the vaccine to have a titer drawn to ensure the vaccines effectiveness. Prescriptions: New amoxicillin-pot clavulanate 875-125 mg tablet 1 tab PO BID Qty: 14 0RF No Action pantoprazole 40 mg tablet,delayed release (DR/EC) 40 mg PO DAILY@0630 atorvastatin 20 mg tablet 20 mg PO BEDTIME methadone 10 mg/5 mL Solution 75 mg PO DAILY olanzapine 15 mg tablet 15 mg PO BEDTIME Certavite-Antioxidant 18-400 mg-mcg Tablet 1 tab PO DAILY furosemide 40 mg Tablet 40 mg PO DAILY 30 Days Qty: 30 0RF Protocol: Hold for SBP< HOLD for SBP < : 90 docusate sodium 100 mg capsule 100 mg PO BID pramipexole 0.25 mg tablet 0.25 mg PO BID PRN (Reason: restless legs) fluticasone propionate 50 mcg/actuation spray,suspension 1 - 2 spray intranasal DAILY PRN (Reason: Allergy Symptoms) insulin aspart U-100 [Novolog FlexPen U-100 Insulin] 100 unit/mL (3 mL) insulin pen 14 unit subcut TIDAC sildenafil 50 mg Tablet 50 mg PO DAILY PRN (Reason: Sexual Activity) Rx Instructions: administer 30 minutes to 4 hours before activity nicotine (polacrilex) 2 mg gum 2 mg PO Q2H PRN (Reason: Nicotine Cravings) hydroxyzine HCl 50 mg tablet 50 mg PO TID PRN (Reason: anxiety or sleep) nicotine 7 mg/24 hr Patch 24 Hour 1 patch TRANSDERMAL Q24H insulin glargine [Lantus Solostar U-100 Insulin] 100 unit/mL (3 mL) insulin pen 26 unit subcut BEDTIME Minerin Creme Cream 1 appl topical BID Arnuity Ellipta 200 mcg/actuation blister with device 1 inh INHALATION DAILY naloxone [Narcan] 4 mg/actuation spray,non-aerosol 1 spray intranasal USEASDIRECTD PRN (Reason: overdose) metformin 500 mg tablet 1,000 mg PO BIDWM Jardiance 10 mg tablet 10 mg PO DAILY Print Language: Yakut
[2023-12-12] MEDS: Rabies Immune Globulin/PF 900 UNIT/3 ML VIAL 1542.22 UNIT IM (19:22)
[2023-12-12] MEDS: Amoxicillin/Potassium Clav 875 MG TABLET PO (19:25)
[2023-12-12] MEDS: Diphth,Pertus(ACell),Tet Adult 0.5 ML SYRINGE IM (19:25)
[2023-12-12] MEDS: Rabies Vaccine, Human Diploid (Imovax) 1 ML VIAL IM (19:28)
[2023-12-12] MEDS: Lidocaine HCl 1 % MPF 5 ML VIAL SUBCUT (19:41)
[2023-12-12 20:00] VITALS: BP 131/72; PULSE 98; RESP 20; TEMP 37.1; O2SAT 98
== END 2023-12-12 20:01 | disposition home or self-care (01) ==
PROVIDERS: Emergency Provider Emergency Medicine
DX: S51.852A Open bite of left forearm, initial encounter (principal); S01.452A Open bite of left cheek and temporomandibular area, initial encounter; W54.0XXA Bitten by dog, initial encounter; Y93.01 Activity, walking, marching and hiking; Y92.480 Sidewalk as the place of occurrence of the external cause; Y99.8 Other external cause status; Z20.3 Contact with and (suspected) exposure to rabies; Z23 Encounter for immunization
CPT/HCPCS: 12002; 90375; 90471; 90472; 90675; 90715; 96372; 99282; 99284

== ENCOUNTER 2023-12-20 22:25 | Emergency (ER) | payer OTHER, SELFPAY ==
--- NOTE | 2023-12-20 | ECG_ITS ---
Test Reason : CHEST PAIN Blood Pressure : / mmHG Vent. Rate : 091 BPM Atrial Rate : 091 BPM P-R Int : 200 ms QRS Dur : 088 ms QT Int : 354 ms P-R-T Axes : 080 044 065 degrees QTc Int : 435 ms Normal sinus rhythm Low voltage QRS Borderline ECG When compared with ECG of 16-OCT-2023 02:17, No significant change was found Referred By: Generic ED Physician Electronically Signed By:ROMA FELIX
[2023-12-20 22:38] VITALS: BP 103/60; BP 104/61; PULSE 90; PULSE 97; RESP 12; TEMP 36.7; O2SAT 64; O2SAT 97; BMI 29.2
[2023-12-21] VITALS (8 sets, daily range): BP systolic 103–132; BP diastolic 56–72; PULSE 73–82; RESP 12–17; TEMP -17.7–37.1; O2SAT 94–98
[2023-12-21 01:05] LABS: Basophils Percent Auto 0.1 % (0-2); Eosinophils Absolute Auto 0.1 X10*3/uL (0.0-0.4); Eosinophils Percent Auto 1.7 % (0-4); Hematocrit 26.8 % (42.0-52.0); Hemoglobin 9.4 g/dl (14.0-18.0); Imm Gran Abs Auto 0.01 X10*3/uL (0.00-0.03); Imm Gran Pct Auto 0.1 % (0.0-0.4); Lymphocytes Absolute Auto 2.1 X10*3/uL (1.2-4.9); Lymphocytes Percent Auto 30.3 % (20-40); MANUAL DIFF FLAG NO; Mean Corpuscular HGB Conc 35.1 g/dl (31.0-36.0); Mean Corpuscular Hemoglobin 32.8 pg (27.0-33.0); Mean Corpuscular Volume 93.4 fL (80.0-98.0); Mean Platelet Volume 8.9 fL (9.4-12.4); Monocytes Absolute Auto 0.5 X10*3/uL (0.1-1.2); Monocytes Percent Auto 6.7 % (2-11); Neutrophils Absolute Auto 4.3 x10*3/uL (2.0-8.3); Neutrophils Percent Auto 61.1 % (45-73); Platelet Count 188 X10*3/uL (160-400); Red Blood Count 2.87 X10*6/uL (4.60-5.80); Red Cell Distribution Width 12.5 % (11.0-16.0)
[2023-12-21 01:11] LABS: Prothrombin Time 11.6 SEC (11.1-13.3)
[2023-12-21 01:19] LABS: Anion Gap 13 (12-20); Blood Urea Nitrogen 70 mg/dL (9-16); Calcium 9.5 mg/dL (8.4-10.2); Carbon Dioxide 26 mmol/L (22-29); Chloride 105 mmol/L (96-108); Creatinine Clr Calc Pharmacy 28.4; Estimated Glomerular Filt Rate 24; Glucose Random 308 mg/dL (60-115); Potassium 5.3 mmol/L (3.3-5.1); Sodium 139 mmol/L (135-145)
[2023-12-21 01:28] LABS: Troponin-I High Sensitivity 5.2 ng/L (<3.5-35.0)
[2023-12-21 02:16] LABS: Appearance Urine Clear; Color Urine Yellow; Glucose Urine UA >=1000 mg/dL (Negative); Leukocyte Esterase Urine Negative (Negative); Nitrite Urine Negative (Negative); PH 6.5 (5.0-9.0); UMIC TRIGGER UACC YES; Urine Blood Negative (Negative); Urine Ketones Negative (Negative); Urine Protein Negative (Neg-Trace)
[2023-12-21 02:19] LABS: Amphetamine Screen Urine Not Detected (Not Detect); Barbiturates, Urine Not Detected (Not Detect); Benzodiazepines Screen Urine Not Detected (Not Detect); Buprenorphine Scr Not Detected (Not Detect); Cannabinoid Screen Urine Not Detected (Not Detect); Cocaine Screen Urine POSITIVE (Not Detect); Fentanyl, urine POSITIVE (Not Detect); Methadone Screen, Urine Positive (Not Detect); Opiate Screen Urine POSITIVE (Not Detect); Oxycodone Screen Urine Not Detected (Not Detect); Phencyclidine Screen Urine Not Detected (Not Detect)
[2023-12-21 02:21] LABS: Bacteria Urine None Seen (None Seen); Hyaline Casts Urine 0-2 /LPF (0-2); RBC Urine 0-2 /HPF (0-2); Squamous Epithelial Cell Urine 0-2 /HPF (0-2); WBC Urine 0-5 /HPF (0-5)
--- NOTE | 2023-12-21 05:28 | PC.NURSE ---
Pt brought in with chest pain 03/30, non-radiating L-chest after using cocaine and heroin. Pain has since resolved, labs sent and ekg complete. This RN attempted IV access 3 times with no success. Repeat troponin being sent.
[2023-12-21] MEDS: 0.9 % Sodium Chloride 1,000 ML 999 ML IV ×3 (07:34→18:01)
[2023-12-21] MEDS: Sodium Zirconium Cyclosilicate 10 GM POWD.PACK PO (07:34)
--- NOTE | 2023-12-21 07:38 | PC.NURSE ---
IV established and fluids started, Lokelma given as charted, pt tolerated well. 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 Pt reports chest pain since yesterday with SOB and dizziness. Skin normal color for ethnicity, warm and dry. VSS. Breathing even and unlabored. Pt alert and oriented/ambulatory.
--- NOTE | 2023-12-21 07:38 | ED.CHESTPAIN ---
HPI - Chest Pain General Chief Complaint: Chest Pain Stated Complaint: chest pain, heroin and cocaine this evening Time Seen by Provider: 12/21/23 06:37 Source: patient Mode of arrival: EMS Limitations: no limitations History of Present Illness HPI narrative: Patient is a 53-year-old male who presents to the emergency department for evaluation. On arrival he had been reporting left-sided chest pain that started approximately 40 minutes prior to arrival, nonradiating pain, described as a burning sensation. He admitted to using intranasal cocaine and intranasal heroin about 4 hours prior to the start of his pain. At this time he denies having active chest pain. He is requesting assistance with detox. He denies fevers, chills, cough, shortness of breath, difficulty breathing, nausea, vomiting, numbness or tingling of the extremities, dizziness. Related Data Home Medications ?Medication ?Instructions ?Recorded ?Confirmed atorvastatin 20 mg tablet 20 mg PO BEDTIME 12/21/21 12/21/23 methadone 10 mg/5 mL oral solution 75 mg PO DAILY 12/21/21 12/21/23 multivitamin-ferrous 1 tab PO DAILY 12/21/21 12/21/23 fumarate-folic acid 18 mg-400 mcg tablet (Certavite-Antioxidant) olanzapine 15 mg tablet 15 mg PO BEDTIME 12/21/21 12/21/23 pantoprazole 40 mg tablet,delayed 40 mg PO DAILY@0630 12/21/21 12/21/23 release docusate sodium 100 mg capsule 100 mg PO BID 01/29/23 12/21/23 fluticasone propionate 50 1 spray intranasal DAILY PRN 01/29/23 12/21/23 mcg/actuation nasal Allergy Symptoms spray,suspension insulin aspart U-100 100 unit/mL 14 unit subcut TIDAC 01/29/23 12/21/23 (3 mL) subcutaneous pen (Novolog FlexPen U-100 Insulin aspart) metformin 500 mg tablet 1,000 mg PO BIDWM 08/25/23 12/21/23 hydroxyzine HCl 50 mg tablet 50 mg PO TID PRN anxiety or sleep 10/16/23 12/21/23 insulin glargine 100 unit/mL (3 26 unit subcut BEDTIME 10/16/23 12/21/23 mL) subcutaneous pen (Lantus Solostar U-100 Insulin) albuterol sulfate 90 mcg/actuation 2 puff inhalation Q6H PRN 12/21/23 12/21/23 aerosol inhaler (Ventolin HFA) Shortness Of Breath Or Wheezing empagliflozin 10 mg tablet 10 mg PO DAILY 12/21/23 12/21/23 (Jardiance) fluticasone furoate 200 1 inh inhalation DAILY 12/21/23 12/21/23 mcg/actuation blister powder for inhalation (Arnuity Ellipta) ibuprofen 600 mg tablet 600 mg PO BID PRN Pain 12/21/23 12/21/23 lisinopril 20 mg tablet 20 mg PO DAILY 12/21/23 12/21/23 prazosin 5 mg capsule 5 mg PO BEDTIME 12/21/23 12/21/23 spironolactone 25 mg tablet 25 mg PO DAILY 12/21/23 12/21/23 Previous Rx's ?Medication ?Instructions ?Recorded furosemide 40 mg tablet 40 mg PO DAILY 30 days #30 tabs 12/23/21 Allergies Allergy/AdvReac Type Severity Reaction Status Date / Time acetaminophen [Vicodin] Allergy Unknown Unknown Verified 12/20/23 22:40 hydrocodone [Vicodin] Allergy Unknown Unknown Verified 12/20/23 22:40 Review of Systems Review of Systems: Yes all other systems are reviewed and are negative PMFSH Past Medical History Attestation statement: The following information was validated with the patient. Source: old records reviewed Medical History Anxiety Heroin use Cocaine use Other and unspecified hyperlipidemia Essential hypertension Type 2 diabetes mellitus with unspecified complications Hypertension Diabetes 1.5, managed as type 1 Asthma Surgical History History of intestinal surgery H/O exploratory laparotomy Family History Family History Mother CAD (coronary artery disease) Diabetes HTN (hypertension) Father No problems noted. Social History Social History Household Members: None Housing: Apartment Do you presently have visiting nurse or other home services: No Alcohol intake: never Patient Tobacco Use Status: Current everyday Tobacco user Tobacco use type: Cigarette Cigarettes Per Day: 4 Years Smoked: 5 Smoked in Last 30 Days: Yes Use of substances other than those prescribed or required for medical reasons: Yes Substance Use Type: Crack/Cocaine and Heroin Advance Directives: Yes Advance Directives on File: Yes Advance Directives Date on File: 10/20/23 Do you have a plan to hurt others: No Plan service: No Current occupational status: unemployed Physical Exam Vital Signs: Vital Signs: Last Vital Signs Temp 97.4 F 12/21/23 13:53 Pulse 82 12/21/23 15:52 Resp 15 12/21/23 15:52 BP 118/64 12/21/23 15:52 Pulse Ox 97 12/21/23 15:52 O2 Del Method Room Air 12/21/23 15:52 BMI result Body Mass Index 29.2 Appearance: Alert.?Oriented to person, place and time. No acute distress.?Normal affect. Eyes: Pupils equal, round and reactive to light.? ENT: Pharynx normal.?? Neck: Normal inspection.? Neck supple.?? CVS: Heart sounds normal. Normal heart rate and rhythm.? Pulses normal.?? Respiratory: No respiratory distress.? Lung sounds clear to auscultation bilaterally?? Abdomen: Soft and non-tender. Normoactive bowel sounds. Skin: Skin warm and dry.? Normal skin color.? Extremities: No lower extremity edema.? No calf ttp? Neuro: Moves all extremities spontaneously. Sensation intact bilaterally. CN II-XII intact. No focal neuro deficits. Ambulates with normal steady gait. Course Reevaluation(s) Reevaluation #1: Renal function improving back towards baseline, patient requesting assistance with detox, we discussed possible inpatient admission for management of ARELIS, he declined hospital admission, states he just wants to go to detox. He is eating and drinking. Patient receive an additional L of IV fluids, will trend renal function. Patient signed out to Estefany Nj NP for re-evaluation and disposition planning Medications Administered Generic Name Dose Route Start Last Admin Trade Name Freq PRN Reason Stop Dose Admin Insulin Human Lispro 14 unit 12/21/23 16:30 12/21/23 16:28 Insulin Lispro 100 Unit/Ml 3 Ml Vial SUBCUT 14 unit TIDAC KVEIN Administration Metformin HCl 1,000 mg 12/21/23 17:00 12/21/23 16:28 Metformin Hcl 1,000 Mg Tablet PO 1,000 mg BIDWM KEVIN Administration Discontinued Medications Generic Name Dose Route Start Last Admin Trade Name Dangelo PRN Reason Stop Dose Admin Sodium Chloride 1,000 mls @ 999 mls/hr 12/21/23 07:15 12/21/23 09:45 Ns IV 12/21/23 09:15 Infused .Q1H1M KEVIN Infusion Insulin Human Lispro 10 unit 12/21/23 10:51 12/21/23 11:12 Insulin Lispro 100 Unit/Ml 3 Ml Vial SUBCUT 12/21/23 10:52 10 unit ONCE ONE Administration Methadone HCl 75 mg 12/21/23 10:51 12/21/23 11:09 Methadone Hcl 20 Mg/2 Ml Oral.Conc PO 12/21/23 10:52 75 mg ONCE ONE Administration Sodium Zirconium Cyclosilicate 10 gm 12/21/23 07:03 12/21/23 07:34 Sodium Zirconium Cyclosilicate 10 Gm Powd.Pack PO 12/21/23 07:04 10 gm ONCE ONE Administration Medical Decision Making Medical Decision Making [facility] Narrative: Patient is a 53-year-old male with past medical history of polysubstance use disorder, hypertension who presents to the emergency department for evaluation of chest pain as per HPI. At the time of my evaluation has pain has resolved. He has been sleeping on the stretcher overnight, eating and drinking, no additional complaints were reported to nursing staff. I reviewed labs obtained prior to my assumption of care; CBC reveals no leukocytosis, baseline normocytic anemia that does not meet transfusion criteria, no thrombocytosis or thrombocytopenia. Chemistries reveal a mild hyperkalemia of 5.3 with ARELIS BUN 70 creatinine 2.82, I suspect this is likely secondary to dehydration, plan to hydrate patient with 2 L IV fluid and re-evaluate. High sensitive troponin is within normal range x2, EKG revealing normal sinus rhythm with ventricular rate of 91, QTC 435, no ST elevation, no ST depression, no T-wave inversions or acute hyperkalemic changes, appears unchanged compared to prior EKG in September of 2023. Do not suspect pain secondary to ACS. Toxicology is positive for opiates methadone fentanyl and cocaine. He reports following with [facility] methadone clinic, last seen there 12/17 reportedly and receives take home bottles. Differential Diagnosis Differential Diagnoses: The differential diagnosis associated with the presentation includes (Acute dehydration, acute kidney injury, polysubstance use disorder, ACS, musculoskeletal pain, GERD) Admission/Observation Consideration of admission/observation: Escalation of care including admission/observation considered Lab Data MDM Lab Attestation statement: I reviewed the patient's lab results. (See narrative above) 12/21/23 00:59 12/21/23 09:56 Labs: Lab Results 12/21/23 12/21/23 12/21/23 Range/Units 00:59 01:00 02:00 WBC 7.0 (4.8-10.8) X10*3/uL RBC 2.87 L (4.60-5.80) X10*6/uL Hgb 9.4 L (14.0-18.0) g/dl Hct 26.8 L (42.0-52.0) % MCV 93.4 (80.0-98.0) fL MCH 32.8 (27.0-33.0) pg MCHC 35.1 (31.0-36.0) g/dl RDW 12.5 (11.0-16.0) % Plt Count 188 (160-400) X10*3/uL MPV 8.9 L (9.4-12.4) fL Immature Gran % (Auto) 0.1 (0.0-0.4) % Neut % (Auto) 61.1 (45-73) % Lymph % (Auto) 30.3 (20-40) % [place] % (Auto) 6.7 (2-11) % Eos % (Auto) 1.7 (0-4) % Baso % (Auto) 0.1 (0-2) % Lymph # (Auto) 2.1 (1.2-4.9) X10*3/uL [place] # (Auto) 0.5 (0.1-1.2) X10*3/uL Eos # (Auto) 0.1 (0.0-0.4) X10*3/uL Baso # (Auto) 0.0 (0.0-0.2) X10*3/uL Abs Immat Gran (auto) 0.01 (0.00-0.03) X10*3/uL Absolute Neuts (auto) 4.3 (2.0-8.3) x10*3/uL Absolute Nucleated RBC 0.000 (0.0-0.012) X10*3/uL Nucleated RBC % (auto) 0.0 (0.0-0.2) /100WBC PT 11.6 (11.1-13.3) SEC INR 1.0 (0.9-1.1) Sodium 139 (135-145) mmol/L Potassium 5.3 H (3.3-5.1) mmol/L Chloride 105 (96-108) mmol/L Carbon Dioxide 26 (22-29) mmol/L Anion Gap 13 (12-20) BUN 70 H (9-16) mg/dL Creatinine 2.82 H (0.5-1.4) mg/dL Estim Creat Clear Calc 28.4 Estimated GFR 24 POC Glucose (60-115) mg/dL Random Glucose 308 H (60-115) mg/dL Calcium 9.5 (8.4-10.2) mg/dL Troponin I High Sens 5.2 (<3.5-35.0) ng/L Urine Color Yellow Urine Appearance Clear Urine pH 6.5 (5.0-9.0) Ur Specific [place] 1.020 (1.005-1.025) Urine Protein Negative (Neg-Trace) mg/dL Urine Glucose (UA) >=1000 H (Negative) mg/dL Urine Ketones Negative (Negative) mg/dL Urine Blood Negative (Negative) Urine Nitrite Negative (Negative) Ur Leukocyte Esterase Negative (Negative) Urine RBC 0-2 (0-2) /HPF Urine WBC 0-5 (0-5) /HPF Ur Squamous Epith Cells 0-2 (0-2) /HPF Urine Bacteria None Seen (None Seen) Hyaline Casts 0-2 (0-2) /LPF Urine Opiates Screen (Not Detect) Ur Buprenorphine Scrn (Not Detect) ng/mL Ur Oxycodone Screen (Not Detect) ng/mL Urine Methadone Screen (Not Detect) ng/mL Urine Fentanyl Screen (Not Detect) Ur Barbiturates Screen (Not Detect) Ur Phencyclidine Scrn (Not Detect) Ur Amphetamines Screen (Not Detect) U Benzodiazepines Scrn (Not Detect) Urine Cocaine Screen (Not Detect) U Marijuana (THC) Screen (Not Detect) 12/21/23 12/21/23 12/21/23 Range/Units 02:01 05:32 09:56 WBC (4.8-10.8) X10*3/uL RBC (4.60-5.80) X10*6/uL Hgb (14.0-18.0) g/dl Hct (42.0-52.0) % MCV (80.0-98.0) fL MCH (27.0-33.0) pg MCHC (31.0-36.0) g/dl RDW (11.0-16.0) % Plt Count (160-400) X10*3/uL MPV (9.4-12.4) fL Immature Gran % (Auto) (0.0-0.4) % Neut % (Auto) (45-73) % Lymph % (Auto) (20-40) % Haywood % (Auto) (2-11) % Eos % (Auto) (0-4) % Baso % (Auto) (0-2) % Lymph # (Auto) (1.2-4.9) X10*3/uL [place]wood # (Auto) (0.1-1.2) X10*3/uL Eos # (Auto) (0.0-0.4) X10*3/uL Baso # (Auto) (0.0-0.2) X10*3/uL Abs Immat Gran (auto) (0.00-0.03) X10*3/uL Absolute Neuts (auto) (2.0-8.3) x10*3/uL Absolute Nucleated RBC (0.0-0.012) X10*3/uL Nucleated RBC % (auto) (0.0-0.2) /100WBC PT (11.1-13.3) SEC INR (0.9-1.1) Sodium 140 (135-145) mmol/L Potassium 5.2 H (3.3-5.1) mmol/L Chloride 112 H (96-108) mmol/L Carbon Dioxide 19 L (22-29) mmol/L Anion Gap 14 (12-20) BUN 55 H (9-16) mg/dL Creatinine 1.83 H (0.5-1.4) mg/dL Estim Creat Clear Calc 43.8 Estimated GFR 39 POC Glucose (60-115) mg/dL Random Glucose 333 H (60-115) mg/dL Calcium 9.1 (8.4-10.2) mg/dL Troponin I High Sens 5.0 (<3.5-35.0) ng/L Urine Color Urine Appearance Urine pH (5.0-9.0) Ur Specific Carville (1.005-1.025) Urine Protein (Neg-Trace) mg/dL Urine Glucose (UA) (Negative) mg/dL Urine Ketones (Negative) mg/dL Urine Blood (Negative) Urine Nitrite (Negative) Ur Leukocyte Esterase (Negative) Urine RBC (0-2) /HPF Urine WBC (0-5) /HPF Ur Squamous Epith Cells (0-2) /HPF Urine Bacteria (None Seen) Hyaline Casts (0-2) /LPF Urine Opiates Screen POSITIVE H (Not Detect) Ur Buprenorphine Scrn Not Detected (Not Detect) ng/mL Ur Oxycodone Screen Not Detected (Not Detect) ng/mL Urine Methadone Screen Positive H (Not Detect) ng/mL Urine Fentanyl Screen POSITIVE H (Not Detect) Ur Barbiturates Screen Not Detected (Not Detect) Ur Phencyclidine Scrn Not Detected (Not Detect) Ur Amphetamines Screen Not Detected (Not Detect) U Benzodiazepines Scrn Not Detected (Not Detect) Urine Cocaine Screen POSITIVE H (Not Detect) U Marijuana (THC) Screen Not Detected (Not Detect) 12/21/23 12/21/23 12/21/23 Range/Units 13:20 13:52 15:31 WBC (4.8-10.8) X10*3/uL RBC (4.60-5.80) X10*6/uL Hgb (14.0-18.0) g/dl Hct (42.0-52.0) % MCV (80.0-98.0) fL MCH (27.0-33.0) pg MCHC (31.0-36.0) g/dl RDW (11.0-16.0) % Plt Count (160-400) X10*3/uL MPV (9.4-12.4) fL Immature Gran % (Auto) (0.0-0.4) % Neut % (Auto) (45-73) % Lymph % (Auto) (20-40) % Haywood % (Auto) (2-11) % Eos % (Auto) (0-4) % Baso % (Auto) (0-2) % Lymph # (Auto) (1.2-4.9) X10*3/uL [place]wood # (Auto) (0.1-1.2) X10*3/uL Eos # (Auto) (0.0-0.4) X10*3/uL Baso # (Auto) (0.0-0.2) X10*3/uL Abs Immat Gran (auto) (0.00-0.03) X10*3/uL Absolute Neuts (auto) (2.0-8.3) x10*3/uL Absolute Nucleated RBC (0.0-0.012) X10*3/uL Nucleated RBC % (auto) (0.0-0.2) /100WBC PT (11.1-13.3) SEC INR (0.9-1.1) Sodium (135-145) mmol/L Potassium (3.3-5.1) mmol/L Chloride (96-108) mmol/L Carbon Dioxide (22-29) mmol/L Anion Gap (12-20) BUN (9-16) mg/dL Creatinine (0.5-1.4) mg/dL Estim Creat Clear Calc Estimated GFR POC Glucose 36 L* 110 203 H (60-115) mg/dL Random Glucose (60-115) mg/dL Calcium (8.4-10.2) mg/dL Troponin I High Sens (<3.5-35.0) ng/L Urine Color Urine Appearance Urine pH (5.0-9.0) Ur Specific [place] (1.005-1.025) Urine Protein (Neg-Trace) mg/dL Urine Glucose (UA) (Negative) mg/dL Urine Ketones (Negative) mg/dL Urine Blood (Negative) Urine Nitrite (Negative) Ur Leukocyte Esterase (Negative) Urine RBC (0-2) /HPF Urine WBC (0-5) /HPF Ur Squamous Epith Cells (0-2) /HPF Urine Bacteria (None Seen) Hyaline Casts (0-2) /LPF Urine Opiates Screen (Not Detect) Ur Buprenorphine Scrn (Not Detect) ng/mL Ur Oxycodone Screen (Not Detect) ng/mL Urine Methadone Screen (Not Detect) ng/mL Urine Fentanyl Screen (Not Detect) Ur Barbiturates Screen (Not Detect) Ur Phencyclidine Scrn (Not Detect) Ur Amphetamines Screen (Not Detect) U Benzodiazepines Scrn (Not Detect) Urine Cocaine Screen (Not Detect) U Marijuana (THC) Screen (Not Detect) Independent Interpretation I performed an independent interpretation of an: EKG (See narrative above) External Record Review External record reviewed: Outpatient record Discharge Plan Discharge Clinical Impression: Polysubstance use disorder, ARELIS (acute kidney injury) Patient Disposition: Still a Patient Prescriptions: No Action pantoprazole 40 mg tablet,delayed release (DR/EC) 40 mg PO DAILY@0630 atorvastatin 20 mg tablet 20 mg PO BEDTIME methadone 10 mg/5 mL Solution 75 mg PO DAILY olanzapine 15 mg tablet 15 mg PO BEDTIME Certavite-Antioxidant 18-400 mg-mcg Tablet 1 tab PO DAILY furosemide 40 mg Tablet 40 mg PO DAILY 30 Days Qty: 30 0RF Protocol: Hold for SBP< HOLD for SBP < : 90 docusate sodium 100 mg capsule 100 mg PO BID fluticasone propionate 50 mcg/actuation spray,suspension 1 spray intranasal DAILY PRN (Reason: Allergy Symptoms) insulin aspart U-100 [Novolog FlexPen U-100 Insulin] 100 unit/mL (3 mL) insulin pen 14 unit subcut TIDAC hydroxyzine HCl 50 mg tablet 50 mg PO TID PRN (Reason: anxiety or sleep) insulin glargine [Lantus Solostar U-100 Insulin] 100 unit/mL (3 mL) insulin pen 26 unit subcut BEDTIME metformin 500 mg tablet 1,000 mg PO BIDWM lisinopril 20 mg tablet 20 mg PO DAILY spironolactone 25 mg tablet 25 mg PO DAILY Jardiance 10 mg tablet 10 mg PO DAILY Arnuity Ellipta 200 mcg/actuation blister with device 1 inh INHALATION DAILY prazosin 5 mg Capsule 5 mg PO BEDTIME ibuprofen 600 mg Tablet 600 mg PO BID PRN (Reason: Pain) albuterol sulfate [Ventolin HFA] 90 mcg/actuation Hfa Aerosol Inhaler 2 puff INHALATION Q6H PRN (Reason: Shortness Of Breath Or Wheezing) Print Language: Australian
--- NOTE | 2023-12-21 08:28 | PC.NURSE ---
[facility] called and Methadone verified, Jim INVESTMENT CONSULTANT aware
--- NOTE | 2023-12-21 10:13 | PC.NURSE ---
pt sleeping, woke to verbal stimulus, pt a&o once awake, c/o 10/10 mid sternal chest pain, ivf have completed, repeat labs drawn, monitoring tech nsr 70s, lungs diminished/clear, rr equal non labored, call verdugo within reach, will continue to monitor
[2023-12-21 10:26] LABS: Anion Gap 14 (12-20); Blood Urea Nitrogen 55 mg/dL (9-16); Calcium 9.1 mg/dL (8.4-10.2); Carbon Dioxide 19 mmol/L (22-29); Chloride 112 mmol/L (96-108); Creatinine Clr Calc Pharmacy 43.8; Estimated Glomerular Filt Rate 39; Glucose Random 333 mg/dL (60-115); Potassium 5.2 mmol/L (3.3-5.1); Sodium 140 mmol/L (135-145)
--- NOTE | 2023-12-21 10:56 | HE.PHANOTE ---
RE METHADONE VERIFICATION LAST DOSE 75 MG GIVEN 12/19/23 @[facility]
--- NOTE | 2023-12-21 10:59 | PC.NURSE ---
called pharmacy to do med req, they stated they will get to the med req after the admission med reqs.
[2023-12-21] MEDS: methADONE HCl 20 MG/2 ML ORAL.CONC 75 MG PO (11:09)
[2023-12-21] MEDS: Insulin Lispro 100 UNIT/ML 3 ML VIAL 10 UNIT SUBCUT (11:12)
--- NOTE | 2023-12-21 11:13 | PC.NURSE ---
pt medicacted per orders
--- NOTE | 2023-12-21 13:27 | PC.NURSE ---
Addendum entered by Tahira Lyons RN 12/21/23 13:28: provider notified of poc Original Note: patient woke and stated he felt sweaty and stated he knows his BS is low as this always happens to him, poc obtaind was found to be in the 30s, pt given OJ and sandwich will recheck poc.
[2023-12-21 13:35] LABS: Glucose, Whole Blood 36 mg/dL (60-115)
[2023-12-21 13:55] LABS: Glucose, Whole Blood 110 mg/dL (60-115)
--- NOTE | 2023-12-21 13:59 | PHA.MEDREC ---
Addendum entered by Brody Son 12/21/23 13:59: Utilized abseiling instructor services. Original Note: Pharmacy Consult ? Medication Reconciliation Pharmacy has completed the medication reconciliation. Patient brought in all meds with them.
[2023-12-21 15:35] LABS: Glucose, Whole Blood 203 mg/dL (60-115)
[2023-12-21] MEDS: metFORMIN HCl 1,000 MG TABLET 1000 MG PO (16:28)
[2023-12-21] MEDS: Insulin Lispro 100 UNIT/ML 3 ML VIAL 14 UNIT SUBCUT (16:28)
--- NOTE | 2023-12-21 19:46 | PC.NURSE ---
Addendum entered by Paul Hutson 12/21/23 20:08: pt refused to continue ivf. Original Note: pt requesting to leave Adali DOVER NP made aware, pt agreeable to having BNP levels drawn prior to leaving. PCT at bedside now to obtain labs. pt denies cp/sob/n/v/d. pt denies si/hi. pt is axox4 ambulatory with steady gait, vss, nsr on monitor.
[2023-12-21 20:40] LABS: Anion Gap 15 (12-20); Blood Urea Nitrogen 41 mg/dL (9-16); Calcium 9.8 mg/dL (8.4-10.2); Carbon Dioxide 25 mmol/L (22-29); Chloride 114 mmol/L (96-108); Creatinine Clr Calc Pharmacy 62.1; Estimated Glomerular Filt Rate 58; Glucose Random 90 mg/dL (60-115); Potassium 5.3 mmol/L (3.3-5.1); Sodium 149 mmol/L (135-145)
== END 2023-12-21 20:22 | disposition left against medical advice (07) ==
PROVIDERS: Nurse Practitioner Family; Registered Nurse Emergency; Emergency Provider Emergency Medicine
DX: F19.10 Other psychoactive substance abuse, uncomplicated (principal); N17.9 Acute kidney failure, unspecified; R07.9 Chest pain, unspecified; Z53.29 Procedure and treatment not carried out because of patient's decision for other reasons; E10.9 Type 1 diabetes mellitus without complications; I10 Essential (primary) hypertension; E78.5 Hyperlipidemia, unspecified; F11.20 Opioid dependence, uncomplicated; F17.210 Nicotine dependence, cigarettes, uncomplicated; Z79.02 Long term (current) use of antithrombotics/antiplatelets; Z79.4 Long term (current) use of insulin; Z79.899 Other long term (current) drug therapy; Z79.84 Long term (current) use of oral hypoglycemic drugs
CPT/HCPCS: 36415; 80048; 80307; 81001; 82947; 84484; 85025; 85610; 93005; 96360; 96361; 99285

== ENCOUNTER → 2023-12-20 22:37 | Outpatient (BNV) | payer OTHER, SELFPAY | PROVIDERS: Emergency Provider Emergency Medicine; Visit Provider Internal Medicine | DX: R07.9 Chest pain, unspecified (principal); R94.31 Abnormal electrocardiogram [ECG] [EKG] | CPT/HCPCS: 93010 ==

== ENCOUNTER 2024-03-11 13:27 | Outpatient (REF) | payer OTHER, SELFPAY ==
[2024-03-11 16:24] LABS: Anion Gap 16 (12-20); Blood Urea Nitrogen 40 mg/dL (9-16); Calcium 9.7 mg/dL (8.4-10.2); Carbon Dioxide 29 mmol/L (22-29); Chloride 98 mmol/L (96-108); Estimated Glomerular Filt Rate 20; Glucose Random 222 mg/dL (60-115); Potassium 5.4 mmol/L (3.3-5.1); Sodium 138 mmol/L (135-145)
[2024-03-11 16:31] LABS: Estimated Average Glucose 163 mg/dL; Hemoglobin A1c % 7.3 % (<6.0)
== END 2024-03-11 13:28 | disposition home or self-care (01) ==
LOC: HO.HHCL 13:27
PROVIDERS: Referring Provider Internal Medicine; Visit Provider Nurse Practitioner Primary Care
DX: E11.69 Type 2 diabetes mellitus with other specified complication (principal); N17.9 Acute kidney failure, unspecified; E78.5 Hyperlipidemia, unspecified
CPT/HCPCS: 36415; 80048; 83036

== ENCOUNTER 2024-12-31 22:53 | Emergency (ER) | payer OTHER, SELFPAY ==
[2024-12-31 23:05] VITALS: BP 120/68; PULSE 87; O2SAT 97
[2024-12-31 23:17] VITALS: BP 100/46; PULSE 92; RESP 16; TEMP 36.8; O2SAT 98; BMI 28.4
--- NOTE | 2024-12-31 23:23 | ED.GENADULT ---
HPI - General Adult General Chief complaint: General Medical Stated complaint: pain on both nipples? Time Seen by Provider: 12/31/24 22:57 Source: patient and EMS Limitations: no limitations History of Present Illness ED Provider: Dr. Bharti Whaley HPI narrative: patient comes to the emergency room complaining of 3 weeks of bilateral nipple pain. Patient states that his nipples are tender to touch. Denies any drainage. Denies any abscesses or lumps. Denies any fever chills, denies chest pain Related Data Home Medications ?Medication ?Instructions ?Recorded ?Confirmed atorvastatin 20 mg tablet 20 mg PO BEDTIME 12/21/21 12/21/23 methadone 10 mg/5 mL oral solution 75 mg PO DAILY 12/21/21 12/21/23 multivitamin-ferrous 1 tab PO DAILY 12/21/21 12/21/23 fumarate-folic acid 18 mg-400 mcg tablet (Certavite-Antioxidant) olanzapine 15 mg tablet 15 mg PO BEDTIME 12/21/21 12/21/23 pantoprazole 40 mg tablet,delayed 40 mg PO DAILY@0630 12/21/21 12/21/23 release docusate sodium 100 mg capsule 100 mg PO BID 01/29/23 12/21/23 fluticasone propionate 50 1 spray intranasal DAILY PRN 01/29/23 12/21/23 mcg/actuation nasal Allergy Symptoms spray,suspension insulin aspart U-100 100 unit/mL 14 unit subcut TIDAC 01/29/23 12/21/23 (3 mL) subcutaneous pen (Novolog FlexPen U-100 Insulin aspart) metformin 500 mg tablet 1,000 mg PO BIDWM 08/25/23 12/21/23 hydroxyzine HCl 50 mg tablet 50 mg PO TID PRN anxiety or sleep 10/16/23 12/21/23 insulin glargine 100 unit/mL (3 26 unit subcut BEDTIME 10/16/23 12/21/23 mL) subcutaneous pen (Lantus Solostar U-100 Insulin) albuterol sulfate 90 mcg/actuation 2 puff inhalation Q6H PRN 12/21/23 12/21/23 aerosol inhaler (Ventolin HFA) Shortness Of Breath Or Wheezing empagliflozin 10 mg tablet 10 mg PO DAILY 12/21/23 12/21/23 (Jardiance) fluticasone furoate 200 1 inh inhalation DAILY 12/21/23 12/21/23 mcg/actuation blister powder for inhalation (Arnuity Ellipta) ibuprofen 600 mg tablet 600 mg PO BID PRN Pain 12/21/23 12/21/23 lisinopril 20 mg tablet 20 mg PO DAILY 12/21/23 12/21/23 prazosin 5 mg capsule 5 mg PO BEDTIME 12/21/23 12/21/23 spironolactone 25 mg tablet 25 mg PO DAILY 12/21/23 12/21/23 Previous Rx's ?Medication ?Instructions ?Recorded furosemide 40 mg tablet 40 mg PO DAILY 30 days #30 tabs 12/23/21 Allergies Allergy/AdvReac Type Severity Reaction Status Date / Time acetaminophen [Vicodin] Allergy Unknown Unknown Verified 12/31/24 23:18 hydrocodone [Vicodin] Allergy Unknown Unknown Verified 12/31/24 23:18 Review of Systems Review of Systems: Constitutional : No Weight loss, No Fever, No Chills, No Night Sweats, No Fatigue, No Malaise ENT/Mouth : No Hearing loss, No Ear Pain, No Nasal Congestion, No Sinus Pain, No Hoarseness, No sore throat, No Rhinorrhea, No Swallowing Difficulty Eyes: No Eye Pain, No Swelling, No Redness, No Foreign Body, No Discharge, No Vision Changes Cardiovascular : No Chest Pain, No SOB, No Dyspnea on Exertion, No Orthopnea, No Edema, No Palpitations Respiratory : No Cough, No Sputum, No Wheezing, No Smoke Exposure, No Dyspnea Gastrointestinal : No Nausea, No Vomiting, No Diarrhea, No Constipation, No abdominal Pain, No Hematochezia, No Melena Genitourinary : no irregular bleeding, No Dysuria, No Urinary Frequency, No Hematuria, No Urinary Incontinence, No Urgency, No Flank Pain, No Urinary Flow Changes, No Hesitancy Musculoskeletal : No joint pain, No Myalgias, No Joint Swelling Skin : No Skin Lesions, No rash, complaining of nipple sensitivity Neuro : No Weakness, No Numbness, No Paresthesias, No Loss of Consciousness, No Dizziness, No Headache Psych : No Anxiety/Panic, No Depression, No SI/HI/AH/VH, No Social Issues, Heme/Lymph: No Bruising, No Bleeding,No Lymphadenopathy Endocrine : No Polyuria, No Polydipsia, No Temperature Intolerance PMFSH Past Medical History Medical History Anxiety Heroin use Cocaine use Other and unspecified hyperlipidemia Essential hypertension Type 2 diabetes mellitus with unspecified complications Hypertension Diabetes 1.5, managed as type 1 Asthma Surgical History History of intestinal surgery H/O exploratory laparotomy Family History Family History Mother CAD (coronary artery disease) Diabetes HTN (hypertension) Father No problems noted. Social History Social History Household Members: None Housing: Apartment Do you presently have visiting nurse or other home services: No Alcohol intake: never Patient Tobacco Use Status: Current everyday Tobacco user Tobacco use type: Cigarette Cigarettes Per Day: 4 Years Smoked: 5 Substance Use Type: Crack/Cocaine and Heroin Advance Directives Date on File: 10/20/23 service: No Current occupational status: unemployed Physical Exam ED Vital Signs: Vital Signs - 24 hr 12/31/24 23:17 Temperature 98.3 F Pulse Rate 92 Respiratory Rate 16 Blood Pressure 100/46 L Pulse Oximetry 98 Oxygen Delivery Method Room Air BMI result Body Mass Index 28.4 Const Other: Appearance: Alert. Oriented X3. No acute distress. Eyes: Pupils equal, round and reactive to light. ENT: Pharynx normal. Neck: Normal inspection. Neck supple. No lymph nodes noted. No crepitus CVS: Normal heart rate and rhythm. Pulses normal. Normal S1 and S2 Respiratory: No respiratory distress. Breath sounds normal. No Wheezing. No rales Abdomen: Soft and nontender. No rigidity. No distention. Skin: Skin warm and dry. Normal skin color. Normal skin turgor. patient's nipples are normal for a male, no palpable abscesses, no cellulitis, no discharge, did not seem to have any pain on palpation Extremities: No lower extremity edema. No Lacerations. No Rash Neuro: Oriented X 3. No motor deficit. No sensory deficit. Moving all extremities. No slurred speech. CN 2 through 12 grossly intact Psych: calm, cooperative, normal affect Course Course Course Narrative: patient came in by ambulance complaining of bilateral nipple pain, sensitivity to touch. Medical Decision Making Medical Decision Making MDM Narrative: I discussed the physical exam with the patient, no obvious abnormality. I discussed with the patient to try Tylenol/ Motrin p.r.n. pain, also I discussed with the patient the that if he continues having hypersensitivity, his PCP may order an ultrasound. However, at this time, I do not suspect any obvious pathology Discharge Plan Discharge Clinical Impression: Nipple pain Patient Disposition: Home, Self-Care Instructions: Normal Exam (ED) Additional Instructions: Please follow-up with your primary care physician tomorrow. If you have any worsening or new symptoms, please return to the emergency room or call 911 Prescriptions: No Action pantoprazole 40 mg tablet,delayed release (DR/EC) 40 mg PO DAILY@0630 atorvastatin 20 mg tablet 20 mg PO BEDTIME methadone 10 mg/5 mL Solution 75 mg PO DAILY olanzapine 15 mg tablet 15 mg PO BEDTIME Certavite-Antioxidant 18-400 mg-mcg Tablet 1 tab PO DAILY furosemide 40 mg Tablet 40 mg PO DAILY 30 Days Qty: 30 0RF Protocol: Hold for SBP< HOLD for SBP < : 90 docusate sodium 100 mg capsule 100 mg PO BID fluticasone propionate 50 mcg/actuation spray,suspension 1 spray intranasal DAILY PRN (Reason: Allergy Symptoms) insulin aspart U-100 [Novolog FlexPen U-100 Insulin] 100 unit/mL (3 mL) insulin pen 14 unit subcut TIDAC hydroxyzine HCl 50 mg tablet 50 mg PO TID PRN (Reason: anxiety or sleep) insulin glargine [Lantus Solostar U-100 Insulin] 100 unit/mL (3 mL) insulin pen 26 unit subcut BEDTIME metformin 500 mg tablet 1,000 mg PO BIDWM lisinopril 20 mg tablet 20 mg PO DAILY spironolactone 25 mg tablet 25 mg PO DAILY Jardiance 10 mg tablet 10 mg PO DAILY Arnuity Ellipta 200 mcg/actuation blister with device 1 inh INHALATION DAILY prazosin 5 mg Capsule 5 mg PO BEDTIME ibuprofen 600 mg Tablet 600 mg PO BID PRN (Reason: Pain) albuterol sulfate [Ventolin HFA] 90 mcg/actuation Hfa Aerosol Inhaler 2 puff INHALATION Q6H PRN (Reason: Shortness Of Breath Or Wheezing) Print Language: Greenlandic
[2024-12-31 23:40] VITALS: BP 100/46; PULSE 92; RESP 16; TEMP 36.8; O2SAT 98
== END 2024-12-31 23:51 | disposition home or self-care (01) ==
LOC: HO.ED 01-01 00:05
PROVIDERS: Emergency Provider Emergency Medicine
DX: N64.4 Mastodynia (principal)
CPT/HCPCS: 99282; 99284

== ENCOUNTER 2025-07-08 08:18 | Outpatient (REF) | payer OTHER, SELFPAY ==
--- OUTSIDE RECORDS SUMMARY | 2025-07-08 08:23 | XMS_ITS | Encounter Summary ---
Author Organization [email or web address] Address [address] [place] [address] [address] [place] [address] Care Team Providers Care Business Development Consultant Name Role Phone Sujatha Dawn DANE Primary Care Provider [phone] Reason for Visit * Reason Onset Date Comments Appointment 09/24/2022 Encounter Details Date Type Department Care Team (Late st Contact Info) Description 09/24/2022 Telephone [facility] [address] [place] [address] Patti Farias DDS Appointment Social History Tobacco Use Types Packs/Day Years Used Date Smoking Tobacco: Some Days Cigarettes Smokeless Tobacco: Never Depression Answer Date Recorded Patient Health Questionnaire-9 Score 27 08/13/2022 Depression Answer Date Recorded Patient Health Questionnaire-2 Score 6 08/13/2022 Sex and Gender Information Value Date Recorded Sex Assigned at Male 05/20/2022 10:14 AM EDT Legal Sex Male 10:14 AM EDT Gender Identity Male 05/20/2022 10:14 AM EDT Sexual Orientation Choose not to disclose 2021 10:14 AM EDT COVID-19 Exposure Response Date Recorded In the last 10 days, have yo u been in contact with someone who was confirmed or suspected to have Coronavirus/COVID-19? No / Unsure 09/25/2022 1:17 PM EST documented as of this encounter Miscellaneous Notes * Telephone Encounter - Vicky Velez - 09/24/2022 11:30 AM EST John Spivey 1970 Patient called in to find out if dentures are in office. Please advise documented in this encounter Plan of Treatment Upcoming Encounters Date Type Department Care Team (Late st Contact Info) Description 07/11/2025 2:30 PM EST Office Visit [facility] [address] [place] [address] Sujatha Dawn ANP [address] [place] [address] documented as of this encounter Visit Diagnoses Not on filedocumented in this encounter Additional Health Concerns Assessment Noted Time PHQ-9 Depression Total Score: 27 023 11:18 AM EST documented as of this encounter Care Teams Business Development Consultant Relationship Specialty Start Date End Date Sujatha Dawn ANP [address] [place] [address] PCP - General Family Medicine 03/12/22 documented as of this encounter
--- OUTSIDE RECORDS SUMMARY | 2025-07-08 08:23 | XMS_ITS | Encounter Summary ---
Author Organization [employer] Address [address] [place] [address] [address] [place] [address] Care Team Providers Care Fat Pressroom Worker Name Role Phone Sujatha Dawn Primary Care Provider [phone] Reason for Visit * Reason Comments Med Refill Encounter Details Date Type Department Care Team ([facility] st Contact Info) Description 06/24/2024 Refill [facility] [address] [place] [address] Sujatha Dawn ANP [address] [place] [address] Social History Tobacco Use Types Packs/Day Years Used Date Smoking Tobacco: Every Day Cigarettes Passive Smoke Exposure: Current Smokeless Tobacco: Never Alcohol Use Standard Drinks/Week Comments Not Currently 0 (1 standard drink = 0.6 oz pur e alcohol) Depression Answer Date Recorded Patient Health Questionnaire-9 Score 18 06/05/2023 Patient Health Questionnaire-9 Score 18 06/05/2023 Last PHQ-9: Questionnaire Data Not on file 1 08/05/2022 Housing Stability Answer Date Recorded What is your housing situation today? I have vera painter 05/06/[address] you li ve. Do you have problems with any of the following? None of the above 05/06/2023 Food Insecurity Answer Date Recorded Within the past 12 months, y ou worried that your food would run out before you got money to buy more: Often true 05/06/2023 Within the past 12 months,th e food you bought just didn't last and you didn't have enough money to get more: Often true Transportation Answer Date Recorded In the past 12 months, has l ack of transportation kept you from medical appts, meetings, work or from getting things needed for daily living? Yes, it has kept me from medical appointments or getting medications. 04/29/2023 Utilities Answer Date Recorded In the past 12 months, has t he electric, gas, oil or water company threatened to shut off services in your home? No 05/06/2023 Depression Answer Date Recorded Patient Health Questionnaire-2 Score 6 06/05/2023 Sex and Gender Information Value Date Recorded Sex Assigned at Male 05/20/2022 10:14 AM EDT Legal Sex Male 10:14 AM EDT Gender Identity Male 05/20/2022 10:14 AM EDT Sexual Orientation Choose not to disclose 2021 10:14 AM EDT documented as of this encounter Plan of Treatment Upcoming Encounters Date Type Department Care Team (Late st Contact Info) Description 07/11/2025 2:30 PM EST Office Visit [facility] [address] [place] [address] Sujatha Dawn ANP [address] [place] [address] documented as of this encounter Visit Diagnoses Not on filedocumented in this encounter Additional Health Concerns Assessment Noted Time PHQ-9 Depression Total Score: 18 023 11:51 AM EST documented as of this encounter Care Teams Fat Pressroom Worker Relationship Specialty Start Date End Date Sujatha Dawn ANP [address] [place] [address] PCP - General Family Medicine 03/12/22 documented as of this encounter
--- OUTSIDE RECORDS SUMMARY | 2025-07-08 08:23 | XMS_ITS | Encounter Summary ---
Author Organization [employer] Address [address] [place] [address] [address] [place] [address] Care Team Providers Care Lobbyist Name Role Phone Sujatha Dawn Primary Care Provider [phone] Reason for Visit * Reason Onset Date Comments Appointment Request 07/01/2024 Encounter Details Date Type Department Care Team ([facility] st Contact Info) Description 07/01/2024 Telephone [facility] [address] [place] [address] Sujatha Dawn ANP [address] [place] [address] Appointment Request Social History Tobacco Use Types Packs/Day Years [...] AM EDT documented as of this encounter Miscellaneous Notes * Telephone Encounter - Uche Lizama - 07/01/2024 2:59 PM EST Tc from pt requesting to Schedule a PE for Program. Contact pt to schedule at [phone] ([place]) documented in this encounter Plan of Treatment Upcoming Encounters Date Type Department Care Team (Late st Contact Info) Description 07/11/2025 2:30 PM EST Office Visit [facility] [address] [place] [address] Sujatha Dawn ANP [address] [place] [address] documented as of this encounter Visit Diagnoses Not on filedocumented in this encounter Additional Health Concerns Assessment Noted Time PHQ-9 Depression Total Score: 18 023 11:51 AM EST documented as of this encounter Care Teams Lobbyist Relationship Specialty Start Date End Date Sujatha Dawn ANP [address] [place] [address] PCP - General Family Medicine 03/12/22 documented as of this encounter
--- OUTSIDE RECORDS SUMMARY | 2025-07-08 08:23 | XMS_ITS | Encounter Summary ---
Author Organization [employer] Address [address] [place] [address] [address] [place] [address] Care Team Providers Care Evp Global Product Leadership Name Role Phone Sujatha Dawn Primary Care Provider [phone] Reason for Visit * Reason Comments Med Refill Encounter Details Date Type Department Care Team ([facility] st Contact Info) Description 10/05/2024 Refill [facility] [address] [place] [address] Sujatha Dawn ANP [address] [place] [address] Social History Tobacco Use Types Packs/Day Years [...] Description 07/11/2025 2:30 PM EST Office Visit [facility] [address] [place] [address] Sujatha Dawn ANP [address] [place] [address] documented as of this encounter Visit Diagnoses Not on filedocumented in this encounter Additional Health Concerns Assessment Noted Time PHQ-9 Depression Total Score: 18 023 11:51 AM EST documented as of this encounter Care Teams Evp Global Product Leadership Relationship Specialty Start Date End Date Sujatha Dawn ANP [address] [place] [id number] PCP - General Family Medicine 03/12/22 documented as of this encounter
--- OUTSIDE RECORDS SUMMARY | 2025-07-08 08:23 | XMS_ITS | Encounter Summary ---
Author Organization [employer] Address [address] [place] [address] [address] [place] [address] Care Team Providers Care Co Founder Name Role Phone Sujatha Dawn Primary Care Provider [phone] Reason for Visit * Reason Onset Date Comments Med Refill 01/04/2025 Encounter Details Date Type Department Care Team ([facility] st Contact Info) Description 01/04/2025 Telephone [facility] [address] [place], [place] [phone] Sujatha Dawn ANP [address] [facility] [place] [address] Med Refill Social History Tobacco Use Types Packs/Day Years [...] encounter Miscellaneous Notes * Telephone Encounter - Rodrigo Shah - 01/04/2025 8:54 AM EDT TC from pt requesting medication refill. Medications needing refill : - insulin aspart (NovoLOG FLEXPEN) 100 UNIT/ML pen Disp Refills Start End insulin glargine (Lantus SoloStar) 100 UNIT/ML pen -TRUEplus Lancets 33G misc - glucose blood (FREESTYLE LITE) test strip To be sent to: [facility] - [place], [place] - [address] [place] [address] documented in this encounter Plan of Treatment Upcoming Encounters Date Type Department Care Team (Late st Contact Info) Description 07/11/2025 2:30 PM EST Office Visit [facility] [address] [place] [address] Sujatha Dawn ANP [address] [place] [address] documented as of this encounter Visit Diagnoses Not on filedocumented in this encounter Additional Health Concerns Assessment Noted Time PHQ-9 Depression Total Score: 18 023 11:51 AM EST documented as of this encounter Care Teams Co Founder Relationship Specialty Start Date End Date Sujatha Dawn ANP [address] [place] [address] PCP - General Family Medicine 03/12/22 documented as of this encounter"
--- OUTSIDE RECORDS SUMMARY | 2025-07-08 08:23 | XMS_ITS | Encounter Summary ---
Author Organization [employer] Address [address] [facility] [address] [place] [address] Care Team Providers Care Electrical Design Technician Name Role Phone Sujatha Dawn DANE Primary Care Provider [phone] Encounter Details Date Type Department Care Team ([facility] Contact Info) Description 07/05/2025 Telephone C OPTOMETRY [address] [place] [address] John, Renu, OD [address] [place] [address] Social History Tobacco Use Types Packs/Day Years [...] Description 07/11/2025 2:30 PM EST Office Visit [facility] [address] [place] [address] Sujatha Dawn ANP [address] [place], [place] [id number] documented as of this encounter Goals Goal Patient Goal Type Associated Problems Recent Progress Patient-Stated? Author Help patients manage their type 2 diabetes Care Plan Help patients manage their type 2 diabetes No Sergio Rizzo MA Weekly blood pressure task Care Plan Weekly blood pressure task No Sergio Rizzo MA Help patients manage their type 2 diabetes Care Plan Help patients manage their type 2 diabetes No Sergio Rizzo MA Patient has diabetic eye disease Care Plan Patient has diabetic eye disease No Sergio Rizzo MA Help patients manage their type 2 diabetes Care Plan Help patients manage their type 2 diabetes No Sergio iRzzo MA Patient has chronic kidney disease Care Plan Patient has chronic kidney disease No Sergio Rizzo MA Weekly blood pressure task Care Plan Weekly blood pressure task No Sergio Rizzo MA Weekly blood pressure task Care Plan Weekly blood pressure task No Sergio Rizzo MA Patient has diabetic eye disease Care Plan Patient has diabetic eye disease No Sergio Rizzo MA Patient has diabetic eye disease Care Plan Patient has diabetic eye disease No Sergio Rizzo MA Patient has chronic kidney disease Care Plan Patient has chronic kidney disease No Sergio Rizzo MA Patient has chronic kidney disease Care Plan Patient has chronic kidney disease No Sergio Rizzo MA Weekly blood pressure task Care Plan Weekly blood pressure task No Vic Nazario MA Weekly blood pressure task Care Plan Weekly blood pressure task No Vic Nazario MA Weekly blood pressure task Care Plan Weekly blood pressure task No Vic Nazario MA Patient has diabetic eye disease Care Plan Patient has diabetic eye disease No Vic Nazario MA Patient has diabetic eye disease Care Plan Patient has diabetic eye disease No Vic Nazario MA Patient has diabetic eye disease Care Plan Patient has diabetic eye disease No Vic Nazario MA Patient has chronic kidney disease Care Plan Patient has chronic kidney disease No Vic Nazario MA Patient has chronic kidney disease Care Plan Patient has chronic kidney disease No Vic Nazario MA Patient has chronic kidney disease Care Plan Patient has chronic kidney disease No Vic Nazario MA Weekly blood pressure task Care Plan Weekly blood pressure task No Shu Nazario Weekly blood pressure task Care Plan Weekly blood pressure task No Shu Nazario Weekly blood pressure task Care Plan Weekly blood pressure task No Shu Nazario Patient has diabetic eye disease Care Plan Patient has diabetic eye disease No Shu Nazario Patient has diabetic eye disease Care Plan Patient has diabetic eye disease No Shu Nazario Patient has diabetic eye disease Care Plan Patient has diabetic eye disease No Shu Nazario Patient has chronic kidney disease Care Plan Patient has chronic kidney disease No Shu Nazario Patient has chronic kidney disease Care Plan Patient has chronic kidney disease No Shu Nazario Patient has chronic kidney disease Care Plan Patient has chronic kidney disease No Shu Nazario Weekly blood pressure task Care Plan Weekly blood pressure task No Roxana Chow MA Weekly blood pressure task Care Plan Weekly blood pressure task No Roxana Chow MA Weekly blood pressure task Care Plan Weekly blood pressure task No Roxana Chow MA Patient has diabetic eye disease Care Plan Patient has diabetic eye disease No Roxana Chow MA Patient has diabetic eye disease Care Plan Patient has diabetic eye disease No Roxana Chow MA Patient has diabetic eye disease Care Plan Patient has diabetic eye disease No Roxana Chow MA Patient has chronic kidney disease Care Plan Patient has chronic kidney disease No Roxana Chow MA Patient has chronic kidney disease Care Plan Patient has chronic kidney disease No ChowSalima covingtonomy, [place] Patient has chronic kidney disease Care Plan Patient has chronic kidney disease No ChowRoxana covington, [place] Weekly blood pressure task Care Plan Weekly blood pressure task No Sharon Magallanesa, PharmD Weekly blood pressure task Care Plan Weekly blood pressure task No Elpidio Valerie, PharmD Weekly blood pressure task Care Plan Weekly blood pressure task No Elpidio Valerie, PharmD Patient has diabetic eye disease Care Plan Patient has diabetic eye disease No Elpidio Valerie, PharmD Patient has diabetic eye disease Care Plan Patient has diabetic eye disease No Elpidio Valerie, PharmD Patient has diabetic eye disease Care Plan Patient has diabetic eye disease No Elpidio Valerie, PharmD Patient has chronic kidney disease Care Plan Patient has chronic kidney disease No Elpidio Valerie, PharmD Patient has chronic kidney disease Care Plan Patient has chronic kidney disease No Elpidio Valerie, PharmD Patient has chronic kidney disease Care Plan Patient has chronic kidney disease No Sharon Magallanesa, PharmD Weekly blood pressure task Care Plan Weekly blood pressure task No Chawla, Lorenys Weekly blood pressure task Care Plan Weekly blood pressure task No Chawla, Lorenys Weekly blood pressure task Care Plan Weekly blood pressure task No Chawla, Lorenys Patient has diabetic eye disease Care Plan Patient has diabetic eye disease No Chawla, Lorenys Patient has diabetic eye disease Care Plan Patient has diabetic eye disease No Chawla, Lorenys Patient has diabetic eye disease Care Plan Patient has diabetic eye disease No Chawla, Lorenys Patient has chronic kidney disease Care Plan Patient has chronic kidney disease No Chawla, Lorenys Patient has chronic kidney disease Care Plan Patient has chronic kidney disease No Chawla, Lorenys Patient has chronic kidney disease Care Plan Patient has chronic kidney disease No Chawla, Lorenys Weekly blood pressure task Care Plan Weekly blood pressure task No Sharon Magallanesa, PharmD Weekly blood pressure task Care Plan Weekly blood pressure task No Sharon Magallanesa, PharmD Weekly blood pressure task Care Plan Weekly blood pressure task No Elpidio Valerie, PharmD Patient has diabetic eye disease Care Plan Patient has diabetic eye disease No Elpidio Valerie, PharmD Patient has diabetic eye disease Care Plan Patient has diabetic eye disease No Elpidio Valerie, PharmD Patient has diabetic eye disease Care Plan Patient has diabetic eye disease No Elpidio Valerie, PharmD Patient has chronic kidney disease Care Plan Patient has chronic kidney disease No Valerie Magallanes, PharmD Patient has chronic kidney disease Care Plan Patient has chronic kidney disease No Valerie Magallanes PharmD Patient has chronic kidney disease Care Plan Patient has chronic kidney disease No Valerie Magallanes PharmD Weekly blood pressure task Care Plan Weekly blood pressure task No Pratt, Zorylee Weekly blood pressure task Care Plan Weekly blood pressure task No Pratt, Zorylee Weekly blood pressure task Care Plan Weekly blood pressure task No Pratt, Zorylee Patient has diabetic eye disease Care Plan Patient has diabetic eye disease No Pratt, Zorylee Patient has diabetic eye disease Care Plan Patient has diabetic eye disease No Pratt, Zorylee Patient has diabetic eye disease Care Plan Patient has diabetic eye disease No Pratt Zorylee Patient has chronic kidney disease Care Plan Patient has chronic kidney disease No Pratt Zorylee Patient has chronic kidney disease Care Plan Patient has chronic kidney disease No Pratt, Zorylee Patient has chronic kidney disease Care Plan Patient has chronic kidney disease No Deepti Prattrylee Weekly blood pressure task Care Plan Weekly blood pressure task No Lidia Spence MA Weekly blood pressure task Care Plan Weekly blood pressure task No Lidia Spence MA Weekly blood pressure task Care Plan Weekly blood pressure task No Lidia Spence MA Patient has diabetic eye disease Care Plan Patient has diabetic eye disease No Lidia Spence MA Patient has diabetic eye disease Care Plan Patient has diabetic eye disease No Lidia Spence MA Patient has diabetic eye disease Care Plan Patient has diabetic eye disease No Lidia Spence MA Patient has chronic kidney disease Care Plan Patient has chronic kidney disease No Lidia Spence MA Patient has chronic kidney disease Care Plan Patient has chronic kidney disease No Lidia Spence MA Patient has chronic kidney disease Care Plan Patient has chronic kidney disease No Lidia Spence MA Weekly blood pressure task Care Plan Weekly blood pressure task No Pratt Zorylee Weekly blood pressure task Care Plan Weekly blood pressure task No Pratt Zorylee Weekly blood pressure task Care Plan Weekly blood pressure task No Pratt, Zorylee Patient has diabetic eye disease Care Plan Patient has diabetic eye disease No Pratt Zorylee Patient has diabetic eye disease Care Plan Patient has diabetic eye disease No Pratt, Zorylee Patient has diabetic eye disease Care Plan Patient has diabetic eye disease No Pratt, Zorylee Patient has chronic kidney disease Care Plan Patient has chronic kidney disease No Pratt, Zorylee Patient has chronic kidney disease Care Plan Patient has chronic kidney disease No Pratt, Zorylee Patient has chronic kidney disease Care Plan Patient has chronic kidney disease No Pratt, Zorylee Weekly blood pressure task Care Plan Weekly blood pressure task No Martha Arambula DO Weekly blood pressure task Care Plan Weekly blood pressure task No Martha Arambula DO Weekly blood pressure task Care Plan Weekly blood pressure task No Martha Arambula DO Patient has diabetic eye disease Care Plan Patient has diabetic eye disease No Martha Arambula DO Patient has diabetic eye disease Care Plan Patient has diabetic eye disease No Martha Arambula DO Patient has diabetic eye disease Care Plan Patient has diabetic eye disease No Martha Arambula DO Patient has chronic kidney disease Care Plan Patient has chronic kidney disease No Martha Arambula DO Patient has chronic kidney disease Care Plan Patient has chronic kidney disease No Martha Arambula DO Patient has chronic kidney disease Care Plan Patient has chronic kidney disease No Martha Arambula DO Weekly blood pressure task Care Plan Weekly blood pressure task No Jeanne Poole Weekly blood pressure task Care Plan Weekly blood pressure task No Jeanne Poole Weekly blood pressure task Care Plan Weekly blood pressure task No Jeanne Poole Patient has diabetic eye disease Care Plan Patient has diabetic eye disease No Jeanne Poole Patient has diabetic eye disease Care Plan Patient has diabetic eye disease No Jeanne Poole Patient has diabetic eye disease Care Plan Patient has diabetic eye disease No Jeanne Poole Patient has chronic kidney disease Care Plan Patient has chronic kidney disease No Jeanne Poole Patient has chronic kidney disease Care Plan Patient has chronic kidney disease No Jeanne Poole Patient has chronic kidney disease Care Plan Patient has chronic kidney disease No Jeanne Poole Weekly blood pressure task Care Plan Weekly blood pressure task No Mateo Rushing MD Weekly blood pressure task Care Plan Weekly blood pressure task No Mateo Rushing MD Weekly blood pressure task Care Plan Weekly blood pressure task No Mateo Rushing MD Patient has diabetic eye disease Care Plan Patient has diabetic eye disease No Mateo Rushing MD Patient has diabetic eye disease Care Plan Patient has diabetic eye disease No Mateo Rushing MD Patient has diabetic eye disease Care Plan Patient has diabetic eye disease No Mateo Rushing MD Patient has chronic kidney disease Care Plan Patient has chronic kidney disease No Mateo Rushing MD Patient has chronic kidney disease Care Plan Patient has chronic kidney disease No Mateo Rushing MD Patient has chronic kidney disease Care Plan Patient has chronic kidney disease No Mateo Rushing MD Weekly blood pressure task Care Plan Weekly blood pressure task No Vazquezortiz, Providencia Weekly blood pressure task Care Plan Weekly blood pressure task No Vazquezortiz, Providencia Weekly blood pressure task Care Plan Weekly blood pressure task No Vazquezortiz, Providencia Patient has diabetic eye disease Care Plan Patient has diabetic eye disease No Vazquezortiz, Providencia Patient has diabetic eye disease Care Plan Patient has diabetic eye disease No Vazquezortiz, Providencia Patient has diabetic eye disease Care Plan Patient has diabetic eye disease No Vazquezortiz, Providencia Patient has chronic kidney disease Care Plan Patient has chronic kidney disease No Vazquezortiz, Providencia Patient has chronic kidney disease Care Plan Patient has chronic kidney disease No Vazquezortiz, Providencia Patient has chronic kidney disease Care Plan Patient has chronic kidney disease No Vazquezortiz, Providencia Weekly blood pressure task Care Plan Weekly blood pressure task No Rhonda Sotomayor Weekly blood pressure task Care Plan Weekly blood pressure task No Rhonda Sotomayor Weekly blood pressure task Care Plan Weekly blood pressure task No Rhonda Sotomayor Patient has diabetic eye disease Care Plan Patient has diabetic eye disease No Rhonda Sotomayor Patient has diabetic eye disease Care Plan Patient has diabetic eye disease No Rhonda Sotomayor Patient has diabetic eye disease Care Plan Patient has diabetic eye disease No Rhonda Sotomayor Patient has chronic kidney disease Care Plan Patient has chronic kidney disease No Rhonda Sotomayor Patient has chronic kidney disease Care Plan Patient has chronic kidney disease No Rhonda Sotomayor Patient has chronic kidney disease Care Plan Patient has chronic kidney disease No Rhonda Sotomayor Weekly blood pressure task Care Plan Weekly blood pressure task No Alice Soto Weekly blood pressure task Care Plan Weekly blood pressure task No Soto, Alice Weekly blood pressure task Care Plan Weekly blood pressure task No Brittany Alice Patient has diabetic eye disease Care Plan Patient has diabetic eye disease No Soto, Alice Patient has diabetic eye disease Care Plan Patient has diabetic eye disease No Brittany Alice Patient has diabetic eye disease Care Plan Patient has diabetic eye disease No Brittany Alice Patient has chronic kidney disease Care Plan Patient has chronic kidney disease No Brittany Alice Patient has chronic kidney disease Care Plan Patient has chronic kidney disease No Brittany Alice Patient has chronic kidney disease Care Plan Patient has chronic kidney disease No Alice Soto documented as of this encounter Visit Diagnoses Not on filedocumented in this encounter Additional Health Concerns Active Problems Noted Date Diagnosed Date Help patients manage their type 2 diabetes 06/09 Weekly blood pressure task 06/09/2025 Help patients manage their type 2 diabetes 06/09 Patient has diabetic eye disease 06/09/2025 Help patients manage their type 2 diabetes 06/09 Patient has chronic kidney disease 06/09/2025 Weekly blood pressure task 06/09/2025 Weekly blood pressure task 06/09/2025 Patient has diabetic eye disease 06/09/2025 Patient has diabetic eye disease 06/09/2025 Patient has chronic kidney disease 06/09/2025 Patient has chronic kidney disease 06/09/2025 Weekly blood pressure task 06/14/2025 Weekly blood pressure task 06/14/2025 Weekly blood pressure task 06/14/2025 Patient has diabetic eye disease 06/14/2025 Patient has diabetic eye disease 06/14/2025 Patient has diabetic eye disease 06/14/2025 Patient has chronic kidney disease 06/14/2025 Patient has chronic kidney disease 06/14/2025 Patient has chronic kidney disease 06/14/2025 Weekly blood pressure task 06/15/2025 Weekly blood pressure task 06/15/2025 Weekly blood pressure task 06/15/2025 Patient has diabetic eye disease 06/15/2025 Patient has diabetic eye disease 06/15/2025 Patient has diabetic eye disease 06/15/2025 Patient has chronic kidney disease 06/15/2025 Patient has chronic kidney disease 06/15/2025 Patient has chronic kidney disease 06/15/2025 Weekly blood pressure task 06/20/2025 Weekly blood pressure task 06/20/2025 Weekly blood pressure task 06/20/2025 Patient has diabetic eye disease 06/20/2025 Patient has diabetic eye disease 06/20/2025 Patient has diabetic eye disease 06/20/2025 Patient has chronic kidney disease 06/20/2025 Patient has chronic kidney disease 06/20/2025 Patient has chronic kidney disease 06/20/2025 Weekly blood pressure task 06/20/2025 Weekly blood pressure task 06/20/2025 Weekly blood pressure task 06/20/2025 Patient has diabetic eye disease 06/20/2025 Patient has diabetic eye disease 06/20/2025 Patient has diabetic eye disease 06/20/2025 Patient has chronic kidney disease 06/20/2025 Patient has chronic kidney disease 06/20/2025 Patient has chronic kidney disease 06/20/2025 Weekly blood pressure task 06/20/2025 Weekly blood pressure task 06/20/2025 Weekly blood pressure task 06/20/2025 Patient has diabetic eye disease 06/20/2025 Patient has diabetic eye disease 06/20/2025 Patient has diabetic eye disease 06/20/2025 Patient has chronic kidney disease 06/20/2025 Patient has chronic kidney disease 06/20/2025 Patient has chronic kidney disease 06/20/2025 Weekly blood pressure task 06/23/2025 Weekly blood pressure task 06/23/2025 Weekly blood pressure task 06/23/2025 Patient has diabetic eye disease 06/23/2025 Patient has diabetic eye disease 06/23/2025 Patient has diabetic eye disease 06/23/2025 Patient has chronic kidney disease 06/23/2025 Patient has chronic kidney disease 06/23/2025 Patient has chronic kidney disease 06/23/2025 Weekly blood pressure task 06/27/2025 Weekly blood pressure task 06/27/2025 Weekly blood pressure task 06/27/2025 Patient has diabetic eye disease 06/27/2025 Patient has diabetic eye disease 06/27/2025 Patient has diabetic eye disease 06/27/2025 Patient has chronic kidney disease 06/27/2025 Patient has chronic kidney disease 06/27/2025 Patient has chronic kidney disease 06/27/2025 Weekly blood pressure task 06/28/2025 Weekly blood pressure task 06/28/2025 Weekly blood pressure task 06/28/2025 Patient has diabetic eye disease 06/28/2025 Patient has diabetic eye disease 06/28/2025 Patient has diabetic eye disease 06/28/2025 Patient has chronic kidney disease 06/28/2025 Patient has chronic kidney disease 06/28/2025 Patient has chronic kidney disease 06/28/2025 Weekly blood pressure task 06/30/2025 Weekly blood pressure task 06/30/2025 Weekly blood pressure task 06/30/2025 Patient has diabetic eye disease 06/30/2025 Patient has diabetic eye disease 06/30/2025 Patient has diabetic eye disease 06/30/2025 Patient has chronic kidney disease 06/30/2025 Patient has chronic kidney disease 06/30/2025 Patient has chronic kidney disease 06/30/2025 Weekly blood pressure task 06/30/2025 Weekly blood pressure task 06/30/2025 Weekly blood pressure task 06/30/2025 Patient has diabetic eye disease 06/30/2025 Patient has diabetic eye disease 06/30/2025 Patient has diabetic eye disease 06/30/2025 Patient has chronic kidney disease 06/30/2025 Patient has chronic kidney disease 06/30/2025 Patient has chronic kidney disease 06/30/2025 Weekly blood pressure task 07/01/2025 Weekly blood pressure task 07/01/2025 Weekly blood pressure task 07/01/2025 Patient has diabetic eye disease 07/01/2025 Patient has diabetic eye disease 07/01/2025 Patient has diabetic eye disease 07/01/2025 Patient has chronic kidney disease 07/01/2025 Patient has chronic kidney disease 07/01/2025 Patient has chronic kidney disease 07/01/2025 Weekly blood pressure task 07/01/2025 Weekly blood pressure task 07/01/2025 Weekly blood pressure task 07/01/2025 Patient has diabetic eye disease 07/01/2025 Patient has diabetic eye disease 07/01/2025 Patient has diabetic eye disease 07/01/2025 Patient has chronic kidney disease 07/01/2025 Patient has chronic kidney disease 07/01/2025 Patient has chronic kidney disease 07/01/2025 Weekly blood pressure task 07/04/2025 Weekly blood pressure task 07/04/2025 Weekly blood pressure task 07/04/2025 Patient has diabetic eye disease 07/04/2025 Patient has diabetic eye disease 07/04/2025 Patient has diabetic eye disease 07/04/2025 Patient has chronic kidney disease 07/04/2025 Patient has chronic kidney disease 07/04/2025 Patient has chronic kidney disease 07/04/2025 Weekly blood pressure task 07/05/2025 Weekly blood pressure task 07/05/2025 Weekly blood pressure task 07/05/2025 Patient has diabetic eye disease 07/05/2025 Patient has diabetic eye disease 07/05/2025 Patient has diabetic eye disease 07/05/2025 Patient has chronic kidney disease 07/05/2025 Patient has chronic kidney disease 07/05/2025 Patient has chronic kidney disease 07/05/2025 Weekly blood pressure task 07/05/2025 Weekly blood pressure task 07/05/2025 Weekly blood pressure task 07/05/2025 Patient has diabetic eye disease 07/05/2025 Patient has diabetic eye disease 07/05/2025 Patient has diabetic eye disease 07/05/2025 Patient has chronic kidney disease 07/05/2025 Patient has chronic kidney disease 07/05/2025 Patient has chronic kidney disease 07/05/2025 Assessment Noted Time PHQ-9 Depression Total Score: 18 023 11:51 AM EST documented as of this encounter Care Teams Electrical Design Technician Relationship Specialty Start Date End Date Sujatha Dawn ANP [address] [place] [id number] PCP - General Family Medicine 03/12/22 documented as of this encounter
--- OUTSIDE RECORDS SUMMARY | 2025-07-08 08:23 | XMS_ITS | Encounter Summary ---
Author Organization [employer] Address [address] [place] [address] 7t [place] [address] Care Team Providers Care Svp Research And Strategic Analysis Name Role Phone Sujatha Dawn Primary Care Provider [phone] Reason for Visit * Reason Comments Med Refill Encounter Details Date Type Department Care Team ([facility] st Contact Info) Description 07/06/2025 Refill [facility] MEDICINE [address] [place] [address] Sujatha Dawn ANP [address] [place] [address] Bipolar affective disorder, remission status unspecified (CMS/HCC) ([facility]) Social History Tobacco Use Types Packs/Day Years [...] Description 07/11/2025 2:30 PM EST Office Visit [facility] MEDICINE [address] [place] [address] Sujatha Dawn ANP [address] [place] [address] documented as of this encounter Goals Goal Patient Goal Type Associated Problems Recent Progress Patient-Stated? Author Help patients manage their type 2 diabetes Care Plan Help patients manage their type 2 diabetes Sergio Molina MA Weekly blood pressure task Care Plan [...] diabetes No Sergio Rizzo MA Patient has chronic [...] Patient has diabetic eye disease No Vic Naazrio MA Patient has chronic kidney disease Care [...] Plan Weekly blood pressure task No Roxana hCow MA Weekly blood pressure task Care Plan Weekly blood pressure task No Roxana Chow MA Weekly blood pressure task Care Plan Weekly blood pressure task No ChowRoxana covington [place] Patient has diabetic eye disease Care [...] has chronic kidney disease No ChowRoxana covington, DAVID Patient has chronic kidney disease Care Plan Patient has chronic kidney disease No ChowRoxana covington [place] Patient has chronic kidney disease Care Plan Patient has chronic kidney disease No ChowRoxana covington [place] Weekly blood pressure task Care Plan Weekly [...] Plan Patient has diabetic eye disease No Elpidio, Valerie, PharmD Patient has diabetic eye disease Care Plan Patient has diabetic eye disease No Elpidio Valerie, PharmD Patient has diabetic eye disease Care Plan Patient has diabetic eye disease No Valerie Magallanes, PharmD Patient has chronic kidney disease Care Plan Patient has chronic kidney disease No Valerie Magallanes, PharmD Patient has chronic kidney disease Care Plan Patient has chronic kidney disease No Valerie Magallanes PharmD Patient has chronic kidney disease Care Plan Patient has chronic kidney disease No Valerie Magallanes, PharmD Weekly blood pressure task Care Plan Weekly blood pressure task No PrattDeeptirylee Weekly blood pressure task Care Plan Weekly [...] has chronic kidney disease No Deepti Prattrylee Patient has chronic kidney disease Care Plan [...] Patient has diabetic eye disease No Lidia Specne MA Patient has diabetic eye disease Care [...] Care Plan Weekly blood pressure task No Deepti Prattryletonya Weekly blood pressure task Care Plan Weekly blood pressure task No Deepti Prattrylee Weekly blood pressure task [...] Patient has chronic kidney disease No Pratt, Deeptirylee Weekly blood pressure task Care Plan Weekly [...] Care Plan Weekly blood pressure task No Harinder Sotomayora Weekly blood pressure task Care Plan Weekly blood pressure task No TolRhonda boucher Weekly blood pressure task Care Plan Weekly blood pressure task No TolHarinder bouchera Patient has diabetic eye disease Care Plan Patient has diabetic eye disease No Harinder Sotomayora Patient has diabetic eye disease Care Plan Patient has diabetic eye disease No Harinder Sotomaoyra Patient has diabetic eye disease Care Plan [...] Care Plan Weekly blood pressure task No SotoTrudy montanezica Weekly blood pressure task Care Plan Weekly blood pressure task No Soto, Alice Weekly blood pressure task Care Plan Weekly blood pressure task No Soto, Alice Patient has diabetic eye disease Care Plan Patient has diabetic eye disease No Soto, Alice Patient has diabetic eye disease Care Plan Patient has diabetic eye disease No Soto, Alice Patient has diabetic eye disease Care Plan Patient has diabetic eye disease No Soto, Alice Patient has chronic kidney disease Care Plan Patient has chronic kidney disease No Soto, Alice Patient has chronic kidney disease Care Plan Patient has chronic kidney disease No Soto, Alice Patient has chronic kidney disease Care Plan Patient has chronic kidney disease No SotoKam montanezAlice documented as of this encounter Visit Diagnoses Diagnosis Bipolar affective disorder, remission status unspecified (CMS/HCC) (HCC) documented in this encounter Additional Health Concerns Active [...] documented as of this encounter Care Teams Svp Research And Strategic Analysis Relationship Specialty Start Date End Date Sujatha Dawn ANP [address] [place] [id number] PCP - General Family Medicine 03/12/22 documented as of this encounter
--- OUTSIDE RECORDS SUMMARY | 2025-07-08 08:24 | XMS_ITS | Encounter Summary ---
Author Organization [employer] Address [address] [place] [address] 7t [place] [address] Care Team Providers Care Stave Log Ripsaw Operator Name Role Phone Sujatha Dawn Primary Care Provider [phone] Reason for Visit * Reason Comments Med Refill Encounter Details Date Type Department Care Team ([facility] st Contact Info) Description 02/06/2024 Refill [facility] MEDICINE [address] [place] [address] Sujatha Dawn ANP [address] [place] [address] Bipolar affective disorder, remission status unspecified ([facility]); Type 2 diabetes mellitus with hyperglycemia, with long-term current use of insulin ([facility]) Social History Tobacco Use Types Packs/Day Years [...] Description 07/11/2025 2:30 PM EST Office Visit [facility] MEDICINE [address] [place] [address] Sujatha Dawn ANP [address] [place] [address] documented as of this encounter Visit Diagnoses Diagnosis Bipolar affective disorder, remission status unspecified (CMS/HCC) (HCC) Type 2 diabetes mellitus with hyperglycemia, with long-term current use of insulin ([facility]) documented in this encounter Additional Health Concerns Assessment Noted Time PHQ-9 Depression Total Score: 18 023 11:51 AM EST documented as of this encounter Care Teams Stave Log Ripsaw Operator Relationship Specialty Start Date End Date Sujatha Dawn ANP [address] [place] [address] PCP - General Family Medicine 03/12/22 documented as of this encounter
--- OUTSIDE RECORDS SUMMARY | 2025-07-08 08:24 | XMS_ITS | Encounter Summary ---
Author Organization [employer] Address [address] [place] [address] 7t [place] [address] Care Team Providers Care Scientist Engineer Name Role Phone Sujatha Dawn Primary Care Provider [phone] Reason for Visit * Reason Comments Med Refill Encounter Details Date Type Department Care Team ([facility] st Contact Info) Description 07/04/2025 Refill [facility] MEDICINE [address] [place] [address] Sujatha Dawn ANP [address] [place] [address] Healthcare maintenance Social History Tobacco Use Types Packs/Day Years [...] Description 07/11/2025 2:30 PM EST Office Visit [facility] MEDICINE [address] [place] [address] Sujatha Dawn ANP [address] [place] [address] documented as of this encounter Goals Goal [...] task Care Plan Weekly blood pressure task Sergoi Molina MA Weekly blood pressure task Care Plan Weekly blood pressure task No Sergio Rizzo MA Patient has diabetic eye disease Care Plan Patient has diabetic eye disease No Sergio Rizzo MA Patient has diabetic eye disease Care Plan Patient has diabetic eye disease No Sergio Rizzo MA Patient has chronic kidney disease Care Plan Patient has chronic kidney disease Sergio Molina MA Patient has chronic kidney disease Care [...] Care Plan Weekly blood pressure task No Salima ChowomyDAVID Patient has diabetic eye disease Care Plan Patient has diabetic eye disease No ChowSalima covingtonomyDAVID Patient has diabetic eye disease Care Plan Patient has diabetic eye disease No ChowSalima covingtonomyDAVID Patient has diabetic eye disease Care Plan Patient has diabetic eye disease No Roxana Chow [place] Patient has chronic kidney disease Care Plan Patient has chronic kidney disease No ChowSalima covingtonomy, DAVID Patient has chronic kidney disease Care Plan Patient has chronic kidney disease No ChowSalima covingtonomy, [place] Patient has chronic kidney disease Care Plan Patient has chronic kidney disease No Roxana Chow MA Weekly blood pressure task Care Plan Weekly blood pressure task No Sharon Magallanesa, PharmD Weekly blood pressure task Care Plan Weekly blood pressure task No Sharon Magallanesa, PharmD Weekly blood pressure task Care Plan Weekly blood pressure task No Sharon Magallanesa, PharmD Patient has diabetic eye disease Care Plan Patient has diabetic eye disease No Sharon Magallanesa, PharmD Patient has diabetic eye disease Care Plan Patient has diabetic eye disease No Elpidio Valerie, PharmD Patient has diabetic eye disease Care Plan Patient has diabetic eye disease No Sharon Magallanesa, PharmD Patient has chronic kidney disease Care Plan Patient has chronic kidney disease No Sharon Magallanesa, PharmD Patient has chronic kidney disease Care Plan Patient has chronic kidney disease No Sharon Magallanesa, PharmD Patient has chronic kidney disease Care [...] Plan Patient has diabetic eye disease No Sharon Magallanesa, PharmD Patient has diabetic eye disease Care [...] Weekly blood pressure task No Pratt Zorylee Patient has diabetic eye [...] has chronic kidney disease No Vazquezortiz, Providencia documented as of this encounter Visit Diagnoses Diagnosis Healthcare maintenance documented in this encounter Additional Health Concerns [...] 07/04/2025 Patient has chronic kidney disease 07/04/2025 Assessment Noted Time PHQ-9 Depression Total Score: 18 023 11:51 AM EST documented as of this encounter Care Teams Scientist Engineer Relationship Specialty Start Date End Date Sujatha Dawn ANP [address] [place] [address] PCP - General Family Medicine 03/12/22 documented as of this encounter
--- OUTSIDE RECORDS SUMMARY | 2025-07-08 08:24 | XMS_ITS | Encounter Summary ---
Demographics Address [address] [facility] [address] [place] [address] Home Phone Work Phone Mobile Phone Preferred Language es Marital Status Single Jainism Affiliation Unknown Race Other Race Ethnic Group Unknown Author Organization [employer] Address [address] [place] [address] 7t [place] [address] Care Team Providers Care Ten Pin Bowling Centre Manager Name Role Phone Sujatha Dawn Primary Care Provider [phone] Reason for Visit * Reason Onset Date Comments Nurse Triage 09/09/2023 Encounter Details Date Type Department Care Team ([facility] st Contact Info) Description 09/09/2023 Telephone [facility] MEDICINE [address] [place] [address] Sujatha Dawn ANP [address] [place] [address] Nurse Triage Social History Tobacco Use Types Packs/Day Years [...] encounter Miscellaneous Notes * Telephone Encounter - DANE Garzon - 09/09/2023 12:29 PM EST Thanks, note appears routed to team, will await their follow-up. * Telephone Encounter - Yasmin Salazar RN - 09/09/2023 11:46 AM EST Called pt. He states that he goes to [facility] in [place] and was just there x 3 days. Pt. States that he wants to go back there due to depression. Pt. Denies any thoughts of self harm or suicidal thoughts. He states that he is not ready to leave the program. I called Crisis and was told by Cherrie, review scheduling coordinator, that pt. Was just at Methadone clinic in [place] yesterday. The address is [address] [place] [address] [place], [place]. She states that pt was seen at [facility] crisis center in [place], [place]. [facility] crisis location is in [place], [place] [address] [facility]. Telephone number. [phone]. Called [facility] crisis at [phone] and was told that pt. Was at [facility] crisis center recently. Computer Networking Instructor reluctant to give out information without release but, I told her I was reaching out on behalf of the pt. Because he did not have phone number or address of place he was at in [place], [place]. Crisis counselor at [facility] has been in contact with pt. Called pt. Back because they state that pt. Needs to call them first and talk with them about his current crisis. I called pt. Back and gave him phone number [phone], gave himaddress to [facility] in [place], and told him this was the number for crisis and to keep it on him at all times for when he needs it. Pt. Will call right now. Pt. Was thankful and did confirm that he is Not suicidal or feeling any thoughts of self harm. Pt states he has no plan to hurt himself. Will send this note to N and PCP nurse team to reach out to pt. For follow up. Protocol Used: Depression (Adult) Protocol-Based Disposition: Phone number to [facility] crisis given to pt. And he will call them right nowfor intake had pt. Read back telephone number to wy [phone] confirmed. Video visit offer not recorded Positive Triage Questions: * Requesting to talk with a counselor (mental health worker, psychiatrist, etc.) * Referral phone numbers for depression, questions about * All higher-acuity triage questions were negative Care Advice Discussed: * Note to Triager - Depression * Depression - Symptoms * Telephone Encounter - Lorraine Yepez - 09/09/2023 11:42 AM EST Symptom: Depression Outcome: Schedule an appointment to be seen within 3 days Reason: Caller denied all higher acuity questions The caller accepted this outcome documented in this encounter Plan of Treatment Upcoming Encounters Date Type Department Care Team (Late st Contact Info) Description 07/11/2025 2:30 PM EST Office Visit [facility] MEDICINE [address] [place], [place] [phone] Sujatha Dawn ANP [address] [place] [address] documented as of this encounter Visit Diagnoses Not on filedocumented in this encounter Additional Health Concerns Assessment Noted Time PHQ-9 Depression Total Score: 18 023 11:51 AM EST documented as of this encounter Care Teams Ten Pin Bowling Centre Manager Relationship Specialty Start Date End Date Sujatha Dawn ANP [address] [place] [address] PCP - General Family Medicine 03/12/22 documented as of this encounter
--- OUTSIDE RECORDS SUMMARY | 2025-07-08 08:24 | XMS_ITS | Encounter Summary ---
Author Organization [employer] Address [address] [place] [address] 7t [place] [address] Care Team Providers Care Software Engineer Advisor Name Role Phone Sujatha Dawn Primary Care Provider Reason for Visit * Reason Comments Med Refill Encounter Details Date Type Department Care Team ([facility] st Contact Info) Description 04/02/2024 Refill [facility] MEDICINE [address] [place] [address] Sujatha Dawn ANP [address] [place] [address] Type 2 diabetes mellitus with hyperglycemia, with long-term current use of insulin ([facility]) Social History Tobacco Use Types Packs/Day [...] Description 07/11/2025 2:30 PM EST Office Visit [facility] MEDICINE [address] [place] [address] Sujatha Dawn ANP [address] [place] [address] documented as of this encounter Visit Diagnoses Diagnosis Type 2 diabetes mellitus with hyperglycemia, with long-term current use of insulin (HCC) documented in this encounter Additional Health Concerns Assessment Noted Time PHQ-9 Depression Total Score: 18 023 11:51 AM EST documented as of this encounter Care Teams Software Engineer Advisor Relationship Specialty Start Date End Date Sujatha Dawn ANP [address] [place] [address] PCP - General Family Medicine 03/12/22 documented as of this encounter
--- OUTSIDE RECORDS SUMMARY | 2025-07-08 08:24 | XMS_ITS | Encounter Summary ---
Author Organization [employer] Address [address] [place] [address] 7t [place] [address] Care Team Providers Care Magazine Feeder Name Role Phone Sujatha Dawn Primary Care Provider [phone] Reason for Visit * Reason Onset Date Comments Triage 07/29/2022 Encounter Details Date Type Department Care Team (Late st Contact Info) Description 07/29/2022 Telephone [facility] MEDICINE [address] [place] [address] Sujatha Dawn ANP [address] [place] [address] Triage Social History Tobacco Use Types Packs/Day Years Used Date Smoking Tobacco: Some Days Cigarettes Smokeless Tobacco: Never Sex and Gender Information Value Date Recorded [...] suspected to have Coronavirus/COVID-19? No / Unsure 07/16/2022 10:34 AM EST documented as of this encounter Miscellaneous Notes * Telephone Encounter - Antonietta Siddiqui RN - 07/29/2022 4:39 PM EST Two attempts to contact, left message with [employer] Special Warfare Boat Operator [phone], to call [facility] triage line at [phone] * Telephone Encounter - Mikayla Laureano - 07/29/2022 3:03 PM EST Symptom: Confusion Outcome: Schedule an urgent appointment (within 1 hour) or talk to a nurse or provider soon Reason: Getting worse The caller accepted this outcome Patient speaks Algerian documented in this encounter Plan of Treatment Upcoming Encounters Date Type Department Care Team (Late st Contact Info) Description 07/11/2025 2:30 PM EST Office Visit [facility] MEDICINE [address] [place] [address] Sujatha Dawn ANP [address] [place] [address] documented as of this encounter Visit Diagnoses Not on filedocumented in this encounter Care Teams Magazine Feeder Relationship Specialty Start Date End Date Sujatha Dawn ANP [address] [place] [address] PCP - General Family Medicine 03/12/22 documented as of this encounter
--- OUTSIDE RECORDS SUMMARY | 2025-07-08 08:24 | XMS_ITS | Encounter Summary ---
Author Organization [employer] Address [address] [place] [address] 7t [place] [address] Care Team Providers Care Sizing Machine And Drier Operator Name Role Phone Sujatha Dawn Primary Care Provider [phone] Encounter Details Date Type Department Care Team (Late st Contact Info) Description 06/17/2022 Abstract [facility] [address] [place], [place] [id number] Dental, Provider, DDS Social History Tobacco Use Types Packs/Day Years Used Date Smoking Tobacco: Never Assessed Sex and Gender Information Value Date Recorded Sex Assigned at Male 05/20/2022 10:14 AM EDT Legal Sex Male 10:14 AM EDT Gender Identity Male 05/20/2022 10:14 AM EDT Sexual Orientation Choose not to disclose 2021 10:14 AM EDT documented as of this encounter Plan of Treatment Upcoming Encounters Date Type Department Care Team (Late Contact Info) Description 07/11/2025 2:30 PM EST Office Visit [facility] MEDICINE [address] [place], [place] [phone] Sujatha Dawn ANP [address] [place] [address] Scheduled Orders Name Type Priority Associated Diagnoses Orde r Schedule 2,3,4,5,6,7,8,9,10,11,1 2,13,14,15 2,3,4,5,6,7,8,9,10,11,1 2,13,14,15 MAXILLARY PARTIAL DENTURE - RESIN BASE (INCLUDING, RETENTIVE/CLASPING MATERIALS, RESTS, AND TEETH) Dental Routine [address] arting 07/29/2022 documented as of this encounter Visit Diagnoses Not on filedocumented in this encounter Care Teams Sizing Machine And Drier Operator Relationship Specialty Start Date End Date Sujatha Dawn ANP [address] [place] [address] PCP - General Family Medicine 03/12/22 documented as of this encounter
--- OUTSIDE RECORDS SUMMARY | 2025-07-08 08:24 | XMS_ITS | Clinical Summary ---
Author Organization [facility] Address [address] [place] [address] Care Team Providers Care Vest Tailor Name Role Phone Unavailable Primary Care Provider Unavailabl e Social History Tobacco Use Types Packs/Day Years Used Date Smoking Tobacco: Never Assessed Sex and Gender Information Value Date Recorded Sex Assigned at Not on file Legal Sex Male 1:55 PM EST Gender Identity Not on file Sexual Orientation Not on file Plan of Treatment Health Maintenance Due Date Last Done Comments DTaP,Tdap,and Td Vaccines (1 - Tdap) 1989 Hepatitis B Vaccines (1 of 3 - 19+ 3-dose series) 1989 Pneumococcal Vaccine: 50+ Ye ars (1 of 1 - PCV) 2020 Zoster Vaccines (1 of 2) 2020 Depression Screening 07/21/2024 COVID-19 Vaccine (1 - 2024-2 6 season) 2025 Influenza Vaccine (#1) 2025 RSV Immunization Adult Patie nts (1 - 1-dose 75+ series) 2045 HIB Vaccines Aged Out No longer eligi ble based on patient's age to complete this topic HPV Vaccines Aged Out No longer eligi ble based on patient's age to complete this topic Hepatitis A Vaccines Aged Out No long er eligible based on patient's age to complete this topic IPV Vaccines Aged Out No longer eligi ble based on patient's age to complete this topic MMR Vaccines Aged Out No longer eligi ble based on patient's age to complete this topic Meningococcal ACWY Vaccine Aged Out N o longer eligible based on patient's age to complete this topic Meningococcal B Vaccine Aged Out No l onger eligible based on patient's age to complete this topic RSV Immunization Patients Un yifan 20 months Aged Out No longer eligible b ased on patient's age to complete this topic Varicella Vaccines Aged Out No longer eligible based on patient's age to complete this topic
--- OUTSIDE RECORDS SUMMARY | 2025-07-08 08:24 | XMS_ITS | Clinical Summary ---
Author Organization [employer] Address [address] [place] [address] [address] [place] [address] Care Team Providers Care Occupational Therapist Per Diem Name Role Phone Sujatha Dawn Primary Care Provider [phone] Allergies No known active allergies Medications * This document contains information received from the source organization and may not represent a complete record from that organization. Descovy 200-25 MG tabletIndication s:Exposure to sexually transmitted disease (STD) 1 tablet by mouth daily 30 tablet 2 023 Active Additional Information Patient not taking.Reported on 06/27/2025 Ventolin HFA 108 (90 Base) MCG/ACT inhaler Inhale 2 puffs every 4 (four) hours if needed. 022 Active methadone (Dolophine) 10 MG/ML solution take 70 mg by oral route every 24 hours Active naloxone (Narcan) 4 mg/0.1 mL nasal sprayIndications :Heroin use FOR SUSPECTED OPIOID OVERDOSE. SPRAY 0.1mL IN ONE NOSTRIL. REPEAT IN ALTERNATE NOSTRIL 2-3 MINUTES IF NEEDED. SEEK MEDICAL ATTENTION IMMEDIATELY EVEN IF PATIENT RESPONDS. 2 each 2 023 Active fluticasone (Flonase) 50 MCG/ACT nasal spray INSTILL 1-2 SPRAYS IN EACH NOSTRIL ONCE DAILY NEEDED 48 g 3 023 Active insulin pen needle (BD Pen Needle Pascale U/F) 32G x 4 mm miscIndications: Type 2 diabetes mellitus with hyperlipidemia (HCC) USE FOUR TIMES DAILY 100 each 11 025 Active Skin Protectants, Misc. (Minerin Creme) creamIndications :Dry skin APPLY TOPICALLY TO AFFECTED AREA(S) TWICE DAILY 113 g 3 06/23/2 025 Active nicotine (Nicoderm CQ) 14 MG/24HR patchIndications :Tobacco dependence,Tobac co use Place 1 patch on the skin 1 (one) time each day at the same time. 42 patch Active nicotine polacrilex (Commit) 4 MG lozengeIndicatio ns:Tobacco dependence Dissolve 1 lozenge (4 mg) in the mouth every 1 (one) hour if needed for smoking cessation. 100 lozenge 025 Active NovoLOG FLEXPEN 100 UNIT/ML penIndications:T ype 2 diabetes mellitus with hyperlipidemia (HCC) INJECT THREE TIMES DAILY PER SLIDING SCALE (BLOOD SUGAR 150-200=2 UNITS, 201-250= 4 UNITS, 251-300= 6 UNITS, 301-350=8 UNITS, BLOOD SUGAR > 400 CALL / CHECK FOR ketones) 15 mL 2 025 Active docusate sodium (Colace) 100 MG capsuleIndicatio ns:Constipation, unspecified constipation type TAKE 1 CAPSULE BY MOUTH TWICE DAILY IN THE MORNING AND AT BEDTIME 60 capsule 5 025 Active atorvastatin (Lipitor) 20 MG tablet TAKE 1 TABLET BY MOUTH EVERY EVENING 90 tablet 1 025 Active benztropine (Cogentin) 1 MG tablet Take 1 tablet (1 mg) by mouth at bedtime. 30 tablet 2 06/13/20 25 1:17 PM EST 025 Active Arnuity Ellipta 200 MCG/ACT inhalerIndicatio ns:Mild persistent asthma without complication INHALE 1 PUFF BY MOUTH EVERY DAY AT THE SAME TIME RINSE MOUTH AFTER USING 30 each 2 06/13/20 25 1:17 PM EST 025 Active Jardiance 10 MGIndications:Ty pe 2 diabetes mellitus with hyperglycemia, with long-term current use of insulin (HCC) TAKE 1 TABLET BY MOUTH EVERY MORNING 30 tablet 2 06/13/20 25 1:17 PM EST 025 Active metFORMIN (Glucophage) 500 MG tabletIndication s:Type 2 diabetes mellitus with hyperglycemia, with long-term current use of insulin (HCC) TAKE 2 TABLETS BY MOUTH TWICE DAILY IN THE MORNING AND EVENING WITH MEALS 120 tablet 2 06/13/20 25 1:17 PM EST 025 Active Multiple Vitamins-Mineral s (CertaVite/Antio xidants) tabletIndication s:Healthcare maintenance TAKE 1 TABLET BY MOUTH EVERY MORNING 90 tablet 06/13/20 1:17 PM EST Active pantoprazole (ProtoNix) 40 MG EC tabletIndication s:Heartburn TAKE 1 TABLET BY MOUTH EVERY MORNING 90 tablet 06/13/20 1:17 PM EST Active prazosin (Minipress) 5 MG capsule Take 1 capsule (5 mg) by mouth at bedtime. 30 capsule 1 06/13/20 1:17 PM EST Active glucose blood (FREESTYLE LITE) test stripIndications :Cellulitis of head or scalp TEST BLOOD SUGAR 6 TIMES PER DAY 200 strip 11 Active TRUEplus Lancets 33G miscIndications: Cellulitis of head or scalp TEST BLOOD SUGAR 6 TIMES PER DAY 200 each 06/14/20 12:47 PM EST Active Blood Glucose Monitoring Suppl (FreeStyle English Lite) w/Device kitIndications:C ellulitis of head or scalp USE DIRECTED TO TEST BLOOD SUGAR 1 kit Active insulin glargine (Lantus SoloStar) 100 UNIT/ML penIndications:T ype 2 diabetes mellitus with hyperlipidemia (HCC) INJECT 10 UNITS SUBCUTANEOUSLY AT BEDTIME 15 mL 06/28/20 9:39 AM EST Active hydrOXYzine pamoate (Vistaril) 50 MG capsule Take 50 mg by mouth at bedtime. Active topiramate (Topamax) 25 MG tablet Take 1 tablet by mouth 2 times daily. Active acetaminophen (Tylenol 8 Hour) 650 MG ER tablet Take 1 tablet (650 mg) by mouth every 8 (eight) hours if needed for mild pain. Do not crush, chew, or split. 40 tablet 1 07/01/20 9:24 AM EST 2025 Active naproxen (Naprosyn) 500 MG tablet Take 1 tablet (500 mg) by mouth if needed in the morning and at bedtime for mild pain. 20 tablet 07/01/20 9:24 AM EST 2025 Active OLANZapine (ZyPREXA) 15 MG tabletIndication s:Bipolar affective disorder, remission status unspecified (CMS/HCC) (HCC) TAKE 1 TABLET BY MOUTH AT BEDTIME 30 tablet 025 Active acetaminophen (Tylenol) 500 MG tabletIndication s:Abscess of skin of abdomen Take 2 tablets (1,000 mg) by mouth every 6 (six) hours if needed for moderate pain or fever for up to 25 doses. 50 tablet 023 2024 Discontinued(M ed list cleanup (will not trigger notification to Pharmacy)) cloNIDine (Catapres) 0.1 MG tabletIndication s:Essential hypertension TAKE 1 TABLET BY MOUTH TWICE DAILY IN THE MORNING AND IN THE EVENING 60 tablet 2 023 2024 Discontinued(M ed list cleanup (will not trigger notification to Pharmacy)) hydrOXYzine HCl (Atarax) 25 MG tablet Take 25 mg twice a day and at bedtime along with 50 mg at bedtime 023 2024 Discontinued(M ed list cleanup (will not trigger notification to Pharmacy)) pramipexole (Mirapex) 0.25 MG tablet Take 1 tablet by mouth if needed in the morning and at bedtime. Restless legs 023 2024 Discontinued(M ed list cleanup (will not trigger notification to Pharmacy)) QUEtiapine XR (SEROquel XR) 50 MG 24 hr tablet Take 1 tablet by mouth 1 (one) time each day. 023 2024 Discontinued(M ed list cleanup (will not trigger notification to Pharmacy)) Blood Glucose Monitoring Suppl (FreeStyle English Lite) w/Device kitIndications:T ype 2 diabetes mellitus with hyperlipidemia (HCC) USE DIRECTED TO TEST BLOOD SUGAR 1 kit 024 2024 Discontinued(R eorder (will not trigger notification to Pharmacy)) sildenafil (Viagra) 50 MG tabletIndication s:Erectile dysfunction, unspecified erectile dysfunction type Take 1 tablet (50 mg) by mouth if needed each day for erectile dysfunction. 5 tablet 024 2024 Discontinued(M ed list cleanup (will not trigger notification to Pharmacy)) TRUEplus Lancets 33G miscIndications: Type 2 diabetes mellitus with hyperlipidemia (HCC) TEST BLOOD SUGAR 6 TIMES PER DAY 200 each 11 2024 Discontinued(R eorder (will not trigger notification to Pharmacy)) glucose blood (FREESTYLE LITE) test stripIndications :Type 2 diabetes mellitus with hyperlipidemia (HCC) TEST BLOOD SUGAR 6 TIMES PER DAY 200 strip 11 06/13/20 25 1:22 PM EST 2024 Discontinued(R eorder (will not trigger notification to Pharmacy)) ibuprofen 400 MG tabletIndication s:Abscess of chest wall Take 1 tablet (400 mg) by mouth every 6 (six) hours if needed for moderate pain or fever for up to 30 doses. 30 tablet 2024 Discontinued(D ose adjustment) Lantus SoloStar 100 UNIT/ML penIndications:T ype 2 diabetes mellitus with hyperlipidemia (HCC) INJECT 22 UNITS SUBCUTANEOUSLY AT BEDTIME 15 mL 2024 Discontinued(R eorder (will not trigger notification to Pharmacy)) OLANZapine (ZyPREXA) 15 MG tabletIndication s:Bipolar affective disorder, remission status unspecified (CMS/HCC) (HCC) TAKE 1 TABLET BY MOUTH AT BEDTIME 30 tablet 06/13/20 1:17 PM EST 2024 Discontinued doxycycline (Vibra-Tabs) 100 MG tablet Take 1 tablet (100 mg) by mouth 2 times daily for 10 days. Take with a full glass of water and do not lie down for at least 30 minutes after. 20 tablet 06/14/20 12:47 PM EST 025 2024 Discontinued(R eorder (will not trigger notification to Pharmacy)) Blood Glucose Monitoring Suppl (FreeStyle English Lite) w/Device kitIndications:C ellulitis of head or scalp USE DIRECTED TO TEST BLOOD SUGAR 1 kit 2024 Discontinued(R eorder (will not trigger notification to Pharmacy)) doxycycline (Vibra-Tabs) 100 MG tablet Take 1 tablet (100 mg) by mouth 2 times daily for 10 days. Take with a full glass of water and do not lie down for at least 30 minutes after. 20 tablet 025 2024 ibuprofen 600 MG tablet Take 1 tablet (600 mg) by mouth every 6 (six) hours if needed for mild pain. 40 tablet 1 025 2024 Discontinued Active Problems Problem Noted Date Diagnosed Date Gynecomastia, male 06/20/2025 Assessment & Plan (06/20/2025 1:01 PM EST): I discussed with patient that it is probably related to chronic THC and opiate use, unclear if he has hep C, will need to get tested again by PCP, he was recently tested 3 months ago one admission to residential program. Will order mammogram as patient is concerned about potential for malignancy. Anxiety 06/05/2023 Assessment & Plan (06/06/2023 4:56 PM EST): Patient with symptoms of depression, anxiety and currently going through a lot of stress. Reason for visit was to assess symptoms, provide intervention/support and offer referrals. Severe depression, lack of network and not being able to see his mom are exacerbating symptoms. Provided psychoeducation around depression/anxiety and the importance of incorporating coping skills to decrease symptoms. John agreed to do in-person appointment at [facility] for psychiatry; provided [facility] information. Recommended follow-up BE to assess symptoms and referral for OP individual therapy. At this time John Spivey meets criteria for Visit Diagnoses: Problem List Items Addressed This Visit Other Anxiety Patient on methadone maintenance therapy ([facility]) Major depression Patient ready to address current needs Yes Strengths include awareness of the problem and readiness to take actions PLAN: 1. Follow up with [facility]: Recommended for follow-up: as needed and requested by patient 2. Patient goal is to be connected with services and maintain an stable mental health 3. Behavioral Recommendations a. [facility] appointment with psychiatry b. Referral for OP individual therapy c. Incorporate coping skills into daily routine Major depression 06/05/2023 Assessment & Plan (06/20/2025 4:25 PM EST): Patient is to be referred to for further management and referral to psychiatrist. Patient feels safe at home and is able to reach out for safety, [facility] to do pharmaco education, he has follow-up with PCP in 2 weeks. I spoke with [facility] and they will call patient to do med reconciliation prior to PCP appointment. We discussed about the importance of staying on methadone program. I will order med reconciliation with pharmacy prior to PCP appointment, he needs to continue with same medication for now, he does not have SI/HI. Assessment & Plan (06/06/2023 4:57 PM EST): Patient with symptoms of depression, anxiety and currently going through a lot of stress. Reason for visit was to assess symptoms, provide intervention/support and offer referrals. Severe depression, lack of network and not being able to see his mom are exacerbating symptoms. Provided psychoeducation around depression/anxiety and the importance of incorporating coping skills to decrease symptoms. John agreed to do in-person appointment at [facility] for psychiatry; provided [facility] information. Recommended follow-up BE to assess symptoms and referral for OP individual therapy. At this time John Spivey meets criteria for Visit Diagnoses: Problem List Items Addressed This Visit Other Anxiety Patient on methadone maintenance therapy ([facility]) Major depression Patient ready to address current needs Yes Strengths include awareness of the problem and readiness to take actions PLAN: 1. Follow up with [facility]: Recommended for follow-up: as needed and requested by patient 2. Patient goal is to be connected with services and maintain an stable mental health 3. Behavioral Recommendations a. [facility] appointment with psychiatry b. Referral for OP individual therapy c. Incorporate coping skills into daily routine Type 2 diabetes mellitus with hyperlipidemia Assessment & Plan (06/20/2025 1:00 PM EST): Assessment fairly controlled, A1c not at goal yet. He will continue same medications administered by [facility], will obtain medication list and PCP to follow-up with him at upcoming appointment. New prescription for glucometer sent to pharmacy. Tobacco dependence 03/04/2023 Patient on methadone maintenance therapy 023 Assessment & Plan (06/06/2023 4:56 PM EST): Patient with symptoms of depression, anxiety and currently going through a lot of stress. Reason for visit was to assess symptoms, provide intervention/support and offer referrals. Severe depression, lack of network and not being able to see his mom are exacerbating symptoms. Provided psychoeducation around depression/anxiety and the importance of incorporating coping skills to decrease symptoms. John agreed to do in-person appointment at [facility] for psychiatry; provided [facility] information. Recommended follow-up BE to assess symptoms and referral for OP individual therapy. At this time John Spivey meets criteria for Visit Diagnoses: Problem List Items Addressed This Visit Other Anxiety Patient on methadone maintenance therapy ([facility]) Major depression Patient ready to address current needs Yes Strengths include awareness of the problem and readiness to take actions PLAN: 1. Follow up with [facility]: Recommended for follow-up: as needed and requested by patient 2. Patient goal is to be connected with services and maintain an stable mental health 3. Behavioral Recommendations a. [facility] appointment with psychiatry b. Referral for OP individual therapy c. Incorporate coping skills into daily routine Erectile dysfunction 03/04/2023 Right-sided congestive heart failure 07/16/2022 Seasonal allergies 01/05/2018 Mood disorder 09/29/2017 Polysubstance dependence ([facility]) 09/29/2017 Diabetic retinopathy associa debbie with type 2 diabetes mellitus 02/05/2016 Essential hypertension 02/05/2016 Hyperlipidemia 02/05/2016 Encounters * This document contains information received from the source organization and may not represent a complete record from that organization. Date Type Department Care Team Description 07/06/2025 Refill [facility] [address] [place], [place] [phone] Sujatha Dawn ANP Bipolar affective disorder, remission status unspecified ([facility]) ([facility]) 07/05/2025 Telephone [facility]OMET[facility] [address] [place], [place] [phone] Renu Lopez OD 07/04/2025 Telephone [facility] [address] [place] [address] Franchesca Coe MD 07/04/2025 Refill [facility] [address] [place] [address] Sujatha Dawn ANP Healthcare maintenance 07/01/2025 Telephone [facility] [address] [place] [address] Mateo Rushing MD Care Coordination 07/01/2025 Patient Outreach [facility] [address] [place] [phone] Sujatha Dawn ANP Pre-visit Planning (Pre-visit planning - not available ) 06/30/2025 3:40 PM EST Office Visit [facility] [address] [place] [phone] Martha Arambula DO 06/30/2025 Travel 06/29/2025 Travel 06/28/2025 9:20 AM EST Office Visit [facility] [address] [phone] Mateo Rushing MD Gynecomastia, male (Primary Dx) 06/28/2025 Travel 06/21/2025 Refill [facility] [address] [place] [phone] Sujatha Dawn ANP Constipation, unspecified constipation type 06/20/2025 10:00 AM EST Office Visit [facility] [address] [phone] Franchesca Coe MD Severe episode of recurrent major depressive disorder, without psychotic features (CMS/HCC) (HCC) (Primary Dx); Gynecomastia, male; Type 2 diabetes mellitus with hyperlipidemia (HCC); Encounter for immunization; Cellulitis of head or scalp 06/20/2025 Patient Outreach [facility] [address] [place] [phone] Sujatha Dawn ANP Transition Of Care (Tcm) (HDF- unscheduled Numbers not in service) 06/20/[address] [address] Valerie Magallanes, Ruthie 06/20/2025 Travel 06/15/[address] [address] Sujatha Dawn ANP Medication Question 06/14/2025 11:30 AM EST Office Visit [address] [address] Bud Vasquez MD Cellulitis of head or scalp (Primary Dx) 06/14/2025 Travel 06/09/[address] [address] Sujatha Dawn ANP chart prep 05/02/2025 Refill [facility] [address] [place] [phone] Sujatha Dawn ANP 04/28/2025 Refill [facility] [address] [place] [address] Sujatha Dawn ANP Bipolar affective disorder, remission status unspecified (CMS/HCC) (HCC); Healthcare maintenance; Heartburn 04/28/2025 Refill [facility] [address] [place] [address] Laney Gutierrez MD Heartburn 04/22/2025 Refill [facility] [address] [place] [address] Laney Gutierrez MD Mild persistent asthma without complication; Type 2 diabetes mellitus with hyperglycemia, with long-term current use of insulin ([facility]) from Last 3 Months Immunizations Immunization Administration Dates Next Due Hep A, Adult 09/15/2015,06/22/2013,04/25/2008 Hep B, adult 09/29/2020, 8,09/15/2007,03/26 Influenza Injectable Quadriv alant Preservative Free IIV4 MDCK 09/26/2021 Influenza injectable quadriv alent preservative free 04/19/2019,05/20/2018,05/21/2017,08/12 Influenza, IIV3, injectable 04/25/2011 Influenza, Split (incl. ave fied surface antigen) 04/08/2013,08/04/2012 Influenza, seasonal, injecta ble, preservative free 06/20/2025 Jessenia SARS-CoV-2 Vaccination 10/25/2020 Moderna Covid-19 Vaccine 6+ Bivalent 09/30/2022 Pfizer Covid-19 Vaccine 12+ 09/26/2021 Pfizer Covid-19 Vaccine 12+ nciky-sucrose (Pate Cap) 03/13/2022,09/26/2021 Pneumococcal Polysaccharide PPSV23 09/15/2015,,07/04/2004 Rabies, IM Diploid Cell Culture 12/19/2023,12/15,12/12/2023 TD (adult), 2 Lf tetanus tox oid, preservative free, adsorbed 05/17/2018,07/23/1999 Td (adult), 5 Lf tetanus tox oid, preservative free, adsorbed 05/18/2004 Tdap 12/12/2023, 7,04/24/2007,05/18 Zoster, Recombinant 04/02/2022,01/29/2022,2021 Family History Medical History Relation Name Comments Mental illness Father Asthma Mother Diabetes Mother Hypertension Mother Mental illness Mother Asthma Sister Gout Sister Hypertension Sister Thyroid disease Sister Relation Name Status Comments Father Mother Sister Social History Tobacco Use Types Packs/Day Years Used Date Smoking Tobacco: Every Day Cigarettes Passive Smoke Exposure: Current Smokeless Tobacco: Never Tobacco Cessation:Ready to Q uit: Not Asked; Counseling Given: Not Answered Alcohol Use Standard Drinks/Week Comments Not Currently [...] not to disclose 2021 10:14 AM EDT Last Filed Vital Signs Vital Sign Reading Time Taken Comments Blood Pressure 135/75 06/30/2025 3:25 PM EST Pulse 83 06/30/2025 3:25 PM EST Temperature 36.6 C (97.8 F) 06/30/2025 3:25 PM EST Respiratory Rate 16 06/30/2025 3:25 PM EST Oxygen Saturation 100% 06/30/2025 3:25 PM EST Inhaled Oxygen Concentration - - Weight 68.9 kg (152 lb) 06/30/2025 3:25 PM EST Height 165.1 cm (5' 5 ) 06/30/2025 3:25 PM EST Body Mass Index 25.29 06/30/2025 3:25 PM EST Plan of Treatment Upcoming Encounters Date Type Department Care Team (Late st Contact Info) Description 07/11/2025 2:30 PM EST Office Visit [facility] [address] [place], [place] [phone] Sujatha Dawn ANP [address] [place], [place] [phone] Health Maintenance Due Date Last Done Comments CT Colonography 1970 Colonoscopy 1970 Colorectal Cancer Screening 1970 Dental Oral Exam 1970 Dental Prophylaxis 1970 Dental X-Ray: Bitewings 1970 Dental X-Ray: Full Mouth 1970 FIT DNA/Cologuard 1970 FIT 1970 FOBT 1970 Sigmoidoscopy 1970 Disability Screening 1970 Diabetes: Foot Exam 1980 Alcohol/Substance Use Screening 1982 Pneumococcal Vaccine: 50+ Years (2 of 2 - PCV) 09/15/2016 09/15/2015, 05/11/2009, 07/04/2004 RSV Patients and Patients Aged 60 years or older (1 - Risk 50-74 years 1-dose series) 2020 Diabetes: Urine Protein Screening 10/30/2022 10/30/2021 Lipid Panel 10/30/2022 10/30/2021, 09/21/2020 SDOH Screening 11/15/2023 11/14/2022 Eye Exam 11/26/2023 2022, 050 02/2023, 2022, Additional history exists Depression Monitoring 12/04/2023 06/05/2023, 023 COVID-19 Vaccine ( season) 2025 09/30/2022, 03/13/2022, 09/26/2021, Additional history exists Diabetes: Hemoglobin A1C 09/18/2025 025, 03/11/2024, 09/05/2023, Additional history exists Tobacco Screening 06/30/2026 06/30/2025 DTaP/Tdap/Td Vaccines (7 - Td or Tdap) 12/11/2033 12/12/2023, 05/17/2018, 08/12/2016, Additional history exists Hepatitis A Vaccines Completed 09/15/2015, 06/22/2013, 04/25/2008 Hepatitis B Vaccines Completed 09/29/2020, 04/25/2008, 09/15/2007, Additional history exists Zoster Vaccines Completed 04/02/2022, 01/18, 10/30/2021 HIV Screening Completed 07/30/2022, 070 07/2021, 01/08/2022, Additional history exists Hepatitis C Screening Completed 07/30/2022 , 01/18/2022, 10/30/2021, Additional history exists Influenza Vaccine Completed 06/20/2025, , 04/19/2019, Additional history exists HIB Vaccines Aged Out No longer eligi [...] patient's age to complete this topic Meningococcal Vaccine Aged Out No yuli germán eligible based on patient's age to complete this topic RSV under 20 months Aged Out No longe r eligible based on patient's age to complete this topic Rotavirus Vaccines Aged Out No longer eligible based on patient's age to complete this topic Goals Goal Patient Goal Type Associated Problems [...] Plan Patient has diabetic eye disease No Nazario Shu Patient has diabetic eye disease Care Plan Patient has diabetic eye disease No Nazario Shu Patient has chronic kidney disease Care Plan Patient has chronic kidney disease No Nazario Shu Patient has chronic kidney disease Care Plan Patient has chronic kidney disease No Nazario Shu Patient has chronic kidney disease Care Plan Patient has chronic kidney disease No Nazario Shu Weekly blood pressure task Care Plan Weekly blood pressure task No Chow, [place], [place] Weekly blood pressure task Care Plan Weekly blood pressure task No Chow, [place], [place] Weekly blood pressure task Care Plan Weekly blood pressure task No Chow, [place], [place] Patient has diabetic eye disease Care Plan Patient has diabetic eye disease No Chow, [place], [place] Patient has diabetic eye disease Care Plan Patient has diabetic eye disease No Chow, [place], [place] Patient has diabetic eye disease Care Plan Patient has diabetic eye disease No Chow, [place], [place] Patient has chronic kidney disease Care Plan Patient has chronic kidney disease No Chow, [place], [place] Patient has chronic kidney disease Care Plan Patient has chronic kidney disease No Chow, [place], [place] Patient has chronic kidney disease Care Plan Patient has chronic kidney disease No Chow, [place], [place] Weekly blood pressure task Care Plan [...] disease No Elpidio, Valerie, PharmD Patient has chronic kidney disease Care Plan Patient has chronic kidney disease No Elpidio, Valerie, PharmD Patient has chronic kidney disease Care Plan Patient has chronic kidney disease No Elpidio, Valerie, PharmD Patient has chronic kidney disease Care Plan Patient has chronic kidney disease No Elpidio, Valerie, PharmD Weekly blood pressure task Care Plan Weekly blood pressure task No Chawla, Lorenys Weekly blood pressure task Care Plan Weekly blood pressure task No Chawla, Lorenys Weekly blood pressure task Care Plan Weekly blood pressure task No Chawla, Lorenys Patient has diabetic eye disease Care Plan Patient has diabetic eye disease No Chawla, Franciaenys Patient has diabetic eye disease Care Plan Patient has diabetic eye disease No Chawla, Franciaenys Patient has diabetic eye disease Care Plan [...] Care Plan Weekly blood pressure task No Elpidio, Valerie, PharmD Weekly blood pressure task Care [...] chronic kidney disease No Elpidio Valerie, PharmD Weekly blood pressure [...] Weekly blood pressure task No Lidia Spence [place] Patient has diabetic eye disease Care Plan Patient has diabetic eye disease No Lidia Spence [place] Patient has diabetic eye disease Care Plan Patient has diabetic eye disease No Lidia Spence NE Patient has diabetic eye disease Care Plan Patient has diabetic eye disease No Lidia Spence NE Patient has chronic kidney disease Care Plan Patient has chronic kidney disease No Lidia Spence [place] Patient has chronic kidney disease Care Plan Patient has chronic kidney disease No Lidia Spence NE Patient has chronic kidney disease Care Plan Patient has chronic kidney disease No Lidia Spence NE Weekly blood pressure task Care Plan Weekly [...] has chronic kidney disease No Pratt Zorylee Weekly blood pressure task [...] Care Plan Weekly blood pressure task No Vazquezortrakesh, Providencia Weekly blood pressure task Care Plan [...] Plan Patient has chronic kidney disease No Vajoertiz, Providencia Patient has chronic kidney disease Care Plan Patient has chronic kidney disease No Vajoertiz, Providencia Patient has chronic kidney disease Care Plan Patient has chronic kidney disease No Vajoertiz, Providencia Weekly blood pressure task Care Plan Weekly blood pressure task No TolHarinder bouchera Weekly blood pressure task Care Plan Weekly blood pressure task No TolHarinder bouchera Weekly blood pressure task Care Plan Weekly blood pressure task No Tolchin Rhonda Patient has diabetic eye disease Care Plan Patient has diabetic eye disease No Tolchin, Rhonda Patient has diabetic eye disease Care Plan Patient has diabetic eye disease No Tolchin Rhonda Patient has diabetic eye disease Care Plan Patient has diabetic eye disease No Tolchin Rhonda Patient has chronic kidney disease Care Plan Patient has chronic kidney disease No Tolchin Rhonda Patient has chronic kidney disease Care Plan Patient has chronic kidney disease No TolHarinder bouchera Patient has chronic kidney disease Care Plan Patient has chronic kidney disease No Harinder Sotomayora Weekly blood pressure task Care Plan Weekly blood pressure task No SotoTrudy montanezica Weekly blood pressure task Care Plan Weekly blood pressure task No Soto Alice Weekly blood pressure task Care Plan Weekly blood pressure task No Soto Alice Patient has diabetic eye disease Care Plan Patient has diabetic eye disease No Soto Alice Patient has diabetic eye disease Care Plan Patient has diabetic eye disease No Soto Laice Patient has diabetic eye disease Care Plan Patient has diabetic eye disease No Soto Alice Patient has chronic kidney disease Care Plan Patient has chronic kidney disease No Soto Alice Patient has chronic kidney disease Care Plan Patient has chronic kidney disease No Soto Alice Patient has chronic kidney disease Care Plan Patient has chronic kidney disease No Soto Alice Procedures Procedure Name Priority Date/Time Associated Diagnosis Comments POCT GLYCATED HEMOGLOBIN, TOTAL Routine 06/20/2025 10:38 AM EST Type 2 diabetes mellitus with hyperlipidemia (HCC) POCT GLUCOSE Routine 06/20/2025 10:37 AM EST Type 2 diabetes mellitus with hyperlipidemia (HCC) HEPATITIS C AB W/REFL TO HCV RNA, QN, PCR Routine 07/30/2022 2:31 PM EST Routine general medical examination at a health care facility HIV 1 RNA, QUANTITATIVE REAL TIME PCR Routine 07/30/2022 2:31 PM EST Routine general medical examination at a health care facility ALBUMIN, RANDOM URINE W/CREATININE Routine 10/30/2021 11:28 AM EDT LIPID PANEL, STANDARD Routine 10/30/2021 11:28 AM EDT from Last 3 Months or Most Recently Relevant to Health Maintenance Results * (ABNORMAL) POCT Hgb A1c (06/20/2025 10:38 AM EST) Hemoglobin A1C 7.4(A) 4.0 - 5.7 % QC Media Lot # [id number] Lot# Expiration Date Blood 06/20/2025 10:3 8 AM EST Franchesca Coe MD POINT OF CARE TEST ENTER /EDIT ORDERABLES Final Result * (ABNORMAL) POCT Glucose (06/20/2025 10:37 AM EST) Pathologist [facility] Glucose Blood, POC 392(A) 60 - 200 mg/dL QC Media Lot # [id number] Lot# Expiration Date Blood Capillary blood specimen / Unknown 06/20/2025 10:37 AM EST Franchesca Coe MD POINT OF CARE TEST ENTER /EDIT ORDERABLES Final Result * Hepatitis C Antibody with Reflex to HCV, RNA, Quantitative, Real-Time PCR (07/30/2022 2:31 PM EST) Hepatitis C Antibody NON-REACT RANDA NON-REACT RANDA [employer] [place] Index <0.02 <1.00 [facility] [place] Comment: HCV antibody was non-reactive. There is no laboratory evidence of HCV infection. In most cases, no further action is required. However, if recent HCV exposure is suspected, a test for HCV RNA (test code 67889) is suggested. For additional information please refer to http://education.[facility]/faq/HSY29g2 (This link is being provided for informational/ educational purposes only.) Blood Venous blood specimen / Unknown 07/30/2022 2:31 PM EST 07/30/2022 2:31 PM EST Narrative [facility] - 08/01/2022 2:58 PM EST FASTING:NO FASTING: NO [employer] LAB BLOOD ORDERABLES Final Resul t Performing Organization Address City/[facility]/ZIP Co de Phone Number AIS [address] [place] [address], [facility] [place] [address] [employer] [facility], ([address]) [place] [address] * HIV-1 RNA, Quantitative, Real-Time PCR (07/30/2022 2:31 PM EST) Pathologist [facility] HIV 1 RNA, QN PCR NOT DETECTED NOT DETECTED copies/mL [employer] [place] HIV 1 RNA, QN PCR NOT DETECTED NOT DETECTED Log copies/mL [employer] [facility] [place] [facility] Comment: This test was performed using Real-Time Polymerase Chain Reaction. Reportable Range: 20 copies/mL to 10,000,000 copies/mL (1.30 log copies/mL to 7.00 log copies/mL). Blood Venous blood specimen / Unknown 07/30/2022 2:31 PM EST 07/30/2022 2:31 PM EST Narrative [facility] - 08/01/2022 2:58 PM EST FASTING:NO FASTING: NO [employer] LAB BLOOD ORDERABLES Final Resul t Performing Organization Address [facility]/ZIP Co de Phone Number [address], [place] [address] [employer] [place] [facility] [address] [place] [address], ([address]) [place] [address] * (ABNORMAL) ALBUMIN, RANDOM URINE W/CREATININE (10/30/2021 11:28 AM EDT) Microalbumin Urine 48.6 See Note: mg/dL [facility] Comment: Reference Range: Reference Range Not established Verified by repeat analysis. Microalb/Creat Ratio 615(H) <30 mcg/mg creat [facility] Comment: The ADA defines abnormalities in albumin excretion as follows: Albuminuria Category Result (mcg/mg creatinine) Normal to Mildly increased <30 Moderately increased 30-299 Severely increased > OR = 300 The ADA recommends that at least two of three specimens collected within a 3-6 month period be abnormal before considering a patient to be within a diagnostic category. Creatinine, Urine 79 20 - 320 mg/dL [facility] 10/30/2021 11:2 8 AM EDT us Alice Bingham NP LAB URINE ORDERABLES Final Resu lt [facility] [address] * LIPID PANEL, STANDARD (10/30/2021 11:28 AM EDT) Pathologist [facility] Chol/HDLC Ratio 2.4 <5.0 (calc) [facility] Cholesterol, Total 131 <200 mg/dL [facility] HDL Cholesterol 54 > OR = 40 mg/dL [facility] LDL Cholesterol 60 mg/dL (calc) [facility] Comment: Reference range: <100 Desirable range <100 mg/dL for primary prevention; <70 mg/dL for patients with CHD or diabetic patients with > or = 2 CHD risk factors. LDL-C is now calculated using the Nithin-Richard calculation, which is a validated novel method providing better accuracy than the Friedewald equation in the estimation of LDL-C. Nithin MCDONOUGH et al. EDWINA. 2013;310(19): 1977-2152 (http://education.[employer].com/faq/WPV405) Non-HDL Cholesterol 77 <130 mg/dL (calc) [facility] Comment: For patients with diabetes plus 1 major ASCVD risk factor, treating to a non-HDL-C goal of <100 mg/dL (LDL-C of <70 mg/dL) is considered a therapeutic option. Triglycerides 89 <150 mg/dL [facility] 10/30/2021 11:2 8 AM EDT us lAice Bingham NP LAB BLOOD ORDERABLES Final Resu lt [facility] [address] [place] [address], from Last 3 Months or Most Recently Relevant to Health Maintenance Additional Health Concerns Active Problems Noted Date [...] 07/05/2025 Patient has chronic kidney disease 07/05/2025 Insurance [facility] [address] [place] [address] Care Teams Occupational Therapist Per Diem Relationship Specialty Start Date End Date Sujatha Dawn ANP [address] [place] [id number] PCP - General Family Medicine 03/12/22
--- OUTSIDE RECORDS SUMMARY | 2025-07-08 08:24 | XMS_ITS | Encounter Summary ---
Author Organization [employer] Address [address] [place] [address] [address] [place] [address] Care Team Providers Care Medication Manager Name Role Phone Sujatha Dawn Primary Care Provider [phone] Reason for Visit * Reason Comments Med Refill Encounter Details Date Type Department Care Team ([facility] st Contact Info) Description 06/21/2025 Refill [facility] [address] [place] [address] Sujatha Dawn ANP [address] [place] [address] Constipation, unspecified constipation type Social History Tobacco Use Types Packs/Day Years [...] Description 07/11/2025 2:30 PM EST Office Visit [facility] [address] [place] [address] Sujatha Dawn ANP [address] [place] [address] documented as of this encounter Goals Goal [...] task Care Plan Weekly blood pressure task Sergio Molina [place] Patient has diabetic eye disease Care [...] Weekly blood pressure task No Vic Nazario MD Patient has diabetic eye disease Care Plan Patient has diabetic eye disease No Vic Nazario [place] Patient has diabetic eye disease Care Plan Patient has diabetic eye disease No Vic Nazario MD Patient has diabetic eye disease Care Plan Patient has diabetic eye disease No Vic Nazario MD Patient has chronic kidney disease Care [...] has diabetic eye disease No Roxana Chow MD Patient has diabetic eye disease Care [...] has chronic kidney disease No Chawla, Lorenys documented as of this encounter Visit Diagnoses Diagnosis Constipation, unspecified constipation type documented in this encounter Additional Health Concerns [...] 06/20/2025 Patient has chronic kidney disease 06/20/2025 Assessment Noted Time PHQ-9 Depression Total Score: 18 023 11:51 AM EST documented as of this encounter Care Teams Medication Manager Relationship Specialty Start Date End Date Sujatha Dawn ANP [address] [place] [address] PCP - General Family Medicine 03/12/22 documented as of this encounter
--- OUTSIDE RECORDS SUMMARY | 2025-07-08 08:24 | XMS_ITS | Encounter Summary ---
Author Organization [employer] Address [address] [place] [address] [address] [place] [address] Care Team Providers Care Surveying Crew Stake Runner Name Role Phone Sujatha Dawn Primary Care Provider [phone] Reason for Referral * Imaging (Routine) - Authorized Specialty Diagnoses / Procedures Referred By Yarelis vasquez Referred To Contact Radiology Diagnoses Gynecomastia, male Procedures BI US Breast Limited Bilateral Karlene Fuller MD [address] [place] [address] Phone: tel: fax: [address] [address] Phone: tel: fax: Referral ID Status Reason Start Date Expiration Date V isits Requested Visits Authorized [id number] Authorized 07/05/2025 07/05/2026 1 1 Encounter Details Date Type Department Care Team ([facility] Contact Info) Description 07/04/2025 Telephone [facility] [address] [place], [place] [phone] Karlene Fuller MD [address] [place], [place] [phone] Social History Tobacco Use Types Packs/Day Years [...] as of this encounter Miscellaneous Notes * Addendum Note - Karlene Fuller MD - 07/05/2025 2:44 PM ESTAddended by: KARLENE FULLER on: 07/05/2025 02:44 PM Modules accepted: Orders * Telephone Encounter - Brayan Glaser - 07/04/2025 11:09 AM EST [facility] [place] Breast Limited order correlating to the breast displaying symptoms, if its both please send bilateral Limited Us . Please advise! documented in this encounter Plan of Treatment Upcoming Encounters Date Type Department Care Team (Late st Contact Info) Description 07/11/2025 2:30 PM EST Office Visit [facility] [address] [place] [address] Sujatha Dawn ANP [address] [place] [address] Scheduled Orders Name Type Priority Associated Diagnoses Orde r Schedule BI US Breast Limited Bilateral Imaging Routine Gynecomastia, male Expected: 07/05/2025 (Approximate), Expires: 09/05/2026 documented as of this encounter Goals Goal [...] Plan Patient has diabetic eye disease No Serigo Rizzo [place] Patient has diabetic eye disease [...] has chronic kidney disease No Vic Nazario [place] Patient has chronic kidney disease Care Plan [...] Weekly blood pressure task No Roxana Chow [place] Weekly blood pressure task Care Plan Weekly blood pressure task No Roxana Chow [place] Patient has diabetic eye disease Care Plan Patient has diabetic eye disease No Roxana Chow [place] Patient has diabetic eye disease Care Plan Patient has diabetic eye disease No ChowRoxana [place] Patient has diabetic eye disease Care Plan Patient has diabetic eye disease No ChowRoxana [place] Patient has chronic kidney disease Care Plan Patient has chronic kidney disease No ChowRoxana [place] Patient has chronic kidney disease Care Plan Patient has chronic kidney disease No ChowRoxana [place] Patient has chronic kidney disease Care Plan Patient has chronic kidney disease No Roxana Chow [place] Weekly blood pressure task Care Plan Weekly blood pressure task No Valerie Magallanes, PharmD Weekly blood pressure task Care Plan Weekly blood pressure task No Valerie Magallanes, PharmD Weekly blood pressure task Care Plan Weekly blood pressure task No Elpidio, Valerie, PharmD Patient has diabetic [...] Plan Weekly blood pressure task No Pratt, Deeptirylee Weekly blood pressure task [...] Plan Patient has diabetic eye disease No Maeto Rushing MD Patient has diabetic eye disease [...] Plan Patient has diabetic eye disease No TolHarinder bouchera Patient has diabetic eye disease Care Plan Patient has diabetic eye disease No TolHarinder bouchera Patient has diabetic eye disease Care Plan Patient has diabetic eye disease No Harinder Sotomayora Patient has chronic kidney disease Care Plan [...] Care Plan Weekly blood pressure task No SotoAlice montanez Weekly blood pressure task Care Plan Weekly blood pressure task No SotoAlice montanez Patient has diabetic eye disease Care Plan Patient has diabetic eye disease No Alice Soto Patient has diabetic eye disease Care Plan Patient has diabetic eye disease No Alice Soto Patient has diabetic eye disease Care Plan Patient has diabetic eye disease No Brittany Alice Patient has chronic kidney disease Care Plan Patient has chronic kidney disease No Soto, Alice Patient has chronic kidney disease Care Plan Patient has chronic kidney disease No Soto, Alice Patient has chronic kidney disease Care Plan Patient has chronic kidney disease No Brittany Alice documented as of this encounter Visit Diagnoses Diagnosis Gynecomastia, male- Primary Hypertrophy of breast documented in this encounter Additional Health Concerns [...] documented as of this encounter Care Teams Surveying Crew Stake Runner Relationship Specialty Start Date End Date Sujatha Dawn ANP [address] [place] [phone] PCP - General Family Medicine 03/12/22 documented as of this encounter
[2025-07-08 12:47] LABS: MANUAL DIFF FLAG NO
[2025-07-08 12:51] LABS: Hematocrit 32.4 % (42.0-52.0); Hemoglobin 11.0 g/dl (14.0-18.0); Imm Gran Abs Auto 0.01 X10*3/uL (0.00-0.03); Imm Gran Pct Auto 0.1 % (0.0-0.4); Lymphocytes Absolute Auto 2.5 X10*3/uL (1.2-4.9); Mean Corpuscular HGB Conc 34.0 g/dl (31.0-36.0); Mean Corpuscular Hemoglobin 31.3 pg (27.0-33.0); Mean Corpuscular Volume 92.3 fL (80.0-98.0); NRBC Abs Auto 0.000 X10*3/uL (0.0-0.012); NRBC Pct Auto 0.0 /100WBC (0.0-0.2); Platelet Count 186 X10*3/uL (160-400); Red Blood Count 3.51 X10*6/uL (4.60-5.80); White Blood Count 7.1 X10*3/uL (4.8-10.8)
[2025-07-08 13:30] LABS: Alanine Aminotransferase 12 U/L (0-40); Albumin Level 4.3 g/dL (3.5-5.0); Alkaline Phosphatase 71 U/L (39-117); Anion Gap 11 (12-20); Aspartate Amino Transferase 15 U/L (5-37); Blood Urea Nitrogen 33 mg/dL (9-16); Calcium 9.3 mg/dL (8.4-10.2); Carbon Dioxide 28 mmol/L (22-29); Chloride 104 mmol/L (96-108); Estimated Glomerular Filt Rate 47; Potassium 4.7 mmol/L (3.3-5.1); Sodium 138 mmol/L (135-145); Total Protein 6.9 g/dL (6.5-8.0)
== END 2025-07-08 08:19 | disposition home or self-care (01) ==
LOC: HO.HHCL 08:18
PROVIDERS: Family Medicine; PCP Emergency Medicine; Visit Provider Emergency Medicine
DX: N62 Hypertrophy of breast (principal); Z13.29 Encounter for screening for other suspected endocrine disorder
CPT/HCPCS: 36415; 80053; 82670; 83002; 84146; 84402; 84403; 84443; 84702; 85025